=== PATIENT | female | born 1950 | race Caucasian/White ===

== ENCOUNTER 2017-06-12 19:47 | Inpatient (IN) | payer MEDICARE ==
[~2017-06-12] VITALS: Ht 167.6 cm; Wt 75.3 kg
[2017-06-12] MEDS: SODIUM CHLOR 0.9% 1000 ML INJ 1,000 ML IV SCH (01:05)
[~2017-06-12 19:47] MED LIST: ATOR80TA45 PO; CIPR-9 PO; ERGO1CAP10 PO; FOLI1TAB4 PO; MACR100C2 PO; METF500T PO; METO1TAB9 PO; PRAD150C PO; VESI5TAB2 PO
[2017-06-12 19:56] VITALS: BP 109/76; PULSE 125; RESP 22
--- NOTE | 2017-06-12 20:35 | PD ---
HPI Chief Complaint: Fall Time Seen by Provider: 20:16 Travel History International Travel<30 days: No Contact w/Intl Traveler<30days: No Traveled to known affect area: No History of Present Illness HPI The patient is a 66 year old female who presents to the [facility] emergency department with a history of being brought in as a [place] act by ambulance services when the patient was found in her home on the floor prior to arrival. The patient reports that she's been on the ground since Sunday. She is unsure exactly how she ended up on the ground. The patient reports having low back pain worse on the left compared to the right. The patient was brought in under a [place] act due to being found unable to care for herself with a home that was in disrepair. The patient reports that she's had diarrhea for the last 2 days. She is unsure exactly how many episodes of diarrhea she has had. She denies having any nausea or vomiting. She reports that she did have a soda on a table next to her. She reports that she was not able to sit up to drink it , therefore she has been pouring small amounts into her mouth to sustain herself. She denies having any chest pain, chest pressure, or shortness of breath. She denies having any one-sided weakness. She denies having any difficulty with word finding ability. The patient arrives awake and alert and is providing all of her history. The patient is disheveled appearing, with a dry mouth, covered in feces. The patient reports having neck pain. She denies having any paresthesias or tingling to her extremities. On review of systems, she denies having any known fevers, recent cough or congestion, abdominal pain, urinary symptoms, or other neurologic symptoms. [facility] Past Medical History Narrative Medical the patient's past medical history is significant for a prior stroke in March 2016 that caused aphasia. She reports that she completely recovered. The patient has a history of coronary artery disease status post stent placement. Heart Rhythm Problems: No Cancer: No Cardiovascular Problems: Yes (HEART LOOP MONITOR LEFT CHEST) High Cholesterol: No Chest Pain: No Congestive Heart Failure: No Cerebrovascular Accident: Yes Diabetes: No Diminished Hearing: No Endocrine: No GERD: No Genitourinary: Yes (HX UTI'S ) Hepatitis: No Hiatal Hernia: No Hypertension: Yes Immune Disorder: No Kidney Stones: Yes Musculoskeletal: No Neurologic: Yes (HX CVA 2015) Psychiatric: No Reproductive: No Respiratory: No Immunizations Current: Yes Migraines: No Renal Failure: No Seizures: No Thyroid Disease: No Ulcer: No ?: Not Menopausal: Yes Past Surgical History Abdominal Surgery: Yes (lipoma removed from left side of body 1982) AICD: No Body Medical Devices: IUD, HEART LOOP MONITOR Cardiac Surgery: Yes (HEART LOOP MONITOR TO LEFT CHEST) Ear Surgery: No Endocrine Surgery: No Eye Surgery: No Genitourinary Surgery: Yes (LEFT URETERAL STENT--REMOVED; KIDNEY STONE SURGERIES ) Gynecologic Surgery: No Joint Replacement: No Oral Surgery: No Pacemaker: No Thoracic Surgery: No Other Surgery: Yes Social History Alcohol Use: Yes (OCC) Tobacco Use: No Substance Use: No Allergies-Medications (Allergen,Severity, Reaction): Coded Allergies: sulfamethoxazole (Unverified Allergy, Severe, rash, 03/21/17) trimethoprim (Unverified Allergy, Severe, rash, 03/21/17) Reported Meds & Prescriptions Reported Meds & Active Scripts Active Macrobid (Nitrofurantoin Monoh/Nitrofur Macro) 100 Mg Cap 100 Mg PO BID Cipro (Ciprofloxacin HCl) 500 Mg Tab 500 Mg PO BID Metformin (Metformin HCl) 500 Mg Tab 500 Mg PO BIDPC With meals Atorvastatin (Atorvastatin Calcium) 80 Mg Tab 80 Mg PO HS Metoprolol Succinate ER 24 HR (Metoprolol Succinate) 50 Mg Tab 50 Mg PO DAILY Vitamin D (Ergocalciferol) 50,000 Unit Cap 50,000 Units PO Q7D Reported Vesicare (Solifenacin) 5 Mg Tab 5 Mg PO DAILY Folate (Folic Acid) 1 Mg Tab 1 Mg PO DAILY Pradaxa (Dabigatran) 150 Mg Cap 150 Mg PO BID Review of Systems Except as stated in HPI: all other systems reviewed are Neg General / Constitutional: No: Fever Eyes: No: Visual changes HENT: Positive: Neck Stiffness, Neck Pain, No: Headaches Cardiovascular: No: Chest Pain or Discomfort Respiratory: No: Shortness of Breath Gastrointestinal: Positive: Diarrhea, Changes in Bowel Habits, No: Nausea, Vomiting, Abdominal Pain, Hematemesis, Hematochezia, Constipation, Indigestion, Loss of Appetite Genitourinary: No: Dysuria Musculoskeletal: Positive: Myalgias, Arthralgias, Pain Skin: No Rash Neurologic: Positive: Weakness (generalized weakness), No: Focal Abnormalities , Change in Mentation, Slurred Speech, Sensory Disturbance Psychiatric: No: Depression Endocrine: No: Polydipsia Hematologic/Lymphatic: No: Easy Bruising Physical Exam Narrative General: The patient is a well-developed well-nourished female, uncomfortable appearing on arrival, an escape stretcher without a collar on.. Head and Neck exam: Head is normocephalic atraumatic. Eyes: EOMI, pupils are equal round and reactive to light. Nose: Midline septum with pink mucous membranes Mouth: Dentition unremarkable. Dry mucus membranes. Posterior oropharynx is not erythematous. No tonsillar hypertrophy. Uvula midline. Airway patent. Neck: No palpable lymphadenopathy. No nuchal rigidity. No thyromegaly. The patient reports having paraspinal muscles cervical tenderness on palpation. No step-off or crepitus. No erythema or ecchymosis. The patient was placed in a cervical collar. Cardiovascular: Sinus tachycardia with a rate in the 130s without murmurs, gallops, or rubs. No pulse deficit to the extremities and simultaneous auscultation and palpation of the radial artery. Lungs: Clear to auscultation bilaterally. No wheezes, rhonchi, or rales. Abdomen: Soft, with tenderness on palpation reported along the right upper quadrant of the abdomen, no other tenderness on palpation of the other quadrants of the abdomen. No guarding, rebound, or rigidity. Negative Juarez's sign. No tenderness on palpation of McBurney's point. Normal bowel sounds are audible. Extremities: No clubbing, cyanosis, or edema. 2+ pulses in all 4 extremities. No calf tenderness on palpation. No extremity tenderness on palpation or deformity noted. The patient has full range of motion. Back: No spinous process tenderness to palpation. No costovertebral angle tenderness to palpation. On logrolling the patient, the patient is noted to have an area of bruising and abrasion along the left flank. The patient is noted to have a large area of erythema along the buttocks and sacrum with a central area that is approximately 8 x 6 cm of skin necrosis with tenderness on palpation. Neurologic Exam: Cranial nerves 2-12 were intact on exam. Strength is 5/5 in all 4 extremities. No sensory deficits noted. Skin Exam: Skin is warm and dry. Data Data Last Documented VS Vital Signs Date Time Temp Pulse Resp B/P (MAP) Pulse Ox O2 Delivery O2 Flow Rate FiO2 06/12/17 20:37 97.5 06/12/17 20:10 95 Nasal Cannula 2.00 06/12/17 19:56 125 22 109/76 (87) Orders Orders Electrocardiogram (06/12/17 20:16) Complete Blood Count With Diff (06/12/17 20:16) Comprehensive Metabolic Panel (06/12/17 20:16) Creatine Kinase (Cpk) (06/12/17 20:16) Ckmb (Isoenzyme) Profile (06/12/17 20:16) Troponin I (06/12/17 20:16) B-Type Natriuretic Peptide (06/12/17 20:16) Prothrombin Time / Inr (Pt) (06/12/17 20:16) Act Partial Throm Time (Ptt) (06/12/17 20:16) Lipase (06/12/17 20:16) Urinalysis - C+S If Indicated (06/12/17 20:16) Magnesium (Mg) (06/12/17 20:16) Thyroid Stimulating Hormone (06/12/17 20:16) Chest, Single Ap (06/12/17 20:16) Ct Brain W/O Iv Contrast(Rout) (06/12/17 20:16) Pelvis, Ap Only (Routine) (06/12/17 20:16) Iv Access Insert/Monitor (06/12/17 20:16) Ecg Monitoring (06/12/17 20:16) Oximetry (06/12/17 20:16) Urinary Catheter Insert/Apply (06/12/17 20:16) Ct Cerv Spine W/O Contrast (06/12/17 20:16) Ct Thor Spine W/O Contrast (06/12/17 20:16) Ct Lumb Spine W/O Contrast (06/12/17 20:16) Sodium Chlor 0.9% 1000 Ml Inj (Ns 1000 M (06/12/17 20:45) Permethrin 1% Lotion (Nix Creme Rinse 1% (06/12/17 21:15) Urine Culture (06/12/17 20:25) Piperacil-Tazo 3.375 Gm Premix (Zosyn 3. (06/12/17 21:30) Vancomycin Inj (Vancomycin Inj) (06/12/17 21:30) CKMB (06/12/17 20:25) CKMB% (06/12/17 20:25) Sodium Chlor 0.9% 1000 Ml Inj (Ns 1000 M (06/12/17 21:45) Admit Order (Ed Use Only) (06/12/17 21:49) Ct Abd/Pel W/O Iv Contrast (06/12/17 20:16) Labs Laboratory Tests Test 06/12/17 20:25 White Blood Count 25.3 TH/MM3 Red Blood Count 4.69 MIL/MM3 Hemoglobin 10.4 GM/DL Hematocrit 33.2 % Mean Corpuscular Volume 70.8 FL Mean Corpuscular Hemoglobin 22.3 PG Mean Corpuscular Hemoglobin Concent 31.4 % Red Cell Distribution Width 20.3 % Platelet Count 19 TH/MM3 Mean Platelet Volume 12.0 FL Neutrophils (%) (Auto) 94.1 % Lymphocytes (%) (Auto) 2.9 % Monocytes (%) (Auto) 2.9 % Eosinophils (%) (Auto) 0.0 % Basophils (%) (Auto) 0.1 % Neutrophils # (Auto) 23.8 TH/MM3 Lymphocytes # (Auto) 0.7 TH/MM3 Monocytes # (Auto) 0.7 TH/MM3 Eosinophils # (Auto) 0.0 TH/MM3 Basophils # (Auto) 0.0 TH/MM3 CBC Comment AUTO DIFF Differential Total Cells Counted 100 Neutrophils % (Manual) 90 % Band Neutrophils % 8 % Lymphocytes % 1 % Neutrophils # (Manual) 25.0 TH/MM3 Metamyelocytes 1 % Differential Comment FINAL DIFF MANUAL Platelet Estimate RARE Platelet Morphology Comment NORMAL Ovalocytes 1+ Acanthocytes OCC Prothrombin Time 11.8 SEC Prothromb Time International Ratio 1.1 RATIO Activated Partial Thromboplast Time 32.3 SEC Urine Color YELLOW Urine Turbidity CLOUDY Urine pH 5.5 Urine Specific [place] 1.016 Urine Protein 30 mg/dL Urine Glucose (UA) NEG mg/dL Urine Ketones NEG mg/dL Urine Occult Blood MOD Urine Nitrite NEG Urine Bilirubin NEG Urine Urobilinogen LESS THAN 2.0 MG/DL Urine Leukocyte Esterase LARGE Urine RBC 76 /hpf Urine WBC /hpf Urine Squamous Epithelial Cells 1 /hpf Urine Amorphous Sediment RARE Urine Bacteria MANY /hpf Urine Mucus FEW /lpf Microscopic Urinalysis Comment CULTURE INDICATED Blood Urea Nitrogen 187 MG/DL Creatinine 7.58 MG/DL Random Glucose 157 MG/DL Total Protein 6.4 GM/DL Albumin 1.8 GM/DL Calcium Level 8.6 MG/DL Magnesium Level 3.3 MG/DL Alkaline Phosphatase 140 U/L Aspartate Amino Transf (AST/SGOT) 36 U/L Alanine Aminotransferase (ALT/SGPT) 22 U/L Total Bilirubin 0.7 MG/DL Sodium Level 147 MEQ/L Potassium Level 4.1 MEQ/L Chloride Level 113 MEQ/L Carbon Dioxide Level 13.3 MEQ/L Anion Gap 21 MEQ/L Total Creatine Kinase 256 U/L Creatine Kinase MB 6.8 NG/ML Creatine Kinase MB % 2.7 % Troponin I 0.28 NG/ML B-Type Natriuretic Peptide 121 PG/ML Lipase 1143 U/L Thyroid Stimulating Hormone 3rd Gen 2.460 uIU/ML [facility] Medical Decision Making Medical Screen Exam Complete: Yes Emergency Medical Condition: Yes Medical Record Reviewed: Yes Interpretation(s) Last Impressions Thoracic Spine CT 06/12/172015 Signed Impressions: Service Date/Time: Monday, June 12, 2017 22:01 - CONCLUSION: 1. No acute abnormality. Royal Philippe Jr., MD Pelvis X-Ray 06/12/172015 Signed Impressions: Service Date/Time: Monday, June 12, 2017 20:25 - CONCLUSION: No acute disease. Royal Philippe Jr., MD Lumbar Spine CT 06/12/172015 Signed Impressions: Service Date/Time: Monday, June 12, 2017 22:01 - CONCLUSION: 1. No fracture or dislocation. 2. Degenerative changes. 3. See the CT of the abdomen and pelvis reported separately. Royal Philippe Jr., MD Head CT 06/12/172015 Signed Impressions: Service Date/Time: Monday, June 12, 2017 21:56 - CONCLUSION: 1. No acute intracranial abnormality. 2. Atrophy and chronic small vessel ischemic change. Royal Philippe Jr., MD Chest X-Ray 06/12/172015 Signed Impressions: Service Date/Time: Monday, June 12, 2017 20:30 - CONCLUSION: No acute disease. Royal Philippe Jr., MD Cervical Spine CT 06/12/172015 Signed Impressions: Service Date/Time: Monday, June 12, 2017 21:56 - CONCLUSION: 1. No fracture or dislocation. 2. Degenerative changes as detailed above. Royal Philippe Jr., MD Abdomen/Pelvis CT 06/12/172015 Signed Impressions: Service Date/Time: Monday, June 12, 2017 22:01 - CONCLUSION: 1. 9 mm right mid ureteral stone with resulting hydronephrosis and proximal hydroureter. 2. Chronic hydronephrosis on the left with cortical thinning of the kidney and multiple nonobstructing left sided renal calculi. 3. Cholelithiasis. Royal Philippe Jr., MD Differential Diagnosis Rhabdomyolysis, versus dehydration, versus electrolyte derangements, versus acute coronary syndrome, versus intracranial trauma, versus cervical spine injury, versus thoracic spine injury, versus lumbar spine injury, versus intra- abdominal abnormality Narrative Course During the course of the patients emergency department visit, the patients history, examination, and differential diagnosis were reviewed with the patient. The patient was placed on a agency sales development associate with oximetry and frequent blood pressure monitoring. The patient had IV access obtained and blood work sent for analysis. The patient will have an ECG done. The patient had a Martini catheter placed to gravity. The patient was sponge bathed. The patient had an ECG done on arrival that shows a sinus tachycardia with occasional supraventricular premature complexes, no acute ST segment elevation or depression. QRS duration is 92 ms, QTC 414 ms. The patient was initially provided ice chips to wet her mouth. The patient was started on normal saline 1 L IV fluid bolus. The patients laboratory studies were reviewed and remarkable for a white count of 25.3, hemoglobin 10.4, platelets 19, 90 neutrophils, bands 8, 1 lymphocyte. The patient was started on Zosyn 3.375 g IV, vancomycin 1 g IV. CMP is remarkable for sodium of 147, chloride 113, CO2 13.3, anion gap 21, BUN 187, creatinine 7.58, glucose 157, magnesium 3.3, alkaline phosphatase 140, CPK 256, MB percent 2.7, troponin I 0.28. I suspect that the patient's elevated troponin is related to renal failure and tachycardia. The patient denies having any chest pain. BNP is 121, lipase 1143, TSH 2.46, PT 11.8, PTT 32.3, urinalysis shows moderate blood, large leukocyte esterase, 76 rbc's, innumerable WBCs, many bacteria. Culture indicated. Radiology studies were reviewed and remarkable for a chest x-ray that shows no acute cardiopulmonary disease, pelvis x-ray shows no acute abnormality, CT scan of the brain shows no acute intracranial abnormality. CT scan of the C-spine shows no fracture or dislocation, CT scan of the T-spine shows no acute abnormality. CT scan lumbar spine shows no fracture or dislocation. CT scan of the abdomen and pelvis shows a 9 mm right mid ureteral stone with resulting hydronephrosis and proximal hydroureter, chronic hydronephrosis on the left with cortical thinning of the kidney and multiple nonobstructing left sided renal calculi, cholelithiasis. The patients results were discussed with the patient, including the plan of care. I explained that further testing and/ or monitoring is indicated based on the patients history, examination, and/ or laboratory findings. Therefore, I recommended admission for additional evaluation. The patient expressed understanding and was agreeable with this plan. The patient was admitted to the hospital in critical condition and sent to a bed under the care of the cook [facility]. Critical Care Narrative Aggregate critical care time was 40 minutes. Time to perform other separately billable procedures was not included in the critical care time. My time did not include minutes spent treating any other patients simultaneously or on activities that did not directly contribute to the patient's treatment. The services I provided to this patient were to treat and/or prevent clinically significant deterioration that could result in: Fluid overload related to fluid resuscitation, versus cardiovascular collapse from sepsis. I provided critical care services requiring my management, as noted below: Chart data review, documentation time, medication orders and management, vital sign assessments/reviewing monitor data, ordering and reviewing lab tests, ordering and interpreting/reviewing x-rays and diagnostic studies, care of the patient and discussion of the patient with the admitting physicians. Physician Communication Physician Communication The patient's case including history, pertinent physical examination findings, and laboratory studies were discussed with Dr. Sutton. It was agreed that the patient would be admitted to the the [facility] service. Diagnosis Primary Impression: Acute renal failure Qualified Codes: N17.9 - Acute kidney failure, unspecified Additional Impressions: Fall Qualified Codes: W19.XXXA - Unspecified fall, initial encounter Thrombocytopenia Right ureteral calculus Sacral decubitus ulcer Qualified Codes: L89.159 - Pressure ulcer of sacral region, unspecified stage Pancreatitis Qualified Codes: K85.90 - Acute pancreatitis without necrosis or infection, unspecified Admitting Information Admitting Physician Requests: Michelle Stratton MD Jun 12, 2017 20:35
[2017-06-12 20:37] VITALS: TEMP 97.5
[2017-06-12] MEDS ORDERED: SODIUM CHLOR 0.9% 1000 ML INJ 1,000 ML IV ONE ×2 (20:45→21:45)
--- NOTE | 2017-06-12 20:52 | RADRPT ---
EXAM DATE/TIME: 06/12/2017 20:30 [facility] COMPARISON: CHEST SINGLE AP, March 20, 2016, 13:06. INDICATIONS : Chest pain after fall. Patient fell one week ago. MEDICAL HISTORY : Unobtainable. SURGICAL HISTORY : Unobtainable. ENCOUNTER: Initial ACUITY: 1 week PAIN SCORE: Non-responsive. LOCATION: Bilateral chest FINDINGS: A single view of the chest demonstrates the lungs to be symmetrically aerated without evidence of mas s, infiltrate or effusion. The cardiomediastinal contours are unremarkable. Osseous structures are intact. CONCLUSION: No acute disease. Royal Philippe Jr., MD on June 12, 2017 at 20:49 Board Certified Radiologist. This report was verified electronically.
[2017-06-12 21:02] LABS: BACTERIA, URINE MANY /hpf; BLOOD, URINE MOD (NEG); COMMENT (UR) CULTURE INDICATED; CULTURE IF INDICATED CULTURE INDICATED; GLUCOSE,URINE NEG (NEG); KETONE, URINE NEG (NEG); MUCUS URINE FEW /lpf (OCC); NITRITE,URINE NEG (NEG); PH, URINE 5.5 (5.0-8.5); SQUAMOUS EPITHELIAL CELL URINE 1 /hpf (0-5); URINE COLOR YELLOW (YELLW/STRAW)
--- NOTE | 2017-06-12 21:05 | RADRPT ---
EXAM DATE/TIME: 06/12/2017 20:25 [facility] COMPARISON: No previous studies available for comparison. INDICATIONS : Trauma. Left sided hip pain. MEDICAL HISTORY : Unobtainable. SURGICAL HISTORY : Unobtainable. ENCOUNTER: Initial ACUITY: 1 week PAIN SCORE: Non-responsive. LOCATION: Pelvis. FINDINGS: A single frontal view of the pelvis demonstrates no evidence of fracture. Osteoarthritic changes of t he hip joints bilaterally. The bony pelvic ring is intact. Bony mineralization is normal. Venous cory cifications overlie the pelvis. The soft tissues are intact. CONCLUSION: No acute disease. Royal Philippe Jr., MD on June 12, 2017 at 21:01 Board Certified Radiologist. This report was verified electronically.
[2017-06-12 21:06] LABS: APTT (PATIENT) 32.3 SEC (24.3-30.1); INTERNATIONAL NORMALIZED RATIO 1.1 RATIO; PROTHROMBIN TIME - PATIENT 11.8 SEC (9.8-11.6)
[2017-06-12 21:09] LABS: AUTOMATED NEUTROPHIL # 23.8 TH/MM3 (1.8-7.7); BASOPHIL % 0.1 % (0.0-2.0); HEMATOCRIT 33.2 % (35.0-46.0); LYMPH % 2.9 % (9.0-44.0); LYMPHOCYTE # 0.7 TH/MM3 (1.0-4.8); MEAN CELL VOLUME 70.8 FL (80.0-100.0); MEAN CORPUSCULAR HEMOGLOBIN 22.3 PG (27.0-34.0); MEAN CORPUSCULAR HGB CONC 31.4 % (32.0-36.0); MONO % 2.9 % (0.0-8.0); NEUT % 94.1 % (16.0-70.0); RED BLOOD COUNT 4.69 MIL/MM3 (4.00-5.30); RED CELL DISTRIBUTION WIDTH 20.3 % (11.6-17.2); WHITE BLOOD COUNT 25.3 TH/MM3 (4.0-11.0)
[2017-06-12 21:12] LABS: HEMO FLAGS AUTO DIFF
[2017-06-12 21:13] LABS: PLATELET COUNT 19 TH/MM3 (150-450)
[2017-06-12] MEDS ORDERED: PERMETHRIN 1% LOTION 60 ML BTL TOPICAL ONE (21:15)
[2017-06-12 21:17] LABS: ANION GAP 21 MEQ/L (5-15); AST (GOT) 36 U/L (15-37); BICARBONATE 13.3 MEQ/L (21.0-32.0); CHLORIDE 113 MEQ/L (98-107); MAGNESIUM 3.3 MG/DL (1.5-2.5); POTASSIUM 4.1 MEQ/L (3.5-5.1); SODIUM (NA) 147 MEQ/L (136-145)
[2017-06-12 21:18] LABS: ALT (GPT) 22 U/L (10-53)
[2017-06-12 21:28] LABS: ALKALINE PHOSPHATASE 140 U/L (45-117); CREATINE KINASE 256 U/L (26-192); TOTAL BILIRUBIN ADULT 0.7 MG/DL (0.2-1.0)
[2017-06-12] MEDS ORDERED: PIPERACIL-TAZO 3.375 GM PREMIX 50 ML IV ONE (21:30)
[2017-06-12] MEDS ORDERED: VANCOMYCIN INJ 1,000 MG in SODIUM CHLOR 0.9% 250 ML INJ 250 ML IV ONE (21:30)
[2017-06-12 21:40] LABS: BLOOD UREA NITROGEN 187 MG/DL (7-18)
[2017-06-12 21:43] LABS: BANDS 8 % (0-6); METAMYELOCYTES 1 % (0-1); POLYS (SEG NEUTROPHILS) 90 % (16-70); SCAN/DIFF FINAL DIFF MANUAL; WBC DIFF SAMPLE 100
[2017-06-12 21:44] LABS: PLATELET ESTIMATE SMEAR RARE (NORMAL); PLATELET MORPHOLOGY NORMAL (NORMAL)
[2017-06-12 21:45] LABS: OVALOCYTES 1+ (NORMAL)
[2017-06-12 21:47] LABS: ACANTHOCYTES OCC (NORMAL)
[2017-06-12 21:52] LABS: CKMB 6.8 NG/ML (0.5-3.6)
--- NOTE | 2017-06-12 22:09 | RADRPT ---
EXAM DATE/TIME: 06/12/2017 21:56 [facility] COMPARISON: CT BRAIN W/O CONTRAST, March 20, 2016, 14:13. INDICATIONS : Trauma, fall. Patient was found down in home for 4 days. RADIATION DOSE: 66.21 CTDIvol (mGy) MEDICAL HISTORY : Cardiovascular disease. Hypertension. CVA. SURGICAL HISTORY : None. ENCOUNTER: Initial ACUITY: 4 - 6 days PAIN SCALE: 0/10 LOCATION: cranial TECHNIQUE: Multiple contiguous axial images were obtained of the head. Using automated exposure control and adj ustment of the mA and/or kV according to patient size, radiation dose was kept as low as reasonably a chievable to obtain optimal diagnostic quality images. DICOM format image data is available electro nically for review and comparison. FINDINGS: CEREBRUM: Atrophy. Periventricular low attenuation change involving both cerebral hemispheres. The ventricles a re normal for age. No evidence of midline shift, mass lesion, hemorrhage or acute infarction. No ex tra-axial fluid collections are seen. POSTERIOR FOSSA: The cerebellum and brainstem are intact. The 4th ventricle is midline. The cerebellopontine angle i s unremarkable. EXTRACRANIAL: The visualized portion of the orbits is intact. SKULL: The calvaria is intact. No evidence of skull fracture. CONCLUSION: 1. No acute intracranial abnormality. 2. Atrophy and chronic small vessel ischemic change. Royal Philippe Jr., MD on June 12, 2017 at 22:05 Board Certified Radiologist. This report was verified electronically.
--- NOTE | 2017-06-12 22:24 | RADRPT ---
EXAM DATE/TIME: 06/12/2017 22:01 [facility] COMPARISON: No previous studies available for comparison. INDICATIONS : Trauma, fall. Patient was found down in home for 4 days. ORAL CONTRAST: No oral contrast ingested. RADIATION DOSE: 13.59 CTDIvol (mGy) MEDICAL HISTORY : Hypertension. Cardiovascular disease Renal calculi.CVA. SURGICAL HISTORY : Heart loop monitor. ENCOUNTER: Initial ACUITY: 4 - 6 days PAIN SCALE: 0/10 LOCATION: All quadrants. TECHNIQUE: Volumetric scanning of the abdomen and pelvis was performed. Using automated exposure control and ad justment of the mA and/or kV according to patient size, radiation dose was kept as low as reasonably achievable to obtain optimal diagnostic quality images. DICOM format image data is available electro nically for review and comparison. FINDINGS: Breathing motion degraded. LOWER LUNGS: The visualized lower lungs are clear. LIVER: Homogeneous density without lesion. There is no dilation of the biliary tree. Several small calcifie d gallstones within an otherwise normal-appearing gallbladder. SPLEEN: Normal size without lesion. PANCREAS: Within normal limits. KIDNEYS: Bilateral renal calculi observed. There is bilateral hydronephrosis. On the left this appears chronic with chronic thinning of the cortex. On the right there is a 9 mm stone within the mid ureter genera ting the hydronephrosis. No perinephric stranding or fluid collections. ADRENAL GLANDS: Within normal limits. VASCULAR: There is no aortic aneurysm. BOWEL/MESENTERY: The stomach, small bowel, and colon demonstrate no acute abnormality. There is no free intraperitone al air or fluid. ABDOMINAL WALL: Within normal limits. RETROPERITONEUM: There is no lymphadenopathy. BLADDER: The urinary bladder is totally decompressed a Martini balloon present. REPRODUCTIVE: Within normal limits. INGUINAL: There is no lymphadenopathy or hernia. MUSCULOSKELETAL: Within normal limits for patient age. CONCLUSION: 1. 9 mm right mid ureteral stone with resulting hydronephrosis and proximal hydroureter. 2. Chronic hydronephrosis on the left with cortical thinning of the kidney and multiple nonobstructin g left sided renal calculi. 3. Cholelithiasis. Royal Philippe Jr., MD on June 12, 2017 at 22:18 Board Certified Radiologist. This report was verified electronically.
--- NOTE | 2017-06-12 22:41 | RADRPT ---
EXAM DATE/TIME: 06/12/2017 21:56 [facility] COMPARISON: No previous studies available for comparison. INDICATIONS : Trauma, fall. Patient was found down in home for 4 days. RADIATION DOSE: 21.29 CTDIvol (mGy) MEDICAL HISTORY : None SURGICAL HISTORY : None. ENCOUNTER: Initial ACUITY: 1 day PAIN SCALE: 0/10 LOCATION: neck TECHNIQUE: Volumetric scanning of the cervical spine was performed. Multiplanar reconstructions in the sagittal, coronal and oblique axial planes were performed. Using automated exposure control and adjustment o f the mA and/or kV according to patient size, radiation dose was kept as low as reasonably achievable to obtain optimal diagnostic quality images. DICOM format image data is available electronically f or review and comparison. FINDINGS: VERTEBRAE: Normal vertebral body height. ALIGNMENT: No evidence of subluxation. C2-C3: The bony spinal canal is normal in size. No evidence of disc bulge or herniation. The neural forami na are bilaterally patent. C3-C4: There is a broad-based disc bulge eccentric to the left. No central canal stenosis. Bony uncovertebra l hypertrophy generates mild narrowing of the right neural foramen. The left remains patent. C4-C5: There is a broad-based disc bulge. No central canal stenosis. Neural foramina are patent. C5-C6: There is a broad-based disc osteophyte complex. No central canal stenosis. Bony uncovertebral hypertr ophy generates moderate right and mild left neural foraminal narrowing. C6-C7: The bony spinal canal is normal in size. No evidence of disc bulge or herniation. The neural forami na are bilaterally patent. C7-T1: The bony spinal canal is normal in size. No evidence of disc bulge or herniation. The neural forami na are bilaterally patent. CONCLUSION: 1. No fracture or dislocation. 2. Degenerative changes as detailed above. Royal Philippe Jr., MD on June 12, 2017 at 22:36 Board Certified Radiologist. This report was verified electronically.
--- NOTE | 2017-06-12 22:43 | RADRPT ---
EXAM DATE/TIME: 06/12/2017 22:01 [facility] COMPARISON: No previous studies available for comparison. INDICATIONS : Trauma, fall. Patient was found down in home for 4 days. RADIATION DOSE: ; Reconstructed from previous dataset, no dose MEDICAL HISTORY : None SURGICAL HISTORY : None. ENCOUNTER: Initial ACUITY: 4 - 6 days PAIN SCALE: 8/10 LOCATION: Lumbar spine. TECHNIQUE: Volumetric scanning of the lumbar spine was performed. Multiplanar reconstructions in the sagittal, coronal and oblique axial planes were performed. Using automated exposure control and adjustment of the mA and/or kV according to patient size, radiation dose was kept as low as reasonably achievable t o obtain optimal diagnostic quality images. DICOM format image data is available electronically for review and comparison. FINDINGS: VERTEBRAE: Normal vertebral body height. ALIGNMENT: No evidence of subluxation. T12-L1: The thecal sac has a normal diameter. No evidence of disc bulge or protrusion. The neural foramina are patent bilaterally. L1-L2: The thecal sac has a normal diameter. No evidence of disc bulge or protrusion. The neural foramina are patent bilaterally. L2-L3: The thecal sac has a normal diameter. No evidence of disc bulge or protrusion. The neural foramina are patent bilaterally. L3-L4: The thecal sac has a normal diameter. No evidence of disc bulge or protrusion. The neural foramina are patent bilaterally. L4-L5: There is a broad-based disc bulge. Neural foramina and central canal are patent. L5-S1: There is disc space narrowing with vacuum disc phenomena and broad-based disc bulge. The neural juan m meghan and central canal are patent. Facet arthropathy changes are noted. CONCLUSION: 1. No fracture or dislocation. 2. Degenerative changes. 3. See the CT of the abdomen and pelvis reported separately. Royal Philippe Jr., MD on June 12, 2017 at 22:39 Board Certified Radiologist. This report was verified electronically.
--- NOTE | 2017-06-12 22:46 | RADRPT ---
EXAM DATE/TIME: 06/12/2017 22:01 [facility] COMPARISON: No previous studies available for comparison. INDICATIONS : Trauma, fall. Patient was found down in home for 4 days. RADIATION DOSE: 35.86 CTDIvol (mGy) MEDICAL HISTORY : Hypertension. Cardiovascular disease Renal calculi. SURGICAL HISTORY : Heart loop monitor. ENCOUNTER: Initial ACUITY: 4 - 6 days PAIN SCALE: 7/10 LOCATION: Thoracic spine. TECHNIQUE: Volumetric scanning of the thoracic spine was performed. Multiplanar reconstructions in the sagittal , coronal and oblique axial planes were performed. Using automated exposure control and adjustment o f the mA and/or kV according to patient size, radiation dose was kept as low as reasonably achievable to obtain optimal diagnostic quality images. DICOM format image data is available electronically f or review and comparison. FINDINGS: The vertebral bodies of the thoracic spine are in normal alignment without evidence of subluxation. Vertebral body height is maintained. No fractures are seen. T1-T2: Normal. T2-T3: The thecal sac has a normal diameter. No evidence of disc bulge or protrusion. T3-T4: The thecal sac has a normal diameter. No evidence of disc bulge or protrusion. T4-T5: The thecal sac has a normal diameter. No evidence of disc bulge or protrusion. T5-T6: The thecal sac has a normal diameter. No evidence of disc bulge or protrusion. T6-T7: The thecal sac has a normal diameter. No evidence of disc bulge or protrusion. T7-T8: The thecal sac has a normal diameter. No evidence of disc bulge or protrusion. T8-T9: The thecal sac has a normal diameter. No evidence of disc bulge or protrusion. T9-T10: The thecal sac has a normal diameter. No evidence of disc bulge or protrusion. T10-T11: The thecal sac has a normal diameter. No evidence of disc bulge or protrusion. T11-T12: The thecal sac has a normal diameter. No evidence of disc bulge or protrusion. T12-L1: The thecal sac has a normal diameter. No evidence of disc bulge or protrusion. CONCLUSION: 1. No acute abnormality. Royal Philippe Jr., MD on June 12, 2017 at 22:43 Board Certified Radiologist. This report was verified electronically.
[2017-06-12] MEDS ORDERED: MAGNESIUM HYDROXIDE SUSP 30 ML CUP PO PRN (23:15)
[2017-06-12] MEDS ORDERED: SODIUM CHLORIDE 0.9% FLUSH 10 ML FLUSH IV FLUSH PRN (23:15)
[2017-06-12] MEDS ORDERED: LACTULOSE SYRUP 20 GM/30 ML CUP PO PRN (23:15)
[2017-06-12] MEDS ORDERED: RESP: ALBUTEROL 2.5 MG/IPRATROPIUM 0.5 MG NEB (PRN) INH (23:15)
[2017-06-12] MEDS ORDERED: ACETAMINOPHEN 325 MG TAB PO PRN (23:15)
[2017-06-12] MEDS ORDERED: CHLORHEXIDINE GLUCONATE 2 % 1 PACK (2 CLOTHS) TOP PRN (23:15)
[2017-06-12] MEDS ORDERED: SENNOSIDES 8.6 MG TAB PO PRN (23:15)
[2017-06-12] MEDS ORDERED: BISACODYL 10 MG SUPP RECTAL PRN (23:15)
[2017-06-12] MEDS ORDERED: TEMAZEPAM 15 MG CAP PO PRN (23:15)
[2017-06-12] MEDS ORDERED: ONDANSETRON HCL 4 MG/2 ML VIAL IV PUSH PRN (23:15)
[2017-06-12] MEDS ORDERED: MISCELLANEOUS NURSING INFORMATION XX SCH (23:15)
--- NOTE | 2017-06-12 23:16 | HHI.HP ---
HPI Service Critical Care Medicine Primary Care Physician Unknown Admission Diagnosis Renal Failure, Dehydration, thrombocytopenia Diagnosis: Travel History International Travel<30 Days: No Contact w/Intl Traveler <30 Da: No Traveled to Known Affected Are: No History of Present Illness 66 year old female presents has being brought in as a [place] act by ambulance services when the patient was found in her home on the floor prior to arrival. The patient reports that she's been on the ground since Sunday. She is unsure exactly how she ended up on the ground. The patient reports having low back pain worse on the left compared to the right. She has been brought in under a [place] act due to being found unable to care for herself with a home that was in disrepair. She has had diarrhea for the last 2 days. She is unsure exactly how many episodes of diarrhea she has had. She denies having any nausea or vomiting. She denies having any chest pain, chest pressure, or shortness of breath. She denies having any one-sided weakness. Review of Systems Constitutional: DENIES: Diaphoretic episodes, Fatigue, Fever, Weight gain, Weight loss, Chills, Dizziness, Change in appetite, Night Sweats Endocrine: DENIES: Abnorml menstrual pattern, Heat/cold intolerance, Polydipsia , Polyuria, Polyphagia Eyes: DENIES: Blurred vision, Diplopia, Eye inflammation, Eye pain, Vision loss , Photosensitivity, Double Vision Ears, nose, mouth, throat: DENIES: Tinnitus, Hearing loss, Vertigo, Nasal discharge, Oral lesions, Throat pain, Hoarseness, Ear Pain, Running Nose, Epistaxis, Sinus Pain, Toothache, Odynophagia Respiratory: DENIES: Apneas, Cough, Snoring, Wheezing, Hemoptysis, Sputum production, Shortness of breath Cardiovascular: DENIES: Chest pain, Palpitations, Syncope, Dyspnea on Exertion , PND, Lower Extremity Edema, Orthopnea, Claudication Gastrointestinal: DENIES: Abdominal pain, Black stools, Bloody stools, Constipation, Diarrhea, Nausea, Vomiting, Difficulty Swallowing, Anorexia Genitourinary: DENIES: Abnormal vaginal bleeding, Dysmenorrhea, Dyspareunia, Sexual dysfunction, Urinary frequency, Urinary incontinence, Urgency, Hematuria , Dysuria, Nocturia, Vaginal discharge Musculoskeletal: COMPLAINS OF: Back pain, DENIES: Joint pain, Muscle aches, Stiffness, Joint Swelling, Neck pain Integumentary: DENIES: Abnormal pigmentation, Pruritus, Rash, Nail changes, Breast masses, Breast skin changes, Nipple discharge Hematologic/lymphatic: DENIES: Bruising, Lymphadenopathy Immunologic/allergic: DENIES: Eczema, Urticaria Neurologic: DENIES: Abnormal gait, Headache, Localized weakness, Paresthesias, Seizures, Speech Problems, Tremor, Poor Balance Psychiatric: DENIES: Anxiety, Confusion, Mood changes, Depression, Hallucinations, Agitation, Suicidal Ideation, Homicidal Ideation, Delusions Past Family Social History Allergies: Coded Allergies: sulfamethoxazole (Unverified Allergy, Severe, rash, 03/21/17) trimethoprim (Unverified Allergy, Severe, rash, 03/21/17) Past Medical History 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 History of coronary artery disease status post stent placement. Past Surgical History Urethral stent placement Reported Medications Reported Meds & Active Scripts Active Macrobid (Nitrofurantoin Monoh/Nitrofur Macro) 100 Mg Cap 100 Mg PO BID Cipro (Ciprofloxacin HCl) 500 Mg Tab 500 Mg PO BID Metformin (Metformin HCl) 500 Mg Tab 500 Mg PO BIDPC With meals Atorvastatin (Atorvastatin Calcium) 80 Mg Tab 80 Mg PO HS Metoprolol Succinate ER 24 HR (Metoprolol Succinate) 50 Mg Tab 50 Mg PO DAILY Vitamin D (Ergocalciferol) 50,000 Unit Cap 50,000 Units PO Q7D Reported Vesicare (Solifenacin) 5 Mg Tab 5 Mg PO DAILY Folate (Folic Acid) 1 Mg Tab 1 Mg PO DAILY Pradaxa (Dabigatran) 150 Mg Cap 150 Mg PO BID Active Ordered Medications Current Medications Medications (Trade) Dose Ordered Sig/Rinku Route PRN Reason Start Time Stop Time Status Last Admin Dose Admin Metoprolol Succinate (Toprol Xl) 50 mg DAILY PO 06/13/17 09:00 Sodium Chloride (NS Flush) 2 ml UNSCH PRN IV FLUSH FLUSH AFTER USING IV ACCESS 06/12/17 23:15 Sodium Chloride (NS Flush) 2 ml BID IV FLUSH 06/13/17 09:00 Acetaminophen (Tylenol) 650 mg Q6H PRN PO PAIN 1-10 AND/OR FEVER >101F 06/12/17 23:15 Famotidine (Pepcid Inj) 10 mg Q12HR IV PUSH 06/13/17 09:00 Ondansetron HCl (Zofran Inj) 4 mg Q6H PRN IV PUSH NAUSEA OR VOMITING 06/12/17 23:15 Temazepam (Restoril) 15 mg HS PRN PO INSOMNIA 06/12/17 23:15 Albuterol/ Ipratropium (Duoneb Neb) 1 ampule Q2HR NEB PRN INH WHEEZING 06/12/17 23:15 Miscellaneous Information 1 Q361D XX 06/12/17 23:15 06/12/17 01:00 Chlorhexidine Gluconate (Chlorhexidine 2% Cloth) 3 pack Taper DAILY@04 TOP 06/13/17 04:00 06/09/18 03:59 06/13/17 03:51 Chlorhexidine Gluconate (Chlorhexidine 2% Cloth) 3 pack UNSCH PRN TOP HYGIENIC CARE 06/12/17 23:15 Senna/Docusate Sodium (Belen-Colace) 1 tab BID PO 06/13/17 09:00 Magnesium Hydroxide (Milk Of Magnesia Liq) 30 ml Q12H PRN PO Mild constipation 06/12/17 23:15 Sennosides (Senokot) 17.2 mg Q12H PRN PO Moderate constipation 06/12/17 23:15 Bisacodyl (Dulcolax Supp) 10 mg DAILY PRN RECTAL SEVERE CONSITIPATION 06/12/17 23:15 Lactulose (Lactulose Liq) 30 ml DAILY PRN PO SEVERE CONSITIPATION 06/12/17 23:15 Sodium Chloride 1,000 ml @ 125 mls/hr Q8H IV 06/12/17 23:30 06/12/17 01:05 Dextrose (D50w (Vial) Inj) 50 ml UNSCH PRN IV PUSH HYPOGLYCEMIA-SEE COMMENTS 06/12/17 23:30 Glucagon (Glucagon Inj) 1 mg UNSCH PRN OTHER HYPOGLYCEMIA-SEE COMMENTS 06/12/17 23:30 Insulin Aspart (NovoLOG SUPPLEMENTAL SCALE) 1 ACHS SLIDING SCALE SQ 06/13/17 08:00 Family History No family history significant for early coronary artery disease Social History Denies alcohol, tobacco, or illicit drug abuse Physical Exam Vital Signs Vital Signs Date Time Temp Pulse Resp B/P (MAP) Pulse Ox O2 Delivery O2 Flow Rate FiO2 06/12/17 20:37 97.5 06/12/17 20:10 95 Nasal Cannula 2.00 06/12/17 19:56 125 22 109/76 (87) Physical Exam GENERAL: Disheveled elderly-appearing female SKIN: Warm and dry. HEAD: Normocephalic. EYES: No scleral icterus. No injection or drainage. NECK: Supple, trachea midline. No JVD or lymphadenopathy. CARDIOVASCULAR: Regular rate and rhythm without murmurs, gallops, or rubs. RESPIRATORY: Breath sounds equal bilaterally. No accessory muscle use. GASTROINTESTINAL: Abdomen soft, non-tender, nondistended. MUSCULOSKELETAL: No cyanosis, or edema. BACK: Nontender without obvious deformity. Large area of erythema along the buttocks and sacrum with a central area that is approximately 8 x 6 cm of skin necrosis with tenderness on palpation. NEURO EXAM: GCS: M 6 V 5 E 4 Mental Status: The patient is alert and oriented to person, place, and time with normal speech. Cranial Nerves: Visual acuity intact bilaterally. Visual abdullahi normal in all quadrants. Pupils are round, reactive to light. Extraocular movements are intact without ptosis. Hearing is normal bilaterally. Voice is normal. Tongue protrudes midline and moves symmetrically. Reflexes: Biceps, patellar, and Achilles are 2/4 bilaterally. No clonus. Laboratory Laboratory Tests Test 06/12/17 20:25 White Blood Count 25.3 Red Blood Count 4.69 Hemoglobin 10.4 Hematocrit 33.2 Mean Corpuscular Volume 70.8 Mean Corpuscular Hemoglobin 22.3 Mean Corpuscular Hemoglobin Concent 31.4 Red Cell Distribution Width 20.3 Platelet Count 19 Mean Platelet Volume 12.0 Neutrophils (%) (Auto) 94.1 Lymphocytes (%) (Auto) 2.9 Monocytes (%) (Auto) 2.9 Eosinophils (%) (Auto) 0.0 Basophils (%) (Auto) 0.1 Neutrophils # (Auto) 23.8 Lymphocytes # (Auto) 0.7 Monocytes # (Auto) 0.7 Eosinophils # (Auto) 0.0 Basophils # (Auto) 0.0 CBC Comment AUTO DIFF Differential Total Cells Counted 100 Neutrophils % (Manual) 90 Band Neutrophils % 8 Lymphocytes % 1 Neutrophils # (Manual) 25.0 Metamyelocytes 1 Differential Comment FINAL DIFF MANUAL Platelet Estimate RARE Platelet Morphology Comment NORMAL Ovalocytes 1+ Acanthocytes OCC Prothrombin Time 11.8 Prothromb Time International Ratio 1.1 Activated Partial Thromboplast Time 32.3 Urine Color YELLOW Urine Turbidity CLOUDY Urine pH 5.5 Urine Specific [place] 1.016 Urine Protein 30 Urine Glucose (UA) NEG Urine Ketones NEG Urine Occult Blood MOD Urine Nitrite NEG Urine Bilirubin NEG Urine Urobilinogen LESS THAN 2.0 Urine Leukocyte Esterase LARGE Urine RBC 76 Urine WBC Urine Squamous Epithelial Cells 1 Urine Amorphous Sediment RARE Urine Bacteria MANY Urine Mucus FEW Microscopic Urinalysis Comment CULTURE INDICATED Blood Urea Nitrogen 187 Creatinine 7.58 Random Glucose 157 Total Protein 6.4 Albumin 1.8 Calcium Level 8.6 Magnesium Level 3.3 Alkaline Phosphatase 140 Aspartate Amino Transf (AST/SGOT) 36 Alanine Aminotransferase (ALT/SGPT) 22 Total Bilirubin 0.7 Sodium Level 147 Potassium Level 4.1 Chloride Level 113 Carbon Dioxide Level 13.3 Anion Gap 21 Total Creatine Kinase 256 Creatine Kinase MB 6.8 Creatine Kinase MB % 2.7 Troponin I 0.28 B-Type Natriuretic Peptide 121 Lipase 1143 Thyroid Stimulating Hormone 3rd Gen 2.460 Date/Time Source Procedure Growth Status 06/12/17 20:25 Urine Random Urine Urine Culture Pending Worksheet Result Diagram: 06/12/17202406/12/172024 Imaging Last 24 hours Impressions Thoracic Spine CT 06/12/172015 Signed Impressions: Service Date/Time: Monday, June 12, 2017 22:01 - CONCLUSION: 1. No acute abnormality. Royal Philippe Jr., MD Pelvis X-Ray 06/12/172015 Signed Impressions: Service Date/Time: Monday, June 12, 2017 20:25 - CONCLUSION: No acute disease. Royal Philippe Jr., MD Lumbar Spine CT 06/12/172015 Signed Impressions: Service Date/Time: Monday, June 12, 2017 22:01 - CONCLUSION: 1. No fracture or dislocation. 2. Degenerative changes. 3. See the CT of the abdomen and pelvis reported separately. Royal Philippe Jr., MD Head CT 06/12/172015 Signed Impressions: Service Date/Time: Monday, June 12, 2017 21:56 - CONCLUSION: 1. No acute intracranial abnormality. 2. Atrophy and chronic small vessel ischemic change. Royal Philippe Jr., MD Chest X-Ray 06/12/172015 Signed Impressions: Service Date/Time: Monday, June 12, 2017 20:30 - CONCLUSION: No acute disease. Royal Philippe Jr., MD Cervical Spine CT 06/12/172015 Signed Impressions: Service Date/Time: Monday, June 12, 2017 21:56 - CONCLUSION: 1. No fracture or dislocation. 2. Degenerative changes as detailed above. Royal Philippe Jr., MD Abdomen/Pelvis CT 06/12/172015 Signed Impressions: Service Date/Time: Monday, June 12, 2017 22:01 - CONCLUSION: 1. 9 mm right mid ureteral stone with resulting hydronephrosis and proximal hydroureter. 2. Chronic hydronephrosis on the left with cortical thinning of the kidney and multiple nonobstructing left sided renal calculi. 3. Cholelithiasis. MD Vishal Rodriguez Jr. VTE Risk Assessment Caprini VTE Risk Assessment: Mod/High Risk (score >= 2) Caprini Risk Assessment Model Point Value = 1 Point Value = 2 Point Value = 3 Point Value = 5 Age 41-60 Minor surgery BMI > 25 kg/m2 Swollen legs Varicose veins or History of unexplained or recurrent spontaneous Oral contraceptives or hormone replacement Sepsis (< 1 month) Serious lung disease, including pneumonia (< 1 month) Abnormal pulmonary function Acute myocardial infarction Congestive heart failure (< 1 month) History of inflammatory bowel disease Medical patient at bed rest Age 61-74 Arthroscopic surgery Major open surgery (> 45 min) Laparoscopic surgery (> 45 min) Malignancy Confined to bed (> 72 hours) Immobilizing plaster cast Central venous access Age >= 75 History of VTE Family history of VTE Factor V Leiden Prothrombin [id number] Lupus anticoagulant Anticardiolipin antibodies Elevated serum homocysteine Heparin-induced thrombocytopenia Other congenital or acquired thrombophilia Stroke (< 1 month) Elective arthroplasty Hip, pelvis, or leg fracture Acute spinal cord injury (< 1 month) Prophylaxis Regimen Total Risk Factor Score Risk Level Prophylaxis Regimen 0-1 Low Early ambulation 2 Moderate Order ONE of the following: *Sequential Compression Device (SCD) *Heparin 5000 units SQ BID 3-4 Higher Order ONE of the following medications: *Heparin 5000 units SQ TID *Enoxaparin/Lovenox 40 mg SQ daily (WT < 150 kg, CrCl > 30 mL/min) *Enoxaparin/Lovenox 30 mg SQ daily (WT < 150 kg, CrCl > 10-29 mL/min) *Enoxaparin/Lovenox 30 mg SQ BID (WT < 150 kg, CrCl > 30 mL/min) AND/OR *Sequential Compression Device (SCD) 5 or more Highest Order ONE of the following medications: *Heparin 5000 units SQ TID (Preferred with Epidurals) *Enoxaparin/Lovenox 40 mg SQ daily (WT < 150 kg, CrCl > 30 mL/min) *Enoxaparin/Lovenox 30 mg SQ daily (WT < 150 kg, CrCl > 10-29 mL/min) *Enoxaparin/Lovenox 30 mg SQ BID (WT < 150 kg, CrCl > 30 mL/min) AND *Sequential Compression Device (SCD) Assessment and Plan Assessment and Plan Acute kidney injury - Dehydration - Hypovolemia - Urethral stent with hydronephrosis - Aggressive IV fluid hydration - Neurology consult - Monitor strict I's and O's - Monitor electrolytes and creatinine levels Hypertension - Metoprolol Diabetes mellitus - On home metformin - hold due to JANET - Insulin sliding scale DVT GI prophylaxis - Teds SCDs - Subcutaneous heparin and Pepcid Critical Care: The total critical care time was 35 minutes. Time to perform other separately billable procedures was not included in the critical care time. Gene Sutton MD Jun 12, 2017 11:16 pm
[2017-06-12] MEDS ORDERED: GLUCAGON 1 MG/ML VIAL OTHER PRN (23:30)
[2017-06-12] MEDS ORDERED: DEXTROSE 50% IN WATER 50 ML VIAL(D50) IV PUSH PRN (23:30)
[2017-06-12 23:31] VITALS: BP 111/57; PULSE 90; RESP 18; O2SAT 94
[2017-06-13] VITALS (18 sets, daily range): BP systolic 94–179; BP diastolic 49–92; PULSE 69–124; RESP 14–24; TEMP 97.1–98.7; O2SAT 92–100
[2017-06-13 02:41] LABS: CKMB 5.5 NG/ML (0.5-3.6)
[2017-06-13] MEDS: CHLORHEXIDINE GLUCONATE 2 % 1 PACK (2 CLOTHS) TOP SCH ×2 (03:51→19:52)
[2017-06-13] MEDS: DOCUSATE SODIUM 50 MG/SENNA 8.6 MG TAB PO SCH ×2 (07:39→19:32)
[2017-06-13] MEDS: INSULIN ASPART SUPPLEMENTAL SCALE SQ SCH ×4 (08:00→19:51)
[2017-06-13] MEDS: SODIUM CHLORIDE 0.9% FLUSH 10 ML FLUSH IV FLUSH SCH ×2 (08:19→19:52)
[2017-06-13] MEDS: FAMOTIDINE 20 MG/2 ML VIAL IV PUSH SCH ×2 (08:19→22:43)
[2017-06-13] MEDS: SODIUM CHLOR 0.9% 1000 ML INJ 1,000 ML IV SCH (08:21)
[2017-06-13] MEDS ORDERED: SODIUM CHLOR 0.9% 1000 ML INJ 1,000 ML IV ONE ×2 (08:30)
--- NOTE | 2017-06-13 08:34 | HHI.CCPN ---
Subjective Remarks/Hospital Course 66 year old female presents has being brought in as a Boland act by ambulance services when the patient was found in her home on the floor prior to arrival. The patient reports that she's been on the ground since Sunday. She is unsure exactly how she ended up on the ground. The patient reports having low back pain worse on the left compared to the right. She has been brought in under a Boland act due to being found unable to care for herself with a home that was in disrepair. She has had diarrhea for the last 2 days. She is unsure exactly how many episodes of diarrhea she has had. She denies having any nausea or vomiting. She denies having any chest pain, chest pressure, or shortness of breath. She denies having any one-sided weakness. SUBJ 06/13: Lying in bed, lethargic critically ill. Very dehydrated. 06/12 labs showed BUN/cr 187/7.6, WBC 25.3 with L shift. Urine output 310 mL since admission. Labs today just drawn and are pending at this time. I have ordered additional 2 L normal saline bolus and increase her maintenance to 200 mL per hour. Received vancomycin and Zosyn in the ED. Placed on Zosyn renally dosed. Cultures are pending. Urology consult is pending regarding 9 mm right ureteral stone with right hydronephrosis/proximal hydroureter. Patient also has chronic left hydronephrosis Objective Vital Signs Date Time Temp Pulse Resp B/P (MAP) Pulse Ox O2 Delivery O2 Flow Rate FiO2 06/13/17 06:00 88 06/13/17 04:00 98.7 23 94/62 (73) 98 06/13/17 01:00 Nasal Cannula 3.00 Intake and Output 06/13/17 06/13/17 06/14/17 08:00 16:00 00:00 Intake Total 1914 ml Output Total 80 ml Balance 1834 ml Result Diagram: 06/12/17202406/12/172024 Imaging Last 24 hours Impressions Thoracic Spine CT 06/12/172015 Signed Impressions: Service Date/Time: Monday, June 12, 2017 22:01 - CONCLUSION: 1. No acute abnormality. Royal Philippe Jr., MD Pelvis X-Ray 06/12/172015 Signed Impressions: Service Date/Time: Monday, June 12, 2017 20:25 - CONCLUSION: No acute disease. Royal Philippe Jr., MD Lumbar Spine CT 06/12/172015 Signed Impressions: Service Date/Time: Monday, June 12, 2017 22:01 - CONCLUSION: 1. No fracture or dislocation. 2. Degenerative changes. 3. See the CT of the abdomen and pelvis reported separately. Royal Philippe Jr., MD Head CT 06/12/172015 Signed Impressions: Service Date/Time: Monday, June 12, 2017 21:56 - CONCLUSION: 1. No acute intracranial abnormality. 2. Atrophy and chronic small vessel ischemic change. Royal Philippe Jr., MD Chest X-Ray 06/12/172015 Signed Impressions: Service Date/Time: Monday, June 12, 2017 20:30 - CONCLUSION: No acute disease. Royal Philippe Jr., MD Cervical Spine CT 06/12/172015 Signed Impressions: Service Date/Time: Monday, June 12, 2017 21:56 - CONCLUSION: 1. No fracture or dislocation. 2. Degenerative changes as detailed above. Royal Philippe Jr., MD Abdomen/Pelvis CT 06/12/172015 Signed Impressions: Service Date/Time: Monday, June 12, 2017 22:01 - CONCLUSION: 1. 9 mm right mid ureteral stone with resulting hydronephrosis and proximal hydroureter. 2. Chronic hydronephrosis on the left with cortical thinning of the kidney and multiple nonobstructing left sided renal calculi. 3. Cholelithiasis. Royal Philippe Jr., MD Objective Remarks GENERAL: Disheveled severely dehydrated critically ill female SKIN: Warm and dry. HEAD: Normocephalic. EYES: No scleral icterus. No injection or drainage. NECK: Supple, trachea midline. No JVD or lymphadenopathy. CARDIOVASCULAR: Regular rate and rhythm without murmurs, gallops, or rubs. RESPIRATORY: Breath sounds equal bilaterally. No accessory muscle use. GASTROINTESTINAL: Abdomen soft, non-tender, nondistended. MUSCULOSKELETAL: No cyanosis, or edema. BACK: Large area of erythema along the buttocks and sacrum with a central area that is approximately 8 x 6 cm of skin necrosis with tenderness on palpation. NEURO EXAM: The patient is alert and oriented to person, place, Pupils are round , reactive to light. Extraocular movements are intact without ptosis. Grossly normal muscle strength Urinary Catheter: Yes Assessment to: Continue A/P Assessment and Plan NEURO: Acute metabolic/uremic encephalopathy - Minimize sedation neuro checks frequently RESP: - Aggressive pulmonary toilet, DuoNeb every 6 hours when necessary CVS: Hypotension tachycardia Severe dehydration Mild troponin elevation - Remains tachycardic hypotensive - Received 3 L fluid boluses since admission, give additional 2 L bolus of normal saline - Increased maintenance IV fluid to 200 mL per hour - Strict intake output - Troponin elevation most likely secondary to acute kidney injury GI: Elevated lipase Cholelithiasis - Repeat lipase level - Keep nothing by mouth - May need cholate cystectomy in the future - CT abdomen shows normal pancreas : Acute kidney failure Uremia Acute right hydronephrosis, hydroureter from obstructing stone Chronic left hydronephrosis - Continue aggressive fluid resuscitation as above - Urethral stone on the left with hydronephrosis/hydroureter. Urology and nephrology consult pending - Monitor strict I's and O's - Monitor electrolytes and creatinine levels, may need temporary hemodialysis ID: Severe sepsis UTI/acute pyelonephritis - Received Zosyn and vancomycin in the ED - Continue renally dosed Zosyn - Follow-up on blood and urine culture HEME: Thrombocytopenia - Most likely secondary to sepsis and dehydration\ - Monitor CBC coags Endo: Diabetes mellitus - On home metformin - hold due to JANET - Insulin sliding scale DVT GI prophylaxis - Teds SCDs - No DVT chemical prophylaxis due to thrombocytopenia and continue IV Pepcid Critical Care: The total critical care time was 35 minutes. Time to perform other separately billable procedures was not included in the critical care time. Cortez Dorado MD Jun 13, 2017 08:34
[2017-06-13] MEDS ORDERED: METOPROLOL SUCCINATE 50 MG EXTENDED RELEASE TAB PO SCH (09:00)
--- NOTE | 2017-06-13 09:28 | EKG ---
Date Performed: 06/13/2017 Time Performed: 07:17:46 PTAGE: 66 years EKG: Sinus rhythm with PAC(s) Borderline ECG NO PREVIOUS TRACING DOCTOR: Danny Matamoros Interpretating Date/Time 06/13/2017 09:27:04
--- NOTE | 2017-06-13 09:41 | EKG ---
Date Performed: 06/12/2017 Time Performed: 20:58:43 PTAGE: 66 years EKG: SINUS TACHYCARDIA WITH OCCASIONAL SUPRAVENTRICULAR PREMATURE COMPLEXES ABNORMAL RHYTHM ECG PREVIOUS TRACING : 03/20/2016 12.22 DOCTOR: Danny Matamoros Interpretating Date/Time 06/13/2017 09:36:43
[2017-06-13] MEDS: PIPERACIL-TAZO 2.25 GM PREMIX 50 ML IV SCH ×2 (10:05→17:46)
[2017-06-13 10:35] LABS: HEMATOCRIT 30.5 % (35.0-46.0); MEAN CORPUSCULAR HEMOGLOBIN 23.2 PG (27.0-34.0); MEAN CORPUSCULAR HGB CONC 31.3 % (32.0-36.0); RED BLOOD COUNT 4.13 MIL/MM3 (4.00-5.30); RED CELL DISTRIBUTION WIDTH 19.9 % (11.6-17.2); WHITE BLOOD COUNT 33.7 TH/MM3 (4.0-11.0)
[2017-06-13 10:38] LABS: HEMO FLAGS AUTO DIFF
[2017-06-13 10:40] LABS: PLATELET COUNT 19 TH/MM3 (150-450)
[2017-06-13] MEDS: SODIUM BICARBONATE 8.4% INJ 100 MEQ in WATER STERILE FOR INJ 850 ML IV SCH ×2 (10:48→20:38)
[2017-06-13] MEDS ORDERED: SODIUM CHLORIDE 23.4% INJ 38.5 MEQ, SODIUM BICARBONATE 8.4% INJ 100 MEQ in WATER STERIL... IV SCH (11:00)
[2017-06-13 11:21] LABS: BANDS 17 % (0-6); NEUTROPHIL # MANUAL DIFF 32.4 TH/MM3 (1.8-7.7); PLASMA CELLS 2 % (0-0); POLYS (SEG NEUTROPHILS) 79 % (16-70); WBC DIFF SAMPLE 100
[2017-06-13 11:22] LABS: OVALOCYTES 1+ (NORMAL); PLATELET ESTIMATE SMEAR LOW (NORMAL); PLATELET MORPHOLOGY NORMAL (NORMAL); SCAN/DIFF FINAL DIFF MANUAL; TOXIC GRANULATION 1+ (NORMAL)
[2017-06-13 11:34] LABS: ALKALINE PHOSPHATASE 153 U/L (45-117); ALT (GPT) 18 U/L (10-53); ANION GAP 20 MEQ/L (5-15); AST (GOT) 30 U/L (15-37); BICARBONATE 11.5 MEQ/L (21.0-32.0); CHLORIDE 122 MEQ/L (98-107); GLOMERULAR FILTRATION RATE 6 ML/MIN (>89); MAGNESIUM 2.9 MG/DL (1.5-2.5); POTASSIUM 4.7 MEQ/L (3.5-5.1); SODIUM (NA) 153 MEQ/L (136-145); TOTAL BILIRUBIN ADULT 0.8 MG/DL (0.2-1.0)
[2017-06-13 11:40] LABS: BLOOD UREA NITROGEN 184 MG/DL (7-18)
--- NOTE | 2017-06-13 11:42 | PD.CONS ---
HPI Service Nephrology Consult Requested By Reason for Consult Acute Renal Failure Primary Care Physician Unknown History of Present Illness This is a 66 y/o female who was brought in as a Boland Act for inability to care for self at home. She fell on Sunday, reportedly was on the floor since then. On arrival she had multiple lab abnormalities: Cr 7.58, BUN 187, C02 13.3, Na 147, BG 157, platelets 19, WBC 25.3. Her creatinine was 0.9 in March 2016. She has a hx of CVA, CAD with stent, diet controlled DM, multiple UTIs, and a hx of renal stones for which she has seen urology in the past and had a stent to left ureter and possibly lithotripsy. CT shows bilateral hydronephrosis, chronic on left (no stone visualized) and acute on right with 9mm obstructing stone. A guzman was placed but she is oliguric, has been given 0.9% NS. We were consulted for management, urology has also been consulted. (Herminia Sanchez) Review of Systems Constitutional: COMPLAINS OF: Fatigue Cardiovascular: DENIES: Chest pain Gastrointestinal: DENIES: Abdominal pain Integumentary: DENIES: Abnormal pigmentation Hematologic/lymphatic: COMPLAINS OF: Bruising (Herminia Sanchez) Past Family Social History Allergies: Coded Allergies: sulfamethoxazole (Unverified Allergy, Severe, rash, 03/21/17) trimethoprim (Unverified Allergy, Severe, rash, 03/21/17) Past Medical History Hx renal stones Hx UTIs HTN DM, diet controlled per patient CAD with stent Past Surgical History L ureteral stent PCI/stent Cardiac loop recorder Reported Medications Macrobid (Nitrofurantoin Monoh/Nitrofur Macro) 100 Mg Cap 100 Mg PO BID Cipro (Ciprofloxacin HCl) 500 Mg Tab 500 Mg PO BID Metformin (Metformin HCl) 500 Mg Tab 500 Mg PO BIDPC With meals (CURRENTLY DENIES) Atorvastatin (Atorvastatin Calcium) 80 Mg Tab 80 Mg PO HS Metoprolol Succinate ER 24 HR (Metoprolol Succinate) 50 Mg Tab 50 Mg PO DAILY Vitamin D (Ergocalciferol) 50,000 Unit Cap 50,000 Units PO Q7D Vesicare (Solifenacin) 5 Mg Tab 5 Mg PO DAILY Folate (Folic Acid) 1 Mg Tab 1 Mg PO DAILY Pradaxa (Dabigatran) 150 Mg Cap 150 Mg PO BID Active Ordered Medications Current Medications Medications (Trade) Dose Ordered Sig/Rinku Route Start Time Stop Time Status Last Admin (Toprol Xl) 50 mg DAILY PO 06/13/17 09:00 Future Hold 06/13/17 10:15 (NS Flush) 2 ml UNSCH PRN IV FLUSH 06/12/17 23:15 (NS Flush) 2 ml BID IV FLUSH 06/13/17 09:00 06/13/17 08:19 (Tylenol) 650 mg Q6H PRN PO 06/12/17 23:15 (Pepcid Inj) 10 mg Q12HR IV PUSH 06/13/17 09:00 06/13/17 08:19 (Zofran Inj) 4 mg Q6H PRN IV PUSH 06/12/17 23:15 (Restoril) 15 mg HS PRN PO 06/12/17 23:15 Future Hold (Duoneb Neb) 1 ampule Q2HR NEB PRN INH 06/12/17 23:15 Miscellaneous Information 1 Q361D XX 06/12/17 23:15 06/12/17 01:00 (Chlorhexidine 2% Cloth) 3 pack Taper DAILY@04 TOP 06/13/17 04:00 06/09/18 03:59 06/13/17 03:51 (Chlorhexidine 2% Cloth) 3 pack UNSCH PRN TOP 06/12/17 23:15 (Belen-Colace) 1 tab BID PO 06/13/17 09:00 (Milk Of Magnesia Liq) 30 ml Q12H PRN PO 06/12/17 23:15 (Senokot) 17.2 mg Q12H PRN PO 06/12/17 23:15 (Dulcolax Supp) 10 mg DAILY PRN RECTAL 06/12/17 23:15 (Lactulose Liq) 30 ml DAILY PRN PO 06/12/17 23:15 Sodium Chloride 1,000 ml @ 200 mls/hr Q5H IV 06/12/17 23:30 06/13/17 08:21 (D50w (Vial) Inj) 50 ml UNSCH PRN IV PUSH 06/12/17 23:30 (Glucagon Inj) 1 mg UNSCH PRN OTHER 06/12/17 23:30 (NovoLOG SUPPLEMENTAL SCALE) 1 ACHS SLIDING SCALE SQ 06/13/17 08:00 Piperacillin Sod/ Tazobactam Sod 50 ml @ 100 mls/hr Q8H IV 06/13/17 10:00 06/13/17 10:05 Sodium Bicarbonate 100 meq/Sterile Water 950 ml @ 75 mls/hr [id number] IV 06/13/17 09:30 06/13/17 10:48 Family History No hx of renal disorders Social History No smoking Social ETOH She lives alone, no family nearby Unemployed Full code (Herminia Sanchez) Physical Exam Vital Signs Vital Signs Date Time Temp Pulse Resp B/P (MAP) Pulse Ox O2 Delivery O2 Flow Rate FiO2 06/13/17 08:00 97.8 82 16 97/49 (65) 99 06/13/17 08:00 Nasal Cannula 3.00 06/13/17 06:00 88 06/13/17 04:00 98.7 96 23 94/62 (73) 98 06/13/17 04:00 96 06/13/17 02:00 104 06/13/17 01:00 97 Nasal Cannula 3.00 06/13/17 00:30 95 Nasal Cannula 4.00 06/13/17 00:21 97.7 120 24 132/92 (105) 95 06/13/17 00:08 06/13/17 00:01 Nasal Cannula 2.00 06/13/17 00:00 124 06/12/17 23:31 90 18 111/57 (75) 94 Nasal Cannula 2.00 06/12/17 20:37 97.5 06/12/17 20:10 95 Nasal Cannula 2.00 06/12/17 19:56 125 22 109/76 (87) Physical Exam Elderly female in no distress, disheveled, unkept Awake, alert, slow to respond but oriented x 3 S1/S2, tachycardic, no murmurs Lungs clear mucous membranes dry; bruising to left ear Abdomen soft, non tender Ext: no edema Laboratory Laboratory Tests Test 06/12/17 20:25 06/13/17 00:05 06/13/17 01:55 06/13/17 08:30 White Blood Count 25.3 33.7 Red Blood Count 4.69 4.13 Hemoglobin 10.4 9.6 Hematocrit 33.2 30.5 Mean Corpuscular Volume 70.8 74.0 Mean Corpuscular Hemoglobin 22.3 23.2 Mean Corpuscular Hemoglobin Concent 31.4 31.3 Red Cell Distribution Width 20.3 19.9 Platelet Count 19 19 Mean Platelet Volume 12.0 10.8 Neutrophils (%) (Auto) 94.1 Lymphocytes (%) (Auto) 2.9 Monocytes (%) (Auto) 2.9 Eosinophils (%) (Auto) 0.0 Basophils (%) (Auto) 0.1 Neutrophils # (Auto) 23.8 Lymphocytes # (Auto) 0.7 Monocytes # (Auto) 0.7 Eosinophils # (Auto) 0.0 Basophils # (Auto) 0.0 CBC Comment AUTO DIFF AUTO DIFF Differential Total Cells Counted 100 Neutrophils % (Manual) 90 Band Neutrophils % 8 Lymphocytes % 1 Neutrophils # (Manual) 25.0 Metamyelocytes 1 Differential Comment FINAL DIFF MANUAL Platelet Estimate RARE Platelet Morphology Comment NORMAL Ovalocytes 1+ Acanthocytes OCC Prothrombin Time 11.8 Prothromb Time International Ratio 1.1 Activated Partial Thromboplast Time 32.3 Urine Color YELLOW Urine Turbidity CLOUDY Urine pH 5.5 Urine Specific [place] 1.016 Urine Protein 30 Urine Glucose (UA) NEG Urine Ketones NEG Urine Occult Blood MOD Urine Nitrite NEG Urine Bilirubin NEG Urine Urobilinogen LESS THAN 2.0 Urine Leukocyte Esterase LARGE Urine RBC 76 Urine WBC Urine Squamous Epithelial Cells 1 Urine Amorphous Sediment RARE Urine Bacteria MANY Urine Mucus FEW Microscopic Urinalysis Comment CULTURE INDICATED Blood Urea Nitrogen 187 Creatinine 7.58 Random Glucose 157 Total Protein 6.4 Albumin 1.8 Calcium Level 8.6 Magnesium Level 3.3 Alkaline Phosphatase 140 Aspartate Amino Transf (AST/SGOT) 36 Alanine Aminotransferase (ALT/SGPT) 22 Total Bilirubin 0.7 Sodium Level 147 Potassium Level 4.1 Chloride Level 113 Carbon Dioxide Level 13.3 Anion Gap 21 Total Creatine Kinase 256 207 Creatine Kinase MB 6.8 5.5 Creatine Kinase MB % 2.7 2.7 Troponin I 0.28 0.29 B-Type Natriuretic Peptide 121 Lipase 1143 Thyroid Stimulating Hormone 3rd Gen 2.460 Urine Opiates Screen NEG Urine Barbiturates Screen NEG Urine Amphetamines Screen NEG Urine Benzodiazepines Screen NEG Urine Cocaine Screen NEG Urine Cannabinoids Screen NEG Nasal Screen MRSA (PCR) MRSA NOT DETECTED Date/Time Source Procedure Growth Status 06/13/17 01:55 Blood Peripheral Aerobic Blood Culture Pending Received 06/13/17 01:55 Blood Peripheral Anaerobic Blood Culture Pending Received 06/12/17 20:25 Urine Random Urine Urine Culture - Preliminary Gram Negative West Resulted (Herminia Sanchez) Result Diagram: 06/13/1730 06/12/172024 Imaging Last 72 hours Impressions Thoracic Spine CT 06/12/172015 Signed Impressions: Service Date/Time: Monday, June 12, 2017 22:01 - CONCLUSION: 1. No acute abnormality. Royal Philippe Jr., MD Pelvis X-Ray 06/12/172015 Signed Impressions: Service Date/Time: Monday, June 12, 2017 20:25 - CONCLUSION: No acute disease. Royal Philippe Jr., MD Lumbar Spine CT 06/12/172015 Signed Impressions: Service Date/Time: Monday, June 12, 2017 22:01 - CONCLUSION: 1. No fracture or dislocation. 2. Degenerative changes. 3. See the CT of the abdomen and pelvis reported separately. Royal Philippe Jr., MD Head CT 06/12/172015 Signed Impressions: Service Date/Time: Monday, June 12, 2017 21:56 - CONCLUSION: 1. No acute intracranial abnormality. 2. Atrophy and chronic small vessel ischemic change. Royal Philippe Jr., MD Chest X-Ray 06/12/172015 Signed Impressions: Service Date/Time: Monday, June 12, 2017 20:30 - CONCLUSION: No acute disease. Royal Philippe Jr., MD Cervical Spine CT 06/12/172015 Signed Impressions: Service Date/Time: Monday, June 12, 2017 21:56 - CONCLUSION: 1. No fracture or dislocation. 2. Degenerative changes as detailed above. Royal Philippe Jr., MD Abdomen/Pelvis CT 06/12/172015 Signed Impressions: Service Date/Time: Monday, June 12, 2017 22:01 - CONCLUSION: 1. 9 mm right mid ureteral stone with resulting hydronephrosis and proximal hydroureter. 2. Chronic hydronephrosis on the left with cortical thinning of the kidney and multiple nonobstructing left sided renal calculi. 3. Cholelithiasis. Royal Philippe Jr., MD (Herminia Sanchez) Assessment and Plan Problem List: (1) Acute renal failure ICD Codes: N17.9 - Acute kidney failure, unspecified Status: Acute Plan: Normal renal function at baseline JANET from obstructive uropathy due to renal stone, also prerenal azotemia due to dehydration She has been given IVF boluses, change to Sterile Water with 2 amps bicarb Repeat renal panel frequently, she may require dialysis if no improvement Obtain urine electrolytes Encourage PO fluids Monitor urine output, currently oliguric with a guzman Avoid nephrotoxic agents, renally dose when appropriate (2) Ureteral calculi ICD Codes: N20.1 - Calculus of ureter Status: Acute Plan: Obstructing, urology has been consulted Likely will require cystoscopy and stent placement (3) Thrombocytopenia ICD Codes: D69.6 - Thrombocytopenia, unspecified Status: Acute Plan: May be due to infection Monitor CBC, transfuse if needed (4) UTI (urinary tract infection) ICD Codes: N39.0 - Urinary tract infection, site not specified Plan: History of in the past GNR on culture She was given vancomycin, now on Zosyn (renally dose) Has leukocytosis, may be in part due to hemoconcentration (5) HTN (hypertension) ICD Codes: I10 - Essential (primary) hypertension Status: Acute Plan: Home medications were resumed, titrate if needed (6) Fall ICD Codes: W19.XXXA - Unspecified fall, initial encounter Status: Acute Plan: Etiology is not clear May need work up She is not in rhabdomyolysis (Herminia Sanchez) Problem List: (1) Acute renal failure ICD Codes: N17.9 - Acute kidney failure, unspecified Status: Acute Plan: Normal renal function at baseline JANET from obstructive uropathy due to renal stone, also prerenal azotemia due to dehydration She has been given IVF boluses, change to Sterile Water with 2 amps bicarb Repeat renal panel frequently, she may require dialysis if no improvement Obtain urine electrolytes Encourage PO fluids Monitor urine output, currently oliguric with a guzman Avoid nephrotoxic agents, renally dose when appropriate (2) Ureteral calculi ICD Codes: N20.1 - Calculus of ureter Status: Acute Plan: Obstructing, urology has been consulted Likely will require cystoscopy and stent placement (3) Thrombocytopenia ICD Codes: D69.6 - Thrombocytopenia, unspecified Status: Acute Plan: May be due to infection Monitor CBC, transfuse if needed (4) UTI (urinary tract infection) ICD Codes: N39.0 - Urinary tract infection, site not specified Plan: History of in the past GNR on culture She was given vancomycin, now on Zosyn (renally dose) Has leukocytosis, may be in part due to hemoconcentration (5) HTN (hypertension) ICD Codes: I10 - Essential (primary) hypertension Status: Acute Plan: Home medications were resumed, titrate if needed (6) Fall ICD Codes: W19.XXXA - Unspecified fall, initial encounter Status: Acute Plan: Etiology is not clear May need work up She is not in rhabdomyolysis Assessment and Plan patient was seen and examined. CT reveals bilateral hydronephrosis, with right obstructing ureteral stone. Also may have pancreatitis? Multiple electrolyte abnormalities: hypernatremia, severe metabolic acidosis. Also is septic. Bicarbonate drip started. IVF should be hypotonic. Severe thrombocytopenia is noted. DIC? Obtain LDH. Urology evaluation: ureteral stent is planned. She may need dialysis. Prognosis is guarded. At risk for multiple complications. (Thang Chadwick MD) Problem Qualifiers (1) Acute renal failure: Qualified Codes: N17.9 - Acute kidney failure, unspecified (2) Fall: Qualified Codes: W19.XXXA - Unspecified fall, initial encounter Herminia Sanchez Jun 13, 2017 11:42 Thang Chadwick MD Jun 13, 2017 20:55
[2017-06-13] MEDS ORDERED: LIDOCAINE HCL 1% PF 5 ML AMPULE OTHER ONE (12:00)
[2017-06-13] MEDS ORDERED: ONDANSETRON HCL 4 MG/2 ML VIAL IV PUSH ONE (12:00)
[2017-06-13] MEDS ORDERED: ROCURONIUM INJ 50 MG/5 ML SYRINGE IV PUSH ONE (12:00)
[2017-06-13] MEDS ORDERED: IOHEXOL 350 MG/ML 50 ML BTL (for RAD DIAG) OTHER ONE (12:00)
[2017-06-13] MEDS ORDERED: PROPOFOL 200 MG/20 ML AMP IV ONE (12:00)
[2017-06-13] MEDS ORDERED: MIDAZOLAM HCL 2 MG/2 ML VIAL IV ONE (12:00)
[2017-06-13] MEDS ORDERED: MORPHINE SULFATE 4 MG/ML INJ IV ONE (12:00)
--- NOTE | 2017-06-13 13:09 | MB ---
cc: MARISOL ANGELES DATE OF CONSULTATION: 06/13/2017 HISTORY OF PRESENT ILLNESS Ms. Banks is a 66-year-old female who was brought into the emergency room under a Boland Act. She was found to be in acute renal failure and a CT scan was performed demonstrating a 9 mm stone in the mid ureter. She has bilateral hydronephrosis and it appears she is chronically obstructed on the left side. She has been oliguric and she has a Martini catheter in place with minimal urine output. Apparently, she has had a history of stones in the past for which she has had treatment for. PAST MEDICAL HISTORY Her medical history includes: 1. Renal and ureteral calculi. 2. Hypertension. 3. Diabetes. 4. Heart disease. PAST SURGICAL HISTORY Lithotripsy with stent in place. MEDICATION For medications please refer to the chart. FAMILY HISTORY Denies any history of kidney cancer or bladder cancer. SOCIAL HISTORY She does social alcohol and she does not smoke. Recently Boland Acted. REVIEW OF SYSTEMS For review of systems please note: Denies chest pain, shortness of breath. Denies abdominal pain. Notes diarrhea. No tracing gait disturbances as she was found on the floor. She denies bleeding disorders. Denies headaches. The remaining review of systems were reviewed and were negative. PHYSICAL EXAMINATION VITAL SIGNS: Temperature 97.1, heart rate is 72, respiratory rate 18, 159/71. GENERAL: She is well-developed, well-nourished 66-year-old female presently in no acute distress. HEENT: Normocephalic, atraumatic. Pupils equal, round, reactive to light. Extraocular movements intact. NECK: Neck is supple. HEART: Regular rate and rhythm. LUNGS: Lungs are clear. ABDOMEN: Soft, nontender, nondistended. There is no CVA tenderness noted. Normal female external genitalia with a Martini catheter in place. EXTREMITIES: Show no cyanosis, clubbing or edema. NEURO: Cranial nerves II-XII and intact. PSYCHE: Her mood is generally normal. LABORATORY DATA White count is 33.7, hemoglobin 9.6, hematocrit 30.5, platelet count of 19,000. Sodium 153, potassium 4.7, chloride 122, CO2 11.5, BUN of 184, creatinine of 6.83. Urinalysis shows large leukocyte esterase, numerous white cells, 76 red cells. PT is 11.8, INR is 1.1, PTT is 32.3. IMAGING STUDIES Imaging study shows a 9 mm right mid ureteral stone with hydronephrosis and hydroureter, chronic hydronephrosis of the left kidney with cortical thinning is noted with multiple nonobstructing left renal calculi noted. ASSESSMENT A septic 66-year-old female with obstructing ureteral stone on the right side with apparently a poorly functioning left kidney causing acute renal failure and sepsis. RECOMMENDATIONS Cystoscopy with right retrograde study and right double-J stent insertion. Continue n.p.o. Thank you for the consult and allowing me to participate in the care of this patient. Marisol PUGA /12:32 PM /12:56 PM
[2017-06-13 15:54] LABS: ALT (GPT) 21 U/L (10-53); ANION GAP 17 MEQ/L (5-15); AST (GOT) 37 U/L (15-37); CHLORIDE 120 MEQ/L (98-107); GLOMERULAR FILTRATION RATE 7 ML/MIN (>89); POTASSIUM 4.5 MEQ/L (3.5-5.1); SODIUM (NA) 150 MEQ/L (136-145)
[2017-06-13 15:57] LABS: ALKALINE PHOSPHATASE 150 U/L (45-117); TOTAL BILIRUBIN ADULT 1.3 MG/DL (0.2-1.0)
[2017-06-13 16:08] LABS: BLOOD UREA NITROGEN 170 MG/DL (7-18)
--- NOTE | 2017-06-13 17:55 | ECHRPT ---
Indication: CVA/TIA CONCLUSIONS Normal left ventricular size. Wall thickness is normal. The left ventricular systolic function is moderately reduced with an estimated ejection fraction of 40%. There is diffuse global hypokinesis. Mild mitral valve regurgitation. BP: 94 / 62 HR: Rhythm: Sinus MEASUREMENTS (Male / Female) Normal Values Technical Quality:Fair 2D ECHO LV Diastolic Diameter PLAX 4.7 cm 4.2 - 5.9 / 3.9 - 5.3 cm LV Systolic Diameter PLAX 4.1 cm IVS Diastolic Thickness 0.9 cm 0.6 - 1.0 / 0.6 - 0.9 cm LVPW Diastolic Thickness 0.9 cm 0.6 - 1.0 / 0.6 - 0.9 cm LV Relative Wall Thickness 0.4 LVOT Diameter 1.8 cm Aortic Root Diameter 2.7 cm LA Systolic Diameter LX 2.6 cm 3.0 - 4.0 / 2.7 - 3.8 cm M-MODE AV Cusp Separation MM 1.7 cm DOPPLER AV Peak Velocity 138.0 cm/s AV Peak Gradient 7.6 mmHg AV Mean Gradient 4.0 mmHg AV Velocity Time Integral 26.9 cm LVOT Peak Velocity 77.5 cm/s LVOT Peak Gradient 2.4 mmHg LVOT Velocity Time Integral 15.0 cm AV Area Cont Eq vti 1.4 cm AV Area Cont Eq pk 1.4 cm Mitral E Point Velocity 85.9 cm/s Mitral A Point Velocity 102.0 cm/s Mitral E to A Ratio 0.8 LV E' Lateral Velocity 5.7 cm/s Mitral E to LV E' Lateral Ratio 15.2 LV E' Septal Velocity 6.8 cm/s Mitral E to LV E' Septal Ratio 12.6 PV Peak Velocity 61.7 cm/s PV Peak Gradient 1.5 mmHg FINDINGS LEFT VENTRICLE Normal left ventricular size. Wall thickness is normal. The left ventricular systolic function is moderately reduced with an estimated ejection fraction of 40%. There is diffuse global hypokinesis. RIGHT VENTRICLE Normal right ventricular size and systolic function. LEFT ATRIUM The left atrial size is normal. RIGHT ATRIUM The right atrial size is normal. ATRIAL SEPTUM Normal atrial septal thickness without atrial level shunting by limited color doppler interrogation. AORTA The aortic root and proximal ascending aorta are normal in size on limited imaging. MITRAL VALVE Mild mitral valve regurgitation. AORTIC VALVE Trileaflet aortic valve. No aortic valve stenosis or regurgitation. TRICUSPID VALVE Structurally normal tricuspid valve. No tricuspid valve stenosis or regurgitation. PULMONARY VALVE The pulmonary valve is not well visualized. VESSELS The inferior vena cava is normal in size. PERICARDIUM No pericardial effusion. Margaret Wise MD, FACC (Electronically Signed) Final Date:13 June 2017 17:54
[2017-06-13] MEDS ORDERED: SUGAMMADEX SODIUM 200 MG/2 ML VIAL IV PUSH ONE ×2 (21:22)
--- NOTE | 2017-06-13 21:42 | PD.OP ---
Operative Report Date of Surgery: Jun 13, 2017 Preoperative Diagnosis: Acute renal failure with right ureteral calculus and hydronephrosis with sepsis Postoperative Diagnosis: Same Procedure: Cystoscopy with right retrograde study and right double-J stent insertion Anesthesia: MARK ANTHONY Surgeon: Jakub Paige Precision Millwright(s): None Resident Surgeon: None Operation and Findings: 66-year-old female admitted with findings of a 9 mm right mid ureteral calculus with hydronephrosis bilaterally with poorly functioning left kidney. Patient was found to be in acute renal failure with evidence of sepsis. Decision made to take the patient to the operating room to undergo cystoscopy right retrograde study and right double-J stent insertion. Risk and benefits were discussed preoperatively with her and she was willing to proceed. Patient is brought to operating room and identified by myself as Ginger Banks. She's placed in dorsal lithotomy position, prepped draped in usual sterile fashion, had received preprocedure antibiotics and general endotracheal tube anesthesia was administered. Platelets the scope was inserted in the bladder shaikh cystoscopy did not reveal any abnormalities. The right ureteral orifice was identified. A 5 Namibian open-ended catheter was inserted into the right ureteral orifice and retrograde study was performed. The filling defect was identified in the mid ureter. A 0.35 sensor wire was then passed through the open-ended catheter in place with a good curl in the kidney. A 6 Namibian 24 cm right double-J stent was placed with good curl the kidney and a good curl in the bladder. A 16 [place]ian Martini was in the inserted in the bladder. She tolerated procedure well and was transferred back to the floor in critical condition. Jakub Paige DO Jun 13, 2017 21:42
[2017-06-13] MEDS ORDERED: DO NOT ADM ANY ANTICOAGULANT DRUGS PRN (22:00)
[2017-06-13 22:28] LABS: RETIC % 0.1 % (0.4-3.0)
[2017-06-13 22:29] LABS: REVIEW FLAG FINAL
[2017-06-14] VITALS (21 sets, daily range): BP systolic 132–171; BP diastolic 62–81; PULSE 62–85; RESP 11–27; TEMP 98–98.7; O2SAT 89–100
[2017-06-14] MEDS: PIPERACIL-TAZO 2.25 GM PREMIX 50 ML IV SCH ×3 (01:11→18:24)
[2017-06-14 02:24] LABS: HEMATOCRIT 25.8 % (35.0-46.0); MEAN CELL VOLUME 71.4 FL (80.0-100.0); MEAN CORPUSCULAR HEMOGLOBIN 22.3 PG (27.0-34.0); MEAN CORPUSCULAR HGB CONC 31.2 % (32.0-36.0); PLATELET COUNT 78 TH/MM3 (150-450); RED BLOOD COUNT 3.61 MIL/MM3 (4.00-5.30); RED CELL DISTRIBUTION WIDTH 19.8 % (11.6-17.2); WHITE BLOOD COUNT 16.7 TH/MM3 (4.0-11.0)
[2017-06-14 02:25] LABS: HEMO FLAGS AUTO DIFF
[2017-06-14 02:35] LABS: ANION GAP 15 MEQ/L (5-15); BICARBONATE 17.9 MEQ/L (21.0-32.0); CHLORIDE 116 MEQ/L (98-107); SODIUM (NA) 149 MEQ/L (136-145)
[2017-06-14 02:36] LABS: BLOOD UREA NITROGEN 163 MG/DL (7-18)
[2017-06-14 03:09] LABS: BANDS 17 % (0-6); DOHLE BODIES PRESENT (NONE SEEN); NEUTROPHIL # MANUAL DIFF 15.4 TH/MM3 (1.8-7.7); PLATELET ESTIMATE SMEAR LOW (NORMAL); PLATELET MORPHOLOGY NORMAL (NORMAL); POLYS (SEG NEUTROPHILS) 75 % (16-70); SCAN/DIFF FINAL DIFF MANUAL; WBC DIFF SAMPLE 100
[2017-06-14] MEDS: SODIUM BICARBONATE 8.4% INJ 100 MEQ in WATER STERILE FOR INJ 850 ML IV SCH ×2 (05:26→14:41)
[2017-06-14] MEDS: INSULIN ASPART SUPPLEMENTAL SCALE SQ SCH ×4 (08:00→21:00)
[2017-06-14] MEDS: DOCUSATE SODIUM 50 MG/SENNA 8.6 MG TAB PO SCH (09:01)
[2017-06-14] MEDS: FAMOTIDINE 20 MG/2 ML VIAL IV PUSH SCH ×2 (09:02→22:03)
[2017-06-14] MEDS: SODIUM CHLORIDE 0.9% FLUSH 10 ML FLUSH IV FLUSH SCH ×2 (09:02→22:04)
--- NOTE | 2017-06-14 09:41 | HHI.PR ---
Subjective Remarks Follow-up acute metabolic uremic encephalopathy/right hydronephrosis/acute pyelonephritis and sepsis 06/14/17-patient seen and examined, she status post Cystoscopy with right retrograde study and right double-J stent insertion 06/13/17. Culture positive 4. Currently afebrile. She is alert and oriented to self and place. Urine output 1.5 L total Objective Vitals Vital Signs Date Time Temp Pulse Resp B/P (MAP) Pulse Ox O2 Delivery O2 Flow Rate FiO2 06/14/17 09:16 100 Nasal Cannula 3.00 06/14/17 06:00 68 06/14/17 04:00 98.0 67 14 157/71 (99) 100 06/14/17 04:00 67 06/14/17 02:00 66 06/14/17 00:00 70 06/14/17 00:00 98.6 70 14 154/80 (104) 100 06/13/17 23:11 70 06/13/17 22:15 80 20 175/80 (111) 94 Nasal Cannula 4 06/13/17 22:05 80 20 151/72 (98) 94 Nasal Cannula 4 06/13/17 22:00 80 20 140/69 (92) 93 Nasal Cannula 4 06/13/17 21:57 97.0 77 20 135/68 (90) 95 Nasal Cannula 4 06/13/17 20:35 98.3 71 14 160/75 100 06/13/17 20:00 96 Nasal Cannula 3.00 06/13/17 20:00 98.2 74 21 160/74 (102) 96 06/13/17 20:00 74 06/13/17 19:00 Nasal Cannula 3.00 06/13/17 18:37 98.5 69 17 166/71 92 06/13/17 18:00 73 06/13/17 16:00 97.6 77 18 162/75 (104) 100 06/13/17 16:00 77 06/13/17 14:30 98.1 74 22 179/77 98 06/13/17 14:00 74 06/13/17 13:43 97.7 73 19 165/72 100 06/13/17 12:00 71 06/13/17 12:00 97.1 72 18 159/71 (100) 100 06/13/17 10:00 81 I/O 06/13/17 06/13/17 06/13/17 06/14/17 06/14/17 06/14/17 07:00 15:00 23:00 07:00 15:00 23:00 Intake Total 1914 ml 1840 ml 2816 ml 1050 ml Output Total 110 ml 985 ml 750 ml Balance 1804 ml 1840 ml 1831 ml 300 ml Intake IV Total 1914 ml 1544 ml 1728 ml 1050 ml Platelets 286 ml 578 ml Blood Product IV Normal Saline Flush 10 ml 10 ml Other 500 ml Output Urine Total 110 ml 775 ml 750 ml Estimated Blood Loss 10 ml Other 200 ml # Bowel Movements 2 Result Diagram: 06/14/17 0204 06/14/17 0204 Imaging Last Impressions Thoracic Spine CT 06/12/172015 Signed Impressions: Service Date/Time: Monday, June 12, 2017 22:01 - CONCLUSION: 1. No acute abnormality. Royal Philippe Jr., MD Pelvis X-Ray 06/12/172015 Signed Impressions: Service Date/Time: Monday, June 12, 2017 20:25 - CONCLUSION: No acute disease. Royal Philippe Jr., MD Lumbar Spine CT 06/12/172015 Signed Impressions: Service Date/Time: Monday, June 12, 2017 22:01 - CONCLUSION: 1. No fracture or dislocation. 2. Degenerative changes. 3. See the CT of the abdomen and pelvis reported separately. Royal Philippe Jr., MD Head CT 06/12/172015 Signed Impressions: Service Date/Time: Monday, June 12, 2017 21:56 - CONCLUSION: 1. No acute intracranial abnormality. 2. Atrophy and chronic small vessel ischemic change. Royal Philippe Jr., MD Chest X-Ray 06/12/172015 Signed Impressions: Service Date/Time: Monday, June 12, 2017 20:30 - CONCLUSION: No acute disease. Royal Philippe Jr., MD Cervical Spine CT 06/12/172015 Signed Impressions: Service Date/Time: Monday, June 12, 2017 21:56 - CONCLUSION: 1. No fracture or dislocation. 2. Degenerative changes as detailed above. Royal Philippe Jr., MD Abdomen/Pelvis CT 06/12/172015 Signed Impressions: Service Date/Time: Monday, June 12, 2017 22:01 - CONCLUSION: 1. 9 mm right mid ureteral stone with resulting hydronephrosis and proximal hydroureter. 2. Chronic hydronephrosis on the left with cortical thinning of the kidney and multiple nonobstructing left sided renal calculi. 3. Cholelithiasis. Royal Philippe Jr., MD Objective Remarks GENERAL: NAD SKIN: Warm and dry. HEAD: Normocephalic. EYES: No scleral icterus. No injection or drainage. NECK: Supple, trachea midline. No JVD or lymphadenopathy. CARDIOVASCULAR: Regular rate and rhythm without murmurs, gallops, or rubs. RESPIRATORY: Breath sounds equal bilaterally. No accessory muscle use. GASTROINTESTINAL: Abdomen soft, non-tender, nondistended. MUSCULOSKELETAL: No cyanosis, or edema. BACK: Nontender without obvious deformity. No CVA tenderness. Procedures Status post Cystoscopy with right retrograde study and right double-J stent insertion 06/13/17 A/P Assessment and Plan 66-year-old female with Acute metabolic/uremic encephalopathy Improving Hypotension tachycardia-resolved Severe dehydration-improved with IV fluid hydration Mild troponin elevation - Continue current IV fluid hydration - Troponin elevation most likely secondary to acute kidney injury Elevated lipase Cholelithiasis - May need cholate cystectomy in the future - CT abdomen shows normal pancreas Acute kidney failure Uremia Acute right hydronephrosis, hydroureter from obstructing stone Chronic left hydronephrosis - Status post Cystoscopy with right retrograde study and right double-J stent insertion 06/13/17. Appreciate input from urology -Appreciate input from nephrology, and patient does not need at this time hemodialysis -Continue with IV fluid hydration and monitor BUN and creatinine Severe sepsis UTI/acute pyelonephritis - Received Zosyn and vancomycin in the ED - Continue renally dosed Zosyn Gram-negative cayla Bacteremia 4 out of 4 blood culture positive for gram-negative cayla Repeat blood culture 06/14/17 Consult infectious disease specialist Continue with current antibiotics including Zosyn Thrombocytopenia - Most likely secondary to sepsis and dehydration\ - Platelet count up to 78 today -Continue to monitor, may consider hematology consultation Diabetes mellitus - Continue to hold home metformin - due to JANET - Insulin sliding scale DVT GI prophylaxis - Teds SCDs - No DVT chemical prophylaxis due to thrombocytopenia and continue IV Kervin Choudhury MD Jun 14, 2017 09:41
--- NOTE | 2017-06-14 10:46 | HHI.NPPN ---
Subjective General Problems: Anemia, Mebatolic Acidosis Renal Failure: Acute Interval History She is awake, alert. Stent placed by urology yesterday. Renal function is improving. (Herminia Sanchez) Objective Data Data Vital Signs Date Time Temp Pulse Resp B/P (MAP) Pulse Ox O2 Delivery O2 Flow Rate FiO2 06/14/17 09:16 100 Nasal Cannula 3.00 06/14/17 07:00 94 Nasal Cannula 3.00 06/14/17 06:00 68 06/14/17 04:00 98.0 67 14 157/71 (99) 100 06/14/17 04:00 67 06/14/17 02:00 66 06/14/17 00:00 70 06/14/17 00:00 98.6 70 14 154/80 (104) 100 06/13/17 23:11 70 06/13/17 22:15 80 20 175/80 (111) 94 Nasal Cannula 4 06/13/17 22:05 80 20 151/72 (98) 94 Nasal Cannula 4 06/13/17 22:00 80 20 140/69 (92) 93 Nasal Cannula 4 06/13/17 21:57 97.0 77 20 135/68 (90) 95 Nasal Cannula 4 06/13/17 20:35 98.3 71 14 160/75 100 06/13/17 20:00 96 Nasal Cannula 3.00 06/13/17 20:00 98.2 74 21 160/74 (102) 96 06/13/17 20:00 74 06/13/17 19:00 Nasal Cannula 3.00 06/13/17 18:37 98.5 69 17 166/71 92 06/13/17 18:00 73 06/13/17 16:00 97.6 77 18 162/75 (104) 100 06/13/17 16:00 77 06/13/17 14:30 98.1 74 22 179/77 98 06/13/17 14:00 74 06/13/17 13:43 97.7 73 19 165/72 100 06/13/17 12:00 71 06/13/17 12:00 97.1 72 18 159/71 (100) 100 (Herminia Sanchez) -: 06/14/17 02006/14/17 0204 Microbiology 06/13/17 Urine Culture, Received Pending Imaging Last 72 hours Impressions [address]ine CT 06/12/172015 Signed Impressions: Service Date/Time: Monday, June 12, 2017 22:01 - CONCLUSION: 1. No acute abnormality. Royal Philippe Jr., MD Pelvis X-Ray 06/12/172015 Signed Impressions: Service Date/Time: Monday, June 12, 2017 20:25 - CONCLUSION: No acute disease. Royal Philippe Jr., MD Lumbar Spine CT 06/12/172015 Signed Impressions: Service Date/Time: Monday, June 12, 2017 22:01 - CONCLUSION: 1. No fracture or dislocation. 2. Degenerative changes. 3. See the CT of the abdomen and pelvis reported separately. Royal Philippe Jr., MD Head CT 06/12/172015 Signed Impressions: Service Date/Time: Monday, June 12, 2017 21:56 - CONCLUSION: 1. No acute intracranial abnormality. 2. Atrophy and chronic small vessel ischemic change. Royal Philippe Jr., MD Chest X-Ray 06/12/172015 Signed Impressions: Service Date/Time: Monday, June 12, 2017 20:30 - CONCLUSION: No acute disease. Royal Philippe Jr., MD Cervical Spine CT 06/12/172015 Signed Impressions: Service Date/Time: Monday, June 12, 2017 21:56 - CONCLUSION: 1. No fracture or dislocation. 2. Degenerative changes as detailed above. Royal Philippe Jr., MD Abdomen/Pelvis CT 06/12/172015 Signed Impressions: Service Date/Time: Monday, June 12, 2017 22:01 - CONCLUSION: 1. 9 mm right mid ureteral stone with resulting hydronephrosis and proximal hydroureter. 2. Chronic hydronephrosis on the left with cortical thinning of the kidney and multiple nonobstructing left sided renal calculi. 3. Cholelithiasis. Royal Philippe Jr., MD Tubes & Lines: Guzman Drip Comment bicarb gtt (Herminia Sanchez) Physical Exam General Appearance: No Acute Distress, Comfortable, Malnourished (Herminia SanchezP) Eyes Eye Exam: Pupils Equal (Herminia Sanchez CHIEF CHEMIST) Throat Throat Exam: Oral Mucosa [employer] & Moist (Herminia SanchezP) Pulmonary Resp Exam: Clear Bilaterally, Breath Sounds Equal (Herminia Sanchez) Cardiology CV Exam: Regular, Normal Sinus Rhythm (Herminia Sanchez) Gastrointestinal/Abdomen GI Exam: Soft, Non-Tender, Bowel Sounds Present (Herminia Sanchez) Musculoskeletal MS Exam: Joints Intact, Normal Tone, Atrophy, Unable to Ambulate (Herminia Sanchez) Integumentary Skin Exam: Clear, Warm, Dry, Intact (Herminia Sanchez) Extremeties Extremities Exam: Pedal Pulses Palpable, Trace Edema Extremeties Remarks trace edema upper extremities (Herminia Sanchez) Neurologic Neuro Exam: Alert, Awake, Oriented, Speech Clear, Moving All Extremities (Herminia Sanchez) Psychiatric Psych Exam: Appropriate Responses (Herminia Sanchez) Assessment/Plan Discussed Condition With: Patient Assessment Summary: JANET/Acute Renal Failure Electrolyte Assessment: Hypernatremia Problem List: (1) Acute renal failure ICD Codes: N17.9 - Acute kidney failure, unspecified Status: Acute Plan: Normal renal function at baseline JANET from obstructive uropathy S/P ureteral stent by urology yesterday Renal function is better Continue IVF with bicarb Encourage PO fluids Monitor urine output, currently oliguric with a guzman Avoid nephrotoxic agents, renally dose when appropriate (2) Ureteral calculi ICD Codes: N20.1 - Calculus of ureter Status: Acute Plan: Obstructing, urology following s/p stent placement (3) Thrombocytopenia ICD Codes: D69.6 - Thrombocytopenia, unspecified Status: Acute Plan: Likely due to sepsis; not HUS as LDH is only minimally elevated and heptoglobin is not low Transfused yesterday Monitor CBC Improved (4) UTI (urinary tract infection) ICD Codes: N39.0 - Urinary tract infection, site not specified Plan: History of in the past GNR on culture She is on Zosyn (renally dose) Has leukocytosis, may be in part due to hemoconcentration (5) HTN (hypertension) ICD Codes: I10 - Essential (primary) hypertension Status: Acute Plan: Home medications were resumed, titrate if needed (6) Hypernatremia ICD Codes: E87.0 - Hyperosmolality and hypernatremia Plan: Continue isotonic fluids Follow labs (Herminia Sanchez) Problem List: (1) Acute renal failure ICD Codes: N17.9 - Acute kidney failure, unspecified Status: Acute Plan: Normal renal function at baseline JANET from obstructive uropathy S/P ureteral stent by urology yesterday Renal function is better Continue IVF with bicarb Encourage PO fluids Monitor urine output, currently oliguric with a guzman Avoid nephrotoxic agents, renally dose when appropriate (2) Ureteral calculi ICD Codes: N20.1 - Calculus of ureter Status: Acute Plan: Obstructing, urology following s/p stent placement (3) Thrombocytopenia ICD Codes: D69.6 - Thrombocytopenia, unspecified Status: Acute Plan: Likely due to sepsis; not HUS as LDH is only minimally elevated and heptoglobin is not low Transfused yesterday Monitor CBC Improved (4) UTI (urinary tract infection) ICD Codes: N39.0 - Urinary tract infection, site not specified Plan: History of in the past GNR on culture She is on Zosyn (renally dose) Has leukocytosis, may be in part due to hemoconcentration (5) HTN (hypertension) ICD Codes: I10 - Essential (primary) hypertension Status: Acute Plan: Home medications were resumed, titrate if needed (6) Hypernatremia ICD Codes: E87.0 - Hyperosmolality and hypernatremia Plan: Continue isotonic fluids Follow labs Plan patient was seen and examined. Renal function has improved. No immediate need for dialysis. Avoid nephrotoxic agents. Treat sepsis. Monitor thrombocytopenia, may have an element of bone marrow suppression due to sepsis as reticulocyte count was low. (Thang Chadwick MD) Problem Qualifiers (1) Acute renal failure: Qualified Codes: N17.9 - Acute kidney failure, unspecified Herminia Sanchez Jun 14, 2017 10:46 Thang Chadwick MD Jun 14, 2017 18:01
--- NOTE | 2017-06-14 11:07 | HHI.PR ---
Subjective Patient symptoms today Pt seen and examined. Feels better. Awake and alert. Tolerating ice chips. Objective Vital Signs Vital Signs Date Time Temp Pulse Resp B/P (MAP) Pulse Ox O2 Delivery O2 Flow Rate FiO2 06/14/17 10:00 62 06/14/17 10:00 62 13 155/69 (97) 100 06/14/17 09:16 100 Nasal Cannula 3.00 06/14/17 09:00 66 26 150/70 (96) 100 06/14/17 09:00 66 06/14/17 08:00 98.3 68 11 133/63 (86) 100 06/14/17 08:00 68 06/14/17 07:00 67 06/14/17 07:00 94 Nasal Cannula 3.00 06/14/17 07:00 67 11 132/67 (88) 95 06/14/17 06:00 68 06/14/17 04:00 98.0 67 14 157/71 (99) 100 06/14/17 04:00 67 06/14/17 02:00 66 06/14/17 00:00 70 06/14/17 00:00 98.6 70 14 154/80 (104) 100 06/13/17 23:11 70 06/13/17 22:15 80 20 175/80 (111) 94 Nasal Cannula 4 06/13/17 22:05 80 20 151/72 (98) 94 Nasal Cannula 4 06/13/17 22:00 80 20 140/69 (92) 93 Nasal Cannula 4 06/13/17 21:57 97.0 77 20 135/68 (90) 95 Nasal Cannula 4 06/13/17 20:35 98.3 71 14 160/75 100 06/13/17 20:00 96 Nasal Cannula 3.00 06/13/17 20:00 98.2 74 21 160/74 (102) 96 06/13/17 20:00 74 06/13/17 19:00 Nasal Cannula 3.00 06/13/17 18:37 98.5 69 17 166/71 92 06/13/17 18:00 73 06/13/17 16:00 97.6 77 18 162/75 (104) 100 06/13/17 16:00 77 06/13/17 14:30 98.1 74 22 179/77 98 06/13/17 14:00 74 06/13/17 13:43 97.7 73 19 165/72 100 06/13/17 12:00 71 06/13/17 12:00 97.1 72 18 159/71 (100) 100 Intake & Output 06/14/17 06/14/17 07:00 19:00 Intake Total 3128 ml Output Total 1085 ml Balance 2043 ml Intake IV Total 2050 ml Platelets 578 ml Other 500 ml Output Urine Total 875 ml Estimated Blood Loss 10 ml Other 200 ml # Bowel Movements 2 Result Diagram: 06/14/1720306/14/17203 Objective Remarks Abd:soft,nt,nd Guzman clearing Medications and IVs Current Medications Medications (Trade) Dose Ordered Sig/Rinku Route Start Time Stop Time Status Last Admin (Toprol Xl) 50 mg DAILY PO 06/13/17 09:00 Future Hold 06/13/17 10:15 (NS Flush) 2 ml UNSCH PRN IV FLUSH 06/12/17 23:15 06/14/17 09:02 (NS Flush) 2 ml BID IV FLUSH 06/13/17 09:00 06/14/17 09:02 (Tylenol) 650 mg Q6H PRN PO 06/12/17 23:15 (Pepcid Inj) 10 mg Q12HR IV PUSH 06/13/17 09:00 06/14/17 09:02 (Zofran Inj) 4 mg Q6H PRN IV PUSH 06/12/17 23:15 (Restoril) 15 mg HS PRN PO 06/12/17 23:15 Future Hold (Duoneb Neb) 1 ampule Q2HR NEB PRN INH 06/12/17 23:15 Miscellaneous Information 1 Q361D XX 06/12/17 23:15 06/12/17 01:00 (Chlorhexidine 2% Cloth) 3 pack Taper DAILY@04 TOP 06/13/17 04:00 06/09/18 03:59 06/13/17 19:52 (Chlorhexidine 2% Cloth) 3 pack UNSCH PRN TOP 06/12/17 23:15 (Milk Of Magnesia Liq) 30 ml Q12H PRN PO 06/12/17 23:15 (Dulcolax Supp) 10 mg DAILY PRN RECTAL 06/12/17 23:15 (D50w (Vial) Inj) 50 ml UNSCH PRN IV PUSH 06/12/17 23:30 06/13/17 19:51 (Glucagon Inj) 1 mg UNSCH PRN OTHER 06/12/17 23:30 (NovoLOG SUPPLEMENTAL SCALE) 1 ACHS SLIDING SCALE SQ 06/13/17 08:00 06/13/17 12:32 Piperacillin Sod/ Tazobactam Sod 50 ml @ 100 mls/hr Q8H IV 06/13/17 10:00 06/14/17 09:02 Sodium Bicarbonate 100 meq/Sterile Water 950 ml @ 100 mls/hr Q9H30M IV 06/13/17 09:30 06/14/17 05:26 Miscellaneous Information ALL NURSING DEPARTME... UNSCH PRN .XX 06/13/17 22:00 06/14/17 21:59 Assessment and Plan Assessment and Plan 66 y.o female with 9mm obstructing right ureteral calculus with gram negative sepsis s/p cysto with right JJ stent insertion Maintain guzman Advance diet Will follow. Will need outpt ESWL to Rx Right ureteral calculus aJkub Paige DO Jun 14, 2017 11:07
--- NOTE | 2017-06-14 12:24 | MB ---
cc: MAGDY URBINA MD DATE OF CONSULTATION 06/14/[address] Pérez REASON A 66-year-old female admitted with acute right hydronephrosis, nephrolithiasis as well as pyelonephritis and sepsis and now with bacteremia. HISTORY OF PRESENT ILLNESS This is a 66-year-old white female who was brought to the emergency department after she was found on the floor of her home. The patient was noted to be disheveled. She had a heart rate of 125 and white blood cell count of 25.3 with left shift. She also had acute renal failure. Urine culture on admission showed Enterobacter cloacae and blood culture has gram-negative cayla in all four bottles as well. The patient underwent evaluation by Urology and she underwent right double-J stent insertion. She was found to have right ureteral calculus and hydronephrosis. The patient is currently awake and alert. Her white blood cell count has climbed up to 33.7 yesterday and today it is improved down to 16.7. She tells me that she feels okay and denies pain at this time. She is very slow in response to questions asked but answers appropriately and her speech is comprehensible. The patient has history of CVA in March 2016. The patient has no fever. PAST MEDICAL HISTORY 1. CVA in March of 2016 which left her with aphasia. 2. Coronary artery disease with history of coronary stent. ALLERGIES SULFAMETHOXAZOLE TRIMETHOPRIM. MEDICATIONS 1. Piperacillin/tazobactam. 2. Pepcid. 3. DuoNeb. SOCIAL HISTORY Occasional alcohol. No tobacco. No illicit drugs. FAMILY HISTORY Non-contributory. REVIEW OF SYSTEMS Negative on 10-point review. PHYSICAL EXAMINATION GENERAL: This is a well-developed female who is in no acute distress. She is awake and alert and oriented. VITAL SIGNS: Temperature 98.3, blood pressure 171/81, heart rate 66. HEENT: The head is atraumatic. Extraocular movements grossly intact. Pupils equal and reactive to light. No icterus. Mucous membranes of the oropharynx moist. NECK: Supple, without adenopathy. LUNGS: Clear. Decreased breath sounds. HEART: Regular rate and rhythm. No murmurs, rubs, or gallops. ABDOMEN: Bowel sounds present. Soft. No tenderness appreciated. RECTAL: Not performed. EXTREMITIES: No clubbing or cyanosis or edema. The patient has multiple excoriated punctate lesions at the lower extremities. SKIN: No diffuse rash. NEUROLOGIC: No gross focal findings. PSYCHIATRIC: The patient is calm and cooperative. LABORATORY DATA WBC 16.7, platelets 78, 75% neutrophils, 17% bands, hemoglobin 8.0. Creatinine 5.37, BUN 163. IMPRESSION 1. Sepsis due to gram-negative bacteria. 2. Urinary tract infection due to Enterobacter cloacae which is source of sepsis. 3. Pyelonephritis, patient status post placement of ureteral stent. 4. Leukocytosis secondary to sepsis. 5. Acute renal failure. RECOMMENDATIONS 1. Continue piperacillin/tazobactam. 2. Monitor identity and sensitivity of the blood cultures. 3. Monitor the temperature and the clinical status. Thank you for this consultation. The patient's progress will be followed and further recommendations will be given upon followup. Magdy Urbina MD FD/KRYSTA /11:08 AM /12:28 PM
[2017-06-14] MEDS ORDERED: hydrALAZINE HCL 50 MG TAB PO ONE (18:45)
[2017-06-15] VITALS (18 sets, daily range): BP systolic 136–191; BP diastolic 62–84; PULSE 67–79; RESP 15–27; TEMP 96.5–98.3; O2SAT 96–100
[2017-06-15] MEDS: SODIUM BICARBONATE 8.4% INJ 100 MEQ in WATER STERILE FOR INJ 850 ML IV SCH ×2 (00:39→18:39)
[2017-06-15] MEDS: PIPERACIL-TAZO 2.25 GM PREMIX 50 ML IV SCH ×3 (02:19→18:31)
[2017-06-15] MEDS: CHLORHEXIDINE GLUCONATE 2 % 1 PACK (2 CLOTHS) TOP SCH (04:00)
[2017-06-15 06:53] LABS: AUTOMATED NEUTROPHIL # 16.8 TH/MM3 (1.8-7.7); BASOPHIL # 0.1 TH/MM3 (0-0.2); BASOPHIL % 0.3 % (0.0-2.0); EOSINOPHIL # 0.1 TH/MM3 (0-0.4); EOSINOPHIL % 0.3 % (0.0-4.0); HEMATOCRIT 27.7 % (35.0-46.0); LYMPH % 9.3 % (9.0-44.0); LYMPHOCYTE # 1.8 TH/MM3 (1.0-4.8); MEAN CORPUSCULAR HEMOGLOBIN 22.7 PG (27.0-34.0); MONO % 1.4 % (0.0-8.0); NEUT % 88.7 % (16.0-70.0); PLATELET COUNT 46 TH/MM3 (150-450); RED CELL DISTRIBUTION WIDTH 19.7 % (11.6-17.2)
[2017-06-15 07:37] LABS: ALKALINE PHOSPHATASE 98 U/L (45-117); ALT (GPT) 20 U/L (10-53); ANION GAP 14 MEQ/L (5-15); AST (GOT) 20 U/L (15-37); BICARBONATE 22.2 MEQ/L (21.0-32.0); BLOOD UREA NITROGEN 150 MG/DL (7-18); CHLORIDE 106 MEQ/L (98-107); GLOMERULAR FILTRATION RATE 10 ML/MIN (>89); HEMO FLAGS AUTO DIFF; MAGNESIUM 2.4 MG/DL (1.5-2.5); SODIUM (NA) 142 MEQ/L (136-145); TOTAL BILIRUBIN ADULT 0.6 MG/DL (0.2-1.0)
[2017-06-15 07:39] LABS: BANDS 21 % (0-6); EOSINOPHILS 1 % (0-4); NEUTROPHIL # MANUAL DIFF 17.7 TH/MM3 (1.8-7.7); POLYS (SEG NEUTROPHILS) 72 % (16-70); WBC DIFF SAMPLE 100
[2017-06-15 07:40] LABS: PLATELET ESTIMATE SMEAR LOW (NORMAL); PLATELET MORPHOLOGY NORMAL (NORMAL); SCAN/DIFF FINAL DIFF MANUAL
[2017-06-15] MEDS: INSULIN ASPART SUPPLEMENTAL SCALE SQ SCH ×4 (08:00→20:17)
[2017-06-15] MEDS: POTASSIUM CHLORIDE 10 MEQ CONTROLLED RELEASE TAB PO ONE ×2 (08:15→09:28)
--- NOTE | 2017-06-15 09:18 | HHI.PR ---
Subjective Remarks Follow-up acute metabolic uremic encephalopathy/right hydronephrosis/acute pyelonephritis and sepsis 06/14/17-patient seen and examined, she status post Cystoscopy with right retrograde study and right double-J stent insertion 06/13/17. Culture positive 4. Currently afebrile. She is alert and oriented to self and place. Urine output 1.5 L total 06/15/17-patient seen and examined, no acute event overnight. Good urine output. Afebrile. Objective Vitals Vital Signs Date Time Temp Pulse Resp B/P (MAP) Pulse Ox O2 Delivery O2 Flow Rate FiO2 06/15/17 08:34 96 Nasal Cannula 3.00 06/15/17 06:00 75 06/15/17 04:35 100 Nasal Cannula 3.00 06/15/17 04:00 97.7 68 21 147/67 (93) 100 06/15/17 04:00 68 06/15/17 02:00 75 06/15/17 00:00 97.7 77 27 140/65 (90) 100 06/15/17 00:00 77 06/14/17 23:56 100 Nasal Cannula 3.00 06/14/17 22:00 80 06/14/17 20:09 100 Nasal Cannula 3.00 06/14/17 20:00 98.1 85 20 145/65 (91) 91 06/14/17 20:00 85 06/14/17 19:00 96 Nasal Cannula 3.00 06/14/17 18:00 77 06/14/17 17:00 75 06/14/17 16:00 74 06/14/17 16:00 98.7 74 15 161/72 (101) 100 06/14/17 15:00 73 15 157/72 (100) 100 06/14/17 15:00 73 06/14/17 14:00 78 06/14/17 14:00 78 27 140/62 (88) 100 06/14/17 13:00 77 06/14/17 13:00 77 21 164/74 (104) 89 06/14/17 12:00 75 06/14/17 12:00 98.1 67 17 148/69 (95) 98 06/14/17 11:00 70 18 171/81 (111) 100 06/14/17 10:00 62 06/14/17 10:00 62 13 155/69 (97) 100 I/O 06/14/17 06/14/17 06/14/17 06/15/17 06/15/17 06/15/17 07:00 15:00 23:00 07:00 15:00 23:00 Intake Total 1050 ml 2020 ml 3266 ml Output Total 750 ml 1100 ml 950 ml Balance 300 ml 920 ml 2316 ml Intake Oral 1920 ml 1200 ml IV Total 1050 ml 100 ml 2066 ml Output Urine Total 750 ml 1100 ml 950 ml # Bowel Movements 2 2 1 Result Diagram: 06/15/1753706/15/17537 Objective Remarks GENERAL: NAD SKIN: Warm and dry. HEAD: Normocephalic. EYES: No scleral icterus. No injection or drainage. NECK: Supple, trachea midline. No JVD or lymphadenopathy. CARDIOVASCULAR: Regular rate and rhythm without murmurs, gallops, or rubs. RESPIRATORY: Breath sounds equal bilaterally. No accessory muscle use. GASTROINTESTINAL: Abdomen soft, non-tender, nondistended. MUSCULOSKELETAL: No cyanosis, or edema. BACK: Nontender without obvious deformity. No CVA tenderness. Procedures Status post Cystoscopy with right retrograde study and right double-J stent insertion 06/13/17 A/P Assessment and Plan 66-year-old female with Acute metabolic/uremic encephalopathy Improved Hypotension tachycardia-resolved Severe dehydration-improved with IV fluid hydration Mild troponin elevation - Continue current IV fluid hydration - Troponin elevation most likely secondary to acute kidney injury Elevated lipase Cholelithiasis - May need cholate cystectomy in the future - CT abdomen shows normal pancreas Acute kidney failure Uremia Acute right hydronephrosis, hydroureter from obstructing stone Chronic left hydronephrosis - Status post Cystoscopy with right retrograde study and right double-J stent insertion 06/13/17. Appreciate input from urology. Will need outpt ESWL to Rx Right ureteral calculus -Appreciate input from nephrology, and patient does not need at this time hemodialysis -Continue with IV fluid hydration and monitor BUN and creatinine Severe sepsis UTI/acute pyelonephritis - Received Zosyn and vancomycin in the ED - Continue renally dosed Zosyn Gram-negative cayla Bacteremia 4 out of 4 blood culture positive for gram-negative cayla Repeat blood culture NTD Appreciate input from infectious disease specialist Continue with current antibiotics including Zosyn Thrombocytopenia - Most likely secondary to sepsis and dehydration\ -Continue to monitor, may consider hematology consultation Diabetes mellitus - Continue to hold home metformin - due to JANET - Insulin sliding scale DVT GI prophylaxis - Teds SCDs - No DVT chemical prophylaxis due to thrombocytopenia and continue IV Pepcid Kervin Pérez MD Jun 15, 2017 09:18
[2017-06-15] MEDS: SODIUM CHLORIDE 0.9% FLUSH 10 ML FLUSH IV FLUSH SCH ×2 (09:28→20:17)
[2017-06-15] MEDS: FAMOTIDINE 20 MG/2 ML VIAL IV PUSH SCH ×2 (09:28→20:17)
--- NOTE | 2017-06-15 10:22 | HHI.PR ---
Subjective Patient symptoms today Pt seen and examined. More awake and alert. No fever. Ucx with enterobacter. Objective Vital Signs Vital Signs Date Time Temp Pulse Resp B/P (MAP) Pulse Ox O2 Delivery O2 Flow Rate FiO2 06/15/17 08:34 96 Nasal Cannula 3.00 06/15/17 06:00 75 06/15/17 04:35 100 Nasal Cannula 3.00 06/15/17 04:00 97.7 68 21 147/67 (93) 100 06/15/17 04:00 68 06/15/17 02:00 75 06/15/17 00:00 97.7 77 27 140/65 (90) 100 06/15/17 00:00 77 06/14/17 23:56 100 Nasal Cannula 3.00 06/14/17 22:00 80 06/14/17 20:09 100 Nasal Cannula 3.00 06/14/17 20:00 98.1 85 20 145/65 (91) 91 06/14/17 20:00 85 06/14/17 19:00 96 Nasal Cannula 3.00 06/14/17 18:00 77 06/14/17 17:00 75 06/14/17 16:00 74 06/14/17 16:00 98.7 74 15 161/72 (101) 100 06/14/17 15:00 73 15 157/72 (100) 100 06/14/17 15:00 73 06/14/17 14:00 78 06/14/17 14:00 78 27 140/62 (88) 100 06/14/17 13:00 77 06/14/17 13:00 77 21 164/74 (104) 89 06/14/17 12:00 75 06/14/17 12:00 98.1 67 17 148/69 (95) 98 06/14/17 11:00 70 18 171/81 (111) 100 Intake & Output 06/15/17 06/15/17 07:00 19:00 Intake Total 3366 ml Output Total 950 ml Balance 2416 ml Intake Oral 1200 ml IV Total 2166 ml Output Urine Total 950 ml # Bowel Movements 1 Result Diagram: 06/15/1753706/15/17537 Objective Remarks Abd:soft,nt,nd Guzman clearing 06/15/17 Abd:soft,nt,nd Guzman with some sediment Medications and IVs Current Medications Medications (Trade) Dose Ordered Sig/Rinku Route Start Time Stop Time Status Last Admin (Toprol Xl) 50 mg DAILY PO 06/13/17 09:00 Future Hold 06/13/17 10:15 (NS Flush) 2 ml UNSCH PRN IV FLUSH 06/12/17 23:15 06/14/17 09:02 (NS Flush) 2 ml BID IV FLUSH 06/13/17 09:00 06/15/17 09:28 (Tylenol) 650 mg Q6H PRN PO 06/12/17 23:15 06/14/17 18:25 (Pepcid Inj) 10 mg Q12HR IV PUSH 06/13/17 09:00 06/15/17 09:28 (Zofran Inj) 4 mg Q6H PRN IV PUSH 06/12/17 23:15 (Restoril) 15 mg HS PRN PO 06/12/17 23:15 Future Hold (Duoneb Neb) 1 ampule Q2HR NEB PRN INH 06/12/17 23:15 Miscellaneous Information 1 Q361D XX 06/12/17 23:15 06/12/17 01:00 (Chlorhexidine 2% Cloth) 3 pack Taper DAILY@04 TOP 06/13/17 04:00 06/09/18 03:59 06/15/17 04:00 (Chlorhexidine 2% Cloth) 3 pack UNSCH PRN TOP 06/12/17 23:15 (Milk Of Magnesia Liq) 30 ml Q12H PRN PO 06/12/17 23:15 (Dulcolax Supp) 10 mg DAILY PRN RECTAL 06/12/17 23:15 (D50w (Vial) Inj) 50 ml UNSCH PRN IV PUSH 06/12/17 23:30 06/13/17 19:51 (Glucagon Inj) 1 mg UNSCH PRN OTHER 06/12/17 23:30 (NovoLOG SUPPLEMENTAL SCALE) 1 ACHS SLIDING SCALE SQ 06/13/17 08:00 06/15/17 08:00 Piperacillin Sod/ Tazobactam Sod 50 ml @ 100 mls/hr Q8H IV 06/13/17 10:00 06/15/17 09:48 Sodium Bicarbonate 100 meq/Sterile Water 950 ml @ 65 mls/hr [id number] IV 06/13/17 09:30 06/15/17 00:39 Assessment and Plan Assessment and Plan 66 y.o female with 9mm obstructing right ureteral calculus with gram negative sepsis s/p cysto with right JJ stent insertion Maintain guzman Advance diet Will follow. Will need outpt ESWL to Rx Right ureteral calculus 06/15/17 66 y.o female with 9mm obstructing stone s/p cysto with right JJ stent insertion Continue ABx per ID B/C with GNR's Outpt ESWL to treat 9mm ureteral calculus Jakub Paige DO Jun 15, 2017 10:22
--- NOTE | 2017-06-15 10:30 | HHI.IDPN ---
Note Infectious Disease Note Patient notes pain on the left side - flank. Appears more alert and speech is more fluent. Denies SOB. WBC increased. Afebrile. Blood culture ID and sensitivity pending. The patient underwent evaluation by Urology and she underwent right double-J stent insertion. She was found to have right ureteral calculus and hydronephrosis. PAST MEDICAL HISTORY 1. CVA in March of 2016 which left her with aphasia. 2. Coronary artery disease with history of coronary stent. ALLERGIES SULFAMETHOXAZOLE TRIMETHOPRIM. ANTIBIOTICS Piperacillin/tazobactam. OBJECTIVE: Vital Signs Date Time Temp Pulse Resp B/P (MAP) Pulse Ox O2 Delivery O2 Flow Rate FiO2 06/15/17 08:34 96 Nasal Cannula 3.00 06/15/17 06:00 75 06/15/17 04:35 100 Nasal Cannula 3.00 06/15/17 04:00 97.7 68 21 147/67 (93) 100 06/15/17 04:00 68 06/15/17 02:00 75 06/15/17 00:00 97.7 77 27 140/65 (90) 100 06/15/17 00:00 77 06/14/17 23:56 100 Nasal Cannula 3.00 06/14/17 22:00 80 06/14/17 20:09 100 Nasal Cannula 3.00 06/14/17 20:00 98.1 85 20 145/65 (91) 91 06/14/17 20:00 85 06/14/17 19:00 96 Nasal Cannula 3.00 06/14/17 18:00 77 06/14/17 17:00 75 06/14/17 16:00 74 06/14/17 16:00 98.7 74 15 161/72 (101) 100 06/14/17 15:00 73 15 157/72 (100) 100 06/14/17 15:00 73 06/14/17 14:00 78 06/14/17 14:00 78 27 140/62 (88) 100 06/14/17 13:00 77 06/14/17 13:00 77 21 164/74 (104) 89 06/14/17 12:00 75 06/14/17 12:00 98.1 67 17 148/69 (95) 98 06/14/17 11:00 70 18 171/81 (111) 100 Laboratory Tests Test 06/13/17 15:25 11/9/17 02:04 06/15/17 05:38 Haptoglobin 259 MG/DL White Blood Count 16.7 TH/MM3 19.0 TH/MM3 Red Blood Count 3.61 MIL/MM3 3.90 MIL/MM3 Hemoglobin 8.0 GM/DL 8.9 GM/DL Hematocrit 25.8 % 27.7 % Mean Corpuscular Volume 71.4 FL 71.0 FL Mean Corpuscular Hemoglobin 22.3 PG 22.7 PG Mean Corpuscular Hemoglobin Concent 31.2 % 32.0 % Red Cell Distribution Width 19.8 % 19.7 % Platelet Count 78 TH/MM3 46 TH/MM3 Mean Platelet Volume 8.7 FL 9.5 FL CBC Comment AUTO DIFF AUTO DIFF Differential Total Cells Counted 100 100 Neutrophils % (Manual) 75 % 72 % Band Neutrophils % 17 % 21 % Lymphocytes % 7 % 5 % Monocytes % 1 % 1 % Neutrophils # (Manual) 15.4 TH/MM3 17.7 TH/MM3 Differential Comment FINAL DIFF MANUAL FINAL DIFF MANUAL Dohle Bodies PRESENT Platelet Estimate LOW LOW Platelet Morphology Comment NORMAL NORMAL Neutrophils (%) (Auto) 88.7 % Lymphocytes (%) (Auto) 9.3 % Monocytes (%) (Auto) 1.4 % Eosinophils (%) (Auto) 0.3 % Basophils (%) (Auto) 0.3 % Neutrophils # (Auto) 16.8 TH/MM3 Lymphocytes # (Auto) 1.8 TH/MM3 Monocytes # (Auto) 0.3 TH/MM3 Eosinophils # (Auto) 0.1 TH/MM3 Basophils # (Auto) 0.1 TH/MM3 Eosinophils % 1 % Laboratory Tests Test 06/13/17 15:25 06/14/17 02:04 06/15/17 05:38 Blood Urea Nitrogen 170 MG/DL 163 MG/DL 150 MG/DL Anion Gap 17 MEQ/L 15 MEQ/L 14 MEQ/L Estimat Glomerular Filtration Rate 7 ML/MIN 10 ML/MIN Lactic Acid Level 2.4 mmol/L Lactate Dehydrogenase 298 U/L Lipase 1797 U/L 2493 U/L 7405 U/L Creatinine 5.37 MG/DL 4.57 MG/DL Random Glucose 82 MG/DL 131 MG/DL Calcium Level 7.9 MG/DL 7.6 MG/DL Sodium Level 149 MEQ/L 142 MEQ/L Potassium Level 4.0 MEQ/L 3.0 MEQ/L Chloride Level 116 MEQ/L 106 MEQ/L Carbon Dioxide Level 17.9 MEQ/L 22.2 MEQ/L Total Protein 5.9 GM/DL Albumin 1.8 GM/DL Magnesium Level 2.4 MG/DL Alkaline Phosphatase 98 U/L Aspartate Amino Transf (AST/SGOT) 20 U/L Alanine Aminotransferase (ALT/SGPT) 20 U/L Total Bilirubin 0.6 MG/DL Microbiology Date/Time Source Procedure Growth Status 06/14/17 12:07 Blood Peripheral Aerobic Blood Culture Pending Received 06/14/17 12:07 Blood Peripheral Anaerobic Blood Culture Pending Received 06/14/17 12:00 Blood Peripheral Aerobic Blood Culture Pending Received 06/14/17 12:00 Blood Peripheral Anaerobic Blood Culture Pending Received 06/13/17 01:55 Blood Peripheral Aerobic Blood Culture - Preliminary Gram Negative West Resulted 06/13/17 01:55 Anaerobic Blood Culture - Preliminary Gram Negative West Resulted 06/13/17 01:50 Blood Peripheral Aerobic Blood Culture - Preliminary Gram Negative West Resulted 06/13/17 01:50 Anaerobic Blood Culture - Preliminary Gram Negative West Resulted 06/13/17 08:40 Stool Stool Stool Occult Blood (GERRI) - Final HEMOCCULT POSITIVE Complete 06/13/17 12:20 Urine Catheterized Urine Urine Culture - Final Enterobacter Cloacae Complete 06/12/17 20:25 Urine Random Urine Urine Culture - Final Enterobacter Cloacae Complete PHYSICAL EXAMINATION GENERAL: No acute distress. She is awake and alert and oriented. HEENT: No icterus. Mucous membranes of the oropharynx moist. NECK: Supple, without adenopathy. LUNGS: Clear. HEART: Regular rate and rhythm. No murmurs, rubs, or gallops. ABDOMEN: Bowel sounds present. Soft. No tenderness appreciated. EXTREMITIES: No clubbing or cyanosis or edema. The patient has multiple excoriated punctate lesions at the lower extremities. SKIN: No diffuse rash. NEUROLOGIC: No gross focal findings. PSYCHIATRIC: Calm and cooperative. IMPRESSION 1. Sepsis due to gram-negative bacteria. 2. Urinary tract infection due to Enterobacter cloacae which is source of sepsis. 3. Pyelonephritis, patient status post placement of ureteral stent. 4. Leukocytosis secondary to sepsis. WBC increased. 5. Acute renal failure. RECOMMENDATIONS 1. Continue the piperacillin/tazobactam. 2. Monitor identity and sensitivity of the blood cultures. 3. Monitor the temperature and the clinical status. Magdy Dash MD Jun 15, 2017 10:30
[2017-06-15] MEDS: POTASSIUM CHLORIDE 25 MEQ EFFERVESCENT TAB PO ONE ×2 (12:00→12:38)
--- NOTE | 2017-06-15 12:00 | PD.PSY.CON ---
Provisional Diagnosis Admission Date Jun 12, 2017 at 21:50 [place] I. 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 Unspecified personality disorder, rule out obsessive-compulsive personality disorder [place] III. Hypertension, stroke in 2016, diabetes [place] IV. Poor family and social supports [place] V. 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 The patient reports that she's been on the ground since Sunday. She is unsure exactly how she ended up on the ground. The patient reports having low back pain worse on the left compared to the right. She has been brought in under a [place] act due to being found unable to care for herself with a home that was in disrepair. She has had diarrhea for the last 2 days. She is unsure exactly how many episodes of diarrhea she has had. Admitted with Acute metabolic/uremic encephalopathy, Hypotension tachycardia due to severe dehydration, Elevated lipase due to Cholelithiasis, Acute kidney failure, Uremia, Acute right hydronephrosis, hydroureter from obstructing stone and Severe sepsis due to UTI/acute pyelonephritis. Patient was consulted to psychiatry to assess self neglecting behavior and dementia. On psychiatric evaluation the patient is calm, cooperative and pleasant. Patient is talkative , willing to talk about her life. Patient reports that she doesn't really understand the reason she felt in her house was found unconscious. She says that she understand that in the last month she has been taking poor care of herself "and forgetting things". However, the patient reports that she enjoys her life, she denies, she has a lot of friends, she is engages in outdoor an indoor activities, and she takes care of her dog. The patient denies depressive symptoms, she denies hopelessness she denies hopelessness, she denies worthlessness, she denies suicidal thoughts, she says that she is a very [employer] person, who loves the life and never had any kind of suicidal thoughts. The patient was a successful collections attorney in the past "I have the resources to take care of my self and I am a smart person". Patient describes herself as a very controlling and excessive person, we are interviewing the patient the patient is constantly looking around, asking about the role of staff , and at some point patient try gains the control of interview needing redirection. During this evaluation there is no agitation, no aggressive behavior, no paranoia, no delusions, ideas of reference elicited. the patient is logical, coherent and relevant. In terms of cognition, patient is oriented 3, Mini-Mental state is perform, and the patient is scored 25/30, with failures in immediate recall, concentration and executive function. He also fails to draw clock test. But other than that the patient is able to express a good understanding and appreciation of her current medical conditions, and she is able to express her motivation to continue medical treatment and recommendations. The patient denies the use of illicit drugs, she reports the use of alcohol occasionally, usually once or twice a week. Review of Systems Constitutional: DENIES: Diaphoretic episodes, Fatigue, Fever, Weight gain, Weight loss, Chills, Dizziness, Change in appetite, Night Sweats Endocrine: DENIES: Abnorml menstrual pattern, Heat/cold intolerance, Polydipsia , Polyuria, Polyphagia Eyes: DENIES: Blurred vision, Diplopia, Eye inflammation, Eye pain, Vision loss , Photosensitivity, Double Vision Ears, nose, mouth, throat: DENIES: Tinnitus, Hearing loss, Vertigo, Nasal discharge, Oral lesions, Throat pain, Hoarseness, Ear Pain, Running Nose, Epistaxis, Sinus Pain, Toothache, Odynophagia Respiratory: DENIES: Apneas, Cough, Snoring, Wheezing, Hemoptysis, Sputum production, Shortness of breath Cardiovascular: DENIES: Chest pain, Palpitations, Syncope, Dyspnea on Exertion , PND, Lower Extremity Edema, Orthopnea, Claudication Gastrointestinal: DENIES: Abdominal pain, Black stools, Bloody stools, Constipation, Diarrhea, Nausea, Vomiting, Difficulty Swallowing, Anorexia Genitourinary: DENIES: Abnormal vaginal bleeding, Dysmenorrhea, Dyspareunia, Sexual dysfunction, Urinary frequency, Urinary incontinence, Urgency, Hematuria , Dysuria, Nocturia, Vaginal discharge Musculoskeletal: DENIES: Joint pain, Muscle aches, Stiffness, Joint Swelling, Back pain, Neck pain Integumentary: DENIES: Abnormal pigmentation, Pruritus, Rash, Nail changes, Breast masses, Breast skin changes, Nipple discharge Hematologic/lymphatic: DENIES: Bruising, Lymphadenopathy Immunologic/allergic: DENIES: Eczema, Urticaria Neurologic: DENIES: Abnormal gait, Headache, Localized weakness, Paresthesias, Seizures, Speech Problems, Tremor, Poor Balance Psychiatric: COMPLAINS OF: Confusion, DENIES: Anxiety, Mood changes, Depression , Hallucinations, Agitation, Suicidal Ideation, Homicidal Ideation, Delusions Past Family Social History Coded Allergies: sulfamethoxazole (Unverified Allergy, Severe, rash, 03/21/17) trimethoprim (Unverified Allergy, Severe, rash, 03/21/17) Active Scripts Nitrofurantoin Monohydrate Macrocrystals (Macrobid) 100 Mg Cap, 100 MG PO BID for Infection, #14 CAP 0 Refills Prov:Gabby Conner MD 09/26/16 Ciprofloxacin (Cipro) 500 Mg Tab, 500 MG PO BID for Infection, #14 TAB 0 Refills Prov:Gabby Conner MD 09/21/16 Metformin (Metformin) 500 Mg Tab, 500 MG PO BIDPC for Blood Sugar Management, # 60 TAB 2 Refills With meals Prov:Gabby Conner MD 09/21/16 Atorvastatin (Atorvastatin) 80 Mg Tab, 80 MG PO HS for Cholesterol Management, # 30 TAB 3 Refills Prov:Gabby Conner MD 09/21/16 Metoprolol Succinate ER 24 HR (Metoprolol Succinate ER 24 HR) 50 Mg Tab, 50 MG PO DAILY, #30 TAB 5 Refills Prov:Gabby Conner MD 09/21/16 Ergocalciferol (Vitamin D) 50,000 Unit Cap, 89117 UNITS PO Q7D for Nutritional Supplement, #10 CAP 3 Refills Prov:Gabby Conner MD 09/21/16 Reported Medications Solifenacin (Vesicare) 5 Mg Tab, 5 MG PO DAILY for Urinary Symptom Managemen, # 30 TAB 0 Refills 06/21/16 Folic Acid (Folate) 1 Mg Tab, 1 MG PO DAILY for Nutritional Supplement, TAB 0 Refills 06/21/16 Dabigatran (Pradaxa) 150 Mg Cap, 150 MG PO BID for Blood Clot Prevention, #60 CAP 0 Refills 06/21/16 Current Medications Medications (Trade) Dose Ordered Sig/Rinku Route Start Time Stop Time Status Last Admin (Toprol Xl) 50 mg DAILY PO 06/13/17 09:00 Future Hold 06/13/17 10:15 (NS Flush) 2 ml UNSCH PRN IV FLUSH 06/12/17 23:15 06/14/17 09:02 (NS Flush) 2 ml BID IV FLUSH 06/13/17 09:00 06/15/17 09:28 (Tylenol) 650 mg Q6H PRN PO 06/12/17 23:15 06/14/17 18:25 (Pepcid Inj) 10 mg Q12HR IV PUSH 06/13/17 09:00 06/15/17 09:28 (Zofran Inj) 4 mg Q6H PRN IV PUSH 06/12/17 23:15 (Restoril) 15 mg HS PRN PO 06/12/17 23:15 Future Hold (Duoneb Neb) 1 ampule Q2HR NEB PRN INH 06/12/17 23:15 Miscellaneous Information 1 Q361D XX 06/12/17 23:15 06/12/17 01:00 (Chlorhexidine 2% Cloth) 3 pack Taper DAILY@04 TOP 06/13/17 04:00 06/09/18 03:59 06/15/17 04:00 (Chlorhexidine 2% Cloth) 3 pack UNSCH PRN TOP 06/12/17 23:15 (Milk Of Magnesia Liq) 30 ml Q12H PRN PO 06/12/17 23:15 (Dulcolax Supp) 10 mg DAILY PRN RECTAL 06/12/17 23:15 (D50w (Vial) Inj) 50 ml UNSCH PRN IV PUSH 06/12/17 23:30 06/13/17 19:51 (Glucagon Inj) 1 mg UNSCH PRN OTHER 06/12/17 23:30 (NovoLOG SUPPLEMENTAL SCALE) 1 ACHS SLIDING SCALE SQ 06/13/17 08:00 06/15/17 08:00 Piperacillin Sod/ Tazobactam Sod 50 ml @ 100 mls/hr Q8H IV 06/13/17 10:00 06/15/17 09:48 Sodium Bicarbonate 100 meq/Sterile Water 950 ml @ 65 mls/hr [id number] IV 06/13/17 09:30 06/15/17 00:39 (K-Lyte Cl Eff) 50 meq ONCE ONCE PO 06/15/17 11:15 06/15/17 11:16 UNV (Aricept) 5 mg HS PO 06/15/17 21:00 UNV (Namenda) 5 mg DAILY PO 06/16/17 09:00 UNV Family Psych History Patient denies family psychiatric history Social History Patient was born and raised in [place], she lived for some time in [place], she has been living in [place] since 2011, he lives alone in [place], she is , no kids, 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 2) High level of education Physical Exam No tremors, no EPS, no psychomotor agitation or retardation, Vital Signs Vital Signs Date Time Temp Pulse Resp B/P (MAP) Pulse Ox O2 Delivery O2 Flow Rate FiO2 06/15/17 08:34 96 Nasal Cannula 3.00 06/15/17 06:00 75 06/15/17 04:00 97.7 21 147/67 (93) I/O 06/15/17 06/15/17 06/16/17 08:00 16:00 00:00 Intake Total 3266 ml Output Total 950 ml Balance 2316 ml Lab Results Test 06/15/17 05:38 White Blood Count 19.0 TH/MM3 Red Blood Count 3.90 MIL/MM3 Hemoglobin 8.9 GM/DL Hematocrit 27.7 % Mean Corpuscular Volume 71.0 FL Mean Corpuscular Hemoglobin 22.7 PG Mean Corpuscular Hemoglobin Concent 32.0 % Red Cell Distribution Width 19.7 % Platelet Count 46 TH/MM3 Mean Platelet Volume 9.5 FL Neutrophils (%) (Auto) 88.7 % Lymphocytes (%) (Auto) 9.3 % Monocytes (%) (Auto) 1.4 % Eosinophils (%) (Auto) 0.3 % Basophils (%) (Auto) 0.3 % Neutrophils # (Auto) 16.8 TH/MM3 Lymphocytes # (Auto) 1.8 TH/MM3 Monocytes # (Auto) 0.3 TH/MM3 Eosinophils # (Auto) 0.1 TH/MM3 Basophils # (Auto) 0.1 TH/MM3 CBC Comment AUTO DIFF Differential Total Cells Counted 100 Neutrophils % (Manual) 72 % Band Neutrophils % 21 % Lymphocytes % 5 % Monocytes % 1 % Eosinophils % 1 % Neutrophils # (Manual) 17.7 TH/MM3 Differential Comment FINAL DIFF MANUAL Platelet Estimate LOW Platelet Morphology Comment NORMAL Blood Urea Nitrogen 150 MG/DL Creatinine 4.57 MG/DL Random Glucose 131 MG/DL Total Protein 5.9 GM/DL Albumin 1.8 GM/DL Calcium Level 7.6 MG/DL Magnesium Level 2.4 MG/DL Alkaline Phosphatase 98 U/L Aspartate Amino Transf (AST/SGOT) 20 U/L Alanine Aminotransferase (ALT/SGPT) 20 U/L Total Bilirubin 0.6 MG/DL Sodium Level 142 MEQ/L Potassium Level 3.0 MEQ/L Chloride Level 106 MEQ/L Carbon Dioxide Level 22.2 MEQ/L Anion Gap 14 MEQ/L Estimat Glomerular Filtration Rate 10 ML/MIN Lipase 7405 U/L Date/Time Source Procedure Growth Status 06/14/17 12:07 Blood Peripheral Aerobic Blood Culture - Preliminary NO GROWTH IN 1 DAY Resulted 06/14/17 12:07 Blood Peripheral Anaerobic Blood Culture - Preliminary NO GROWTH IN 1 DAY Resulted 06/13/17 08:40 Stool Stool Stool Occult Blood (GERRI) - Final HEMOCCULT POSITIVE Complete 06/13/17 12:20 Urine Catheterized Urine Urine Culture - Final Enterobacter Cloacae Complete Mental Status Examination Appearance: Appropriate Consciousness: Alert Orientation: x4 Motor Activity: Normal gait Speech: Unremarkable Language: Adequate Fund of Knowledge: Adequate Attention and Concentration: Inadequate Memory: Unremarkable Mood: Appropriate Affect: Appropriate Thought Process & Associations: Intact Thought Content: Appropriate Hallucination Type: None Delusion Type: None Suicidal Ideation: No Suicidal Plan: No Suicidal Intention: No Homicidal Ideation: No Homicidal Plan: No Homicidal Intention: No Insight: Adequate Judgment: Adequate Assessment & Plan Problem List: (1) 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 The patient denies suicidal and homicidal ideation, she denies visual and auditory hallucinations. Patient does present some symptoms of cognitive impairment, her Mini-Mental state is 25/30 with everything impairment and concentration, executive function and recent recall. At this point is unclear if cognitive impairment is related with an underlying mild cognitive disorder or maybe related with delirium due to to her multiple underlying medical conditions, but definitely the patient benefits of medication to slower dementia process, such as Namenda 5 mg and Aricept 5 mg daily. The possibility and consideration of starting this medication was widely discussed with the patient and she agreed with it. She does not meet criteria for involuntary psychiatric admission at this moment. Patient has decision-making capacity to participate in medical treatment. There are some elements of patient personality disorder in the some cluster C traits suggestive of obsessive- compulsive personality disorder. Extensive support, motivation and psychoeducation provided. Assessment & Plan Estimated LOS: Jimmy Montalvo MD Jun 15, 2017 11:59
--- NOTE | 2017-06-15 12:26 | HHI.NPPN ---
Subjective General Problems: Anemia, Mebatolic Acidosis Renal Failure: Acute Interval History She is awake, not in distress. IVF continues. Renal function is better. (Herminia Sanchez) Objective Data Data Vital Signs Date Time Temp Pulse Resp B/P (MAP) Pulse Ox O2 Delivery O2 Flow Rate FiO2 06/15/17 12:00 72 06/15/17 11:00 79 06/15/17 10:00 73 06/15/17 09:00 71 06/15/17 08:34 96 Nasal Cannula 3.00 06/15/17 08:00 76 06/15/17 08:00 97.7 76 23 149/74 (99) 97 06/15/17 07:00 100 Nasal Cannula 3.00 06/15/17 07:00 71 06/15/17 06:00 75 06/15/17 04:35 100 Nasal Cannula 3.00 06/15/17 04:00 97.7 68 21 147/67 (93) 100 06/15/17 04:00 68 06/15/17 02:00 75 06/15/17 00:00 97.7 77 27 140/65 (90) 100 06/15/17 00:00 77 06/14/17 23:56 100 Nasal Cannula 3.00 06/14/17 22:00 80 06/14/17 20:09 100 Nasal Cannula 3.00 06/14/17 20:00 98.1 85 20 145/65 (91) 91 06/14/17 20:00 85 06/14/17 19:00 96 Nasal Cannula 3.00 06/14/17 18:00 77 06/14/17 17:00 75 06/14/17 16:00 74 06/14/17 16:00 98.7 74 15 161/72 (101) 100 06/14/17 15:00 73 15 157/72 (100) 100 06/14/17 15:00 73 06/14/17 14:00 78 06/14/17 14:00 78 27 140/62 (88) 100 06/14/17 13:00 77 06/14/17 13:00 77 21 164/74 (104) 89 (Herminia Sanchez) -: 06/15/1738 06/15/1738 Imaging Last 72 hours Impressions Thoracic Spine CT 06/12/172015 Signed Impressions: Service Date/Time: Monday, June 12, 2017 22:01 - CONCLUSION: 1. No acute abnormality. Royal Philippe Jr., MD Pelvis X-Ray 06/12/172015 Signed Impressions: Service Date/Time: Monday, June 12, 2017 20:25 - CONCLUSION: No acute disease. Royal Philippe Jr., MD Lumbar Spine CT 06/12/172015 Signed Impressions: Service Date/Time: Monday, June 12, 2017 22:01 - CONCLUSION: 1. No fracture or dislocation. 2. Degenerative changes. 3. See the CT of the abdomen and pelvis reported separately. Royal Philippe Jr., MD Head CT 06/12/172015 Signed Impressions: Service Date/Time: Monday, June 12, 2017 21:56 - CONCLUSION: 1. No acute intracranial abnormality. 2. Atrophy and chronic small vessel ischemic change. Royal Philippe Jr., MD Chest X-Ray 06/12/172015 Signed Impressions: Service Date/Time: Monday, June 12, 2017 20:30 - CONCLUSION: No acute disease. Royal Philippe Jr., MD Cervical Spine CT 06/12/172015 Signed Impressions: Service Date/Time: Monday, June 12, 2017 21:56 - CONCLUSION: 1. No fracture or dislocation. 2. Degenerative changes as detailed above. Royal Philippe Jr., MD Abdomen/Pelvis CT 06/12/172015 Signed Impressions: Service Date/Time: Monday, June 12, 2017 22:01 - CONCLUSION: 1. 9 mm right mid ureteral stone with resulting hydronephrosis and proximal hydroureter. 2. Chronic hydronephrosis on the left with cortical thinning of the kidney and multiple nonobstructing left sided renal calculi. 3. Cholelithiasis. Royal Philippe Jr., MD Tubes & Lines: Guzman Drip Comment bicarb gtt (Herminia Sanchez B. IN HOME AIDE) Physical Exam General Appearance: No Acute Distress, Comfortable, Malnourished (Herminia Sanchez B. IN HOME AIDE) Eyes Eye Exam: Pupils Equal (Laura,Herminia B. IN HOME AIDE) Throat Throat Exam: Oral Mucosa [place] & Moist (Laura,Herminia B. IN HOME AIDE) Pulmonary Resp Exam: Clear Bilaterally, Breath Sounds Equal (Laura,Herminia B. IN HOME AIDE) Cardiology CV Exam: Regular, Normal Sinus Rhythm (Herminia Sanchez) Gastrointestinal/Abdomen GI Exam: Soft, Non-Tender, Bowel Sounds Present (Herminia Sanchez) Musculoskeletal MS Exam: Joints Intact, Normal Tone, Atrophy, Unable to Ambulate (Herminia Sanchez) Integumentary Skin Exam: Clear, Warm, Dry, Intact (Herminia Sanchez) Extremeties Extremities Exam: Pedal Pulses Palpable, Trace Edema Extremeties Remarks trace edema upper extremities (Herminia Sanchez) Neurologic Neuro Exam: Alert, Awake, Oriented, Speech Clear, Moving All Extremities (Herminia Sanchez) Psychiatric Psych Exam: Appropriate Responses (Herminia Sanchez) Assessment/Plan Discussed Condition With: Patient Assessment Summary: JANET/Acute Renal Failure Electrolyte Assessment: Hypernatremia Problem List: (1) Acute renal failure ICD Codes: N17.9 - Acute kidney failure, unspecified Status: Acute Plan: Normal renal function at baseline JANET from obstructive uropathy S/P ureteral stent by urology 06/14 Renal function is improving Continue IVF with bicarb Replace potassium cautiously Encourage PO fluids Monitor urine output, currently oliguric with a guzman Avoid nephrotoxic agents, renally dose when appropriate (2) Ureteral calculi ICD Codes: N20.1 - Calculus of ureter Status: Acute Plan: Obstructing, urology following s/p stent placement (3) Thrombocytopenia ICD Codes: D69.6 - Thrombocytopenia, unspecified Status: Acute Plan: Likely due to sepsis [id number]/9, platelet count has improved Monitor CBC (4) UTI (urinary tract infection) ICD Codes: N39.0 - Urinary tract infection, site not specified Plan: History of in the past GNR on culture She is on Zosyn (renally dose) Has leukocytosis, may be in part due to hemoconcentration (5) HTN (hypertension) ICD Codes: I10 - Essential (primary) hypertension Status: Acute Plan: Home medications were resumed, titrate if needed (6) Hypernatremia ICD Codes: E87.0 - Hyperosmolality and hypernatremia Plan: Improving, Continue isotonic fluids Follow labs (7) Sepsis ICD Codes: A41.9 - Sepsis, unspecified organism Plan: Secondary to UTI On Zosyn, monitor clinically ID has evaluated (Herminia Sanchez) Plan patient was seen and examined. She is non oliguric. Renal function continues to improved. Replace potassium. (Thang Chadwick MD) Problem Qualifiers (1) Acute renal failure: Qualified Codes: N17.9 - Acute kidney failure, unspecified Herminia Sanchez Jun 15, 2017 12:26 Thang Chadwick MD Jun 15, 2017 12:52
--- NOTE | 2017-06-15 13:28 | PD.WCN.NOT ---
Wound Consult Description: Received consult from Doctor Dorado for wound management for pressure related wound to sacrum Communicated with: RODO WAGGONER and Doctor Pérez Recommendation: 1.Please cleanse Sacral, buttock and perineal area gently with soap and water pat dry. Apply thick layer of Calazime barrier cream mixed 50/50 with Antifungal cream BID and PRN. DO NOT scrub barrier cream from skin when cleaning ok to leave some barrier cream in place and layer. Leave sacral wound open to air. 2.Please turn patient every 2 hours and PRN for comfort and to offload pressure from sacral area 3. Please order WAVE bed from [facility] [facility] Additional Information: Patient seen on 5th floor [facility] for evaluation of wound management for pressure related wound to sacrum. Patient is laying on Marielle low airloss bed with Microclimate management on, and correct weight setting. Patinet is noted laying on thick cloth underpads that are staggered. Patient turned to L side for wound assessment with the assistance of Acacia Brooks 5th floor [facility]. Patient is having loose stools and complains of pain with repositioning . Cleansed stool from patient's skin with soap and water to reveal unstageable pressure injury that measures 10.4cm x 6.9 cm x eschar. Periwound is noted with diffuse small areas of partial thickness skin loss that is incontinence associated. Cleansed wound with normal saline before applying thick layer of Calazime barrier cream. Satellite lesions are seen in the patient's bilateral inner thighs and perineal area, indicating fungal etiology. Positioned patient off bottom to L side with pillows for support. Spoke with nurse regarding using ultrasorb pads instead of thick cloth pads for low air loss beds.Bed will not work properly with thick cloth pads.Wave bed ordered from [employer]. Gavi Mazariegos [facility] Jun 15, 2017 13:28
[2017-06-15] MEDS: DONEPEZIL HCL 5 MG TAB PO SCH (20:17)
[2017-06-16] VITALS (14 sets, daily range): BP systolic 99–126; BP diastolic 50–64; PULSE 66–98; RESP 16–18; TEMP 97.4–98.9; O2SAT 95–100
[2017-06-16] MEDS: PIPERACIL-TAZO 2.25 GM PREMIX 50 ML IV SCH ×2 (03:18→08:40)
[2017-06-16] MEDS: CHLORHEXIDINE GLUCONATE 2 % 1 PACK (2 CLOTHS) TOP SCH ×2 (04:00→20:24)
[2017-06-16 07:11] LABS: AUTOMATED NEUTROPHIL # 9.8 TH/MM3 (1.8-7.7); BASOPHIL % 0.1 % (0.0-2.0); EOSINOPHIL # 0.1 TH/MM3 (0-0.4); EOSINOPHIL % 1.3 % (0.0-4.0); HEMATOCRIT 21.5 % (35.0-46.0); LYMPH % 9.4 % (9.0-44.0); LYMPHOCYTE # 1.1 TH/MM3 (1.0-4.8); MEAN CELL VOLUME 71.5 FL (80.0-100.0); MEAN CORPUSCULAR HEMOGLOBIN 22.5 PG (27.0-34.0); MEAN CORPUSCULAR HGB CONC 31.5 % (32.0-36.0); MONO % 1.9 % (0.0-8.0); NEUT % 87.3 % (16.0-70.0); PLATELET COUNT 35 TH/MM3 (150-450); RED BLOOD COUNT 3.01 MIL/MM3 (4.00-5.30); RED CELL DISTRIBUTION WIDTH 19.1 % (11.6-17.2); WHITE BLOOD COUNT 11.3 TH/MM3 (4.0-11.0)
[2017-06-16 07:14] LABS: HEMO FLAGS AUTO DIFF
[2017-06-16 07:55] LABS: BICARBONATE 24.1 MEQ/L (21.0-32.0); POTASSIUM 3.1 MEQ/L (3.5-5.1)
[2017-06-16] MEDS: INSULIN ASPART SUPPLEMENTAL SCALE SQ SCH ×4 (08:00→21:00)
[2017-06-16 08:11] LABS: CALCIUM-PROTEIN CORRECTED 8.5 MG/DL (8.5-10.1)
[2017-06-16] MEDS: SODIUM CHLORIDE 0.9% FLUSH 10 ML FLUSH IV FLUSH SCH ×2 (08:39→22:28)
[2017-06-16] MEDS: MEMANTINE HCL 5 MG TAB PO SCH (08:40)
[2017-06-16] MEDS: FAMOTIDINE 20 MG/2 ML VIAL IV PUSH SCH ×2 (08:40→22:30)
[2017-06-16 10:00] LABS: SCAN/DIFF AUTO DIFF CONFIRMED
[2017-06-16] MEDS ORDERED: SODIUM CHLOR 0.9% 250 ML INJ 250 ML IV ONE ×2 (10:00→11:00)
[2017-06-16] MEDS ORDERED: diphenhydrAMINE HCL 25 MG CAP PO PRN (10:00)
[2017-06-16] MEDS ORDERED: POTASSIUM CHLORIDE 20 MEQ CONTROLLED RELEASE TAB PO ONE (10:00)
[2017-06-16] MEDS ORDERED: ACETAMINOPHEN 325 MG TAB PO PRN (10:00)
--- NOTE | 2017-06-16 10:59 | HHI.PR ---
Subjective Remarks As per RN patient is having melanotic stools. Patient denies cp/sob. Denies abdominal pain, nausea or vomiting. afebrile. low potassium Objective Vitals Vital Signs Date Time Temp Pulse Resp B/P (MAP) Pulse Ox O2 Delivery O2 Flow Rate FiO2 06/16/17 08:00 97.5 67 16 105/55 (72) 95 06/16/17 07:33 96 Nasal Cannula 3.00 06/16/17 04:48 97.4 74 16 118/64 (82) 95 06/16/17 00:57 97.4 66 16 126/58 (80) 96 06/15/17 20:05 Nasal Cannula 3.00 06/15/17 20:00 97.6 69 16 149/66 (93) 98 06/15/17 17:19 96.5 69 17 136/62 (86) 98 06/15/17 16:00 78 06/15/17 16:00 97.9 78 26 178/82 (114) 100 06/15/17 15:00 79 06/15/17 14:00 67 06/15/17 13:00 69 06/15/17 12:00 72 06/15/17 12:00 97.9 72 15 191/84 (119) 100 06/15/17 11:00 79 I/O 06/15/17 06/15/17 06/15/17 06/16/17 06/16/17 06/16/17 07:00 15:00 23:00 07:00 15:00 23:00 Intake Total 3266 ml 50 ml 3170 ml 480 ml Output Total 950 ml 900 ml 1700 ml Balance 2316 ml 50 ml 2270 ml -1700 ml 480 ml Intake Oral 1200 ml 1290 ml IV Total 2066 ml 50 ml 1880 ml 480 ml Output Urine Total 950 ml 900 ml 1700 ml # Bowel Movements 1 Result Diagram: 06/16/17 0610 06/16/17 0610 Imaging Last Impressions Thoracic Spine CT 06/12/172015 Signed Impressions: Service Date/Time: Monday, June 12, 2017 22:01 - CONCLUSION: 1. No acute abnormality. Royal Philippe Jr., MD Pelvis X-Ray 06/12/172015 Signed Impressions: Service Date/Time: Monday, June 12, 2017 20:25 - CONCLUSION: No acute disease. Royal Philippe Jr., MD Lumbar Spine CT 06/12/172015 Signed Impressions: Service Date/Time: Monday, June 12, 2017 22:01 - CONCLUSION: 1. No fracture or dislocation. 2. Degenerative changes. 3. See the CT of the abdomen and pelvis reported separately. Royal Philippe Jr., MD Head CT 06/12/172015 Signed Impressions: Service Date/Time: Monday, June 12, 2017 21:56 - CONCLUSION: 1. No acute intracranial abnormality. 2. Atrophy and chronic small vessel ischemic change. Royal Philippe Jr., MD Chest X-Ray 06/12/172015 Signed Impressions: Service Date/Time: Monday, June 12, 2017 20:30 - CONCLUSION: No acute disease. Royal Philippe Jr., MD Cervical Spine CT 06/12/172015 Signed Impressions: Service Date/Time: Monday, June 12, 2017 21:56 - CONCLUSION: 1. No fracture or dislocation. 2. Degenerative changes as detailed above. Royal Philippe Jr., MD Abdomen/Pelvis CT 06/12/172015 Signed Impressions: Service Date/Time: Monday, June 12, 2017 22:01 - CONCLUSION: 1. 9 mm right mid ureteral stone with resulting hydronephrosis and proximal hydroureter. 2. Chronic hydronephrosis on the left with cortical thinning of the kidney and multiple nonobstructing left sided renal calculi. 3. Cholelithiasis. Royal Philippe Jr., MD Objective Remarks GENERAL: AAOx3, lying in bed, NAD SKIN: Warm and dry. Unstageable pressure injury that measures 10.4cm x 6.9 cm x eschar. Periwound is noted with diffuse small areas of partial thickness skin loss that is incontinence associated. HEAD: Normocephalic. EYES: No scleral icterus. No injection or drainage. Pale conjunctiva. NECK: Supple, trachea midline. No JVD or lymphadenopathy. CARDIOVASCULAR: Regular rate and rhythm without murmurs, gallops, or rubs. RESPIRATORY: Breath sounds equal bilaterally. No accessory muscle use. GASTROINTESTINAL: Abdomen soft, non-tender, nondistended. MUSCULOSKELETAL: No cyanosis, or edema. BACK: Nontender without obvious deformity. No CVA tenderness. Procedures Status post Cystoscopy with right retrograde study and right double-J stent insertion 06/13/17 Medications and IVs Current Medications Medications (Trade) Dose Ordered Sig/Rinku Route Start Time Stop Time Status Last Admin (Toprol Xl) 50 mg DAILY PO 06/13/17 09:00 Future Hold 06/13/17 10:15 (NS Flush) 2 ml UNSCH PRN IV FLUSH 06/12/17 23:15 06/14/17 09:02 (NS Flush) 2 ml BID IV FLUSH 06/13/17 09:00 06/15/17 09:28 (Tylenol) 650 mg Q6H PRN PO 06/12/17 23:15 06/14/17 18:25 (Pepcid Inj) 10 mg Q12HR IV PUSH 06/13/17 09:00 06/16/17 08:40 (Zofran Inj) 4 mg Q6H PRN IV PUSH 06/12/17 23:15 (Restoril) 15 mg HS PRN PO 06/12/17 23:15 Future Hold (Duoneb Neb) 1 ampule Q2HR NEB PRN INH 06/12/17 23:15 Miscellaneous Information 1 Q361D XX 06/12/17 23:15 06/12/17 01:00 (Chlorhexidine 2% Cloth) 3 pack Taper DAILY@04 TOP 06/13/17 04:00 06/09/18 03:59 06/15/17 04:00 (Chlorhexidine 2% Cloth) 3 pack UNSCH PRN TOP 06/12/17 23:15 (Milk Of Magnesia Liq) 30 ml Q12H PRN PO 06/12/17 23:15 (Dulcolax Supp) 10 mg DAILY PRN RECTAL 06/12/17 23:15 (D50w (Vial) Inj) 50 ml UNSCH PRN IV PUSH 06/12/17 23:30 06/13/17 19:51 (Glucagon Inj) 1 mg UNSCH PRN OTHER 06/12/17 23:30 (NovoLOG SUPPLEMENTAL SCALE) 1 ACHS SLIDING SCALE SQ 06/13/17 08:00 06/15/17 08:00 Piperacillin Sod/ Tazobactam Sod 50 ml @ 100 mls/hr Q8H IV 06/13/17 10:00 06/16/17 08:40 Sodium Bicarbonate 100 meq/Sterile Water 950 ml @ 65 mls/hr [id number] IV 06/13/17 09:30 06/15/17 18:39 (Aricept) 5 mg HS PO 06/15/17 21:00 06/15/17 20:17 (Namenda) 5 mg DAILY PO 06/16/17 09:00 06/16/17 08:40 Sodium Chloride 250 ml @ 15 mls/hr ONCE ONCE IV 06/16/17 10:00 06/17/17 02:39 (Tylenol) 650 mg Q4H PRN PO 06/16/17 10:00 (Benadryl) 25 mg Q4H PRN PO 06/16/17 10:00 Sodium Chloride 250 ml @ 15 mls/hr ONCE ONCE IV 06/16/17 11:00 06/17/17 03:39 Pantoprazole Sodium 80 mg/ Sodium Chloride 100 ml @ 10 mls/hr Q10H IV 06/16/17 12:00 Urinary Catheter: Yes Assessment to: Continue Martini insert reason: Measure Accurate Output Vascular Central Line Catheter: No A/P Problem List: (1) Sepsis ICD Code: A41.9 - Sepsis, unspecified organism Status: Resolved (2) Acute blood loss anemia ICD Code: D62 - Acute posthemorrhagic anemia Status: Acute (3) Thrombocytopenia ICD Code: D69.6 - Thrombocytopenia, unspecified (4) Ureteral calculus, left ICD Code: N20.1 - Calculus of left ureter Status: Resolved (5) HTN (hypertension) ICD Code: I10 - Essential (primary) hypertension Status: Chronic (6) UTI (urinary tract infection) ICD Code: N39.0 - Urinary tract infection, site not specified Status: Acute (7) Elevated lipase ICD Code: R74.8 - Abnormal levels of other serum enzymes Status: Acute (8) Gram-negative bacteremia ICD Code: R78.81 - Bacteremia Status: Acute Assessment and Plan Assessment and Plan 66-year-old female with Acute metabolic/uremic encephalopathy Resolved Hypotension tachycardia-resolved Severe dehydration-improved with IV fluid hydration Mild troponin elevation - Continue current IV fluid hydration withsodium bicarbonate. - Troponin elevation most likely secondary to acute kidney injury - Sodium slightly elevated at 146. Elevated lipase Cholelithiasis - May need cholate cystectomy in the future - CT abdomen shows normal pancreas - 06/[address] GI consult. Continue to monitor lipase which seems to be trending down. Today down to 6913 from [id number]. Acute kidney failure Uremia Acute right hydronephrosis, hydroureter from obstructing stone Chronic left hydronephrosis Hypokalemia. - Status post Cystoscopy with right retrograde study and right double-J stent insertion 06/13/17. Appreciate input from urology. Will need outpt ESWL to Rx Right ureteral calculus -Appreciate input from nephrology, and patient does not need at this time hemodialysis -Continue with IV fluid hydration and monitor BUN and creatinine - 06/16 Creatinine improving. Down to 3.81. Place potassium orally, continue to monitor BMP. Severe sepsis UTI/acute pyelonephritis - Received Zosyn and vancomycin in the ED - Continue renally dosed Zosyn - Patient with UA positive urine culture growing Enterobacter cloacae. Last culture obtained on 06/14 still growing gram-negative rods. ID consulted, continue to follow-up ID recommendations. Antibiotics as per ID. Gram-negative cayla Bacteremia 4 out of 4 blood culture positive for gram-negative cayla Appreciate input from infectious disease specialist Continue with current antibiotics including Zosyn 06/16 Repeat blood cultures. Thrombocytopenia Acute Blood loss anemia - Most likely secondary to sepsis and dehydration\ -Continue to monitor, may consider hematology consultation - 06/16 Likely due to GI bleed since patient will reported melanotic stools. The patient nothing by mouth, start IV Protonix drip and consult GI. Transfuse 2 units of packed blood cells since hemoglobin today 6.8 and reports of active bleeding. Goal hemoglobin more than 9. I will also transfuse 2 units of platelets since the patient has a platelet count of 35 K to a goal platelet count of more than 50 K. I will also sent and studies, stool for Hemoccult blood, consult hematology, I will order PT, PTT, INR, fibrinogen, LDH , haptoglobin to rule out DIC or hemolytic anemia. Diabetes mellitus - Continue to hold home metformin - 06/16 Continue SSI. Continue to monitor Accu-Cheks. Blood sugar stable. DVT GI prophylaxis - Teds SCDs - No DVT chemical prophylaxis due to thrombocytopenia and continue IV Pepcid Discharge Planning Continue to monitor in the medical floor. Patient still bacteremic. Pending GI and hematology consult and clinical improvement. Problem Qualifiers (1) UTI (urinary tract infection): Qualified Codes: N10 - Acute pyelonephritis Kimo El MD Jun 16, 2017 10:59
[2017-06-16 12:28] LABS: APTT (PATIENT) 28.4 SEC (24.3-30.1); PROTHROMBIN TIME - PATIENT 11.3 SEC (9.8-11.6)
[2017-06-16 13:54] LABS: LDH SERUM 197 U/L (84-246); TRANSFERRIN IRON PROFILE 155 MG/DL (200-360)
[2017-06-16 13:57] LABS: FERRITIN 228 NG/ML (8-252)
--- NOTE | 2017-06-16 14:27 | HHI.NPPN ---
Subjective General Problems: Anemia, Mebatolic Acidosis Renal Failure: Acute Objective Data Data 06/16/17 06/17/17 19:00 07:00 Intake Total 480 ml Balance 480 ml IV Total 480 ml Vital Signs Date Time Temp Pulse Resp B/P (MAP) Pulse Ox O2 Delivery O2 Flow Rate FiO2 06/16/17 14:16 97.7 70 16 111/55 (73) 97 06/16/17 12:00 97.8 69 17 107/59 (75) 95 06/16/17 09:00 Nasal Cannula 3.00 06/16/17 08:00 97.5 67 16 105/55 (72) 95 06/16/17 07:33 96 Nasal Cannula 3.00 06/16/17 04:48 97.4 74 16 118/64 (82) 95 06/16/17 00:57 97.4 66 16 126/58 (80) 96 06/15/17 20:05 Nasal Cannula 3.00 06/15/17 20:00 97.6 69 16 149/66 (93) 98 06/15/17 17:19 96.5 69 17 136/62 (86) 98 06/15/17 16:00 78 06/15/17 16:00 97.9 78 26 178/82 (114) 100 06/15/17 15:00 79 -: 06/16/17 0610 06/16/17 0610 Microbiology 06/16/17 Stool Occult Blood (GERRI), Received Pending Tubes & Lines: Martini Drip Comment bicarb gtt Physical Exam General Appearance: No Acute Distress, Comfortable, Malnourished Eyes Eye Exam: Pupils Equal Throat Throat Exam: Oral Mucosa [place] & Moist Pulmonary Resp Exam: Clear Bilaterally, Breath Sounds Equal Cardiology CV Exam: Regular, Normal Sinus Rhythm Gastrointestinal/Abdomen GI Exam: Soft, Non-Tender, Bowel Sounds Present Musculoskeletal MS Exam: Joints Intact, Normal Tone, Atrophy, Unable to Ambulate Integumentary Skin Exam: Clear, Warm, Dry, Intact Extremeties Extremities Exam: Pedal Pulses Palpable, Trace Edema Neurologic Neuro Exam: Alert, Awake, Oriented, Speech Clear, Moving All Extremities Psychiatric Psych Exam: Appropriate Responses Assessment/Plan Discussed Condition With: Patient Assessment Summary: JANET/Acute Renal Failure Electrolyte Assessment: Hypernatremia Problem List: (1) Acute renal failure ICD Codes: N17.9 - Acute kidney failure, unspecified Status: Acute Plan: Normal renal function at baseline JANET from obstructive uropathy S/P ureteral stent by urology 06/14 Renal function Cr 3.8 better GI Bleed Hb 6.8 GI consulted Cr 3.8 on IVF with bicarb K low replaced (2) Ureteral calculi ICD Codes: N20.1 - Calculus of ureter Status: Acute Plan: Obstructing, urology following s/p stent placement (3) Thrombocytopenia ICD Codes: D69.6 - Thrombocytopenia, unspecified Status: Acute (4) UTI (urinary tract infection) ICD Codes: N39.0 - Urinary tract infection, site not specified Status: Acute Plan: History of in the past GNR on culture She is on Zosyn (renally dose) Has leukocytosis, may be in part due to hemoconcentration (5) HTN (hypertension) ICD Codes: I10 - Essential (primary) hypertension Status: Chronic Plan: Home medications were resumed, titrate if needed (6) Hypernatremia ICD Codes: E87.0 - Hyperosmolality and hypernatremia Plan: Improving, Continue isotonic fluids Follow labs (7) Sepsis ICD Codes: A41.9 - Sepsis, unspecified organism Status: Resolved Plan: Secondary to UTI On Zosyn, monitor clinically ID has evaluated Problem Qualifiers (1) Acute renal failure: Qualified Codes: N17.9 - Acute kidney failure, unspecified (2) UTI (urinary tract infection): Qualified Codes: N10 - Acute pyelonephritis Naty Padilla MD Jun 16, 2017 14:27
[2017-06-16] MEDS: PANTOPRAZOLE INJ 80 MG in SODIUM CHLORIDE 0.9% INJ 100 ML IV SCH (16:29)
[2017-06-16] MEDS: DONEPEZIL HCL 5 MG TAB PO SCH (22:27)
[2017-06-17] VITALS (7 sets, daily range): BP systolic 115–168; BP diastolic 58–79; PULSE 60–93; RESP 15–20; TEMP 96.7–97.6; O2SAT 98–100
[2017-06-17] MEDS: SODIUM BICARBONATE 8.4% INJ 100 MEQ in WATER STERILE FOR INJ 850 ML IV SCH (03:06)
[2017-06-17] MEDS: PANTOPRAZOLE INJ 80 MG in SODIUM CHLORIDE 0.9% INJ 100 ML IV SCH ×2 (03:08→08:00)
[2017-06-17] MEDS: PIPERACIL-TAZO 2.25 GM PREMIX 50 ML IV SCH ×3 (03:23→18:42)
[2017-06-17 03:51] LABS: AUTOMATED NEUTROPHIL # 9.3 TH/MM3 (1.8-7.7); BASOPHIL % 0.2 % (0.0-2.0); EOSINOPHIL # 0.1 TH/MM3 (0-0.4); HEMATOCRIT 27.2 % (35.0-46.0); LYMPH % 11.3 % (9.0-44.0); LYMPHOCYTE # 1.2 TH/MM3 (1.0-4.8); MEAN CELL VOLUME 75.4 FL (80.0-100.0); MEAN CORPUSCULAR HEMOGLOBIN 25.5 PG (27.0-34.0); MEAN CORPUSCULAR HGB CONC 33.8 % (32.0-36.0); MONO % 2.7 % (0.0-8.0); NEUT % 84.8 % (16.0-70.0); PLATELET COUNT 80 TH/MM3 (150-450); RED BLOOD COUNT 3.61 MIL/MM3 (4.00-5.30); RED CELL DISTRIBUTION WIDTH 20.4 % (11.6-17.2)
[2017-06-17 03:58] LABS: HEMO FLAGS DIFF FINAL
[2017-06-17 04:16] LABS: CALCIUM-PROTEIN CORRECTED 8.2 MG/DL (8.5-10.1); MAGNESIUM 1.9 MG/DL (1.5-2.5); POTASSIUM 3.1 MEQ/L (3.5-5.1); TOTAL BILIRUBIN ADULT 0.9 MG/DL (0.2-1.0)
[2017-06-17] MEDS: INSULIN ASPART SUPPLEMENTAL SCALE SQ SCH ×4 (08:00→20:04)
[2017-06-17] MEDS: SODIUM CHLORIDE 0.9% FLUSH 10 ML FLUSH IV FLUSH SCH ×2 (08:08→20:10)
[2017-06-17] MEDS: MEMANTINE HCL 5 MG TAB PO SCH (08:20)
[2017-06-17] MEDS: FAMOTIDINE 20 MG/2 ML VIAL IV PUSH SCH ×2 (08:20→20:06)
[2017-06-17] MEDS ORDERED: POTASSIUM CHLORIDE 10 MEQ CONTROLLED RELEASE TAB PO ONE (09:30)
[2017-06-17] MEDS ORDERED: CALCIUM CHLORIDE INJ 2 GM in SODIUM CHLORIDE 0.9% INJ 100 ML IV ONE (09:30)
--- NOTE | 2017-06-17 09:32 | MB ---
cc: CHERY ROBERTS DATE OF CONSULTATION: 06/16/2017 DATE OF : 1950 REASON FOR CONSULTATION Patient with UTI, sepsis and has neutropenia and anemia. HISTORY OF PRESENT ILLNESS This is a 66-year-old female who has a past medical history of CVA in March of 2016 with baseline aphasia, history of coronary artery disease status post stent placement, history of ureteral stent placement, who was brought to the emergency room as a Boland Act by the ambulance service. She was found in her home on the floor prior to arrival. She was unsure how exactly she ended up on the ground. She reported lower back pain. She was brought under a Boland Act due to the fact that she was unable to care for herself with a home that was in disrepair. The patient was disheveled and she has been having episodes of diarrhea. The patient was extremely dehydrated on presentation. She was in renal failure with a creatinine of 7.6 and BUN of 187. She had leukocytosis with WBC of 25.3 with left shift. She was found to have a urethral stone in the left with hydronephrosis and hydroureter. The patient was evaluated by nephrology and a right retrograde study and right double-J stent insertion was recommended. The patient is not having melanotic stools. She is being treated for UTI and acute pyelonephritis. Urine culture was growing Enterobacter cloacae and cultures from 06/14 are growing gram-negative rods. She is on IV vancomycin and Zosyn. Hematology has been consulted to make recommendations regarding her anemia with a hemoglobin of 6.8. Her MCV is 71.5. She also has developed thrombocytopenia with platelet count of 35,000. On admission her platelet count was 19 which later improved to 78,000 and is currently at 35,000 as stated above. REVIEW OF SYSTEMS Difficult to obtain review of systems due to her mental status. PAST MEDICAL HISTORY 1. Hypertension. 2. Diabetes. 3. Coronary artery disease with stent placement. 4. History of multiple UTIs. 5. History of renal stone. PAST SURGICAL HISTORY 1. Left ureteral stent. 2. PCI with stent. 3. Cardiac loop recorder. FAMILY HISTORY Noncontributory. She was unable to give me a good history. I reviewed the electronic medical record to review any documented family history. SOCIAL HISTORY She is nonsmoker. She occasionally drinks alcohol. She lives alone. PHYSICAL EXAMINATION VITAL SIGNS: Blood pressure 120/58, pulse is 73, temperature is 98.9, O2 sats are 99% on room air. GENERAL: In no apparent distress. HEENT: Pupils are equal, round, reactive to light. EOMI. No oral thrush. No oral lesions. NECK: Neck is supple without JVD, no bruits. No lymphadenopathy. CHEST: Chest is clear to auscultation bilaterally. CARDIAC: She is tachycardic in the 90s. CHEST: Chest is clear to auscultation bilaterally. ABDOMEN: Abdomen is soft, nontender, nondistended. Bowel sounds are present. EXTREMITIES: Without any edema, erythema or cyanosis. SKIN: She has a pressure ulcer with a large eschar. LABORATORY DATA WBC 11.3, hemoglobin 6.8, MCV 71.5, platelet count is 35,000, haptoglobin is 204. IMAGING STUDIES CT of the abdomen and pelvis was reviewed. She has a 9 mm right mid ureteral stone resulting in hydronephrosis and proximal hydroureter, chronic hydronephrosis in the left with cortical thinning of the kidney and multiple nonobstructing left-sided renal calculi. CT imaging of the cervical spine was reviewed. No fractures or dislocations, degenerative changes were seen. CT head did not show any acute intracranial abnormality. Lumbar spine CT did not show any acute abnormality either, degenerative changes were seen. Pelvic x-ray did not show any acute abnormalities. Thoracic spine CT was also reviewed and did not reveal any acute abnormalities. ASSESSMENT/PLAN This is a 66-year-old female with a past medical history of CVA and coronary artery disease. She was brought to the emergency room after she was Boland Acted, she had fallen, she was disheveled. She was found to be hypotensive and had tachycardia and leukocytosis on admission. She has urinary tract infection with enterobacter cloacae and blood cultures are growing gram-negative rods. She has underlying sepsis. 1. Microcytic anemia with a very low hemoglobin of 6.8, MCV 71.5. She appears to be iron deficient. We will obtain anemia studies, check B12 and folate. We will obtain hemolysis labs including LDH and haptoglobin. Obtain a direct Tad test. We need to obtain stool hemoccult to make sure that she is not losing any blood from the GI tract. I agree with transfusing her 2 units of packed red blood cells. She will benefit from iron infusions. 2. Thrombocytopenia likely from sepsis and DIC. We will check LDH and haptoglobin as stated above. There is no evidence of microangiopathy. Her peripheral smear will be reviewed. Check hepatitis profile. 3. Leukocytosis which is improving. This is secondary to sepsis and infection. 4. Acute renal failure from dehydration and infection. 5. UTI, sepsis and bacteremia. Antibiotics per primary team and infectious disease. Thank you for allowing me to participate in the care of this patient. I will continue to follow this patient along. MD WILLIAM Plata/ANDREW /2:22 AM /8:59 AM MTDHali
[2017-06-17] MEDS: SODIUM CHLORIDE 23.4% INJ 38.5 MEQ in WATER STERILE FOR INJ 1,000 ML IV SCH (10:42)
--- NOTE | 2017-06-17 11:01 | PD.CONS ---
HPI History of Present Illness This is a 66 year old female with a history of CVA (Pradaxa prescribed at home) , CAD, DM, Vitamin D Deficiency, kidney stones, and DVT, who is currently hospitalized for sepsis related to UTI, ureteral calculus, bacteremia, acute kidney injury, acute blood loss anemia, thrombocytopenia, elevated lipase and HTN. She was noted to have a drop in Hgb from 8.9/27.7 to 6.8/21.5 on 06/16. She has been transfused 2 units of PRBC and 4 units of Platelets and she currently has an H/H of 9.2/27.2 and Plt 80,000. GI has been consulted for GIB and drop in Hgb. The patient has not seen any obvious GI bleeding. She specifically denies any dark stools or red blood in her stools. The nurse reports that her stool appeared dark and was sent down for hemoccult, but was negative x 2. She denies any nausea, vomiting, heartburn, reflux, abdominal pain, constipation, melena, or hematochezia. She does report that her stools have been looser than normal, but that she is not having multiple bowel movements per day. She reports that she is post menopausal, but about a month ago, she started having a significant amount of vaginal bleeding. She stopped her Pradaxa at the time and reports that the bleeding subsided and she has not had any further vaginal bleeding. She did not see a soccer commentator for this episode of bleeding. She states that she has been off the Pradaxa for about a month. She has never had an EGD or Colonoscopy. Long discussion with patient regarding EGD/Colonoscopy- procedure, risks, benefits, but she is adamantly refusing at this time, stating that she does not feel that it is necessary. She is also requesting that her diet be advanced. (Lilian Ceballos) PFSH Past Medical History Renal stones Recurrent UTI CVA CAD DM Vitamin D Deficiency Hx Left lower extremity DVT Past Surgical History Cardiac cath, PCI/Stent Left ureteral stent placement Loop recorder placement (Lilian Ceballos) Coded Allergies: sulfamethoxazole (Unverified Allergy, Severe, rash, 03/21/17) trimethoprim (Unverified Allergy, Severe, rash, 03/21/17) Medications Allergies Coded Allergies Type Severity Reaction Last Updated Verified sulfamethoxazole Allergy Severe rash 8/16/17 No trimethoprim Allergy Severe rash 03/21/17 No Active Scripts Medications Dose Route/Sig Max Daily Dose Days Date Category Dose Instructions Macrobid (Nitrofurantoin Monoh/Nitrofur Macro) 100 Mg Cap 100 Mg PO BID 09/26/16 Rx Cipro (Ciprofloxacin HCl) 500 Mg Tab 500 Mg PO BID 09/21/16 Rx Metformin (Metformin HCl) 500 Mg Tab 500 Mg PO BIDPC 09/21/16 Rx With meals Atorvastatin (Atorvastatin Calcium) 80 Mg Tab 80 Mg PO HS 09/21/16 Rx Metoprolol Succinate ER 24 HR (Metoprolol Succinate) 50 Mg Tab 50 Mg PO DAILY 09/21/16 Rx Vitamin D (Ergocalciferol) 50,000 Unit Cap 50,000 Units PO Q7D 09/21/16 Rx Vesicare (Solifenacin) 5 Mg Tab 5 Mg PO DAILY 06/21/16 Reported Folate (Folic Acid) 1 Mg Tab 1 Mg PO DAILY 06/21/16 Reported Pradaxa (Dabigatran) 150 Mg Cap 150 Mg PO BID 06/21/16 Reported Family History Noncontributory Social History Does not smoke. Occasional ETOH No illicit drugs. (Lilian Ceballos) Review of Systems Constitutional: COMPLAINS OF: Fatigue, DENIES: Weight loss Respiratory: DENIES: Cough Cardiovascular: DENIES: Chest pain Gastrointestinal: DENIES: Abdominal pain, Black stools, Bloody stools, Constipation, Diarrhea (looser than normal stools), Nausea, Vomiting, Heartburn , Hematemesis Musculoskeletal: COMPLAINS OF: Joint pain, Muscle aches Neurologic: DENIES: Headache Psychiatric: DENIES: Confusion (Lilian Ceballos) GI Exam Vitals I&O Vital Signs Date Time Temp Pulse Resp B/P (MAP) Pulse Ox O2 Delivery O2 Flow Rate FiO2 06/17/17 08:00 96.7 65 15 124/60 (81) 100 06/17/17 05:55 96.8 67 20 115/60 (78) 100 06/17/17 01:30 97.6 67 18 130/58 (82) 100 06/16/17 20:00 97.6 70 18 118/59 (78) 100 06/16/17 18:04 98 Nasal Cannula 3.00 06/16/17 17:00 97.7 98 17 99/53 98 06/16/17 16:37 98.9 73 16 120/58 99 06/16/17 16:00 98.9 73 16 120/58 (78) 99 06/16/17 14:52 97.4 69 16 105/50 97 06/16/17 14:39 97 Nasal Cannula 3.00 06/16/17 14:36 97.7 70 16 111/55 97 06/16/17 14:16 97.7 70 16 111/55 (73) 97 06/16/17 12:00 97.8 69 17 107/59 (75) 95 I/O 06/16/17 06/16/17 06/16/17 06/17/17 06/17/17 06/17/17 07:00 15:00 23:00 07:00 15:00 23:00 Intake Total 1278 ml 1210 ml 550 ml Output Total 1700 ml 1500 ml 1500 ml Balance -1700 ml 1278 ml -290 ml -950 ml Intake Oral 240 ml IV Total 530 ml 570 ml 150 ml Packed Cells 400 ml 400 ml Platelets 374 ml Blood Product IV Normal Saline Flush 374 ml Output Urine Total 1700 ml 1500 ml 1500 ml # Bowel Movements 2 2 Imaging Last Impressions Thoracic Spine CT 06/12/172015 Signed Impressions: Service Date/Time: Monday, June 12, 2017 22:01 - CONCLUSION: 1. No acute abnormality. Royal Philippe Jr., MD Pelvis X-Ray 06/12/172015 Signed Impressions: Service Date/Time: Monday, June 12, 2017 20:25 - CONCLUSION: No acute disease. Royal Philippe Jr., MD Lumbar Spine CT 06/12/172015 Signed Impressions: Service Date/Time: Monday, June 12, 2017 22:01 - CONCLUSION: 1. No fracture or dislocation. 2. Degenerative changes. 3. See the CT of the abdomen and pelvis reported separately. Royal Philippe Jr., MD Head CT 06/12/172015 Signed Impressions: Service Date/Time: Monday, June 12, 2017 21:56 - CONCLUSION: 1. No acute intracranial abnormality. 2. Atrophy and chronic small vessel ischemic change. Royal Philippe Jr., MD Chest X-Ray 06/12/172015 Signed Impressions: Service Date/Time: Monday, June 12, 2017 20:30 - CONCLUSION: No acute disease. Royal Philippe Jr., MD Cervical Spine CT 06/12/172015 Signed Impressions: Service Date/Time: Monday, June 12, 2017 21:56 - CONCLUSION: 1. No fracture or dislocation. 2. Degenerative changes as detailed above. Royal Philippe Jr., MD Abdomen/Pelvis CT 06/12/172015 Signed Impressions: Service Date/Time: Monday, June 12, 2017 22:01 - CONCLUSION: 1. 9 mm right mid ureteral stone with resulting hydronephrosis and proximal hydroureter. 2. Chronic hydronephrosis on the left with cortical thinning of the kidney and multiple nonobstructing left sided renal calculi. 3. Cholelithiasis. Royal Philippe Jr., MD Laboratory Test 06/16/17 11:53 06/16/17 12:50 06/17/17 03:25 Prothrombin Time 11.3 SEC Prothromb Time International Ratio 1.0 RATIO Activated Partial Thromboplast Time 28.4 SEC Fibrinogen 436 mg/dL Haptoglobin 204 MG/DL Iron Level 25 MCG/DL Total Iron Binding Capacity 217 MCG/DL Percent Iron Saturation 11.5 % Ferritin 228 NG/ML Lactate Dehydrogenase 197 U/L White Blood Count 11.0 TH/MM3 Red Blood Count 3.61 MIL/MM3 Hemoglobin 9.2 GM/DL Hematocrit 27.2 % Mean Corpuscular Volume 75.4 FL Mean Corpuscular Hemoglobin 25.5 PG Mean Corpuscular Hemoglobin Concent 33.8 % Red Cell Distribution Width 20.4 % Platelet Count 80 TH/MM3 Mean Platelet Volume 9.5 FL Neutrophils (%) (Auto) 84.8 % Lymphocytes (%) (Auto) 11.3 % Monocytes (%) (Auto) 2.7 % Eosinophils (%) (Auto) 1.0 % Basophils (%) (Auto) 0.2 % Neutrophils # (Auto) 9.3 TH/MM3 Lymphocytes # (Auto) 1.2 TH/MM3 Monocytes # (Auto) 0.3 TH/MM3 Eosinophils # (Auto) 0.1 TH/MM3 Basophils # (Auto) 0.0 TH/MM3 CBC Comment DIFF FINAL Differential Comment Blood Urea Nitrogen 90 MG/DL Creatinine 3.08 MG/DL Random Glucose 105 MG/DL Total Protein 5.2 GM/DL Albumin 1.6 GM/DL Calcium Level 7.2 MG/DL Phosphorus Level 3.9 MG/DL Magnesium Level 1.9 MG/DL Alkaline Phosphatase 151 U/L Aspartate Amino Transf (AST/SGOT) 24 U/L Alanine Aminotransferase (ALT/SGPT) 20 U/L Total Bilirubin 0.9 MG/DL Sodium Level 147 MEQ/L Potassium Level 3.1 MEQ/L Chloride Level 110 MEQ/L Carbon Dioxide Level 28.0 MEQ/L Anion Gap 9 MEQ/L Estimat Glomerular Filtration Rate 15 ML/MIN Protein Corrected Calcium 8.2 MG/DL Date/Time Source Procedure Growth Status 06/14/17 12:07 Blood Peripheral Aerobic Blood Culture - Final Enterobacter Cloacae Resulted 06/14/17 12:07 Blood Peripheral Anaerobic Blood Culture - Preliminary NO GROWTH IN 2 DAYS Resulted 06/17/17 04:05 Stool Stool Stool Occult Blood (GERRI) - Final HEMOCCULT NEGATIVE Complete 06/13/17 12:20 Urine Catheterized Urine Urine Culture - Final Enterobacter Cloacae Complete Physical Examination HEENT: Normocephalic; atraumatic; no jaundice. CHEST: Resp even/unlabored, CTA CARDIAC: RRR ABDOMEN: Soft, nondistended, nontender; no hepatosplenomegaly; bowel sounds are present in all four quadrants. EXTREMITIES: No clubbing, cyanosis, or edema. [employer]ICE [employer]: Left sided facial droop (mild); lethargic and oriented times three. (Lilian Ceballos) Assessment and Plan Plan ASSESSMENT: - Anemia with drop in Hgb. CT Scan abdomen and pelvis without IV contrast (06/12)---> 9 mm right mid ureteral stone with resulting hydronephrosis and proximal hydroureter. Chronic hydronephrosis on the left with cortical thinning of the kidney and multiple nonobstructing left sided renal calculi, cholelithiasis. She had a drop in her Hgb from H/H of 9.2/27.2 to 8.9/27.7 to 6.8/21.5 on 06/16. S/ P 2 units of PRBC and 4 units of Platelets. Rpt. labs with H/H 9.2/27.2 and Plt 80,000. Nurse reports questionable dark stool, but stool has been hemoccult negative. Pt denies any GI symptoms. She does note that she had significant vaginal bleeding 1 month ago (she is post menopausal). She has never had an EGD/Colonoscopy- Long discussion with patient regarding EGD/Colonoscopy- procedure, risks, benefits, but she is adamantly refusing at this time, stating that she does not feel that it is necessary. She is also requesting that her diet be advanced. - Thrombocytopenia. S/P 4 units of Plts. 80,000 - Elevated lipase, undetermined significance. CT as above. LFTs unremarkable. Lipase on 06/16 was 6,913. Clear liquid diet. Clinically, no nausea, vomiting, abdominal pain. - Sepsis, bacteremia, UTI. Blood and urine with enterobacter cloacae. Zosyn. - JANET with electrolyte abnormalities. Creat 3.08. - Kidney stones, chronic hydronephrosis. following. - Hx CVA and DVT. On Pradaxa at home, but states that she stopped this a month ago when she started having vaginal bleeding. She has not had any further bleeding, but has not resumed her Pradaxa yet. - CAD, DM, Vitamin D Deficiency, kidney stones per attending. PLAN: - Full liquids - D/C Protonix Gtt - Protonix 40mg IV BID - Monitor HH - Transfuse as necessary - CBC, CMP, Lipase in am - Supportive care - Pt refusing EGD/Colonoscopy at this time - Further recommendations to follow based on results of above - Pt seen and examined by Dr. Zavala and myself and this note is written on his behalf (Lilian Ceballos) Physician Comments Seen and examined, plan as above. Now agreeing to proceed with EGD/Colonoscopy. Off Predixa for over a month. Will schedule procedures for tomorrow. Thank you for the consult. (Isacc Zavala MD) Lilian Ceballos Jun 17, 2017 11:01 Isacc Zavala MD Jun 17, 2017 13:46
[2017-06-17] MEDS ORDERED: IRON SUCROSE INJ 200 MG in SODIUM CHLORIDE 0.9% INJ 100 ML IV SCH (12:15)
[2017-06-17] MEDS: PANTOPRAZOLE SODIUM 40 MG VIAL IV PUSH SCH ×2 (12:39→20:06)
--- NOTE | 2017-06-17 13:07 | PD.ONC.PN ---
Subjective Subjective Remarks Afebrile "I refused the colonoscopy but then I changed my mind" Complaints of feeling weak Denies shortness of breath or chest pain Objective Data Date Time Temp Pulse Resp B/P (MAP) Pulse Ox O2 Delivery O2 Flow Rate FiO2 06/17/17 12:00 97.3 68 16 126/65 (85) 99 06/17/17 08:00 96.7 65 15 124/60 (81) 100 06/17/17 05:55 96.8 67 20 115/60 (78) 100 06/17/17 01:30 97.6 67 18 130/58 (82) 100 06/16/17 20:00 97.6 70 18 118/59 (78) 100 06/16/17 18:04 98 Nasal Cannula 3.00 06/16/17 17:00 97.7 98 17 99/53 98 06/16/17 16:37 98.9 73 16 120/58 99 06/16/17 16:00 98.9 73 16 120/58 (78) 99 06/16/17 14:52 97.4 69 16 105/50 97 06/16/17 14:39 97 Nasal Cannula 3.00 06/16/17 14:36 97.7 70 16 111/55 97 06/16/17 14:16 97.7 70 16 111/55 (73) 97 06/17/17 06/17/17 06/17/17 07:00 15:00 23:00 Intake Total 550 ml 176 ml Output Total 1500 ml Balance -950 ml 176 ml Result Diagram: 06/17/17 0325 06/17/17 0325 Laboratory Results Laboratory Tests Test 06/16/17 12:50 06/17/17 03:25 Haptoglobin 204 MG/DL Iron Level 25 MCG/DL Total Iron Binding Capacity 217 MCG/DL Percent Iron Saturation 11.5 % Ferritin 228 NG/ML Lactate Dehydrogenase 197 U/L White Blood Count 11.0 TH/MM3 Red Blood Count 3.61 MIL/MM3 Hemoglobin 9.2 GM/DL Hematocrit 27.2 % Mean Corpuscular Volume 75.4 FL Mean Corpuscular Hemoglobin 25.5 PG Mean Corpuscular Hemoglobin Concent 33.8 % Red Cell Distribution Width 20.4 % Platelet Count 80 TH/MM3 Mean Platelet Volume 9.5 FL Neutrophils (%) (Auto) 84.8 % Lymphocytes (%) (Auto) 11.3 % Monocytes (%) (Auto) 2.7 % Eosinophils (%) (Auto) 1.0 % Basophils (%) (Auto) 0.2 % Neutrophils # (Auto) 9.3 TH/MM3 Lymphocytes # (Auto) 1.2 TH/MM3 Monocytes # (Auto) 0.3 TH/MM3 Eosinophils # (Auto) 0.1 TH/MM3 Basophils # (Auto) 0.0 TH/MM3 CBC Comment DIFF FINAL Differential Comment Blood Urea Nitrogen 90 MG/DL Creatinine 3.08 MG/DL Random Glucose 105 MG/DL Total Protein 5.2 GM/DL Albumin 1.6 GM/DL Calcium Level 7.2 MG/DL Phosphorus Level 3.9 MG/DL Magnesium Level 1.9 MG/DL Alkaline Phosphatase 151 U/L Aspartate Amino Transf (AST/SGOT) 24 U/L Alanine Aminotransferase (ALT/SGPT) 20 U/L Total Bilirubin 0.9 MG/DL Sodium Level 147 MEQ/L Potassium Level 3.1 MEQ/L Chloride Level 110 MEQ/L Carbon Dioxide Level 28.0 MEQ/L Anion Gap 9 MEQ/L Estimat Glomerular Filtration Rate 15 ML/MIN Protein Corrected Calcium 8.2 MG/DL Culture Results Microbiology Date/Time Source Procedure Growth Status 06/17/17 04:05 Stool Stool Stool Occult Blood (GERRI) - Final HEMOCCULT NEGATIVE Complete 06/16/17 10:39 Stool Stool Stool Occult Blood (GERRI) - Final HEMOCCULT NEGATIVE Complete Administered Medications Medications (Trade) Dose Ordered Sig/Rinku Route PRN Reason Start Time Stop Time Status Last Admin Dose Admin Metoprolol Succinate (Toprol Xl) 50 mg DAILY PO 06/13/17 09:00 Future Hold 06/13/17 10:15 Sodium Chloride (NS Flush) 2 ml UNSCH PRN IV FLUSH FLUSH AFTER USING IV ACCESS 06/12/17 23:15 06/14/17 09:02 Sodium Chloride (NS Flush) 2 ml BID IV FLUSH 06/13/17 09:00 06/16/17 22:28 Acetaminophen (Tylenol) 650 mg Q6H PRN PO PAIN 1-10 AND/OR FEVER >101F 06/12/17 23:15 06/14/17 18:25 Famotidine (Pepcid Inj) 10 mg Q12HR IV PUSH 06/13/17 09:00 06/17/17 08:20 Miscellaneous Information 1 Q361D XX 06/12/17 23:15 06/12/17 01:00 Chlorhexidine Gluconate (Chlorhexidine 2% Cloth) 3 pack Taper DAILY@04 TOP 06/13/17 04:00 06/09/18 03:59 06/15/17 04:00 Dextrose (D50w (Vial) Inj) 50 ml UNSCH PRN IV PUSH HYPOGLYCEMIA-SEE COMMENTS 06/12/17 23:30 06/13/17 19:51 Insulin Aspart (NovoLOG SUPPLEMENTAL SCALE) 1 ACHS SLIDING SCALE SQ 06/13/17 08:00 06/15/17 08:00 Piperacillin Sod/ Tazobactam Sod 50 ml @ 100 mls/hr Q8H IV 06/13/17 10:00 06/17/17 08:21 Donepezil HCl (Aricept) 5 mg HS PO 06/15/17 21:00 06/16/17 22:27 Memantine (Namenda) 5 mg DAILY PO 06/16/17 09:00 06/17/17 08:20 Acetaminophen (Tylenol) 650 mg Q4H PRN PO SEE LABEL COMMENTS 06/16/17 10:00 06/16/17 16:58 Diphenhydramine HCl (Benadryl) 25 mg Q4H PRN PO SEE LABEL COMMENTS 06/16/17 10:00 06/16/17 16:58 Sodium Chloride 38.5 meq/Sterile Water 1,009.625 ml @ 100 mls/hr Q10H6M IV 06/17/17 10:00 06/17/17 10:42 Objective Remarks GENERAL: Chronically ill-appearing older female resting in bed in no acute distress SKIN: Warm and dry. HEAD: Normocephalic. EYES: No injection or drainage. NECK: Supple, trachea midline. CARDIOVASCULAR: Regular rate and rhythm without murmurs. RESPIRATORY: Clear anteriorly. Breathing unlabored. GASTROINTESTINAL: Abdomen soft, non-tender, nondistended. EXTREMITIES: No cyanosis. MUSCULOSKELETAL: Adequate muscle tone. NEUROLOGICAL: Normal speech. Moving all extremities. No obvious focal deficit. Assessment/Plan Problem List: (1) Microcytic anemia ICD Codes: D50.9 - Iron deficiency anemia, unspecified Plan: -- Denies having had a history of iron deficiency in the past -- Will plan to give IV iron x 3 days -- s/p 2 units PRBC's -- No evidence of hemolysis as her LDH, haptoglobin, Direct Tad is normal. -- Plan for panendoscopy in a.m. (2) UTI (urinary tract infection) ICD Codes: N39.0 - Urinary tract infection, site not specified Status: Acute Plan: -- Urine culture shows enterobacter -- On Zosyn Assessment 66 y/o female admitted under a [place] after being found down; hematology consulted for severe microcytic anemia Plan 1. Begin iron treatments 3 days for evidence of low iron 2. Patient has changed her mind and will get panendoscopy; GI following 3. Monitor CBC 4. Monitor labs for sepsis/DIC Discussed with RN Attending Statement The exam, history, and the medical decision-making described in the above note were completed with the assistance of the mid-level provider. I reviewed and agree with the findings presented. I attest that I had a [id number] encounter with the patient on the same day, and personally performed and documented my assessment and findings in the medical record Iron deficient Ferritin up due to inflammation Iron infusions no evidence of hemolysis --labs reviewed plans for colonoscopy tomorrow d/w rn o/n events reviewed Problem Qualifiers (1) UTI (urinary tract infection): Qualified Codes: N10 - Acute pyelonephritis Marisela Mckinnon Jun 17, 2017 13:07 Abisai Franco MD Jun 17, 2017 16:16
[2017-06-17] MEDS ORDERED: PEG (High)/E-LYTE SOLN 4000 ML BTL PO ONE (14:00)
[2017-06-17] MEDS ORDERED: BISACODYL EC 5 MG TABEC PO ONE ×2 (14:00→14:15)
--- NOTE | 2017-06-17 16:59 | HHI.NPPN ---
Subjective General Problems: Anemia, Mebatolic Acidosis Renal Failure: Acute Objective Data Data 06/17/17 06/18/17 19:00 07:00 Intake Total 276 ml Balance 276 ml IV Total 276 ml Vital Signs Date Time Temp Pulse Resp B/P (MAP) Pulse Ox O2 Delivery O2 Flow Rate FiO2 06/17/17 16:00 97.1 93 16 123/68 (86) 99 06/17/17 12:00 97.3 68 16 126/65 (85) 99 06/17/17 08:30 Nasal Cannula 3.00 06/17/17 08:00 96.7 65 15 124/60 (81) 100 06/17/17 05:55 96.8 67 20 115/60 (78) 100 06/17/17 01:30 97.6 67 18 130/58 (82) 100 06/16/17 20:00 97.6 70 18 118/59 (78) 100 06/16/17 18:04 98 Nasal Cannula 3.00 06/16/17 17:00 97.7 98 17 99/53 98 -: 06/17/17 0325 06/17/17 0325 Microbiology 06/17/17 Stool Occult Blood (GERRI) - Final, Complete HEMOCCULT NEGATIVE Tubes & Lines: Martini Drip Comment bicarb gtt Physical Exam General Appearance: No Acute Distress, Comfortable, Malnourished Eyes Eye Exam: Pupils Equal Throat Throat Exam: Oral Mucosa [place] & Moist Pulmonary Resp Exam: Clear Bilaterally, Breath Sounds Equal Cardiology CV Exam: Regular, Normal Sinus Rhythm Gastrointestinal/Abdomen GI Exam: Soft, Non-Tender, Bowel Sounds Present Musculoskeletal MS Exam: Joints Intact, Normal Tone, Atrophy, Unable to Ambulate Integumentary Skin Exam: Clear, Warm, Dry, Intact Extremeties Extremities Exam: Pedal Pulses Palpable, Trace Edema Neurologic Neuro Exam: Alert, Awake, Oriented, Speech Clear, Moving All Extremities Psychiatric Psych Exam: Appropriate Responses Assessment/Plan Discussed Condition With: Patient Assessment Summary: JANET/Acute Renal Failure Electrolyte Assessment: Hypernatremia Problem List: (1) Acute renal failure ICD Codes: N17.9 - Acute kidney failure, unspecified Status: Acute Plan: Normal renal function at baseline JANET from obstructive uropathy S/P ureteral stent by urology 06/14 Renal function Cr 3.08 better GI Bleed Hb improved post transfusion GI consulted Cr 3.08 on IVF with bicarb K low replaced (2) Ureteral calculi ICD Codes: N20.1 - Calculus of ureter Status: Acute Plan: Obstructing, urology following s/p stent placement (3) Thrombocytopenia ICD Codes: D69.6 - Thrombocytopenia, unspecified Status: Acute (4) UTI (urinary tract infection) ICD Codes: N39.0 - Urinary tract infection, site not specified Status: Acute Plan: History of in the past GNR on culture She is on Zosyn (renally dose) Has leukocytosis, may be in part due to hemoconcentration (5) HTN (hypertension) ICD Codes: I10 - Essential (primary) hypertension Status: Chronic Plan: Home medications were resumed, titrate if needed (6) Hypernatremia ICD Codes: E87.0 - Hyperosmolality and hypernatremia Plan: Improving, Continue isotonic fluids Follow labs (7) Sepsis ICD Codes: A41.9 - Sepsis, unspecified organism Status: Resolved Plan: Secondary to UTI On Zosyn, monitor clinically ID has evaluated Problem Qualifiers (1) Acute renal failure: Qualified Codes: N17.9 - Acute kidney failure, unspecified (2) UTI (urinary tract infection): Qualified Codes: N10 - Acute pyelonephritis Naty Padilla MD Jun 17, 2017 16:59
--- NOTE | 2017-06-17 17:43 | HHI.PR ---
Subjective Remarks Deferred entry - patient seen at 11:30 am Patient denies any further melena, denies nausea vomiting or abdominal pain. Vital signs stable. Objective Vitals Vital Signs Date Time Temp Pulse Resp B/P (MAP) Pulse Ox O2 Delivery O2 Flow Rate FiO2 06/17/17 16:00 97.1 93 16 123/68 (86) 99 06/17/17 12:00 97.3 68 16 126/65 (85) 99 06/17/17 08:30 Nasal Cannula 3.00 06/17/17 08:00 96.7 65 15 124/60 (81) 100 06/17/17 05:55 96.8 67 20 115/60 (78) 100 06/17/17 01:30 97.6 67 18 130/58 (82) 100 06/16/17 20:00 97.6 70 18 118/59 (78) 100 06/16/17 18:04 98 Nasal Cannula 3.00 I/O 06/16/17 06/16/17 06/16/17 06/17/17 06/17/17 06/17/17 07:00 15:00 23:00 07:00 15:00 23:00 Intake Total 1278 ml 1210 ml 550 ml 276 ml Output Total 1700 ml 1500 ml 1500 ml Balance -1700 ml 1278 ml -290 ml -950 ml 276 ml Intake Oral 240 ml IV Total 530 ml 570 ml 150 ml 276 ml Packed Cells 400 ml 400 ml Platelets 374 ml Blood Product IV Normal Saline Flush 374 ml Output Urine Total 1700 ml 1500 ml 1500 ml # Bowel Movements 2 2 Result Diagram: 06/17/17 0325 06/17/17 0325 Imaging Last Impressions Thoracic Spine CT 06/12/172015 Signed Impressions: Service Date/Time: Monday, June 12, 2017 22:01 - CONCLUSION: 1. No acute abnormality. Royal Philippe Jr., MD Pelvis X-Ray 06/12/172015 Signed Impressions: Service Date/Time: Monday, June 12, 2017 20:25 - CONCLUSION: No acute disease. Royal Philippe Jr., MD Lumbar Spine CT 06/12/172015 Signed Impressions: Service Date/Time: Monday, June 12, 2017 22:01 - CONCLUSION: 1. No fracture or dislocation. 2. Degenerative changes. 3. See the CT of the abdomen and pelvis reported separately. Royal Philippe Jr., MD Head CT 06/12/172015 Signed Impressions: Service Date/Time: Monday, June 12, 2017 21:56 - CONCLUSION: 1. No acute intracranial abnormality. 2. Atrophy and chronic small vessel ischemic change. Royal Philippe Jr., MD Chest X-Ray 06/12/172015 Signed Impressions: Service Date/Time: Monday, June 12, 2017 20:30 - CONCLUSION: No acute disease. Royal Philippe Jr., MD Cervical Spine CT 06/12/172015 Signed Impressions: Service Date/Time: Monday, June 12, 2017 21:56 - CONCLUSION: 1. No fracture or dislocation. 2. Degenerative changes as detailed above. Royal Philippe Jr., MD Abdomen/Pelvis CT 06/12/172015 Signed Impressions: Service Date/Time: Monday, June 12, 2017 22:01 - CONCLUSION: 1. 9 mm right mid ureteral stone with resulting hydronephrosis and proximal hydroureter. 2. Chronic hydronephrosis on the left with cortical thinning of the kidney and multiple nonobstructing left sided renal calculi. 3. Cholelithiasis. Royal Philippe Jr., MD Objective Remarks GENERAL: AAOx3, lying in bed, NAD SKIN: Warm and dry. Unstageable pressure injury that measures 10.4cm x 6.9 cm x eschar. Periwound is noted with diffuse small areas of partial thickness skin loss that is incontinence associated. HEAD: Normocephalic. EYES: No scleral icterus. No injection or drainage. Pale conjunctiva. NECK: Supple, trachea midline. No JVD or lymphadenopathy. CARDIOVASCULAR: Regular rate and rhythm without murmurs, gallops, or rubs. RESPIRATORY: Breath sounds equal bilaterally. No accessory muscle use. GASTROINTESTINAL: Abdomen soft, non-tender, nondistended. MUSCULOSKELETAL: No cyanosis, or edema. BACK: Nontender without obvious deformity. No CVA tenderness. Procedures Status post Cystoscopy with right retrograde study and right double-J stent insertion 06/13/17 Medications and IVs Current Medications Medications (Trade) Dose Ordered Sig/Rinku Route Start Time Stop Time Status Last Admin (Toprol Xl) 50 mg DAILY PO 06/13/17 09:00 Future Hold 06/13/17 10:15 (NS Flush) 2 ml UNSCH PRN IV FLUSH 06/12/17 23:15 06/14/17 09:02 (NS Flush) 2 ml BID IV FLUSH 06/13/17 09:00 06/16/17 22:28 (Tylenol) 650 mg Q6H PRN PO 06/12/17 23:15 06/14/17 18:25 (Pepcid Inj) 10 mg Q12HR IV PUSH 06/13/17 09:00 06/17/17 08:20 (Zofran Inj) 4 mg Q6H PRN IV PUSH 06/12/17 23:15 (Restoril) 15 mg HS PRN PO 06/12/17 23:15 Future Hold (Duoneb Neb) 1 ampule Q2HR NEB PRN INH 06/12/17 23:15 Miscellaneous Information 1 Q361D XX 06/12/17 23:15 06/12/17 01:00 (Chlorhexidine 2% Cloth) 3 pack Taper DAILY@04 TOP 06/13/17 04:00 06/09/18 03:59 06/15/17 04:00 (Chlorhexidine 2% Cloth) 3 pack UNSCH PRN TOP 06/12/17 23:15 (Milk Of Magnesia Liq) 30 ml Q12H PRN PO 06/12/17 23:15 (Dulcolax Supp) 10 mg DAILY PRN RECTAL 06/12/17 23:15 (D50w (Vial) Inj) 50 ml UNSCH PRN IV PUSH 06/12/17 23:30 06/13/17 19:51 (Glucagon Inj) 1 mg UNSCH PRN OTHER 06/12/17 23:30 (NovoLOG SUPPLEMENTAL SCALE) 1 ACHS SLIDING SCALE SQ 06/13/17 08:00 06/15/17 08:00 Piperacillin Sod/ Tazobactam Sod 50 ml @ 100 mls/hr Q8H IV 06/13/17 10:00 06/17/17 08:21 (Aricept) 5 mg HS PO 06/15/17 21:00 06/16/17 22:27 (Namenda) 5 mg DAILY PO 06/16/17 09:00 06/17/17 08:20 (Tylenol) 650 mg Q4H PRN PO 06/16/17 10:00 06/16/17 16:58 (Benadryl) 25 mg Q4H PRN PO 06/16/17 10:00 06/16/17 16:58 Sodium Chloride 38.5 meq/Sterile Water 1,009.625 ml @ 100 mls/hr Q10H6M IV 06/17/17 10:00 06/17/17 10:42 (Protonix Inj) 40 mg Q12HR IV PUSH 06/17/17 11:15 06/17/17 12:39 Iron Sucrose 200 mg/Sodium Chloride 110 ml @ 110 mls/hr DAILY IV 06/17/17 12:15 06/19/17 09:59 06/17/17 14:15 Urinary Catheter: No Vascular Central Line Catheter: No A/P Problem List: (1) Sepsis ICD Code: A41.9 - Sepsis, unspecified organism Status: Resolved (2) Acute blood loss anemia ICD Code: D62 - Acute posthemorrhagic anemia Status: Acute (3) Thrombocytopenia ICD Code: D69.6 - Thrombocytopenia, unspecified (4) Ureteral calculus, left ICD Code: N20.1 - Calculus of left ureter Status: Resolved (5) HTN (hypertension) ICD Code: I10 - Essential (primary) hypertension Status: Chronic (6) UTI (urinary tract infection) ICD Code: N39.0 - Urinary tract infection, site not specified Status: Acute (7) Elevated lipase ICD Code: R74.8 - Abnormal levels of other serum enzymes Status: Acute (8) Gram-negative bacteremia ICD Code: R78.81 - Bacteremia Status: Acute Assessment and Plan Assessment and Plan 66-year-old female with Acute metabolic/uremic encephalopathy Resolved Hypotension tachycardia-resolved Severe dehydration-improved with IV fluid hydration Mild troponin elevation - Continue current IV fluid hydration withsodium bicarbonate. - Troponin elevation most likely secondary to acute kidney injury - Sodium slightly elevated at 147. Continue to monitor BMP Elevated lipase Cholelithiasis - May need cholate cystectomy in the future - CT abdomen shows normal pancreas - 06/[address] GI consult. Continue to monitor lipase which seems to be trending down. Today down to 6913 from 7405. Acute kidney failure Uremia Acute right hydronephrosis, hydroureter from obstructing stone Chronic left hydronephrosis Hypokalemia. - Status post Cystoscopy with right retrograde study and right double-J stent insertion 06/13/17. Appreciate input from urology. Will need outpt ESWL to Rx Right ureteral calculus -Appreciate input from nephrology, and patient does not need at this time hemodialysis -Continue with IV fluid hydration and monitor BUN and creatinine - 06/16 Creatinine improving. Down to 3.81. Place potassium orally, continue to monitor BMP. - 06/17 Creatinine continues to trend down. K still low at 3.1, continue to replace orally. Severe sepsis UTI/acute pyelonephritis - Received Zosyn and vancomycin in the ED - Continue renally dosed Zosyn - Patient with UA positive urine culture growing Enterobacter cloacae. Last culture obtained on 06/14 still growing gram-negative rods. ID consulted, continue to follow-up ID recommendations. Antibiotics as per ID. Gram-negative cayla Bacteremia 4 out of 4 blood culture positive for gram-negative cayla Appreciate input from infectious disease specialist Continue with current antibiotics including Zosyn 06/16 Repeat blood cultures. Thrombocytopenia Acute Blood loss anemia - Most likely secondary to sepsis and dehydration\ -Continue to monitor, may consider hematology consultation - 06/16 Likely due to GI bleed since patient will reported melanotic stools. The patient nothing by mouth, start IV Protonix drip and consult GI. Transfuse 2 units of packed blood cells since hemoglobin today 6.8 and reports of active bleeding. Goal hemoglobin more than 9. I will also transfuse 2 units of platelets since the patient has a platelet count of 35 K to a goal platelet count of more than 50 K. I will also sent and studies, stool for Hemoccult blood, consult hematology, I will order PT, PTT, INR, fibrinogen, LDH , haptoglobin to rule out DIC or hemolytic anemia. - 06/17 Sp transfusion of 2 units of packed blood cells, 2 units of platelets. Hemoglobin improved to 9.2 and platelets improved to 88. Appreciate hematology consultation recommendations. The patient is getting IV iron. There is no evidence of hemolysis as her LDH, haptoglobin, direct comes is normal. Plan for panendoscopy in am. The patient states that she was previously on Pradaxa , however she was told to discontinue it since she had vaginal bleeding. Patient states she never followed up for vaginal bleeding issue. Diabetes mellitus - Continue to hold home metformin - 06/16 Continue SSI. Continue to monitor Accu-Cheks. Blood sugar stable. DVT GI prophylaxis - Teds SCDs - No DVT chemical prophylaxis due to thrombocytopenia and continue IV Pepcid Discharge Planning Continue to monitor in the medical floor. Patient still bacteremic. Pending GI and hematology consult and clinical improvement. Problem Qualifiers (1) UTI (urinary tract infection): Qualified Codes: N10 - Acute pyelonephritis Kimo El MD Jun 17, 2017 17:43
[2017-06-17] MEDS ORDERED: POVIDONE IODINE 5% (ANTISEPSIS KIT) 4 APPLICATIONS EACH NARE PRN (18:30)
[2017-06-17] MEDS ORDERED: METOPROLOL TARTRATE 25 MG TAB PO PRN (18:30)
[2017-06-17] MEDS ORDERED: INSULIN HUMAN REGULAR 1,000 UNITS/10 ML VIAL SQ PRN (18:30)
[2017-06-17] MEDS ORDERED: CHLORHEXIDINE GLUCONATE 2 % 1 PACK (2 CLOTHS) TOPICAL PRN (18:30)
[2017-06-17] MEDS ORDERED: SODIUM CHLORID 0.9% 500 ML IV PRN (18:30)
[2017-06-17] MEDS ORDERED: LACTATED RINGER'S 1000 ML IV PRN (18:30)
[2017-06-17] MEDS: DONEPEZIL HCL 5 MG TAB PO SCH (20:13)
[2017-06-18] VITALS (8 sets, daily range): BP systolic 131–150; BP diastolic 62–72; PULSE 63–82; RESP 16–18; TEMP 97.2–97.6; O2SAT 94–99
[2017-06-18] MEDS: CHLORHEXIDINE GLUCONATE 2 % 1 PACK (2 CLOTHS) TOP SCH (02:02)
[2017-06-18] MEDS: PIPERACIL-TAZO 2.25 GM PREMIX 50 ML IV SCH ×3 (02:02→17:13)
[2017-06-18] MEDS: SODIUM CHLORIDE 23.4% INJ 38.5 MEQ in WATER STERILE FOR INJ 1,000 ML IV SCH ×3 (02:02→21:32)
[2017-06-18] MEDS: INSULIN ASPART SUPPLEMENTAL SCALE SQ SCH ×4 (08:00→21:00)
[2017-06-18] MEDS: SODIUM CHLORIDE 0.9% FLUSH 10 ML FLUSH IV FLUSH SCH ×2 (08:40→21:28)
[2017-06-18] MEDS: FAMOTIDINE 20 MG/2 ML VIAL IV PUSH SCH ×2 (09:00→21:24)
--- NOTE | 2017-06-18 10:01 | HHI.GIFU ---
Subjective Remarks Resting comfortably in bed eager to get procedure done Objective Vitals I&O Vital Signs Date Time Temp Pulse Resp B/P (MAP) Pulse Ox O2 Delivery O2 Flow Rate FiO2 06/18/17 08:00 97.4 63 17 134/72 (92) 99 06/18/17 04:00 97.5 65 17 150/67 (94) 99 06/18/17 00:00 97.5 68 18 145/70 (95) 98 06/17/17 21:00 Nasal Cannula 2.00 06/17/17 20:00 60 06/17/17 20:00 96.8 65 17 168/79 (108) 98 06/17/17 19:06 99 Nasal Cannula 3.00 06/17/17 16:00 97.1 93 16 123/68 (86) 99 06/17/17 12:00 97.3 68 16 126/65 (85) 99 I/O 06/17/17 06/17/17 06/17/17 06/18/17 06/18/17 06/18/17 07:00 15:00 23:00 07:00 15:00 23:00 Intake Total 550 ml 306 ml 836 ml 1050 ml Output Total 1500 ml 1400 ml 3100 ml Balance -950 ml 306 ml -564 ml -2050 ml Intake Oral 240 ml 0 ml IV Total 150 ml 306 ml 596 ml 1050 ml Packed Cells 400 ml Output Urine Total 1500 ml 1400 ml 2100 ml Stool Total 1000 ml # Bowel Movements 2 3 Laboratory Date/Time Source Procedure Growth Status 06/17/17 20:33 Blood Peripheral Aerobic Blood Culture Pending Received 06/17/17 20:33 Blood Peripheral Anaerobic Blood Culture Pending Received 06/17/17 04:05 Stool Stool Stool Occult Blood (GERRI) - Final HEMOCCULT NEGATIVE Complete 06/13/17 12:20 Urine Catheterized Urine Urine Culture - Final Enterobacter Cloacae Complete Imaging Last Impressions Thoracic Spine CT 06/12/172015 Signed Impressions: Service Date/Time: Monday, June 12, 2017 22:01 - CONCLUSION: 1. No acute abnormality. Royal Philippe Jr., MD Pelvis X-Ray 06/12/172015 Signed Impressions: Service Date/Time: Monday, June 12, 2017 20:25 - CONCLUSION: No acute disease. Royal Philippe Jr., MD Lumbar Spine CT 06/12/172015 Signed Impressions: Service Date/Time: Monday, June 12, 2017 22:01 - CONCLUSION: 1. No fracture or dislocation. 2. Degenerative changes. 3. See the CT of the abdomen and pelvis reported separately. Royal Philippe Jr., MD Head CT 06/12/172015 Signed Impressions: Service Date/Time: Monday, June 12, 2017 21:56 - CONCLUSION: 1. No acute intracranial abnormality. 2. Atrophy and chronic small vessel ischemic change. Royal Philippe Jr., MD Chest X-Ray 06/12/172015 Signed Impressions: Service Date/Time: Monday, June 12, 2017 20:30 - CONCLUSION: No acute disease. Royal Philippe Jr., MD Cervical Spine CT 06/12/172015 Signed Impressions: Service Date/Time: Monday, June 12, 2017 21:56 - CONCLUSION: 1. No fracture or dislocation. 2. Degenerative changes as detailed above. Royal Philippe Jr., MD Abdomen/Pelvis CT 06/12/172015 Signed Impressions: Service Date/Time: Monday, June 12, 2017 22:01 - CONCLUSION: 1. 9 mm right mid ureteral stone with resulting hydronephrosis and proximal hydroureter. 2. Chronic hydronephrosis on the left with cortical thinning of the kidney and multiple nonobstructing left sided renal calculi. 3. Cholelithiasis. Royal Philippe Jr., MD Physical Exam HEENT: Pupils round and reactive to light; normocephalic; atraumatic; no jaundice. Throat is clear. NECK: Neck is supple CHEST: Chest is clear to auscultation CARDIAC: Regular rate and rhythm ABDOMEN: Soft, nondistended, nontender. EXTREMITIES: No clubbing, cyanosis, or edema. SKIN: Decubitus ulcer noted OFFICE LEAD: No focal deficits; alert and oriented times three. Assessment and Plan Plan ASSESSMENT: - Anemia with drop in Hgb. CT Scan abdomen and pelvis without IV contrast (06/12)---> 9 mm right mid ureteral stone with resulting hydronephrosis and proximal hydroureter. Chronic hydronephrosis on the left with cortical thinning of the kidney and multiple nonobstructing left sided renal calculi, cholelithiasis. She had a drop in her Hgb from H/H of 9.2/27.2 to 8.9/27.7 to 6.8/21.5 on 06/16. S/ P 2 units of PRBC and 4 units of Platelets. Rpt. labs with H/H 9.2/27.2 and Plt 80,000. Nurse reports questionable dark stool, but stool has been hemoccult negative. Pt denies any GI symptoms. She does note that she had significant vaginal bleeding 1 month ago (she is post menopausal). She has never had an EGD/Colonoscopy- Long discussion with patient regarding EGD/Colonoscopy- procedure, risks, benefits, but she is adamantly refusing at this time, stating that she does not feel that it is necessary. She is also requesting that her diet be advanced. - Thrombocytopenia. S/P 4 units of Plts. 80,000 - Elevated lipase, undetermined significance. CT as above. LFTs unremarkable. Lipase on 06/16 was 6,913. Clear liquid diet. Clinically, no nausea, vomiting, abdominal pain. - Sepsis, bacteremia, UTI. Blood and urine with enterobacter cloacae. Zosyn. - JANET with electrolyte abnormalities. Creat 3.08. - Kidney stones, chronic hydronephrosis. following. - Hx CVA and DVT. On Pradaxa at home, but states that she stopped this a month ago when she started having vaginal bleeding. She has not had any further bleeding, but has not resumed her Pradaxa yet. - CAD, DM, Vitamin D Deficiency, kidney stones per attending. PLAN: -EGD colon Next -We will need MRCP to further evaluate elevated lipase - Protonix 40mg IV BID - Monitor HH - Transfuse as necessary -Monitor labs - Supportive care Bruce Siddiqui MD Jun 18, 2017 10:01
--- NOTE | 2017-06-18 10:10 | PD.PROCEDR ---
GI Procedure REFERRING PHYSICIAN Dr. engel PROCEDURE PERFORMED EGD with biopsy followed by colonoscopy with biopsy INDICATION FOR PROCEDURE Worsening anemia, elevated lipase PROCEDURE: The procedure, risks and benefits were discussed with Ms. Banks and informed consent was obtained. Anesthesia sedated her with Diprivan. She was placed in the left lateral decubitus position. EGD: The Pentax videoscope was introduced through the oropharynx and advanced to the second portion of the duodenum under direct visualization. Retroflexion was performed in the stomach. FINDINGS: Esophagus there was distal esophageal mucosal erythema consistent with reflux esophagitis LA class a with benign moderate distal esophageal stricture the stricture was dilated with the scope there was a small rent biopsies were taken from the distal esophagus Stomach there was a small hiatal hernia also there was antral mucosal patchy erythema no ulcerations or erosions no blood or bleeding antral biopsies were taken for further evaluation Duodenum there was some nodularity in the bulb etiology unclear possibly related to the kidney failure this was biopsied otherwise the rest of the duodenum was unremarkable Colonoscopy: The Pentax videoscope was introduced through the rectum and advanced to the cecum where the ileocecal valve and appendiceal orifice were identified. Retroflexion was performed in the rectum. Colonic prep was fair to good FINDINGS: Colonic withdrawal time greater than 6 minutes as the scope was slowly withdrawn colonic mucosa was carefully inspected the patient was noted to have some patchy erythema in the proximal ascending colon this was biopsied otherwise colonic mucosa was unremarkable and within normal limits all the way through retroflexion in the rectum did reveal moderate size internal hemorrhoids rectal examination otherwise unremarkable ESTIMATED BLOOD LOSS: None SPECIMENS REMOVED: Biopsies from the esophagus the stomach the duodenum and the colon COMPLICATIONS: None IMPRESSION: Esophagitis Esophageal stricture Hiatal hernia Gastritis Nodular duodenitis Colonic erythema Internal hemorrhoids PLAN: Await biopsies PPI Supportive care Monitor labs Consider repeat EGD with dilation in 2 months Follow-up with GI post discharge Clear liquid diet Bruce Siddiqui MD Jun 18, 2017 10:10
[2017-06-18] MEDS ORDERED: DO NOT ADM ANY ANTICOAGULANT DRUGS PRN (10:45)
[2017-06-18] MEDS ORDERED: PROPOFOL 200 MG/20 ML AMP IV ONE (12:00)
[2017-06-18] MEDS ORDERED: ePHEDrine/NS 25 MG/5 ML SYR IV ONE (12:00)
[2017-06-18] MEDS ORDERED: PHENYLEPH/NS 1000 MCG/10 ML SYR IV ONE (12:00)
[2017-06-18] MEDS ORDERED: LIDOCAINE HCL 1% PF 5 ML AMPULE OTHER ONE (12:00)
[2017-06-18] MEDS: MEMANTINE HCL 5 MG TAB PO SCH (12:24)
[2017-06-18] MEDS: PANTOPRAZOLE SODIUM 40 MG VIAL IV PUSH SCH ×2 (12:24→21:22)
--- NOTE | 2017-06-18 12:37 | HHI.IDPN ---
Note Infectious Disease Note Patient feels okay. Sitting on side of bed. Alert. Denies SOB. Afebrile. Blood culture ID and sensitivity pending. The patient underwent evaluation by Urology and she underwent right double-J stent insertion. She was found to have right ureteral calculus and hydronephrosis. PAST MEDICAL HISTORY 1. CVA in March of 2016 which left her with aphasia. 2. Coronary artery disease with history of coronary stent. ALLERGIES SULFAMETHOXAZOLE TRIMETHOPRIM. ANTIBIOTICS Piperacillin/tazobactam. OBJECTIVE: Vital Signs Date Time Temp Pulse Resp B/P (MAP) Pulse Ox O2 Delivery O2 Flow Rate FiO2 06/18/17 12:00 97.2 82 17 131/62 (85) 99 06/18/17 10:03 98 Nasal Cannula 2 06/18/17 10:03 97.7 67 18 103/53 (70) 98 06/18/17 08:00 97.4 63 17 134/72 (92) 99 06/18/17 04:00 97.5 65 17 150/67 (94) 99 06/18/17 00:00 97.5 68 18 145/70 (95) 98 06/17/17 21:00 Nasal Cannula 2.00 06/17/17 20:00 60 06/17/17 20:00 96.8 65 17 168/79 (108) 98 06/17/17 19:06 99 Nasal Cannula 3.00 06/17/17 16:00 97.1 93 16 123/68 (86) 99 Laboratory Tests Test 06/16/17 12:50 06/17/17 03:25 Haptoglobin 204 MG/DL White Blood Count 11.0 TH/MM3 Red Blood Count 3.61 MIL/MM3 Hemoglobin 9.2 GM/DL Hematocrit 27.2 % Mean Corpuscular Volume 75.4 FL Mean Corpuscular Hemoglobin 25.5 PG Mean Corpuscular Hemoglobin Concent 33.8 % Red Cell Distribution Width 20.4 % Platelet Count 80 TH/MM3 Mean Platelet Volume 9.5 FL Neutrophils (%) (Auto) 84.8 % Lymphocytes (%) (Auto) 11.3 % Monocytes (%) (Auto) 2.7 % Eosinophils (%) (Auto) 1.0 % Basophils (%) (Auto) 0.2 % Neutrophils # (Auto) 9.3 TH/MM3 Lymphocytes # (Auto) 1.2 TH/MM3 Monocytes # (Auto) 0.3 TH/MM3 Eosinophils # (Auto) 0.1 TH/MM3 Basophils # (Auto) 0.0 TH/MM3 CBC Comment DIFF FINAL Differential Comment Laboratory Tests Test 06/16/17 12:50 06/17/17 03:25 Iron Level 25 MCG/DL Total Iron Binding Capacity 217 MCG/DL Percent Iron Saturation 11.5 % Ferritin 228 NG/ML Lactate Dehydrogenase 197 U/L Blood Urea Nitrogen 90 MG/DL Creatinine 3.08 MG/DL Random Glucose 105 MG/DL Total Protein 5.2 GM/DL Albumin 1.6 GM/DL Calcium Level 7.2 MG/DL Phosphorus Level 3.9 MG/DL Magnesium Level 1.9 MG/DL Alkaline Phosphatase 151 U/L Aspartate Amino Transf (AST/SGOT) 24 U/L Alanine Aminotransferase (ALT/SGPT) 20 U/L Total Bilirubin 0.9 MG/DL Sodium Level 147 MEQ/L Potassium Level 3.1 MEQ/L Chloride Level 110 MEQ/L Carbon Dioxide Level 28.0 MEQ/L Anion Gap 9 MEQ/L Estimat Glomerular Filtration Rate 15 ML/MIN Protein Corrected Calcium 8.2 MG/DL Microbiology Date/Time Source Procedure Growth Status 06/17/17 20:33 Blood Peripheral Aerobic Blood Culture - Preliminary NO GROWTH IN 1 DAY Resulted 06/17/17 20:33 Blood Peripheral Anaerobic Blood Culture - Preliminary NO GROWTH IN 1 DAY Resulted 06/17/17 20:25 Blood Peripheral Aerobic Blood Culture - Preliminary NO GROWTH IN 1 DAY Resulted 06/17/17 20:25 Blood Peripheral Anaerobic Blood Culture - Preliminary NO GROWTH IN 1 DAY Resulted 06/17/17 04:05 Stool Stool Stool Occult Blood (GERRI) - Final HEMOCCULT NEGATIVE Complete 06/16/17 10:39 Stool Stool Stool Occult Blood (GERRI) - Final HEMOCCULT NEGATIVE Complete PHYSICAL EXAMINATION GENERAL: No acute distress. Awake and alert and oriented. HEENT: No icterus. Mucous membranes of the oropharynx moist. NECK: Supple, without adenopathy. LUNGS: Clear breath sounds. HEART: Regular rate and rhythm. No murmurs, rubs, or gallops. ABDOMEN: Bowel sounds present. Soft. No tenderness. EXTREMITIES: No clubbing or cyanosis or edema. The patient has multiple excoriated punctate lesions at the lower extremities. SKIN: No diffuse rash. NEUROLOGIC: No gross focal findings. PSYCHIATRIC: Calm and cooperative. IMPRESSION 1. Sepsis due to Enterobacter. 2. Urinary tract infection due to Enterobacter cloacae which is source of sepsis. 3. Pyelonephritis, patient status post placement of ureteral stent. 4. Leukocytosis secondary to sepsis. WBC increased. 5. Acute renal failure. RECOMMENDATIONS 1. Continue the piperacillin/tazobactam. 2. Monitor the temperature and the clinical status. Plan to continue PIP/Tazo IV vs Ertapenem IV until 06/26. Magdy Dash MD Jun 18, 2017 12:37
[2017-06-18] MEDS: POTASSIUM CHLOR 10 MEQ PREMIX 100 ML IV SCH ×3 (12:41→17:13)
--- NOTE | 2017-06-18 14:24 | PD.ONC.PN ---
Subjective Subjective Remarks Afebrile overnight. Back from panendoscopy. Resting in bed in nad. Wants her diet to be advanced. Objective Data Date Time Temp Pulse Resp B/P (MAP) Pulse Ox O2 Delivery O2 Flow Rate FiO2 06/18/17 13:20 99 Nasal Cannula 3.00 06/18/17 12:00 97.2 82 17 131/62 (85) 99 06/18/17 10:03 98 Nasal Cannula 2 06/18/17 10:03 97.7 67 18 103/53 (70) 98 06/18/17 08:00 97.4 63 17 134/72 (92) 99 06/18/17 04:00 97.5 65 17 150/67 (94) 99 06/18/17 00:00 97.5 68 18 145/70 (95) 98 06/17/17 21:00 Nasal Cannula 2.00 06/17/17 20:00 60 06/17/17 20:00 96.8 65 17 168/79 (108) 98 06/17/17 19:06 99 Nasal Cannula 3.00 06/17/17 16:00 97.1 93 16 123/68 (86) 99 06/18/17 06/18/17 06/18/17 07:00 15:00 23:00 Intake Total 1050 ml 500 ml Output Total 3100 ml 275 ml Balance -2050 ml 225 ml Result Diagram: 06/17/17 0325 06/17/17 0325 Culture Results Microbiology Date/Time Source Procedure Growth Status 06/17/17 20:33 Blood Peripheral Aerobic Blood Culture - Preliminary NO GROWTH IN 1 DAY Resulted 06/17/17 20:33 Blood Peripheral Anaerobic Blood Culture - Preliminary NO GROWTH IN 1 DAY Resulted 06/17/17 20:25 Blood Peripheral Aerobic Blood Culture - Preliminary NO GROWTH IN 1 DAY Resulted 06/17/17 20:25 Blood Peripheral Anaerobic Blood Culture - Preliminary NO GROWTH IN 1 DAY Resulted 06/17/17 04:05 Stool Stool Stool Occult Blood (GERRI) - Final HEMOCCULT NEGATIVE Complete 06/16/17 10:39 Stool Stool Stool Occult Blood (GERRI) - Final HEMOCCULT NEGATIVE Complete Administered Medications Medications (Trade) Dose Ordered Sig/Rinku Route PRN Reason Start Time Stop Time Status Last Admin Dose Admin Metoprolol Succinate (Toprol Xl) 50 mg DAILY PO 06/13/17 09:00 Future Hold 06/13/17 10:15 Sodium Chloride (NS Flush) 2 ml UNSCH PRN IV FLUSH FLUSH AFTER USING IV ACCESS 06/12/17 23:15 06/14/17 09:02 Sodium Chloride (NS Flush) 2 ml BID IV FLUSH 06/13/17 09:00 06/17/17 20:10 Acetaminophen (Tylenol) 650 mg Q6H PRN PO PAIN 1-10 AND/OR FEVER >101F 06/12/17 23:15 06/14/17 18:25 Famotidine (Pepcid Inj) 10 mg Q12HR IV PUSH 06/13/17 09:00 06/17/17 20:06 Miscellaneous Information 1 Q361D XX 06/12/17 23:15 06/12/17 01:00 Chlorhexidine Gluconate (Chlorhexidine 2% Cloth) Taper DAILY@04 TOP 06/13/17 04:00 06/09/18 03:59 06/15/17 04:00 Dextrose (D50w (Vial) Inj) 50 ml UNSCH PRN IV PUSH HYPOGLYCEMIA-SEE COMMENTS 06/12/17 23:30 06/13/17 19:51 Insulin Aspart (NovoLOG SUPPLEMENTAL SCALE) 1 ACHS SLIDING SCALE SQ 06/13/17 08:00 06/15/17 08:00 Piperacillin Sod/ Tazobactam Sod 50 ml @ 100 mls/hr Q8H IV 06/13/17 10:00 06/18/17 12:24 Donepezil HCl (Aricept) 5 mg HS PO 06/15/17 21:00 06/17/17 20:13 Memantine (Namenda) 5 mg DAILY PO 06/16/17 09:00 06/18/17 12:24 Acetaminophen (Tylenol) 650 mg Q4H PRN PO SEE LABEL COMMENTS 06/16/17 10:00 06/16/17 16:58 Diphenhydramine HCl (Benadryl) 25 mg Q4H PRN PO SEE LABEL COMMENTS 06/16/17 10:00 06/16/17 16:58 Sodium Chloride 38.5 meq/Sterile Water 1,009.625 ml @ 50 mls/hr [id number] IV 06/17/17 10:00 06/18/17 05:32 Pantoprazole Sodium (Protonix Inj) 40 mg Q12HR IV PUSH 06/17/17 11:15 06/18/17 12:24 Iron Sucrose 200 mg/Sodium Chloride 110 ml @ 110 mls/hr DAILY IV 06/17/17 12:15 Future Hold 06/17/17 14:15 Objective Remarks GENERAL: Middle aged female sitting up in bed in nad. SKIN: Warm and dry. HEAD: Normocephalic. EYES: No injection or drainage. NECK: Supple, trachea midline. CARDIOVASCULAR: Regular rate and rhythm RESPIRATORY: Breath sounds equal bilaterally. No accessory muscle use. GASTROINTESTINAL: Abdomen soft, non-tender, nondistended. EXTREMITIES: No cyanosis NEUROLOGICAL: awake and alert, normal speech. moving all extremities. Assessment/Plan Problem List: (1) Microcytic anemia ICD Codes: D50.9 - Iron deficiency anemia, unspecified Plan: -- s/p IV iron -- s/p 2 units PRBC's -- No evidence of hemolysis as her LDH, haptoglobin, Direct Tad is normal. -- shaikh-endoscopy on 06/18 showed esophagitis, esophageal stricture, nodular duodenitis, colonic erythema. (2) UTI (urinary tract infection) ICD Codes: N39.0 - Urinary tract infection, site not specified Status: Acute Plan: -- Urine culture shows enterobacter -- On Zosyn Assessment 66 y/o female admitted under a [place] Act after being found down; hematology consulted for severe microcytic anemia Plan 1. monitor CBC 2. continue supportive care. Attending Statement The exam, history, and the medical decision-making described in the above note were completed with the assistance of the mid-level provider. I reviewed and agree with the findings presented. I attest that I had a [id number] encounter with the patient on the same day, and personally performed and documented my assessment and findings in the medical record Problem Qualifiers (1) UTI (urinary tract infection): Qualified Codes: N10 - Acute pyelonephritis Anastasia Cuellar Jun 18, 2017 14:24 Abisai Franco MD Jun 18, 2017 23:50
--- NOTE | 2017-06-18 15:26 | HHI.NPPN ---
Subjective General Problems: Anemia, Mebatolic Acidosis Renal Failure: Acute Interval History Renal function is better. She had colonoscopy today, no acute bleeding identified. Her guzman is clamped for pelvic US for vaginal bleeding. (Herminia Sanchez) Review of Systems General Constitutional: Fatigue (Herminia Sanchez) Objective Data Data 06/18/17 06/19/17 19:00 07:00 Intake Total 500 ml Output Total 275 ml Balance 225 ml Other 500 ml Output Urine Total 275 ml Vital Signs Date Time Temp Pulse Resp B/P (MAP) Pulse Ox O2 Delivery O2 Flow Rate FiO2 06/18/17 13:20 99 Nasal Cannula 3.00 06/18/17 12:00 97.2 82 17 131/62 (85) 99 06/18/17 10:03 98 Nasal Cannula 2 06/18/17 10:03 97.7 67 18 103/53 (70) 98 06/18/17 08:00 97.4 63 17 134/72 (92) 99 06/18/17 04:00 97.5 65 17 150/67 (94) 99 06/18/17 00:00 97.5 68 18 145/70 (95) 98 06/17/17 21:00 Nasal Cannula 2.00 06/17/17 20:00 60 06/17/17 20:00 96.8 65 17 168/79 (108) 98 06/17/17 19:06 99 Nasal Cannula 3.00 06/17/17 16:00 97.1 93 16 123/68 (86) 99 (Herminia Sanchez) -: 06/17/17 0325 06/17/17 0325 Microbiology 06/17/17 Aerobic Blood Culture - Preliminary, Resulted NO GROWTH IN 1 DAY 06/17/17 Anaerobic Blood Culture - Preliminary, Resulted NO GROWTH IN 1 DAY 06/17/17 Aerobic Blood Culture - Preliminary, Resulted NO GROWTH IN 1 DAY 06/17/17 Anaerobic Blood Culture - Preliminary, Resulted NO GROWTH IN 1 DAY Tubes & Lines: Guzman Drip Comment / NS (Herminia Sanchez) Physical Exam General Appearance: No Acute Distress, Comfortable, Malnourished (Herminia Sanchez) Eyes Eye Exam: Pupils Equal (Herminia Sanchez) Throat Throat Exam: Oral Mucosa Vassar & Moist (Herminia Sanchez) Pulmonary Resp Exam: Clear Bilaterally, Breath Sounds Equal (Herminia Sanchez) Cardiology CV Exam: Regular, Normal Sinus Rhythm (Herminia Sanchez) Gastrointestinal/Abdomen GI Exam: Soft, Non-Tender, Bowel Sounds Present (Herminia Sanchez) Musculoskeletal MS Exam: Joints Intact, Normal Tone, Atrophy, Unable to Ambulate (Herminia Sanchez) Integumentary Skin Exam: Clear, Warm, Dry, Intact (Herminia Sanchez) Extremeties Extremities Exam: Pedal Pulses Palpable, Trace Edema Extremeties Remarks trace edema upper extremities (Herminia Sanchez) Neurologic Neuro Exam: Alert, Awake, Oriented, Speech Clear, Moving All Extremities (Herminia Sanchez) Psychiatric Psych Exam: Appropriate Responses (Herminia Sanchez) Assessment/Plan Discussed Condition With: Patient Assessment Summary: JANET/Acute Renal Failure Electrolyte Assessment: Hypernatremia, Hypokalemia Problem List: (1) Acute renal failure ICD Codes: N17.9 - Acute kidney failure, unspecified Status: Acute Plan: Normal renal function at baseline JANET from obstructive uropathy , S/P ureteral stent by urology 06/14 Renal function continues to improve High BUN was thought to be due to GI bleed Repeat labs in AM On 08/09 NS, reduce rate to 50 cc/hr Replace potassium Avoid nephrotoxic agents (2) Sepsis ICD Codes: A41.9 - Sepsis, unspecified organism Status: Resolved Plan: Secondary to UTI On Zosyn, monitor clinically ID has evaluated (3) Ureteral calculi ICD Codes: N20.1 - Calculus of ureter Status: Acute Plan: Obstructing, urology following s/p stent placement (4) Thrombocytopenia ICD Codes: D69.6 - Thrombocytopenia, unspecified Status: Acute Plan: Due to sepsis, she has been transfused Follow CBC (5) UTI (urinary tract infection) ICD Codes: N39.0 - Urinary tract infection, site not specified Status: Acute Plan: History of in the past GNR on culture She is on Zosyn (renally dose) Has leukocytosis, may be in part due to hemoconcentration (6) Hypernatremia ICD Codes: E87.0 - Hyperosmolality and hypernatremia Plan: Improving, Continue 1/4 NS Follow labs Free water encouraged (7) HTN (hypertension) ICD Codes: I10 - Essential (primary) hypertension Status: Chronic Plan: Home medications were resumed, titrate if needed (8) Anemia ICD Codes: D64.9 - Anemia, unspecified Plan: s/p transfusion Monitor CBC s/p colonoscopy, no acute bleeding identified. Biopsies taken. (Herminia Sanchez) Plan patient was seen and examined. Renal function has improved. Avoid nephrotoxic agents. On hypotonic fluids due to hypernatremia. (Thang Chadwick MD) Problem Qualifiers (1) Acute renal failure: Qualified Codes: N17.9 - Acute kidney failure, unspecified (2) UTI (urinary tract infection): Qualified Codes: N10 - Acute pyelonephritis Herminia Sanchez Jun 18, 2017 15:26 Thang Chadwick MD Jun 19, 2017 11:39
--- NOTE | 2017-06-18 16:21 | RADRPT ---
EXAM DATE/TIME: 06/18/2017 15:12 [facility] COMPARISON: CT ABDOMEN & PELVIS W/O CONTRAST, June 12, 2017, 22:01. INDICATIONS : Bleeding. MEDICAL HISTORY : Stroke. Hypertension. Kidney stones. Anemia. Joint pain. SURGICAL HISTORY : Lipoma removed from left side. Heart loop monitor left chest. Left ureteral stent. ENCOUNTER: Initial ACUITY: 2 days PAIN SCORE: 3/10 LOCATION: Bilateral pelvis MEASUREMENTS: UTERUS: 7.3 x 4.1 x 2.6 cm ENDOMETRIAL STRIPE: 15 mm RIGHT OVARY: 3.0 x 1.4 x 1.2 cm LEFT OVARY: 2.3 x 2.0 x 1.2 cm FINDINGS: Patient declined transvaginal imaging. UTERUS: There is an echogenic structure with shadowing associated with the endometrial canal. This measures 1 8 x 7 x 5 mm and could relate to an IUD or residual piece of an IUD. Endometrial stripe is thickened. No fluid observed within the endometrial canal. Myometrium is heterogeneous but without mass. RIGHT OVARY: Ovary contains no mass or significant cystic lesion. LEFT OVARY: Ovary contains no mass or significant cystic lesion. MISCELLANEOUS: No free fluid. CONCLUSION: 1. Thickened endometrial canal. 2. Echogenic structure associated with the endometrial canal could relate to an IUD or residual part of an IUD. Royal Philippe Jr., MD on June 18, 2017 at 16:16 Board Certified Radiologist. This report was verified electronically.
--- NOTE | 2017-06-18 18:09 | HHI.PR ---
Subjective Remarks sp EGD/colonoscopy Denies further melena denies cp/sob. states that urine is still draining cloudy. Objective Vitals Vital Signs Date Time Temp Pulse Resp B/P (MAP) Pulse Ox O2 Delivery O2 Flow Rate FiO2 06/18/17 16:00 97.2 68 17 145/69 (94) 97 06/18/17 13:20 99 Nasal Cannula 3.00 06/18/17 12:00 97.2 82 17 131/62 (85) 99 06/18/17 10:03 98 Nasal Cannula 2 06/18/17 10:03 97.7 67 18 103/53 (70) 98 06/18/17 08:00 97.4 63 17 134/72 (92) 99 06/18/17 04:00 97.5 65 17 150/67 (94) 99 06/18/17 00:00 97.5 68 18 145/70 (95) 98 06/17/17 21:00 Nasal Cannula 2.00 06/17/17 20:00 60 06/17/17 20:00 96.8 65 17 168/79 (108) 98 06/17/17 19:06 99 Nasal Cannula 3.00 I/O 06/17/17 06/17/17 06/17/17 06/18/17 06/18/17 06/18/17 07:00 15:00 23:00 07:00 15:00 23:00 Intake Total 550 ml 306 ml 836 ml 1050 ml 500 ml 2350 ml Output Total 1500 ml 1400 ml 3100 ml 275 ml Balance -950 ml 306 ml -564 ml -2050 ml 225 ml 2350 ml Intake Oral 240 ml 0 ml IV Total 150 ml 306 ml 596 ml 1050 ml 2350 ml Packed Cells 400 ml Other 500 ml Output Urine Total 1500 ml 1400 ml 2100 ml 275 ml Stool Total 1000 ml # Bowel Movements 2 3 Result Diagram: 06/17/17 0325 06/17/17 0325 Imaging Last Impressions Pelvis Ultrasound 06/18/17 0000 Signed Impressions: Service Date/Time: Sunday, June 18, 2017 15:12 - CONCLUSION: 1. Thickened endometrial canal. 2. Echogenic structure associated with the endometrial canal could relate to an IUD or residual part of an IUD. Royal Philippe Jr., MD Thoracic Spine CT 06/12/172015 Signed Impressions: Service Date/Time: Monday, June 12, 2017 22:01 - CONCLUSION: 1. No acute abnormality. Royal Philippe Jr., MD Pelvis X-Ray 06/12/172015 Signed Impressions: Service Date/Time: Monday, June 12, 2017 20:25 - CONCLUSION: No acute disease. Royal Philippe Jr., MD Lumbar Spine CT 06/12/172015 Signed Impressions: Service Date/Time: Monday, June 12, 2017 22:01 - CONCLUSION: 1. No fracture or dislocation. 2. Degenerative changes. 3. See the CT of the abdomen and pelvis reported separately. Royal Philippe Jr., MD Head CT 06/12/172015 Signed Impressions: Service Date/Time: Monday, June 12, 2017 21:56 - CONCLUSION: 1. No acute intracranial abnormality. 2. Atrophy and chronic small vessel ischemic change. Royal Philippe Jr., MD Chest X-Ray 06/12/172015 Signed Impressions: Service Date/Time: Monday, June 12, 2017 20:30 - CONCLUSION: No acute disease. Royal Philippe Jr., MD Cervical Spine CT 06/12/172015 Signed Impressions: Service Date/Time: Monday, June 12, 2017 21:56 - CONCLUSION: 1. No fracture or dislocation. 2. Degenerative changes as detailed above. Royal Philippe Jr., MD Abdomen/Pelvis CT 06/12/172015 Signed Impressions: Service Date/Time: Monday, June 12, 2017 22:01 - CONCLUSION: 1. 9 mm right mid ureteral stone with resulting hydronephrosis and proximal hydroureter. 2. Chronic hydronephrosis on the left with cortical thinning of the kidney and multiple nonobstructing left sided renal calculi. 3. Cholelithiasis. Royal Philippe Jr., MD Objective Remarks GENERAL: AAOx3, lying in bed, NAD SKIN: Warm and dry. Unstageable pressure injury that measures 10.4cm x 6.9 cm x eschar. Periwound is noted with diffuse small areas of partial thickness skin loss that is incontinence associated. HEAD: Normocephalic. EYES: No scleral icterus. No injection or drainage. Pale conjunctiva. NECK: Supple, trachea midline. No JVD or lymphadenopathy. CARDIOVASCULAR: Regular rate and rhythm without murmurs, gallops, or rubs. RESPIRATORY: Breath sounds equal bilaterally. No accessory muscle use. GASTROINTESTINAL: Abdomen soft, non-tender, nondistended. MUSCULOSKELETAL: No cyanosis, or edema. BACK: Nontender without obvious deformity. No CVA tenderness. Procedures Status post Cystoscopy with right retrograde study and right double-J stent insertion 06/13/17 Medications and IVs Current Medications Medications (Trade) Dose Ordered Sig/Rinku Route Start Time Stop Time Status Last Admin (Toprol Xl) 50 mg DAILY PO 06/13/17 09:00 Future Hold 06/13/17 10:15 (NS Flush) 2 ml UNSCH PRN IV FLUSH 06/12/17 23:15 06/14/17 09:02 (NS Flush) 2 ml BID IV FLUSH 06/13/17 09:00 06/17/17 20:10 (Tylenol) 650 mg Q6H PRN PO 06/12/17 23:15 06/14/17 18:25 (Pepcid Inj) 10 mg Q12HR IV PUSH 06/13/17 09:00 06/17/17 20:06 (Zofran Inj) 4 mg Q6H PRN IV PUSH 06/12/17 23:15 (Restoril) 15 mg HS PRN PO 06/12/17 23:15 Future Hold (Duoneb Neb) 1 ampule Q2HR NEB PRN INH 06/12/17 23:15 Miscellaneous Information 1 Q361D XX 06/12/17 23:15 06/12/17 01:00 (Chlorhexidine 2% Cloth) Taper DAILY@04 TOP 06/13/17 04:00 06/09/18 03:59 06/15/17 04:00 (Chlorhexidine 2% Cloth) 3 pack UNSCH PRN TOP 06/12/17 23:15 (Milk Of Magnesia Liq) 30 ml Q12H PRN PO 06/12/17 23:15 (Dulcolax Supp) 10 mg DAILY PRN RECTAL 06/12/17 23:15 (D50w (Vial) Inj) 50 ml UNSCH PRN IV PUSH 06/12/17 23:30 06/13/17 19:51 (Glucagon Inj) 1 mg UNSCH PRN OTHER 06/12/17 23:30 (NovoLOG SUPPLEMENTAL SCALE) 1 ACHS SLIDING SCALE SQ 06/13/17 08:00 06/15/17 08:00 Piperacillin Sod/ Tazobactam Sod 50 ml @ 100 mls/hr Q8H IV 06/13/17 10:00 06/18/17 17:13 (Aricept) 5 mg HS PO 06/15/17 21:00 06/17/17 20:13 (Namenda) 5 mg DAILY PO 06/16/17 09:00 06/18/17 12:24 (Tylenol) 650 mg Q4H PRN PO 06/16/17 10:00 06/16/17 16:58 (Benadryl) 25 mg Q4H PRN PO 06/16/17 10:00 06/16/17 16:58 Sodium Chloride 38.5 meq/Sterile Water 1,009.625 ml @ 50 mls/hr [id number] IV 06/17/17 10:00 06/18/17 05:32 (Protonix Inj) 40 mg Q12HR IV PUSH 06/17/17 11:15 06/18/17 12:24 Iron Sucrose 200 mg/Sodium Chloride 110 ml @ 110 mls/hr DAILY IV 06/17/17 12:15 Future Hold 06/17/17 14:15 Lactated Ringer's 1,000 ml @ 30 mls/hr Q24H PRN IV 06/17/17 18:30 06/20/17 18:29 Sodium Chloride 500 ml @ 30 mls/hr [id number] PRN IV 06/17/17 18:30 06/20/17 18:29 (Lopressor) 25 mg STARCH TREATING ASSISTANT PRN PO 06/17/17 18:30 06/20/17 18:29 (Betadine 5% Antisepsis Kit) 1 applic STARCH TREATING ASSISTANT PRN EACH NARE 06/17/17 18:30 06/20/17 18:29 (Chlorhexidine 2% Cloth) 3 pack STARCH TREATING ASSISTANT PRN TOPICAL 06/17/17 18:30 06/20/17 18:29 (NovoLIN R INJ) See Protocol Table ... STARCH TREATING ASSISTANT PRN SQ 06/17/17 18:30 06/20/17 18:29 Miscellaneous Information ALL NURSING DEPARTME... UNSCH PRN .XX 06/18/17 10:45 06/19/17 10:44 A/P Problem List: (1) Sepsis ICD Code: A41.9 - Sepsis, unspecified organism Status: Resolved (2) Acute blood loss anemia ICD Code: D62 - Acute posthemorrhagic anemia Status: Acute (3) Thrombocytopenia ICD Code: D69.6 - Thrombocytopenia, unspecified (4) Ureteral calculus, left ICD Code: N20.1 - Calculus of left ureter Status: Resolved (5) HTN (hypertension) ICD Code: I10 - Essential (primary) hypertension Status: Chronic (6) UTI (urinary tract infection) ICD Code: N39.0 - Urinary tract infection, site not specified Status: Acute (7) Elevated lipase ICD Code: R74.8 - Abnormal levels of other serum enzymes Status: Acute (8) Gram-negative bacteremia ICD Code: R78.81 - Bacteremia Status: Acute (9) Vaginal bleeding ICD Code: N93.9 - Abnormal uterine and vaginal bleeding, unspecified Status: Chronic Plan: The patient states that approximate month ago she stopped the Taxol secondary to a vaginal bleeding. Ordered a pelvic ultrasound which showed thickened endometrial canal. Described echogenic structure associated with the endometrial canal could relate to an IUD or a residual part of an IUD. I will order a [employer] consultation for further recommendations and management. Assessment and Plan Assessment and Plan 66-year-old female with Acute metabolic/uremic encephalopathy Resolved Hypotension tachycardia-resolved Severe dehydration-improved with IV fluid hydration Mild troponin elevation - Continue current IV fluid hydration withsodium bicarbonate. - Troponin elevation most likely secondary to acute kidney injury - Sodium slightly elevated at 147. Continue to monitor BMP Elevated lipase Cholelithiasis - May need cholate cystectomy in the future - CT abdomen shows normal pancreas - 06/[address] GI consult. Continue to monitor lipase which seems to be trending down. Today down to 6913 from 740 - 06/18 appreciate GI consultation recommendations. Limited lipase about the timing significant. Intravenous elevated. Clinically patient without abdominal pain, nausea vomiting. Continue to follow-up GI recommendations. We' ll monitor lipase trending. Acute kidney failure Uremia Acute right hydronephrosis, hydroureter from obstructing stone Chronic left hydronephrosis Hypokalemia. - Status post Cystoscopy with right retrograde study and right double-J stent insertion 06/13/17. Appreciate input from urology. Will need outpt ESWL to Rx Right ureteral calculus -Appreciate input from nephrology, and patient does not need at this time hemodialysis -Continue with IV fluid hydration and monitor BUN and creatinine - Creatinine continues to trend down. Good urine output. Follow-up nephrology recommendations. Continue to monitor BUN/creatinine, strict I's and O's, avoid nephrotoxins. Severe sepsis UTI/acute pyelonephritis - Received Zosyn and vancomycin in the ED - Continue renally dosed Zosyn - Patient with UA positive urine culture growing Enterobacter cloacae. Last culture obtained on 06/14 still growing gram-negative rods. ID consulted, continue to follow-up ID recommendations. Antibiotics as per ID. Gram-negative cayla Bacteremia 4 out of 4 blood culture positive for gram-negative cayla Appreciate input from infectious disease specialist Continue with current antibiotics including Zosyn 06/16 Repeat blood cultures. Thrombocytopenia Acute Blood loss anemia - Most likely secondary to sepsis and dehydration\ -Continue to monitor, may consider hematology consultation - 06/16 Likely due to GI bleed since patient will reported melanotic stools. The patient nothing by mouth, start IV Protonix drip and consult GI. Transfuse 2 units of packed blood cells since hemoglobin today 6.8 and reports of active bleeding. Goal hemoglobin more than 9. I will also transfuse 2 units of platelets since the patient has a platelet count of 35 K to a goal platelet count of more than 50 K. I will also sent and studies, stool for Hemoccult blood, consult hematology, I will order PT, PTT, INR, fibrinogen, LDH , haptoglobin to rule out DIC or hemolytic anemia. - 06/17 Sp transfusion of 2 units of packed blood cells, 2 units of platelets. Hemoglobin improved to 9.2 and platelets improved to 88. Appreciate hematology consultation recommendations. The patient is getting IV iron. There is no evidence of hemolysis as her LDH, haptoglobin, direct comes is normal. Plan for panendoscopy in am. The patient states that she was previously on Pradaxa , however she was told to discontinue it since she had vaginal bleeding. Patient states she never followed up for vaginal bleeding issue. -06/18 the patient status post EGD and colonoscopy which showed nodular duodenum, gastritis, esophagitis, erythema of the colon. Diabetes mellitus - Continue to hold home metformin - 06/16 Continue SSI. Continue to monitor Accu-Cheks. Blood sugar stable. DVT GI prophylaxis - Teds SCDs - No DVT chemical prophylaxis due to thrombocytopenia and continue IV Pepcid Discharge Planning Continue to monitor in the medical floor. Patient still bacteremic. Pending GI and hematology consult and clinical improvement. Problem Qualifiers (1) UTI (urinary tract infection): Qualified Codes: N10 - Acute pyelonephritis Kimo El MD Jun 18, 2017 18:09
[2017-06-18 20:24] LABS: AUTOMATED NEUTROPHIL # 12.7 TH/MM3 (1.8-7.7); BASOPHIL # 0.1 TH/MM3 (0-0.2); BASOPHIL % 0.5 % (0.0-2.0); EOSINOPHIL # 0.1 TH/MM3 (0-0.4); EOSINOPHIL % 0.4 % (0.0-4.0); HEMATOCRIT 32.1 % (35.0-46.0); HEMO FLAGS DIFF FINAL; LYMPH % 8.7 % (9.0-44.0); LYMPHOCYTE # 1.3 TH/MM3 (1.0-4.8); MEAN CELL VOLUME 76.3 FL (80.0-100.0); MEAN CORPUSCULAR HEMOGLOBIN 24.6 PG (27.0-34.0); MEAN CORPUSCULAR HGB CONC 32.2 % (32.0-36.0); MONO % 3.4 % (0.0-8.0); PLATELET COUNT 145 TH/MM3 (150-450); RED BLOOD COUNT 4.21 MIL/MM3 (4.00-5.30); RED CELL DISTRIBUTION WIDTH 20.5 % (11.6-17.2); WHITE BLOOD COUNT 14.5 TH/MM3 (4.0-11.0)
[2017-06-18 20:37] LABS: ALKALINE PHOSPHATASE 116 U/L (45-117); ALT (GPT) 36 U/L (10-53); ANION GAP 13 MEQ/L (5-15); AST (GOT) 52 U/L (15-37); BICARBONATE 24.9 MEQ/L (21.0-32.0); BLOOD UREA NITROGEN 52 MG/DL (7-18); CHLORIDE 104 MEQ/L (98-107); GLOMERULAR FILTRATION RATE 21 ML/MIN (>89); POTASSIUM 3.3 MEQ/L (3.5-5.1); SODIUM (NA) 142 MEQ/L (136-145)
[2017-06-18] MEDS: DONEPEZIL HCL 5 MG TAB PO SCH (21:22)
[2017-06-19] VITALS: BP 140/69; PULSE 71; RESP 16; TEMP 97.1; O2SAT 96
[2017-06-19] MEDS: PIPERACIL-TAZO 2.25 GM PREMIX 50 ML IV SCH ×5 (03:10→21:31)
[2017-06-19 04:00] VITALS: BP 137/67; PULSE 70; RESP 16; TEMP 96.4; O2SAT 95
[2017-06-19] MEDS: CHLORHEXIDINE GLUCONATE 2 % 1 PACK (2 CLOTHS) TOP SCH (04:00)
[2017-06-19 08:00] VITALS: BP 122/59; PULSE 72; RESP 18; TEMP 96.8; O2SAT 96
[2017-06-19] MEDS: INSULIN ASPART SUPPLEMENTAL SCALE SQ SCH ×4 (08:00→21:00)
[2017-06-19 08:33] LABS: AUTOMATED NEUTROPHIL # 9.7 TH/MM3 (1.8-7.7); BASOPHIL % 0.4 % (0.0-2.0); EOSINOPHIL # 0.1 TH/MM3 (0-0.4); EOSINOPHIL % 1.1 % (0.0-4.0); HEMATOCRIT 30.5 % (35.0-46.0); HEMO FLAGS DIFF FINAL; LYMPH % 12.3 % (9.0-44.0); LYMPHOCYTE # 1.5 TH/MM3 (1.0-4.8); MEAN CELL VOLUME 75.6 FL (80.0-100.0); MEAN CORPUSCULAR HEMOGLOBIN 24.8 PG (27.0-34.0); MEAN CORPUSCULAR HGB CONC 32.8 % (32.0-36.0); MONO % 4.1 % (0.0-8.0); NEUT % 82.1 % (16.0-70.0); PLATELET COUNT 140 TH/MM3 (150-450); RED BLOOD COUNT 4.04 MIL/MM3 (4.00-5.30); RED CELL DISTRIBUTION WIDTH 21.7 % (11.6-17.2); WHITE BLOOD COUNT 11.8 TH/MM3 (4.0-11.0)
[2017-06-19] MEDS: SODIUM CHLORIDE 0.9% FLUSH 10 ML FLUSH IV FLUSH SCH ×2 (09:00→21:00)
[2017-06-19 09:02] LABS: ANION GAP 13 MEQ/L (5-15); BICARBONATE 22.9 MEQ/L (21.0-32.0); BLOOD UREA NITROGEN 44 MG/DL (7-18); CHLORIDE 108 MEQ/L (98-107); POTASSIUM 3.4 MEQ/L (3.5-5.1); SODIUM (NA) 144 MEQ/L (136-145)
[2017-06-19] MEDS ORDERED: POTASSIUM CHLORIDE 20 MEQ CONTROLLED RELEASE TAB PO ONE (10:00)
--- NOTE | 2017-06-19 10:39 | HHI.GIFU ---
Subjective Remarks Resting in bed. No n/v. No abdominal pain. No active GI bleeding. (Lilian Ceballos) Objective Vitals I&O Vital Signs Date Time Temp Pulse Resp B/P (MAP) Pulse Ox O2 Delivery O2 Flow Rate FiO2 06/19/17 08:00 96.8 72 18 122/59 (80) 96 06/19/17 04:00 96.4 70 16 137/67 (90) 95 06/19/17 00:00 97.1 71 16 140/69 (92) 96 06/18/17 21:16 94 21 06/18/17 20:00 97.6 73 16 142/72 (95) 97 06/18/17 16:00 97.2 68 17 145/69 (94) 97 06/18/17 13:20 99 Nasal Cannula 3.00 06/18/17 12:00 97.2 82 17 131/62 (85) 99 I/O 06/18/17 06/18/17 06/18/17 06/19/17 06/19/17 06/19/17 07:00 15:00 23:00 07:00 15:00 23:00 Intake Total 1050 ml 500 ml 3310 ml 50 ml Output Total 3100 ml 275 ml 1200 ml 2000 ml Balance -2050 ml 225 ml 2110 ml -1950 ml Intake Oral 0 ml 960 ml IV Total 1050 ml 2350 ml 50 ml Other 500 ml Output Urine Total 2100 ml 275 ml 1200 ml 2000 ml Stool Total 1000 ml # Bowel Movements 1 2 Laboratory Laboratory Tests Test 06/18/17 19:44 06/19/17 07:59 White Blood Count 14.5 11.8 Red Blood Count 4.21 4.04 Hemoglobin 10.4 10.0 Hematocrit 32.1 30.5 Mean Corpuscular Volume 76.3 75.6 Mean Corpuscular Hemoglobin 24.6 24.8 Mean Corpuscular Hemoglobin Concent 32.2 32.8 Red Cell Distribution Width 20.5 21.7 Platelet Count 145 140 Mean Platelet Volume 10.0 9.7 Neutrophils (%) (Auto) 87.0 82.1 Lymphocytes (%) (Auto) 8.7 12.3 Monocytes (%) (Auto) 3.4 4.1 Eosinophils (%) (Auto) 0.4 1.1 Basophils (%) (Auto) 0.5 0.4 Neutrophils # (Auto) 12.7 9.7 Lymphocytes # (Auto) 1.3 1.5 Monocytes # (Auto) 0.5 0.5 Eosinophils # (Auto) 0.1 0.1 Basophils # (Auto) 0.1 0.0 CBC Comment DIFF FINAL DIFF FINAL Differential Comment Blood Urea Nitrogen 52 44 Creatinine 2.31 2.10 Random Glucose 108 92 Total Protein 5.8 Albumin 1.7 1.8 Calcium Level 8.0 7.6 Alkaline Phosphatase 116 Aspartate Amino Transf (AST/SGOT) 52 Alanine Aminotransferase (ALT/SGPT) 36 Total Bilirubin 1.0 Sodium Level 142 144 Potassium Level 3.3 3.4 Chloride Level 104 108 Carbon Dioxide Level 24.9 22.9 Anion Gap 13 13 Estimat Glomerular Filtration Rate 21 Lipase 4394 2713 Phosphorus Level 3.3 Date/Time Source Procedure Growth Status 06/17/17 20:33 Blood Peripheral Aerobic Blood Culture - Preliminary NO GROWTH IN 1 DAY Resulted 06/17/17 20:33 Blood Peripheral Anaerobic Blood Culture - Preliminary NO GROWTH IN 1 DAY Resulted 06/17/17 04:05 Stool Stool Stool Occult Blood (GERRI) - Final HEMOCCULT NEGATIVE Complete 06/13/17 12:20 Urine Catheterized Urine Urine Culture - Final Enterobacter Cloacae Complete Imaging Last Impressions Pelvis Ultrasound 06/18/17 0000 Signed Impressions: Service Date/Time: Sunday, June 18, 2017 15:12 - CONCLUSION: 1. Thickened endometrial canal. 2. Echogenic structure associated with the endometrial canal could relate to an IUD or residual part of an IUD. Royal Philippe Jr., MD Thoracic Spine CT 06/12/172015 Signed Impressions: Service Date/Time: Monday, June 12, 2017 22:01 - CONCLUSION: 1. No acute abnormality. Royal Philippe Jr., MD Pelvis X-Ray 06/12/172015 Signed Impressions: Service Date/Time: Monday, June 12, 2017 20:25 - CONCLUSION: No acute disease. Royal Philippe Jr., MD Lumbar Spine CT 06/12/172015 Signed Impressions: Service Date/Time: Monday, June 12, 2017 22:01 - CONCLUSION: 1. No fracture or dislocation. 2. Degenerative changes. 3. See the CT of the abdomen and pelvis reported separately. Royal Philippe Jr., MD Head CT 06/12/172015 Signed Impressions: Service Date/Time: Monday, June 12, 2017 21:56 - CONCLUSION: 1. No acute intracranial abnormality. 2. Atrophy and chronic small vessel ischemic change. Royal Philippe Jr., MD Chest X-Ray 06/12/172015 Signed Impressions: Service Date/Time: Monday, June 12, 2017 20:30 - CONCLUSION: No acute disease. Royal Philippe Jr., MD Cervical Spine CT 06/12/172015 Signed Impressions: Service Date/Time: Monday, June 12, 2017 21:56 - CONCLUSION: 1. No fracture or dislocation. 2. Degenerative changes as detailed above. Royal Philippe Jr., MD Abdomen/Pelvis CT 06/12/172015 Signed Impressions: Service Date/Time: Monday, June 12, 2017 22:01 - CONCLUSION: 1. 9 mm right mid ureteral stone with resulting hydronephrosis and proximal hydroureter. 2. Chronic hydronephrosis on the left with cortical thinning of the kidney and multiple nonobstructing left sided renal calculi. 3. Cholelithiasis. Royal Philippe Jr., MD Physical Exam HEENT: Normocephalic; atraumatic; no jaundice. CHEST: CTA CARDIAC: RRR ABDOMEN: Soft, nondistended, nontender. EXTREMITIES: No clubbing, cyanosis, or edema. SKIN: Decubitus ulcer noted PHOTO OFFSET PRINTER: No focal deficits; alert and oriented times three. (Lilian Ceballos) Assessment and Plan Plan ASSESSMENT: - Anemia with drop in Hgb. CT Scan abdomen and pelvis without IV contrast (06/12)---> 9 mm right mid ureteral stone with resulting hydronephrosis and proximal hydroureter. Chronic hydronephrosis on the left with cortical thinning of the kidney and multiple nonobstructing left sided renal calculi, cholelithiasis. She had a drop in her Hgb from H/H of 9.2/27.2 to 8.9/27.7 to 6.8/21.5 on 06/16. S/ P 2 units of PRBC and 4 units of Platelets. Pt denies any GI symptoms. She does note that she had significant vaginal bleeding 1 month ago (she is post menopausal). S/P EGD/Colonoscopy (06/18/17)---> Esophagitis, Esophageal stricture, Hiatal hernia, Gastritis, Nodular duodenitis, Colonic erythema, Internal hemorrhoids. Pathology pending. Pelvic US (06/18/17)---> Thickened endometrial canal, echogenic structure associated with the endometrial canal could relate to an IUD or residual part of IUD. MALT HOUSE OPERATOR consulted. HH 10.0/30.5. Plt 140. - Thrombocytopenia. S/P 4 units of Plts. improved. 140,000 - Elevated lipase, undetermined significance. CT as above. LFTs unremarkable. Clinically, no nausea, vomiting, abdominal pain. MRCP if normal, then low fat diet. Amylase, Lipase in am. - Sepsis, bacteremia, UTI. Blood and urine with enterobacter cloacae. Zosyn. - JANET with electrolyte abnormalities. Creat 3.08. - Kidney stones, chronic hydronephrosis. following. - Hx CVA and DVT. On Pradaxa at home, but states that she stopped this a month ago when she started having vaginal bleeding. Pradaxa on hold. - CAD, DM, Vitamin D Deficiency, kidney stones per attending. PLAN: - Await MRCP - Consider Low fat diet if MRCP negative - Await pathology from endoscopy - Await MRCP - Cont. PPI - Monitor HH - Transfuse as necessary - MALT HOUSE OPERATOR evaluation per attending - Supportive care - Pt seen and examined by Dr. Siddiqui and myself and this note is written on his behalf (Lilian Ceballos) Physician Comments Patient seen and examined Agree with above Continue with current supportive care Monitor labs MRCP appears to be unremarkable regarding biliary and pancreatic ducts If we see continued decline of lipase we will advance diet to a low-fat diet (Bruce Siddiqui MD) Lilian Ceballos Jun 19, 2017 10:39 Bruce Siddiqui MD Jun 19, 2017 19:42
--- NOTE | 2017-06-19 11:16 | RADRPT ---
EXAM DATE/TIME: 06/19/2017 10:20 [facility] COMPARISON: CT ABDOMEN & PELVIS W/O CONTRAST, June 12, 2017, 22:01. INDICATIONS : Cholelithiasis. MEDICAL HISTORY : Hypertension. Diabetes mellitus type 2. SURGICAL HISTORY : Coronary artery stent. Urethral stent. Lulu reveal loop recorder. ENCOUNTER: Subsequent ACUITY: 1 week PAIN SCORE: 0/10 LOCATION: Abdomen. TECHNIQUE: Multiplanar, multisequence magnetic resonance imaging of the abdomen was performed. High-resolution 3D dataset was utilized to reconstruct maximum-intensity projection (MIP) images. FINDINGS: INTRAHEPATIC BILE DUCTS: Within normal limits. No significant anatomical variant is present. EXTRAHEPATIC BILE DUCTS: The common hepatic duct measures 7 mm and distal common bile duct measures 4 mm. No stone or filling defect is identified. GALLBLADDER: Of gallbladder contains multiple stones and demonstrates mild wall edema. LIVER: Normal size and signal intensity. No concerning liver lesion is identified on this non-contrast exam. PANCREAS: The main pancreatic duct is normal in size. There is no significant anatomical variant. Signal inte nsity is within normal limits. No mass is visualized on this non-contrast exam. OTHER: There is mild right hydronephrosis and the left kidney demonstrates severe cortical thinning and is e ssentially a hydronephrotic sac with layering stones in the lower pole collecting system dependently. Small bilateral pleural effusions are present. CONCLUSION: 1. Cholelithiasis with mild gallbladder wall edema. However, there is no choledocholithiasis. 2. New small bilateral pleural effusions. 3. Mild right hydronephrosis, decreased from the prior CT. The left kidney has a stable appearance de monstrating severe cortical thinning and is essentially a hydronephrotic sac containing multiple ston es. Estrada Good MD on June 19, 2017 at 11:05 Board Certified Radiologist. This report was verified electronically.
--- NOTE | 2017-06-19 11:53 | HHI.PR ---
Objective Vitals Vital Signs Date Time Temp Pulse Resp B/P (MAP) Pulse Ox O2 Delivery O2 Flow Rate FiO2 06/19/17 08:00 96.8 72 18 122/59 (80) 96 06/19/17 04:00 96.4 70 16 137/67 (90) 95 06/19/17 00:00 97.1 71 16 140/69 (92) 96 06/18/17 21:16 94 21 06/18/17 20:00 97.6 73 16 142/72 (95) 97 06/18/17 16:00 97.2 68 17 145/69 (94) 97 06/18/17 13:20 99 Nasal Cannula 3.00 06/18/17 12:00 97.2 82 17 131/62 (85) 99 I/O 06/18/17 06/18/17 06/18/17 06/19/17 06/19/17 06/19/17 07:00 15:00 23:00 07:00 15:00 23:00 Intake Total 1050 ml 500 ml 3310 ml 50 ml Output Total 3100 ml 275 ml 1200 ml 2000 ml Balance -2050 ml 225 ml 2110 ml -1950 ml Intake Oral 0 ml 960 ml IV Total 1050 ml 2350 ml 50 ml Other 500 ml Output Urine Total 2100 ml 275 ml 1200 ml 2000 ml Stool Total 1000 ml # Bowel Movements 1 2 Result Diagram: 06/19/17 0759 06/19/17 075 Objective Remarks GENERAL: AAOx3, lying in bed, NAD SKIN: Warm and dry. Unstageable pressure injury that measures 10.4cm x 6.9 cm x eschar. Periwound is noted with diffuse small areas of partial thickness skin loss that is incontinence associated. HEAD: Normocephalic. EYES: No scleral icterus. No injection or drainage. Pale conjunctiva. NECK: Supple, trachea midline. No JVD or lymphadenopathy. CARDIOVASCULAR: Regular rate and rhythm without murmurs, gallops, or rubs. RESPIRATORY: Breath sounds equal bilaterally. No accessory muscle use. GASTROINTESTINAL: Abdomen soft, non-tender, nondistended. MUSCULOSKELETAL: No cyanosis, or edema. BACK: Nontender without obvious deformity. No CVA tenderness. Procedures Status post Cystoscopy with right retrograde study and right double-J stent insertion 06/13/17 A/P Problem List: (1) Sepsis ICD Code: A41.9 - Sepsis, unspecified organism Status: Resolved (2) Acute blood loss anemia ICD Code: D62 - Acute posthemorrhagic anemia Status: Acute (3) Thrombocytopenia ICD Code: D69.6 - Thrombocytopenia, unspecified (4) Ureteral calculus, left ICD Code: N20.1 - Calculus of left ureter Status: Resolved (5) HTN (hypertension) ICD Code: I10 - Essential (primary) hypertension Status: Chronic (6) UTI (urinary tract infection) ICD Code: N39.0 - Urinary tract infection, site not specified Status: Acute (7) Elevated lipase ICD Code: R74.8 - Abnormal levels of other serum enzymes Status: Acute (8) Gram-negative bacteremia ICD Code: R78.81 - Bacteremia Status: Acute (9) Vaginal bleeding ICD Code: N93.9 - Abnormal uterine and vaginal bleeding, unspecified Status: Chronic Assessment and Plan Assessment and Plan 66-year-old female with Acute metabolic/uremic encephalopathy Resolved Hypotension tachycardia-resolved Severe dehydration-improved with IV fluid hydration Mild troponin elevation - Continue current IV fluid hydration withsodium bicarbonate. - Troponin elevation most likely secondary to acute kidney injury - Sodium slightly elevated at 147. Continue to monitor BMP Elevated lipase Cholelithiasis - May need cholate cystectomy in the future - CT abdomen shows normal pancreas - 06/[address] GI consult. Continue to monitor lipase which seems to be trending down. Today down to 6913 from 740 - 06/18 appreciate GI consultation recommendations. Limited lipase about the timing significant. Intravenous elevated. Clinically patient without abdominal pain, nausea vomiting. Continue to follow-up GI recommendations. We' ll monitor lipase trending. Acute kidney failure Uremia Acute right hydronephrosis, hydroureter from obstructing stone Chronic left hydronephrosis Hypokalemia. - Status post Cystoscopy with right retrograde study and right double-J stent insertion 06/13/17. Appreciate input from urology. Will need outpt ESWL to Rx Right ureteral calculus -Appreciate input from nephrology, and patient does not need at this time hemodialysis -Continue with IV fluid hydration and monitor BUN and creatinine - Creatinine continues to trend down. Good urine output. Follow-up nephrology recommendations. Continue to monitor BUN/creatinine, strict I's and O's, avoid nephrotoxins. Severe sepsis UTI/acute pyelonephritis - Received Zosyn and vancomycin in the ED - Continue renally dosed Zosyn - Patient with UA positive urine culture growing Enterobacter cloacae. Last culture obtained on 06/14 still growing gram-negative rods. ID consulted, continue to follow-up ID recommendations. Antibiotics as per ID. Gram-negative cayla Bacteremia 4 out of 4 blood culture positive for gram-negative cayla Appreciate input from infectious disease specialist Continue with current antibiotics including Zosyn 06/16 Repeat blood cultures. Thrombocytopenia Acute Blood loss anemia - Most likely secondary to sepsis and dehydration\ -Continue to monitor, may consider hematology consultation - 06/16 Likely due to GI bleed since patient will reported melanotic stools. The patient nothing by mouth, start IV Protonix drip and consult GI. Transfuse 2 units of packed blood cells since hemoglobin today 6.8 and reports of active bleeding. Goal hemoglobin more than 9. I will also transfuse 2 units of platelets since the patient has a platelet count of 35 K to a goal platelet count of more than 50 K. I will also sent and studies, stool for Hemoccult blood, consult hematology, I will order PT, PTT, INR, fibrinogen, LDH , haptoglobin to rule out DIC or hemolytic anemia. - 06/17 Sp transfusion of 2 units of packed blood cells, 2 units of platelets. Hemoglobin improved to 9.2 and platelets improved to 88. Appreciate hematology consultation recommendations. The patient is getting IV iron. There is no evidence of hemolysis as her LDH, haptoglobin, direct comes is normal. Plan for panendoscopy in am. The patient states that she was previously on Pradaxa , however she was told to discontinue it since she had vaginal bleeding. Patient states she never followed up for vaginal bleeding issue. -06/18 the patient status post EGD and colonoscopy which showed nodular duodenum, gastritis, esophagitis, erythema of the colon. Diabetes mellitus - Continue to hold home metformin - 06/16 Continue SSI. Continue to monitor Accu-Cheks. Blood sugar stable. DVT GI prophylaxis - Teds SCDs - No DVT chemical prophylaxis due to thrombocytopenia and continue IV Pepcid Discharge Planning Continue to monitor in the medical floor. Patient still bacteremic. Pending GI and hematology consult and clinical improvement. Problem Qualifiers (1) UTI (urinary tract infection): Qualified Codes: N10 - Acute pyelonephritis Kimo El MD Jun 19, 2017 11:53
[2017-06-19 12:00] VITALS: BP 125/60; PULSE 70; RESP 17; TEMP 98.3; O2SAT 97
[2017-06-19] MEDS: FAMOTIDINE 20 MG/2 ML VIAL IV PUSH SCH ×2 (12:12→21:30)
[2017-06-19] MEDS: MEMANTINE HCL 5 MG TAB PO SCH (12:14)
[2017-06-19] MEDS: PANTOPRAZOLE SODIUM 40 MG VIAL IV PUSH SCH ×2 (12:20→21:30)
--- NOTE | 2017-06-19 12:32 | HHI.NPPN ---
Subjective General Problems: Anemia, Mebatolic Acidosis Renal Failure: Acute Interval History She is awake and alert. Renal function is better. (Herminia Sanchez) Review of Systems General Constitutional: Fatigue (Herminia Sanchez) Objective Data Data Vital Signs Date Time Temp Pulse Resp B/P (MAP) Pulse Ox O2 Delivery O2 Flow Rate FiO2 06/19/17 08:00 96.8 72 18 122/59 (80) 96 06/19/17 04:00 96.4 70 16 137/67 (90) 95 06/19/17 00:00 97.1 71 16 140/69 (92) 96 06/18/17 21:16 94 21 06/18/17 20:00 97.6 73 16 142/72 (95) 97 06/18/17 16:00 97.2 68 17 145/69 (94) 97 06/18/17 13:20 99 Nasal Cannula 3.00 (Herminia Sanchez) -: 06/19/17 0759 06/19/17 0759 Tubes & Lines: Guzman Drip Comment 1/4 NS (Herminia Sanchez) Physical Exam General Appearance: Well Developed, No Acute Distress, Comfortable, Malnourished (Herminia Sanchez) Eyes Eye Exam: Pupils Equal (Herminia Sanchez) Throat Throat Exam: Oral Mucosa Yah-Ta-Hey & Moist (Herminia Sanchez) Pulmonary Resp Exam: Clear Bilaterally, Breath Sounds Equal (Herminia Sanchez) Cardiology CV Exam: Regular, Normal Sinus Rhythm (Herminia Sanchez) Gastrointestinal/Abdomen GI Exam: Soft, Non-Tender, Bowel Sounds Present (Herminia Sanchez) Musculoskeletal MS Exam: Joints Intact, Normal Tone, Atrophy, Unable to Ambulate (Herminia Sanchez) Integumentary Skin Exam: Clear, Warm, Dry, Intact (Herminia Sanchez) Extremeties Extremities Exam: Pedal Pulses Palpable, Trace Edema Extremeties Remarks trace edema upper extremities (Herminia Sanchez) Neurologic Neuro Exam: Alert, Awake, Oriented, Speech Clear, Moving All Extremities (Herminia Sanchez) Psychiatric Psych Exam: Appropriate Responses (Herminia Sanchez) Assessment/Plan Discussed Condition With: Patient Assessment Summary: JANET/Acute Renal Failure Electrolyte Assessment: Hypernatremia, Hypokalemia Problem List: (1) Acute renal failure ICD Codes: N17.9 - Acute kidney failure, unspecified Status: Acute Plan: Normal renal function at baseline JANET from obstructive uropathy , S/P ureteral stent by urology 06/14 Renal function improving daily Change IVF to D5W @ 75cc/hr Replace potassium Avoid nephrotoxic agents (2) Sepsis ICD Codes: A41.9 - Sepsis, unspecified organism Status: Resolved Plan: Secondary to UTI On Zosyn, monitor clinically ID has evaluated (3) Ureteral calculi ICD Codes: N20.1 - Calculus of ureter Status: Acute Plan: Obstructing, urology following s/p stent placement Unsure is she still requires a guzman catheter, asked the RN to ask urology (4) Thrombocytopenia ICD Codes: D69.6 - Thrombocytopenia, unspecified Status: Acute Plan: Due to sepsis, she has been transfused Follow CBC (5) UTI (urinary tract infection) ICD Codes: N39.0 - Urinary tract infection, site not specified Status: Acute Plan: History of in the past GNR on culture She is on Zosyn (renally dose) Has leukocytosis, may be in part due to hemoconcentration (6) Hypernatremia ICD Codes: E87.0 - Hyperosmolality and hypernatremia Plan: Improving, Change IVF Follow labs Free water encouraged (7) HTN (hypertension) ICD Codes: I10 - Essential (primary) hypertension Status: Chronic Plan: Home medications were resumed, titrate if needed (8) Anemia ICD Codes: D64.9 - Anemia, unspecified Plan: s/p transfusion Monitor CBC s/p colonoscopy, no acute bleeding identified. Biopsies taken. (Herminia Sancehz) Plan patient was seen and examined. Agree with above assessment and plan. Renal function is improving. Replace potassium. (Thang Chadwick MD) Problem Qualifiers (1) Acute renal failure: Qualified Codes: N17.9 - Acute kidney failure, unspecified (2) UTI (urinary tract infection): Qualified Codes: N10 - Acute pyelonephritis Herminia Sanchez Jun 19, 2017 12:32 Thang Chadwick MD Jun 20, 2017 10:38
[2017-06-19] MEDS: DEXTROSE 5% IN WATE 1000ML INJ 1,000 ML IV SCH (13:39)
--- NOTE | 2017-06-19 14:39 | HHI.PR ---
Subjective Patient symptoms today Pt seen and examined. Objective Vital Signs Vital Signs Date Time Temp Pulse Resp B/P (MAP) Pulse Ox O2 Delivery O2 Flow Rate FiO2 06/19/17 12:00 98.3 70 17 125/60 (81) 97 06/19/17 08:00 96.8 72 18 122/59 (80) 96 06/19/17 04:00 96.4 70 16 137/67 (90) 95 06/19/17 00:00 97.1 71 16 140/69 (92) 96 06/18/17 21:16 94 21 06/18/17 20:00 97.6 73 16 142/72 (95) 97 06/18/17 16:00 97.2 68 17 145/69 (94) 97 Intake & Output 06/19/17 06/19/17 07:00 19:00 Intake Total 50 ml 904 ml Output Total 2000 ml Balance -1950 ml 904 ml IV Total 50 ml 904 ml Output Urine Total 2000 ml # Bowel Movements 2 Result Diagram: 06/19/17 0759 06/19/17 0759 Imaging Last 24 hours Impressions Cholangiopancreatography MRI 06/19/17 0000 Signed Impressions: Service Date/Time: Monday, June 19, 2017 10:20 - CONCLUSION: 1. Cholelithiasis with mild gallbladder wall edema. However, there is no choledocholithiasis. 2. New small bilateral pleural effusions. 3. Mild right hydronephrosis, decreased from the prior CT. The left kidney has a stable appearance demonstrating severe cortical thinning and is essentially a hydronephrotic sac containing multiple stones. Estrada Good MD Objective Remarks Abd:soft,nt,nd Guzman clearing 06/15/17 Abd:soft,nt,nd Guzman with some sediment 06/19/17 Abd:soft,nt,nd Guzman with some sediment Medications and IVs Current Medications Medications (Trade) Dose Ordered Sig/Rinku Route Start Time Stop Time Status Last Admin (Toprol Xl) 50 mg DAILY PO 06/13/17 09:00 Future Hold 06/13/17 10:15 (NS Flush) 2 ml UNSCH PRN IV FLUSH 06/12/17 23:15 06/14/17 09:02 (NS Flush) 2 ml BID IV FLUSH 06/13/17 09:00 06/18/17 21:28 (Tylenol) 650 mg Q6H PRN PO 06/12/17 23:15 06/14/17 18:25 (Pepcid Inj) 10 mg Q12HR IV PUSH 06/13/17 09:00 06/19/17 12:12 (Zofran Inj) 4 mg Q6H PRN IV PUSH 06/12/17 23:15 (Restoril) 15 mg HS PRN PO 06/12/17 23:15 Future Hold (Duoneb Neb) 1 ampule Q2HR NEB PRN INH 06/12/17 23:15 Miscellaneous Information 1 Q361D XX 06/12/17 23:15 06/12/17 01:00 (Chlorhexidine 2% Cloth) Taper DAILY@04 TOP 06/13/17 04:00 06/09/18 03:59 06/15/17 04:00 (Chlorhexidine 2% Cloth) 3 pack UNSCH PRN TOP 06/12/17 23:15 (Milk Of Magnesia Liq) 30 ml Q12H PRN PO 06/12/17 23:15 (Dulcolax Supp) 10 mg DAILY PRN RECTAL 06/12/17 23:15 (D50w (Vial) Inj) 50 ml UNSCH PRN IV PUSH 06/12/17 23:30 06/13/17 19:51 (Glucagon Inj) 1 mg UNSCH PRN OTHER 06/12/17 23:30 (NovoLOG SUPPLEMENTAL SCALE) 1 ACHS SLIDING SCALE SQ 06/13/17 08:00 06/15/17 08:00 (Aricept) 5 mg HS PO 06/15/17 21:00 06/18/17 21:22 (Namenda) 5 mg DAILY PO 06/16/17 09:00 06/19/17 12:14 (Tylenol) 650 mg Q4H PRN PO 06/16/17 10:00 06/16/17 16:58 (Benadryl) 25 mg Q4H PRN PO 06/16/17 10:00 06/16/17 16:58 (Protonix Inj) 40 mg Q12HR IV PUSH 06/17/17 11:15 06/19/17 12:20 Iron Sucrose 200 mg/Sodium Chloride 110 ml @ 110 mls/hr DAILY IV 06/17/17 12:15 Future Hold 06/17/17 14:15 Lactated Ringer's 1,000 ml @ 30 mls/hr Q24H PRN IV 06/17/17 18:30 06/20/17 18:29 Sodium Chloride 500 ml @ 30 mls/hr [id number] PRN IV 06/17/17 18:30 06/20/17 18:29 (Lopressor) 25 mg NEWSPAPER CARRIER PRN PO 06/17/17 18:30 06/20/17 18:29 (Betadine 5% Antisepsis Kit) 1 applic NEWSPAPER CARRIER PRN EACH NARE 06/17/17 18:30 06/20/17 18:29 (Chlorhexidine 2% Cloth) 3 pack NEWSPAPER CARRIER PRN TOPICAL 06/17/17 18:30 06/20/17 18:29 (NovoLIN R INJ) See Protocol Table ... NEWSPAPER CARRIER PRN SQ 06/17/17 18:30 06/20/17 18:29 Piperacillin Sod/ Tazobactam Sod 50 ml @ 100 mls/hr Q6H IV 06/19/17 09:00 06/19/17 09:00 Dextrose 1,000 ml @ 75 mls/hr [id number] IV 06/19/17 11:45 06/19/17 13:39 Assessment and Plan Assessment and Plan 66 y.o female with 9mm obstructing right ureteral calculus with gram negative sepsis s/p cysto with right JJ stent insertion Maintain guzman Advance diet Will follow. Will need outpt ESWL to Rx Right ureteral calculus 06/15/17 66 y.o female with 9mm obstructing stone s/p cysto with right JJ stent insertion Continue ABx per ID B/C with GNR's Outpt ESWL to treat 9mm ureteral calculus 06/19/17 66 y.o female with 9mm obstructing stone s/p cysto with right JJ stent insertion Continue ABx per ID B/C with GNR's Outpt ESWL to treat 9mm ureteral calculus Jakub Paige DO Jun 19, 2017 14:39
[2017-06-19 16:00] VITALS: BP 130/61; PULSE 82; RESP 18; TEMP 97.4; O2SAT 97
--- NOTE | 2017-06-19 16:29 | HHI.PR ---
Subjective Remarks Deferred entrypatient seen earlier at 11:50 AM. No major overnight events. Denies any further melena. Denies chest pain or shortness of breath. Patient states that she feels very hungry and wants to eat. Objective Vitals Vital Signs Date Time Temp Pulse Resp B/P (MAP) Pulse Ox O2 Delivery O2 Flow Rate FiO2 06/19/17 16:00 97.4 82 18 130/61 (84) 97 06/19/17 12:00 98.3 70 17 125/60 (81) 97 06/19/17 08:00 96.8 72 18 122/59 (80) 96 06/19/17 04:00 96.4 70 16 137/67 (90) 95 06/19/17 00:00 97.1 71 16 140/69 (92) 96 06/18/17 21:16 94 21 06/18/17 20:00 97.6 73 16 142/72 (95) 97 I/O 06/18/17 06/18/17 06/18/17 06/19/17 06/19/17 06/19/17 07:00 15:00 23:00 07:00 15:00 23:00 Intake Total 1050 ml 500 ml 3310 ml 50 ml 904 ml Output Total 3100 ml 275 ml 1200 ml 2000 ml Balance -2050 ml 225 ml 2110 ml -1950 ml 904 ml Intake Oral 0 ml 960 ml IV Total 1050 ml 2350 ml 50 ml 904 ml Other 500 ml Output Urine Total 2100 ml 275 ml 1200 ml 2000 ml Stool Total 1000 ml # Bowel Movements 1 2 Result Diagram: 06/19/17 0759 06/19/17 0759 Imaging Last Impressions Cholangiopancreatography MRI 06/19/17 0000 Signed Impressions: Service Date/Time: Monday, June 19, 2017 10:20 - CONCLUSION: 1. Cholelithiasis with mild gallbladder wall edema. However, there is no choledocholithiasis. 2. New small bilateral pleural effusions. 3. Mild right hydronephrosis, decreased from the prior CT. The left kidney has a stable appearance demonstrating severe cortical thinning and is essentially a hydronephrotic sac containing multiple stones. Estrada Good MD Pelvis Ultrasound 06/18/17 0000 Signed Impressions: Service Date/Time: Sunday, June 18, 2017 15:12 - CONCLUSION: 1. Thickened endometrial canal. 2. Echogenic structure associated with the endometrial canal could relate to an IUD or residual part of an IUD. Royal Philippe Jr., MD Thoracic Spine CT 06/12/172015 Signed Impressions: Service Date/Time: Monday, June 12, 2017 22:01 - CONCLUSION: 1. No acute abnormality. Royal Philippe Jr., MD Pelvis X-Ray 06/12/172015 Signed Impressions: Service Date/Time: Monday, June 12, 2017 20:25 - CONCLUSION: No acute disease. Royal Philippe Jr., MD Lumbar Spine CT 06/12/172015 Signed Impressions: Service Date/Time: Monday, June 12, 2017 22:01 - CONCLUSION: 1. No fracture or dislocation. 2. Degenerative changes. 3. See the CT of the abdomen and pelvis reported separately. Royal Philippe Jr., MD Head CT 06/12/172015 Signed Impressions: Service Date/Time: Monday, June 12, 2017 21:56 - CONCLUSION: 1. No acute intracranial abnormality. 2. Atrophy and chronic small vessel ischemic change. Royal Philippe Jr., MD Chest X-Ray 06/12/172015 Signed Impressions: Service Date/Time: Monday, June 12, 2017 20:30 - CONCLUSION: No acute disease. Royal Philippe Jr., MD Cervical Spine CT 06/12/172015 Signed Impressions: Service Date/Time: Monday, June 12, 2017 21:56 - CONCLUSION: 1. No fracture or dislocation. 2. Degenerative changes as detailed above. Royal Philippe Jr., MD Abdomen/Pelvis CT 06/12/172015 Signed Impressions: Service Date/Time: Monday, June 12, 2017 22:01 - CONCLUSION: 1. 9 mm right mid ureteral stone with resulting hydronephrosis and proximal hydroureter. 2. Chronic hydronephrosis on the left with cortical thinning of the kidney and multiple nonobstructing left sided renal calculi. 3. Cholelithiasis. Royal Philippe Jr., MD Objective Remarks GENERAL: AAOx3, lying in bed, NAD SKIN: Warm and dry. Unstageable pressure injury that measures 10.4cm x 6.9 cm x eschar. Periwound is noted with diffuse small areas of partial thickness skin loss that is incontinence associated. HEAD: Normocephalic. EYES: No scleral icterus. No injection or drainage. Pale conjunctiva. NECK: Supple, trachea midline. No JVD or lymphadenopathy. CARDIOVASCULAR: Regular rate and rhythm without murmurs, gallops, or rubs. RESPIRATORY: Breath sounds equal bilaterally. No accessory muscle use. GASTROINTESTINAL: Abdomen soft, non-tender, nondistended. MUSCULOSKELETAL: No cyanosis, or edema. BACK: Nontender without obvious deformity. No CVA tenderness. Procedures Status post Cystoscopy with right retrograde study and right double-J stent insertion 06/13/17 Medications and IVs Current Medications Medications (Trade) Dose Ordered Sig/Rinku Route Start Time Stop Time Status Last Admin (Toprol Xl) 50 mg DAILY PO 06/13/17 09:00 Future Hold 06/13/17 10:15 (NS Flush) 2 ml UNSCH PRN IV FLUSH 06/12/17 23:15 06/14/17 09:02 (NS Flush) 2 ml BID IV FLUSH 06/13/17 09:00 06/18/17 21:28 (Tylenol) 650 mg Q6H PRN PO 06/12/17 23:15 06/14/17 18:25 (Pepcid Inj) 10 mg Q12HR IV PUSH 06/13/17 09:00 06/19/17 12:12 (Zofran Inj) 4 mg Q6H PRN IV PUSH 06/12/17 23:15 (Restoril) 15 mg HS PRN PO 06/12/17 23:15 Future Hold (Duoneb Neb) 1 ampule Q2HR NEB PRN INH 06/12/17 23:15 Miscellaneous Information 1 Q361D XX 06/12/17 23:15 06/12/17 01:00 (Chlorhexidine 2% Cloth) Taper DAILY@04 TOP 06/13/17 04:00 06/09/18 03:59 06/15/17 04:00 (Chlorhexidine 2% Cloth) 3 pack UNSCH PRN TOP 06/12/17 23:15 (Milk Of Magnesia Liq) 30 ml Q12H PRN PO 06/12/17 23:15 (Dulcolax Supp) 10 mg DAILY PRN RECTAL 06/12/17 23:15 (D50w (Vial) Inj) 50 ml UNSCH PRN IV PUSH 06/12/17 23:30 06/13/17 19:51 (Glucagon Inj) 1 mg UNSCH PRN OTHER 06/12/17 23:30 (NovoLOG SUPPLEMENTAL SCALE) 1 ACHS SLIDING SCALE SQ 06/13/17 08:00 06/15/17 08:00 (Aricept) 5 mg HS PO 06/15/17 21:00 06/18/17 21:22 (Namenda) 5 mg DAILY PO 06/16/17 09:00 06/19/17 12:14 (Tylenol) 650 mg Q4H PRN PO 06/16/17 10:00 06/16/17 16:58 (Benadryl) 25 mg Q4H PRN PO 06/16/17 10:00 06/16/17 16:58 (Protonix Inj) 40 mg Q12HR IV PUSH 06/17/17 11:15 06/19/17 12:20 Iron Sucrose 200 mg/Sodium Chloride 110 ml @ 110 mls/hr DAILY IV 06/17/17 12:15 Future Hold 06/17/17 14:15 Lactated Ringer's 1,000 ml @ 30 mls/hr Q24H PRN IV 06/17/17 18:30 06/20/17 18:29 Sodium Chloride 500 ml @ 30 mls/hr [id number] PRN IV 06/17/17 18:30 06/20/17 18:29 (Lopressor) 25 mg ASSISTANT PUBLIC DEFENDER PRN PO 06/17/17 18:30 06/20/17 18:29 (Betadine 5% Antisepsis Kit) 1 applic ASSISTANT PUBLIC DEFENDER PRN EACH NARE 06/17/17 18:30 06/20/17 18:29 (Chlorhexidine 2% Cloth) 3 pack ASSISTANT PUBLIC DEFENDER PRN TOPICAL 06/17/17 18:30 06/20/17 18:29 (NovoLIN R INJ) See Protocol Table ... ASSISTANT PUBLIC DEFENDER PRN SQ 06/17/17 18:30 06/20/17 18:29 Piperacillin Sod/ Tazobactam Sod 50 ml @ 100 mls/hr Q6H IV 06/19/17 09:00 06/19/17 16:08 Dextrose 1,000 ml @ 75 mls/hr [id number] IV 06/19/17 11:45 06/19/17 13:39 A/P Problem List: (1) Sepsis ICD Code: A41.9 - Sepsis, unspecified organism Status: Resolved (2) Acute blood loss anemia ICD Code: D62 - Acute posthemorrhagic anemia Status: Acute (3) Thrombocytopenia ICD Code: D69.6 - Thrombocytopenia, unspecified (4) Ureteral calculus, left ICD Code: N20.1 - Calculus of left ureter Status: Resolved (5) HTN (hypertension) ICD Code: I10 - Essential (primary) hypertension Status: Chronic (6) UTI (urinary tract infection) ICD Code: N39.0 - Urinary tract infection, site not specified Status: Acute (7) Elevated lipase ICD Code: R74.8 - Abnormal levels of other serum enzymes Status: Acute (8) Gram-negative bacteremia ICD Code: R78.81 - Bacteremia Status: Acute (9) Vaginal bleeding ICD Code: N93.9 - Abnormal uterine and vaginal bleeding, unspecified Status: Chronic Plan: The patient states that approximate month ago she stopped the Taxol secondary to a vaginal bleeding. Ordered a pelvic ultrasound which showed thickened endometrial canal. Described echogenic structure associated with the endometrial canal could relate to an IUD or a residual part of an IUD. I will order a PASSENGER RATE CLERK consultation for further recommendations and management. 06/19 Mistakenly placed wrong consult for this patient. Instead of consulting PASSENGER RATE CLERK consulted GI. Will place PASSENGER RATE CLERK consult. Assessment and Plan Assessment and Plan 66-year-old female with Acute metabolic/uremic encephalopathy Resolved Hypotension tachycardia-resolved Severe dehydration-improved with IV fluid hydration Mild troponin elevation - Continue current IV fluid hydration withsodium bicarbonate. - Troponin elevation most likely secondary to acute kidney injury -Sodium trending down and now 144. Continue to monitor BMP. Elevated lipase Cholelithiasis - May need cholate cystectomy in the future - CT abdomen shows normal pancreas - 06/[address] GI consult. Continue to monitor lipase which seems to be trending down. Today down to 6913 from 740 - 06/18 appreciate GI consultation recommendations. Lipase at the time of admission was elevated. Clinically patient without abdominal pain, nausea vomiting. Continue to follow-up GI recommendations. Acute kidney failure Uremia Acute right hydronephrosis, hydroureter from obstructing stone Chronic left hydronephrosis Hypokalemia. - Status post Cystoscopy with right retrograde study and right double-J stent insertion 06/13/17. Appreciate input from urology. Will need outpt ESWL to Rx Right ureteral calculus -Appreciate input from nephrology, and patient does not need at this time hemodialysis -Continue with IV fluid hydration and monitor BUN and creatinine - 06/19 Creatinine continues to trend down. Good urine output. Follow-up nephrology recommendations. Continue to monitor BUN/creatinine, strict I's and O's, avoid nephrotoxins. Severe sepsis UTI/acute pyelonephritis - Received Zosyn and vancomycin in the ED - Continue renally dosed Zosyn - Patient with UA positive urine culture growing Enterobacter cloacae. Last culture obtained on 06/14 still growing gram-negative rods. ID consulted, continue to follow-up ID recommendations. Antibiotics as per ID. - 06/19 As per ID Plan to continue PeP/Tazo IV vs Ertapenem IV until 06/26. Gram-negative cayla Bacteremia 4 out of 4 blood culture positive for gram-negative cayla Appreciate input from infectious disease specialist Continue with current antibiotics including Zosyn 06/19 Repeat blood cultures obtained on 11/15 negative 2 days. Thrombocytopenia Acute Blood loss anemia - Most likely secondary to sepsis and dehydration\ -Continue to monitor, may consider hematology consultation - 06/16 Likely due to GI bleed since patient will reported melanotic stools. The patient nothing by mouth, start IV Protonix drip and consult GI. Transfuse 2 units of packed blood cells since hemoglobin today 6.8 and reports of active bleeding. Goal hemoglobin more than 9. I will also transfuse 2 units of platelets since the patient has a platelet count of 35 K to a goal platelet count of more than 50 K. I will also sent and studies, stool for Hemoccult blood, consult hematology, I will order PT, PTT, INR, fibrinogen, LDH , haptoglobin to rule out DIC or hemolytic anemia. - 06/17 Sp transfusion of 2 units of packed blood cells, 2 units of platelets. Hemoglobin improved to 9.2 and platelets improved to 88. Appreciate hematology consultation recommendations. The patient is getting IV iron. There is no evidence of hemolysis as her LDH, haptoglobin, direct comes is normal. Plan for panendoscopy in am. The patient states that she was previously on Pradaxa , however she was told to discontinue it since she had vaginal bleeding. Patient states she never followed up for vaginal bleeding issue. -06/18 the patient status post EGD and colonoscopy which showed nodular duodenum, gastritis, esophagitis, erythema of the colon. -06/19 patient is status post MRCP which showed cholelithiasis with mild gallbladder wall edema. No choledocholithiasis. New small bilateral pleural effusions. Mild right hydronephrosis decreased from prior CTA. Diabetes mellitus - Continue to hold home metformin - 06/16 Continue SSI. Continue to monitor Accu-Cheks. Blood sugar stable. DVT GI prophylaxis - Teds SCDs - No DVT chemical prophylaxis due to thrombocytopenia and continue IV Pepcid Discharge Planning Continue to monitor in the medical floor. Patient will likely need outpatient IV antibiotics. PASSENGER RATE CLERK consult pending. Needs GI, nephrology clearance. Pending PASSENGER RATE CLERK consult. Problem Qualifiers (1) UTI (urinary tract infection): Qualified Codes: N10 - Acute pyelonephritis Kimo El MD Jun 19, 2017 16:29
--- NOTE | 2017-06-19 19:06 | PD.ONC.PN ---
Subjective Subjective Remarks c/o of being weak no bleeding no chest pain/no dyspnea Objective Data Date Time Temp Pulse Resp B/P (MAP) Pulse Ox O2 Delivery O2 Flow Rate FiO2 06/19/17 16:00 97.4 82 18 130/61 (84) 97 06/19/17 12:00 98.3 70 17 125/60 (81) 97 06/19/17 08:00 96.8 72 18 122/59 (80) 96 06/19/17 04:00 96.4 70 16 137/67 (90) 95 06/19/17 00:00 97.1 71 16 140/69 (92) 96 06/18/17 21:16 94 21 06/18/17 20:00 97.6 73 16 142/72 (95) 97 06/19/17 06/19/17 06/19/17 07:00 15:00 23:00 Intake Total 50 ml 904 ml 720 ml Output Total 2000 ml 1300 ml Balance -1950 ml 904 ml -580 ml Result Diagram: 06/19/17 0759 06/19/17 0759 Laboratory Results Laboratory Tests Test 06/18/17 19:44 06/19/17 07:59 White Blood Count 14.5 TH/MM3 11.8 TH/MM3 Red Blood Count 4.21 MIL/MM3 4.04 MIL/MM3 Hemoglobin 10.4 GM/DL 10.0 GM/DL Hematocrit 32.1 % 30.5 % Mean Corpuscular Volume 76.3 FL 75.6 FL Mean Corpuscular Hemoglobin 24.6 PG 24.8 PG Mean Corpuscular Hemoglobin Concent 32.2 % 32.8 % Red Cell Distribution Width 20.5 % 21.7 % Platelet Count 145 TH/MM3 140 TH/MM3 Mean Platelet Volume 10.0 FL 9.7 FL Neutrophils (%) (Auto) 87.0 % 82.1 % Lymphocytes (%) (Auto) 8.7 % 12.3 % Monocytes (%) (Auto) 3.4 % 4.1 % Eosinophils (%) (Auto) 0.4 % 1.1 % Basophils (%) (Auto) 0.5 % 0.4 % Neutrophils # (Auto) 12.7 TH/MM3 9.7 TH/MM3 Lymphocytes # (Auto) 1.3 TH/MM3 1.5 TH/MM3 Monocytes # (Auto) 0.5 TH/MM3 0.5 TH/MM3 Eosinophils # (Auto) 0.1 TH/MM3 0.1 TH/MM3 Basophils # (Auto) 0.1 TH/MM3 0.0 TH/MM3 CBC Comment DIFF FINAL DIFF FINAL Differential Comment Blood Urea Nitrogen 52 MG/DL 44 MG/DL Creatinine 2.31 MG/DL 2.10 MG/DL Random Glucose 108 MG/DL 92 MG/DL Total Protein 5.8 GM/DL Albumin 1.7 GM/DL 1.8 GM/DL Calcium Level 8.0 MG/DL 7.6 MG/DL Alkaline Phosphatase 116 U/L Aspartate Amino Transf (AST/SGOT) 52 U/L Alanine Aminotransferase (ALT/SGPT) 36 U/L Total Bilirubin 1.0 MG/DL Sodium Level 142 MEQ/L 144 MEQ/L Potassium Level 3.3 MEQ/L 3.4 MEQ/L Chloride Level 104 MEQ/L 108 MEQ/L Carbon Dioxide Level 24.9 MEQ/L 22.9 MEQ/L Anion Gap 13 MEQ/L 13 MEQ/L Estimat Glomerular Filtration Rate 21 ML/MIN Lipase 4394 U/L 2713 U/L Phosphorus Level 3.3 MG/DL Culture Results Microbiology Date/Time Source Procedure Growth Status 06/17/17 20:33 Blood Peripheral Aerobic Blood Culture - Preliminary NO GROWTH IN 2 DAYS Resulted 06/17/17 20:33 Blood Peripheral Anaerobic Blood Culture - Preliminary NO GROWTH IN 2 DAYS Resulted 06/17/17 20:25 Blood Peripheral Aerobic Blood Culture - Preliminary NO GROWTH IN 2 DAYS Resulted 06/17/17 20:25 Blood Peripheral Anaerobic Blood Culture - Preliminary NO GROWTH IN 2 DAYS Resulted 06/17/17 04:05 Stool Stool Stool Occult Blood (GERRI) - Final HEMOCCULT NEGATIVE Complete Imaging Studies Last 24 hours Impressions Cholangiopancreatography MRI 06/19/17 0000 Signed Impressions: Service Date/Time: Monday, June 19, 2017 10:20 - CONCLUSION: 1. Cholelithiasis with mild gallbladder wall edema. However, there is no choledocholithiasis. 2. New small bilateral pleural effusions. 3. Mild right hydronephrosis, decreased from the prior CT. The left kidney has a stable appearance demonstrating severe cortical thinning and is essentially a hydronephrotic sac containing multiple stones. Estrada Good MD Administered Medications Medications (Trade) Dose Ordered Sig/Rinku Route PRN Reason Start Time Stop Time Status Last Admin Dose Admin Metoprolol Succinate (Toprol Xl) 50 mg DAILY PO 06/13/17 09:00 Future Hold 06/13/17 10:15 Sodium Chloride (NS Flush) 2 ml UNSCH PRN IV FLUSH FLUSH AFTER USING IV ACCESS 06/12/17 23:15 06/14/17 09:02 Sodium Chloride (NS Flush) 2 ml BID IV FLUSH 06/13/17 09:00 06/18/17 21:28 Acetaminophen (Tylenol) 650 mg Q6H PRN PO PAIN 1-10 AND/OR FEVER >101F 06/12/17 23:15 06/14/17 18:25 Famotidine (Pepcid Inj) 10 mg Q12HR IV PUSH 06/13/17 09:00 06/19/17 12:12 Miscellaneous Information 1 Q361D XX 06/12/17 23:15 06/12/17 01:00 Chlorhexidine Gluconate (Chlorhexidine 2% Cloth) Taper DAILY@04 TOP 06/13/17 04:00 06/09/18 03:59 06/15/17 04:00 Dextrose (D50w (Vial) Inj) 50 ml UNSCH PRN IV PUSH HYPOGLYCEMIA-SEE COMMENTS 06/12/17 23:30 06/13/17 19:51 Insulin Aspart (NovoLOG SUPPLEMENTAL SCALE) 1 ACHS SLIDING SCALE SQ 06/13/17 08:00 06/15/17 08:00 Donepezil HCl (Aricept) 5 mg HS PO 06/15/17 21:00 06/18/17 21:22 Memantine (Namenda) 5 mg DAILY PO 06/16/17 09:00 06/19/17 12:14 Acetaminophen (Tylenol) 650 mg Q4H PRN PO SEE LABEL COMMENTS 06/16/17 10:00 06/16/17 16:58 Diphenhydramine HCl (Benadryl) 25 mg Q4H PRN PO SEE LABEL COMMENTS 06/16/17 10:00 06/16/17 16:58 Pantoprazole Sodium (Protonix Inj) 40 mg Q12HR IV PUSH 06/17/17 11:15 06/19/17 12:20 Iron Sucrose 200 mg/Sodium Chloride 110 ml @ 110 mls/hr DAILY IV 06/17/17 12:15 Future Hold 06/17/17 14:15 Piperacillin Sod/ Tazobactam Sod 50 ml @ 100 mls/hr Q6H IV 06/19/17 09:00 06/19/17 16:08 Dextrose 1,000 ml @ 75 mls/hr [id number] IV 06/19/17 11:45 06/19/17 13:39 Objective Remarks GENERAL: nad SKIN: Warm and dry. NECK: Supple, trachea midline. No JVD or lymphadenopathy. LYMPHATIC: No adenopathy. CARDIOVASCULAR: Regular rate and rhythm without murmurs. RESPIRATORY: Breath sounds equal bilaterally. No accessory muscle use. GASTROINTESTINAL: Abdomen soft, non-tender, nondistended. EXTREMITIES: No cyanosis, or edema. Assessment/Plan Problem List: (1) Microcytic anemia ICD Codes: D50.9 - Iron deficiency anemia, unspecified Plan: -- s/p IV iron -- s/p 2 units PRBC's -- No evidence of hemolysis as her LDH, haptoglobin, Direct Tad is normal. -- shaikh-endoscopy on 06/18 showed esophagitis, esophageal stricture, nodular duodenitis, colonic erythema. (2) UTI (urinary tract infection) ICD Codes: N39.0 - Urinary tract infection, site not specified Status: Acute Plan: -- Urine culture shows enterobacter -- On Zosyn Assessment 66 y/o female admitted under a [place] Act after being found down; hematology consulted for severe microcytic anemia Plan 1. daily CBC 2. continue supportive care. 3. Iron infusions ordered 4. GI w/u d/w rn o/n events reviewed will need o/p iron infusions Problem Qualifiers (1) UTI (urinary tract infection): Qualified Codes: N10 - Acute pyelonephritis Abisai Franco MD Jun 19, 2017 19:06
[2017-06-19 20:00] VITALS: BP 130/60; PULSE 75; RESP 16; TEMP 98.9; O2SAT 96
[2017-06-19] MEDS: DONEPEZIL HCL 5 MG TAB PO SCH (21:31)
[2017-06-20] VITALS: BP 142/67; PULSE 77; RESP 16; TEMP 98.6; O2SAT 94
[2017-06-20] MEDS: PIPERACIL-TAZO 2.25 GM PREMIX 50 ML IV SCH ×2 (03:08→08:34)
[2017-06-20] MEDS: CHLORHEXIDINE GLUCONATE 2 % 1 PACK (2 CLOTHS) TOP SCH (03:08)
[2017-06-20 04:47] VITALS: BP 132/62; PULSE 74; RESP 16; TEMP 96.1; O2SAT 95
--- NOTE | 2017-06-20 07:58 | PD.ONC.PN ---
Subjective Subjective Remarks appears comfortable no bleeding episode of diarrhea getting IV iron Objective Data Date Time Temp Pulse Resp B/P (MAP) Pulse Ox O2 Delivery O2 Flow Rate FiO2 06/20/17 04:47 96.1 74 16 132/62 (85) 95 06/20/17 00:00 98.6 77 16 142/67 (92) 94 06/19/17 20:00 98.9 75 16 130/60 (83) 96 06/19/17 16:00 97.4 82 18 130/61 (84) 97 06/19/17 12:00 98.3 70 17 125/60 (81) 97 06/19/17 08:00 96.8 72 18 122/59 (80) 96 06/20/17 06/20/17 06/20/17 07:00 15:00 23:00 Output Total 1350 ml Balance -1350 ml Result Diagram: 06/19/17 0759 06/19/17 0759 Laboratory Results Laboratory Tests Test 06/19/17 07:59 06/20/17 07:18 White Blood Count 11.8 TH/MM3 Red Blood Count 4.04 MIL/MM3 Hemoglobin 10.0 GM/DL Hematocrit 30.5 % Mean Corpuscular Volume 75.6 FL Mean Corpuscular Hemoglobin 24.8 PG Mean Corpuscular Hemoglobin Concent 32.8 % Red Cell Distribution Width 21.7 % Platelet Count 140 TH/MM3 Mean Platelet Volume 9.7 FL Neutrophils (%) (Auto) 82.1 % Lymphocytes (%) (Auto) 12.3 % Monocytes (%) (Auto) 4.1 % Eosinophils (%) (Auto) 1.1 % Basophils (%) (Auto) 0.4 % Neutrophils # (Auto) 9.7 TH/MM3 Lymphocytes # (Auto) 1.5 TH/MM3 Monocytes # (Auto) 0.5 TH/MM3 Eosinophils # (Auto) 0.1 TH/MM3 Basophils # (Auto) 0.0 TH/MM3 CBC Comment DIFF FINAL Differential Comment Blood Urea Nitrogen 44 MG/DL Creatinine 2.10 MG/DL Random Glucose 92 MG/DL Albumin 1.8 GM/DL Calcium Level 7.6 MG/DL Phosphorus Level 3.3 MG/DL Sodium Level 144 MEQ/L Potassium Level 3.4 MEQ/L Chloride Level 108 MEQ/L Carbon Dioxide Level 22.9 MEQ/L Anion Gap 13 MEQ/L Lipase 2713 U/L Culture Results Microbiology Date/Time Source Procedure Growth Status 06/17/17 20:33 Blood Peripheral Aerobic Blood Culture - Preliminary NO GROWTH IN 2 DAYS Resulted 06/17/17 20:33 Blood Peripheral Anaerobic Blood Culture - Preliminary NO GROWTH IN 2 DAYS Resulted 06/17/17 20:25 Blood Peripheral Aerobic Blood Culture - Preliminary NO GROWTH IN 2 DAYS Resulted 06/17/17 20:25 Blood Peripheral Anaerobic Blood Culture - Preliminary NO GROWTH IN 2 DAYS Resulted Administered Medications Medications (Trade) Dose Ordered Sig/Rinku Route PRN Reason Start Time Stop Time Status Last Admin Dose Admin Metoprolol Succinate (Toprol Xl) 50 mg DAILY PO 06/13/17 09:00 Future Hold 06/13/17 10:15 Sodium Chloride (NS Flush) 2 ml UNSCH PRN IV FLUSH FLUSH AFTER USING IV ACCESS 06/12/17 23:15 06/14/17 09:02 Sodium Chloride (NS Flush) 2 ml BID IV FLUSH 06/13/17 09:00 06/18/17 21:28 Acetaminophen (Tylenol) 650 mg Q6H PRN PO PAIN 1-10 AND/OR FEVER >101F 06/12/17 23:15 06/14/17 18:25 Famotidine (Pepcid Inj) 10 mg Q12HR IV PUSH 06/13/17 09:00 06/19/17 21:30 Miscellaneous Information 1 Q361D XX 06/12/17 23:15 06/12/17 01:00 Chlorhexidine Gluconate (Chlorhexidine 2% Cloth) Taper DAILY@04 TOP 06/13/17 04:00 06/09/18 03:59 06/15/17 04:00 Dextrose (D50w (Vial) Inj) 50 ml UNSCH PRN IV PUSH HYPOGLYCEMIA-SEE COMMENTS 06/12/17 23:30 06/13/17 19:51 Insulin Aspart (NovoLOG SUPPLEMENTAL SCALE) 1 ACHS SLIDING SCALE SQ 06/13/17 08:00 06/15/17 08:00 Donepezil HCl (Aricept) 5 mg HS PO 06/15/17 21:00 06/19/17 21:31 Memantine (Namenda) 5 mg DAILY PO 06/16/17 09:00 06/19/17 12:14 Acetaminophen (Tylenol) 650 mg Q4H PRN PO SEE LABEL COMMENTS 06/16/17 10:00 06/16/17 16:58 Diphenhydramine HCl (Benadryl) 25 mg Q4H PRN PO SEE LABEL COMMENTS 06/16/17 10:00 06/16/17 16:58 Pantoprazole Sodium (Protonix Inj) 40 mg Q12HR IV PUSH 06/17/17 11:15 06/19/17 21:30 Iron Sucrose 200 mg/Sodium Chloride 110 ml @ 110 mls/hr DAILY IV 06/17/17 12:15 Future Hold 06/17/17 14:15 Piperacillin Sod/ Tazobactam Sod 50 ml @ 100 mls/hr Q6H IV 06/19/17 09:00 06/20/17 03:08 Dextrose 1,000 ml @ 75 mls/hr [id number] IV 06/19/17 11:45 06/19/17 13:39 Objective Remarks GENERAL: nad SKIN: Warm and dry. LYMPHATIC: No adenopathy. CARDIOVASCULAR: Regular rate and rhythm without murmurs. RESPIRATORY: Breath sounds equal bilaterally. No accessory muscle use. GASTROINTESTINAL: Abdomen soft, non-tender, nondistended. EXTREMITIES: No cyanosis, or edema. Assessment/Plan Problem List: (1) Microcytic anemia ICD Codes: D50.9 - Iron deficiency anemia, unspecified Plan: -- s/p IV iron -- s/p 2 units PRBC's -- No evidence of hemolysis as her LDH, haptoglobin, Direct Tad is normal. -- shaikh-endoscopy on 06/18 showed esophagitis, esophageal stricture, nodular duodenitis, colonic erythema. (2) UTI (urinary tract infection) ICD Codes: N39.0 - Urinary tract infection, site not specified Status: Acute Plan: -- Urine culture shows enterobacter -- On Zosyn Assessment 66 y/o female admitted under a [place] Act after being found down; hematology consulted for severe microcytic anemia Plan 1. Anemia due to iron deficiency - heme-occult negative - IV iron - S/P EGD/Colonoscopy (06/18/17)---> Esophagitis, Esophageal stricture, Hiatal hernia, Gastritis, Nodular duodenitis, Colonic erythema, Internal hemorrhoids. Pathology pending - o/p f/u in heme clinic 2. UTI/sepsis - ID managing Problem Qualifiers (1) UTI (urinary tract infection): Qualified Codes: N10 - Acute pyelonephritis Abisai Franco MD Jun 20, 2017 07:58
[2017-06-20 08:00] VITALS: BP 129/62; PULSE 71; RESP 16; TEMP 97.9; O2SAT 96
[2017-06-20] MEDS: INSULIN ASPART SUPPLEMENTAL SCALE SQ SCH ×4 (08:00→20:40)
[2017-06-20 08:03] LABS: AUTOMATED NEUTROPHIL # 7.5 TH/MM3 (1.8-7.7); BASOPHIL # 0.1 TH/MM3 (0-0.2); BASOPHIL % 0.8 % (0.0-2.0); EOSINOPHIL # 0.2 TH/MM3 (0-0.4); EOSINOPHIL % 1.7 % (0.0-4.0); HEMATOCRIT 25.8 % (35.0-46.0); HEMO FLAGS DIFF FINAL; LYMPH % 15.2 % (9.0-44.0); LYMPHOCYTE # 1.5 TH/MM3 (1.0-4.8); MEAN CELL VOLUME 76.5 FL (80.0-100.0); MEAN CORPUSCULAR HEMOGLOBIN 25.4 PG (27.0-34.0); MEAN CORPUSCULAR HGB CONC 33.2 % (32.0-36.0); MONO % 6.4 % (0.0-8.0); NEUT % 75.9 % (16.0-70.0); PLATELET COUNT 139 TH/MM3 (150-450); RED BLOOD COUNT 3.37 MIL/MM3 (4.00-5.30); RED CELL DISTRIBUTION WIDTH 21.9 % (11.6-17.2); WHITE BLOOD COUNT 9.9 TH/MM3 (4.0-11.0)
[2017-06-20] MEDS: MEMANTINE HCL 5 MG TAB PO SCH (08:34)
[2017-06-20] MEDS: PANTOPRAZOLE SODIUM 40 MG VIAL IV PUSH SCH ×2 (08:35→20:37)
[2017-06-20] MEDS: FAMOTIDINE 20 MG/2 ML VIAL IV PUSH SCH ×2 (08:35→20:51)
[2017-06-20 08:36] LABS: BICARBONATE 25.1 MEQ/L (21.0-32.0); CALCIUM-PROTEIN CORRECTED 8.3 MG/DL (8.5-10.1); TOTAL BILIRUBIN ADULT 0.7 MG/DL (0.2-1.0)
[2017-06-20] MEDS: SODIUM CHLORIDE 0.9% FLUSH 10 ML FLUSH IV FLUSH SCH ×2 (09:00→20:38)
[2017-06-20] MEDS ORDERED: POTASSIUM CHLOR 20 MEQ PREMIX 100 ML IV ONE (09:15)
[2017-06-20] MEDS: IRON SUCROSE INJ 200 MG in SODIUM CHLORIDE 0.9% INJ 100 ML IV SCH (10:45)
--- NOTE | 2017-06-20 11:54 | HHI.NPPN ---
Subjective General Problems: Anemia, Mebatolic Acidosis Renal Failure: Acute Interval History Renal function has improved. Hypokalemic again today. (Herminia Sanchez) Review of Systems General Constitutional: Fatigue (Herminia Sanchez) Objective Data Data Vital Signs Date Time Temp Pulse Resp B/P (MAP) Pulse Ox O2 Delivery O2 Flow Rate FiO2 06/20/17 08:00 97.9 71 16 129/62 (84) 96 06/20/17 04:47 96.1 74 16 132/62 (85) 95 06/20/17 00:00 98.6 77 16 142/67 (92) 94 06/19/17 20:00 98.9 75 16 130/60 (83) 96 06/19/17 16:00 97.4 82 18 130/61 (84) 97 06/19/17 12:00 98.3 70 17 125/60 (81) 97 (Herminia Sanchez) -: 06/20/17 0718 06/20/17 0718 Tubes & Lines: Guzman Drip Comment D5w (Herminia Sanchez) Physical Exam General Appearance: Well Developed, No Acute Distress, Comfortable, Malnourished (Herminia Sanchez) Eyes Eye Exam: Pupils Equal (Herminia Sanchez) Throat Throat Exam: Oral Mucosa [place] & Moist (Herminia Sanchez) Pulmonary Resp Exam: Clear Bilaterally, Breath Sounds Equal (Herminia Sanchez) Cardiology CV Exam: Regular, Normal Sinus Rhythm (Herminia Sanchez) Gastrointestinal/Abdomen GI Exam: Soft, Non-Tender, Bowel Sounds Present (Herminia Sanchez) Musculoskeletal MS Exam: Joints Intact, Normal Tone, Atrophy, Unable to Ambulate (Herminia Sanchez) Integumentary Skin Exam: Clear, Warm, Dry, Intact (Herminia Sanchez) Extremeties Extremities Exam: Pedal Pulses Palpable, Trace Edema Extremeties Remarks trace edema upper extremities (Herminia Sanchez) Neurologic Neuro Exam: Alert, Awake, Oriented, Speech Clear, Moving All Extremities (Herminia Sanchez) Psychiatric Psych Exam: Appropriate Responses (Herminia Sanchez) Assessment/Plan Discussed Condition With: Patient Assessment Summary: JANET/Acute Renal Failure Electrolyte Assessment: Hypernatremia, Hypokalemia Problem List: (1) Acute renal failure ICD Codes: N17.9 - Acute kidney failure, unspecified Status: Acute Plan: Normal renal function at baseline JANET from obstructive uropathy , S/P ureteral stent by urology 06/14 Renal function continue to improving daily On D5W @ 75cc/hr, taper off over next 1-2 days Replace potassium IV, it was ordered Avoid nephrotoxic agents (2) Sepsis ICD Codes: A41.9 - Sepsis, unspecified organism Status: Resolved Plan: Secondary to UTI On Zosyn, monitor clinically ID has evaluated (3) Ureteral calculi ICD Codes: N20.1 - Calculus of ureter Status: Acute Plan: Obstructing, urology following s/p stent placement Unsure is she still requires a guzman catheter, asked the RN to ask urology May need outpatient procedure after discharge (4) Thrombocytopenia ICD Codes: D69.6 - Thrombocytopenia, unspecified Status: Acute Plan: Due to sepsis, she has been transfused Follow CBC (5) UTI (urinary tract infection) ICD Codes: N39.0 - Urinary tract infection, site not specified Status: Acute Plan: History of in the past GNR on culture She is on Zosyn (renally dose) Has leukocytosis, may be in part due to hemoconcentration (6) Hypernatremia ICD Codes: E87.0 - Hyperosmolality and hypernatremia Plan: Improving, On IVF Follow labs Free water encouraged (7) HTN (hypertension) ICD Codes: I10 - Essential (primary) hypertension Status: Chronic Plan: Home medications were resumed, titrate if needed (8) Anemia ICD Codes: D64.9 - Anemia, unspecified Plan: s/p transfusion Monitor CBC s/p colonoscopy, no acute bleeding identified. Biopsies taken. Plan We will sign off at this time. Needs to follow up with urology. Recommend to remove the guzman if okay per urology however she is asking to leave it in. Taper off IVF. (Herminia Sanchez) Problem List: (1) Acute renal failure ICD Codes: N17.9 - Acute kidney failure, unspecified Status: Acute Plan: Normal renal function at baseline JANET from obstructive uropathy , S/P ureteral stent by urology 06/14 Renal function continue to improving daily On D5W @ 75cc/hr, taper off over next 1-2 days Replace potassium IV, it was ordered Avoid nephrotoxic agents (2) Sepsis ICD Codes: A41.9 - Sepsis, unspecified organism Status: Resolved Plan: Secondary to UTI On Zosyn, monitor clinically ID has evaluated (3) Ureteral calculi ICD Codes: N20.1 - Calculus of ureter Status: Acute Plan: Obstructing, urology following s/p stent placement Unsure is she still requires a guzman catheter, asked the RN to ask urology May need outpatient procedure after discharge (4) Thrombocytopenia ICD Codes: D69.6 - Thrombocytopenia, unspecified Status: Acute Plan: Due to sepsis, she has been transfused Follow CBC (5) UTI (urinary tract infection) ICD Codes: N39.0 - Urinary tract infection, site not specified Status: Acute Plan: History of in the past GNR on culture She is on Zosyn (renally dose) Has leukocytosis, may be in part due to hemoconcentration (6) Hypernatremia ICD Codes: E87.0 - Hyperosmolality and hypernatremia Plan: Improving, On IVF Follow labs Free water encouraged (7) HTN (hypertension) ICD Codes: I10 - Essential (primary) hypertension Status: Chronic Plan: Home medications were resumed, titrate if needed (8) Anemia ICD Codes: D64.9 - Anemia, unspecified Plan: s/p transfusion Monitor CBC s/p colonoscopy, no acute bleeding identified. Biopsies taken. (Thang Chadwick MD) Problem Qualifiers (1) Acute renal failure: Qualified Codes: N17.9 - Acute kidney failure, unspecified (2) UTI (urinary tract infection): Qualified Codes: N10 - Acute pyelonephritis Herminia Sanchez Jun 20, 2017 11:54 Thang Chadwick MD Jun 20, 2017 21:19
--- NOTE | 2017-06-20 11:55 | HHI.GIFU ---
Subjective Remarks Pt resting in bed. She was started on a low-fat diet yesterday. She does report that she's having mild nausea and left upper quadrant pressure today, which is new. No vomiting. No obvious bleeding. She did have a bowel movement today but did not see it to note the color. (Lilian Ceballos) Objective Vitals I&O Vital Signs Date Time Temp Pulse Resp B/P (MAP) Pulse Ox O2 Delivery O2 Flow Rate FiO2 06/20/17 08:00 97.9 71 16 129/62 (84) 96 06/20/17 04:47 96.1 74 16 132/62 (85) 95 06/20/17 00:00 98.6 77 16 142/67 (92) 94 06/19/17 20:00 98.9 75 16 130/60 (83) 96 06/19/17 16:00 97.4 82 18 130/61 (84) 97 06/19/17 12:00 98.3 70 17 125/60 (81) 97 I/O 06/19/17 06/19/17 06/19/17 06/20/17 06/20/17 06/20/17 07:00 15:00 23:00 07:00 15:00 23:00 Intake Total 50 ml 904 ml 820 ml Output Total 2000 ml 1300 ml 1350 ml Balance -1950 ml 904 ml -480 ml -1350 ml Intake Oral 720 ml IV Total 50 ml 904 ml 100 ml Output Urine Total 2000 ml 1300 ml 1350 ml # Bowel Movements 2 0 1 Laboratory Laboratory Tests Test 06/20/17 07:18 White Blood Count 9.9 Red Blood Count 3.37 Hemoglobin 8.6 Hematocrit 25.8 Mean Corpuscular Volume 76.5 Mean Corpuscular Hemoglobin 25.4 Mean Corpuscular Hemoglobin Concent 33.2 Red Cell Distribution Width 21.9 Platelet Count 139 Mean Platelet Volume 9.7 Neutrophils (%) (Auto) 75.9 Lymphocytes (%) (Auto) 15.2 Monocytes (%) (Auto) 6.4 Eosinophils (%) (Auto) 1.7 Basophils (%) (Auto) 0.8 Neutrophils # (Auto) 7.5 Lymphocytes # (Auto) 1.5 Monocytes # (Auto) 0.6 Eosinophils # (Auto) 0.2 Basophils # (Auto) 0.1 CBC Comment DIFF FINAL Differential Comment Blood Urea Nitrogen 33 Creatinine 1.90 Random Glucose 137 Total Protein 5.3 Albumin 1.6 Calcium Level 7.3 Alkaline Phosphatase 91 Aspartate Amino Transf (AST/SGOT) 46 Alanine Aminotransferase (ALT/SGPT) 40 Total Bilirubin 0.7 Sodium Level 141 Potassium Level 3.0 Chloride Level 108 Carbon Dioxide Level 25.1 Anion Gap 8 Estimat Glomerular Filtration Rate 27 Protein Corrected Calcium 8.3 Lipase 2766 Date/Time Source Procedure Growth Status 06/17/17 20:33 Blood Peripheral Aerobic Blood Culture - Preliminary NO GROWTH IN 3 DAYS Resulted 06/17/17 20:33 Blood Peripheral Anaerobic Blood Culture - Preliminary NO GROWTH IN 3 DAYS Resulted 06/17/17 04:05 Stool Stool Stool Occult Blood (GERRI) - Final HEMOCCULT NEGATIVE Complete 06/13/17 12:20 Urine Catheterized Urine Urine Culture - Final Enterobacter Cloacae Complete Imaging Last Impressions Cholangiopancreatography MRI 06/19/17 0000 Signed Impressions: Service Date/Time: Monday, June 19, 2017 10:20 - CONCLUSION: 1. Cholelithiasis with mild gallbladder wall edema. However, there is no choledocholithiasis. 2. New small bilateral pleural effusions. 3. Mild right hydronephrosis, decreased from the prior CT. The left kidney has a stable appearance demonstrating severe cortical thinning and is essentially a hydronephrotic sac containing multiple stones. Estrada Good MD Pelvis Ultrasound 06/18/17 0000 Signed Impressions: Service Date/Time: Sunday, June 18, 2017 15:12 - CONCLUSION: 1. Thickened endometrial canal. 2. Echogenic structure associated with the endometrial canal could relate to an IUD or residual part of an IUD. Royal Philippe Jr., MD Thoracic Spine CT 06/12/172015 Signed Impressions: Service Date/Time: Monday, June 12, 2017 22:01 - CONCLUSION: 1. No acute abnormality. Royal Philippe Jr., MD Pelvis X-Ray 06/12/172015 Signed Impressions: Service Date/Time: Monday, June 12, 2017 20:25 - CONCLUSION: No acute disease. Royal Philippe Jr., MD Lumbar Spine CT 06/12/172015 Signed Impressions: Service Date/Time: Monday, June 12, 2017 22:01 - CONCLUSION: 1. No fracture or dislocation. 2. Degenerative changes. 3. See the CT of the abdomen and pelvis reported separately. Royal Philippe Jr., MD Head CT 06/12/172015 Signed Impressions: Service Date/Time: Monday, June 12, 2017 21:56 - CONCLUSION: 1. No acute intracranial abnormality. 2. Atrophy and chronic small vessel ischemic change. Royal Philippe Jr., MD Chest X-Ray 06/12/172015 Signed Impressions: Service Date/Time: Monday, June 12, 2017 20:30 - CONCLUSION: No acute disease. Royal Philippe Jr., MD Cervical Spine CT 06/12/172015 Signed Impressions: Service Date/Time: Monday, June 12, 2017 21:56 - CONCLUSION: 1. No fracture or dislocation. 2. Degenerative changes as detailed above. Royal Philippe Jr., MD Abdomen/Pelvis CT 06/12/172015 Signed Impressions: Service Date/Time: Monday, June 12, 2017 22:01 - CONCLUSION: 1. 9 mm right mid ureteral stone with resulting hydronephrosis and proximal hydroureter. 2. Chronic hydronephrosis on the left with cortical thinning of the kidney and multiple nonobstructing left sided renal calculi. 3. Cholelithiasis. Royal Philippe Jr., MD Physical Exam HEENT: Normocephalic; atraumatic; no jaundice. CHEST: CTA CARDIAC: RRR ABDOMEN: Soft, nondistended, LUQ tenderness, mild. BSx 4 EXTREMITIES: No clubbing, cyanosis, or edema. SKIN: Decubitus ulcer noted PRECINCT POLICE SERGEANT: No focal deficits; alert and oriented times three. (Lilian Ceballos [facility]) Assessment and Plan Plan ASSESSMENT: - Anemia with drop in Hgb. CT Scan abdomen and pelvis without IV contrast (06/12)---> 9 mm right mid ureteral stone with resulting hydronephrosis and proximal hydroureter. Chronic hydronephrosis on the left with cortical thinning of the kidney and multiple nonobstructing left sided renal calculi, cholelithiasis. She had a drop in her Hgb from H/H of 9.2/27.2 to 8.9/27.7 to 6.8/21.5 on 06/16. S/ P 2 units of PRBC and 4 units of Platelets. Pt denies any GI symptoms. She does note that she had significant vaginal bleeding 1 month ago (she is post menopausal). S/P EGD/Colonoscopy (06/18/17)---> Esophagitis, Esophageal stricture, Hiatal hernia, Gastritis, Nodular duodenitis, Colonic erythema, Internal hemorrhoids. Pathology pending. Pelvic US (06/18/17)---> Thickened endometrial canal, echogenic structure associated with the endometrial canal could relate to an IUD or residual part of IUD. UG DESIGNER evaluation pending. HH dropped from 10.0/ 30.5 to 8.6/25.8. No obvious active bleeding. Had bm, but did not see it to note the color. - Thrombocytopenia. S/P 4 units of Plts. improved. 139,000 - Elevated lipase, undetermined significance. CT as above. LFTs unremarkable. MRCP (06/19/17)---> cholelithiasis with mild gallbladder wall edema. However there is no choledocholithiasis. New small bilateral pleural effusions. Mild right hydronephrosis, decreasing from the prior CT. The left kidney has a stable appearance demonstrating severe cortical thinning and is essentially a hydronephrotic sac containing multiple stones. Pt was started on a low fat diet yesterday, her lipase 2766. Clinically, she is having mild nausea and LUQ pressure today, which is new. Suspect this may be related to advancing diet, but patient would like to stay on low fat diet and eat lightly. Will recheck in am. If persistent elevation of lipase, then recommend full liquid. - Sepsis, bacteremia, UTI. Blood and urine with enterobacter cloacae. Zosyn. - JANET with electrolyte abnormalities. Improving - Kidney stones, chronic hydronephrosis. following. - Hx CVA and DVT. On Pradaxa at home, but states that she stopped this a month ago when she started having vaginal bleeding. Pradaxa on hold. - CAD, DM, Vitamin D Deficiency, kidney stones per attending. PLAN: - Low fat diet for now - Await pathology from endoscopy - Cont. PPI - Monitor HH - Transfuse as necessary - If rpt lipase remains persistently elevated in am, will need to downgrade diet. - UG DESIGNER evaluation per attending - Supportive care - Pt seen and examined by Dr. Siddiqui and myself and this note is written on his behalf (Lilian Ceballos) Physician Comments Patient seen and examined Agree with above Continue with current supportive care Monitor labs (Bruce Siddiqui MD) Lilian Ceballos Jun 20, 2017 11:55 Bruce Siddiqui MD Jun 20, 2017 21:34
[2017-06-20 12:00] VITALS: BP 146/68; PULSE 67; RESP 17; TEMP 96.2; O2SAT 97
[2017-06-20] MEDS: DEXTROSE 5% IN WATE 1000ML INJ 1,000 ML IV SCH ×2 (12:26→20:38)
--- NOTE | 2017-06-20 14:01 | PD.CONS ---
History & Physical H&P S: Patient is a 66-year-old with a history of sepsis secondary to kidney stones in January 2010 and CVA in March 2016 who presented with syncope in the context of urosepsis secondary to kidney stones. EVENT DECORATOR was consulted for a likely IUD in the uterus as well as for a recent history of vaginal bleeding. She reports that she was started on Pradaxa twice a day after her CVA by Dr. Abe Mcdermott. She subsequently had vaginal bleeding like a period, which she thought was strange because she is postmenopausal. Thus, she stopped taking the Pradaxa about a month ago. Since then she has not had any vaginal bleeding. She reports that she did have an IUD placed back in 1995. She says it was called Progestasert and she had it inserted and removed annually until 1995 when she neglected to have it removed. PMH: -sepsis 2/2 kidney stones in January 2010 -CVA in March 2016 PSH: recent ureteral stent FH: Her mother of breast cancer SH: She was recently living home alone with her dog and was independent in all IADLs and ADLs. 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 O: VITALS: reviewed, AFVSS GENERAL: Well-nourished, well-developed patient lying in bed in no acute distress. SKIN: Some small well-healing scabs diffusely. Warm and dry. HEAD: Normocephalic. EYES: No scleral icterus. No injection or drainage. NECK: Supple, trachea midline. No JVD or lymphadenopathy. CARDIOVASCULAR: Regular rate and rhythm without murmurs, gallops, or rubs. RESPIRATORY: Breath sounds equal bilaterally. No accessory muscle use. GASTROINTESTINAL: Abdomen soft, mildly tender to palpation in RLQ, nondistended. : Martini in place draining clear dark yellow urine. Patient elected not to have speculum exam. EXTREMITIES: No cyanosis, or edema. NEUROLOGICAL: Awake, alert, and oriented x 3. Non-focal. A/P: Patient is a 66-year-old with a history of sepsis secondary to kidney stones in January 2010 and CVA in March 2016 who presented with syncope in the context of urosepsis secondary to kidney stones. EVENT DECORATOR was consulted for a likely IUD in the uterus as well as for a recent history of vaginal bleeding. 1. IUP in place since 1995 - unlikely to be the source of her infection given her kidney stones as the likely source of her infection. If IUD were the source of infection, would recommend treatment with antibiotics and follow-up with gynecology when pt is stable. -Provided patient with a list of gynecologists that she could follow up with as an outpatient for likely D&C and IUD removal. -Follow up with gynecology as an outpatient 2. vaginal bleeding - patient had vaginal bleeding while on Pradaxa, but has not had any vaginal bleeding since stopping Pradaxa. After discussion with patient, we agreed that a speculum exam was not indicated. -Recommended that she follow up with a attending pathologist to see if she should continue to be on Pradaxa perhaps with the addition of a topical vaginal estrogen cream to prevent vaginal bleeding from dry vaginal mucosa Thank you for the consult. It was a pleasure to speak with this patient. Please call if you have any questions. d/w Dagoberto Monsalve MD R2 Jun 20, 2017 14:01
[2017-06-20] MEDS ORDERED: ASP: Other exception documentation: ( ) PRN (14:30)
[2017-06-20] MEDS ORDERED: MISCELLANEOUS PHARMACY INFORMATION XX PRN ×2 (14:30)
--- NOTE | 2017-06-20 14:38 | HHI.IDPN ---
Note Infectious Disease Note Patient feels okay. No complaints Alert. Say she had a bout of diarrhea today. Denies SOB. Afebrile. The patient underwent evaluation by Urology and she underwent right double-J stent insertion. She was found to have right ureteral calculus and hydronephrosis. PAST MEDICAL HISTORY 1. CVA in March of 2016 which left her with aphasia. 2. Coronary artery disease with history of coronary stent. ALLERGIES SULFAMETHOXAZOLE TRIMETHOPRIM. ANTIBIOTICS Piperacillin/tazobactam. OBJECTIVE: Vital Signs Date Time Temp Pulse Resp B/P (MAP) Pulse Ox O2 Delivery O2 Flow Rate FiO2 06/20/17 12:00 96.2 67 17 146/68 (94) 97 06/20/17 08:00 97.9 71 16 129/62 (84) 96 06/20/17 04:47 96.1 74 16 132/62 (85) 95 06/20/17 00:00 98.6 77 16 142/67 (92) 94 06/19/17 20:00 98.9 75 16 130/60 (83) 96 06/19/17 16:00 97.4 82 18 130/61 (84) 97 Laboratory Tests Test 06/18/17 19:44 06/19/17 07:59 06/20/17 07:18 White Blood Count 14.5 TH/MM3 11.8 TH/MM3 9.9 TH/MM3 Red Blood Count 4.21 MIL/MM3 4.04 MIL/MM3 3.37 MIL/MM3 Hemoglobin 10.4 GM/DL 10.0 GM/DL 8.6 GM/DL Hematocrit 32.1 % 30.5 % 25.8 % Mean Corpuscular Volume 76.3 FL 75.6 FL 76.5 FL Mean Corpuscular Hemoglobin 24.6 PG 24.8 PG 25.4 PG Mean Corpuscular Hemoglobin Concent 32.2 % 32.8 % 33.2 % Red Cell Distribution Width 20.5 % 21.7 % 21.9 % Platelet Count 145 TH/MM3 140 TH/MM3 139 TH/MM3 Mean Platelet Volume 10.0 FL 9.7 FL 9.7 FL Neutrophils (%) (Auto) 87.0 % 82.1 % 75.9 % Lymphocytes (%) (Auto) 8.7 % 12.3 % 15.2 % Monocytes (%) (Auto) 3.4 % 4.1 % 6.4 % Eosinophils (%) (Auto) 0.4 % 1.1 % 1.7 % Basophils (%) (Auto) 0.5 % 0.4 % 0.8 % Neutrophils # (Auto) 12.7 TH/MM3 9.7 TH/MM3 7.5 TH/MM3 Lymphocytes # (Auto) 1.3 TH/MM3 1.5 TH/MM3 1.5 TH/MM3 Monocytes # (Auto) 0.5 TH/MM3 0.5 TH/MM3 0.6 TH/MM3 Eosinophils # (Auto) 0.1 TH/MM3 0.1 TH/MM3 0.2 TH/MM3 Basophils # (Auto) 0.1 TH/MM3 0.0 TH/MM3 0.1 TH/MM3 CBC Comment DIFF FINAL DIFF FINAL DIFF FINAL Differential Comment Laboratory Tests Test 06/18/17 19:44 06/19/17 07:59 06/20/17 07:18 Blood Urea Nitrogen 52 MG/DL 44 MG/DL 33 MG/DL Creatinine 2.31 MG/DL 2.10 MG/DL 1.90 MG/DL Random Glucose 108 MG/DL 92 MG/DL 137 MG/DL Total Protein 5.8 GM/DL 5.3 GM/DL Albumin 1.7 GM/DL 1.8 GM/DL 1.6 GM/DL Calcium Level 8.0 MG/DL 7.6 MG/DL 7.3 MG/DL Alkaline Phosphatase 116 U/L 91 U/L Aspartate Amino Transf (AST/SGOT) 52 U/L 46 U/L Alanine Aminotransferase (ALT/SGPT) 36 U/L 40 U/L Total Bilirubin 1.0 MG/DL 0.7 MG/DL Sodium Level 142 MEQ/L 144 MEQ/L 141 MEQ/L Potassium Level 3.3 MEQ/L 3.4 MEQ/L 3.0 MEQ/L Chloride Level 104 MEQ/L 108 MEQ/L 108 MEQ/L Carbon Dioxide Level 24.9 MEQ/L 22.9 MEQ/L 25.1 MEQ/L Anion Gap 13 MEQ/L 13 MEQ/L 8 MEQ/L Estimat Glomerular Filtration Rate 21 ML/MIN 27 ML/MIN Lipase 4394 U/L 2713 U/L 2766 U/L Phosphorus Level 3.3 MG/DL Protein Corrected Calcium 8.3 MG/DL Microbiology Date/Time Source Procedure Growth Status 06/17/17 20:33 Blood Peripheral Aerobic Blood Culture - Preliminary NO GROWTH IN 3 DAYS Resulted 06/17/17 20:33 Blood Peripheral Anaerobic Blood Culture - Preliminary NO GROWTH IN 3 DAYS Resulted 06/17/17 20:25 Blood Peripheral Aerobic Blood Culture - Preliminary NO GROWTH IN 3 DAYS Resulted 06/17/17 20:25 Blood Peripheral Anaerobic Blood Culture - Preliminary NO GROWTH IN 3 DAYS Resulted PHYSICAL EXAMINATION GENERAL: No acute distress. Awake and alert. HEENT: No icterus. Mucous membranes of the oropharynx moist. NECK: Supple, without adenopathy. LUNGS: Clear. HEART: Regular rate and rhythm. No murmurs, rubs, or gallops. ABDOMEN: Bowel sounds present. Soft. No tenderness. EXTREMITIES: No clubbing or cyanosis or edema. Punctate lesions at the lower extremities. SKIN: No diffuse rash. NEUROLOGIC: No gross focal findings. PSYCHIATRIC: Calm and cooperative. IMPRESSION 1. Sepsis due to Enterobacter. (R) to Levaquin. 2. Urinary tract infection due to Enterobacter cloacae. source of sepsis. 3. Pyelonephritis, patient status post placement of ureteral stent. 4. Leukocytosis secondary to sepsis. WBC improved. 5. Acute renal failure. RECOMMENDATIONS 1. Stop piperacillin/tazobactam. 2. IV Ertapenem IV until 06/26. Arrange for outpatient treatment. Midline catheter ordered and forms filled out for IV antibiotic. Patient can be discharged from my standpoint. Magdy Dash MD Jun 20, 2017 14:38
--- NOTE | 2017-06-20 14:40 | HHI.FF ---
Infusion Therapy Location of Infusion Therapy: [facility] IV Infusion Order Patient Information Patient Weight 90.8 kg Diagnosis: Diagnosis Sepsis, acute pyelonephritis. Coded Allergies: sulfamethoxazole (Unverified Allergy, Severe, rash, 03/21/17) trimethoprim (Unverified Allergy, Severe, rash, 03/21/17) Administer Medication Ertapenem 500 mg IV q 24 hours Stop Treatment: Jun 26, 2017 Additional Information Venous access: Other Additional Instructions [x] Peripheral flush and dressing changes per protocol [x] Implanted port and central oil pipeline dispatcher: * Implanted port: 10 ml Normal Saline followed by 5 ml Heparin 100 units/ml Heparin flush after each use and monthly to maintain. [] May leave port accessed during therapy. [] May leave peripheral site accessed for duration of therapy. [x] If patient has SOB or respiratory distress, check oxygen saturation. If less than 90% or clinical signs of respiratory distress, administer oxygen at 2 L/min. via nasal cannula and notify physician. [x] Anaphylaxis/Reaction orders: * Stop infusion. * Keep IV line open with saline flush. * Notify physician. * Monitor vital signs every 15 minutes until symptoms resolve. * Check Oxygen saturation; Oxygen at 2 L/min. via nasal cannula if less than 90% or clinical signs of respiratory distress. * Administer diphenhydramine (Benadryl) 25 mg IV STAT, (unless patient has received as pre-med). May repeat once, if necessary. * Solu-Cortef 250 mg IVP over 30-60 seconds, use 100 mg vials for each dissolution. * Epinephrine (1mg/1 ml) 0.3 mg subcutaneously or IVP now with any signs of respiratory distress. * Check with physician for new additional pre-med orders if patient is re- challenged or re-treated. [x] May remove PICC line when treatment complete, after confirming with Physician. [x] If the patient is admitted to the hospital, the ED, or transferred via [facility] , complete transfer form including medication reconciliation order sheet. Laboratory Tests Weekly Labs: Magdy Pinedo MD Jun 20, 2017 14:40
[2017-06-20] MEDS ORDERED: INVA1INJ IV (14:45)
[2017-06-20] MEDS ORDERED: EPIN1INJ21 IV PUSH (14:45)
[2017-06-20] MEDS ORDERED: EPIN1INJ21 SQ (14:45)
[2017-06-20] MEDS ORDERED: SOLU250I IV PUSH (14:45)
[2017-06-20 16:00] VITALS: BP 152/72; PULSE 75; RESP 18; TEMP 98.3; O2SAT 96
[2017-06-20] MEDS: ERTAPENEM INJ 500 MG in SODIUM CHLORIDE 0.9% INJ 100 ML IV SCH (17:30)
[2017-06-20] MEDS ORDERED: CALCIUM CHLORIDE INJ 2 GM in SODIUM CHLORIDE 0.9% INJ 100 ML IV ONE (19:00)
--- NOTE | 2017-06-20 19:09 | HHI.PR ---
Subjective Remarks The patient is up and ambulating with PT. Denies cp/sob. Denies fevers or chills. K low Objective Vitals Vital Signs Date Time Temp Pulse Resp B/P (MAP) Pulse Ox O2 Delivery O2 Flow Rate FiO2 06/20/17 16:00 98.3 75 18 152/72 (98) 96 06/20/17 12:00 96.2 67 17 146/68 (94) 97 06/20/17 08:00 97.9 71 16 129/62 (84) 96 06/20/17 04:47 96.1 74 16 132/62 (85) 95 06/20/17 00:00 98.6 77 16 142/67 (92) 94 06/19/17 20:00 98.9 75 16 130/60 (83) 96 I/O 06/19/17 06/19/17 06/19/17 06/20/17 06/20/17 06/20/17 07:00 15:00 23:00 07:00 15:00 23:00 Intake Total 50 ml 904 ml 820 ml 947 ml 240 ml Output Total 2000 ml 1300 ml 1350 ml 1300 ml Balance -1950 ml 904 ml -480 ml -1350 ml 947 ml -1060 ml Intake Oral 720 ml 240 ml IV Total 50 ml 904 ml 100 ml 947 ml Output Urine Total 2000 ml 1300 ml 1350 ml 1300 ml # Bowel Movements 2 0 1 2 Result Diagram: 06/20/1718 06/20/17 0718 Imaging Last Impressions Cholangiopancreatography MRI 06/19/17 0000 Signed Impressions: Service Date/Time: Monday, June 19, 2017 10:20 - CONCLUSION: 1. Cholelithiasis with mild gallbladder wall edema. However, there is no choledocholithiasis. 2. New small bilateral pleural effusions. 3. Mild right hydronephrosis, decreased from the prior CT. The left kidney has a stable appearance demonstrating severe cortical thinning and is essentially a hydronephrotic sac containing multiple stones. Estrada Good MD Pelvis Ultrasound 06/18/17 0000 Signed Impressions: Service Date/Time: Sunday, June 18, 2017 15:12 - CONCLUSION: 1. Thickened endometrial canal. 2. Echogenic structure associated with the endometrial canal could relate to an IUD or residual part of an IUD. Royal Philippe Jr., MD Thoracic Spine CT 06/12/172015 Signed Impressions: Service Date/Time: Monday, June 12, 2017 22:01 - CONCLUSION: 1. No acute abnormality. Royal Philippe Jr., MD Pelvis X-Ray 06/12/172015 Signed Impressions: Service Date/Time: Monday, June 12, 2017 20:25 - CONCLUSION: No acute disease. Royal Philippe Jr., MD Lumbar Spine CT 06/12/172015 Signed Impressions: Service Date/Time: Monday, June 12, 2017 22:01 - CONCLUSION: 1. No fracture or dislocation. 2. Degenerative changes. 3. See the CT of the abdomen and pelvis reported separately. Royal Philippe Jr., MD Head CT 06/12/172015 Signed Impressions: Service Date/Time: Monday, June 12, 2017 21:56 - CONCLUSION: 1. No acute intracranial abnormality. 2. Atrophy and chronic small vessel ischemic change. Royal Philippe Jr., MD Chest X-Ray 06/12/172015 Signed Impressions: Service Date/Time: Monday, June 12, 2017 20:30 - CONCLUSION: No acute disease. Royal Philippe Jr., MD Cervical Spine CT 06/12/172015 Signed Impressions: Service Date/Time: Monday, June 12, 2017 21:56 - CONCLUSION: 1. No fracture or dislocation. 2. Degenerative changes as detailed above. Royal Philippe Jr., MD Abdomen/Pelvis CT 06/12/172015 Signed Impressions: Service Date/Time: Monday, June 12, 2017 22:01 - CONCLUSION: 1. 9 mm right mid ureteral stone with resulting hydronephrosis and proximal hydroureter. 2. Chronic hydronephrosis on the left with cortical thinning of the kidney and multiple nonobstructing left sided renal calculi. 3. Cholelithiasis. Royal Philippe Jr., MD Objective Remarks GENERAL: AAOx3, lying in bed, NAD SKIN: Warm and dry. Unstageable pressure injury that measures 10.4cm x 6.9 cm x eschar. Periwound is noted with diffuse small areas of partial thickness skin loss that is incontinence associated. HEAD: Normocephalic. EYES: No scleral icterus. No injection or drainage. Pale conjunctiva. NECK: Supple, trachea midline. No JVD or lymphadenopathy. CARDIOVASCULAR: Regular rate and rhythm without murmurs, gallops, or rubs. RESPIRATORY: Breath sounds equal bilaterally. No accessory muscle use. GASTROINTESTINAL: Abdomen soft, non-tender, nondistended. MUSCULOSKELETAL: No cyanosis, or edema. BACK: Nontender without obvious deformity. No CVA tenderness. Procedures Status post Cystoscopy with right retrograde study and right double-J stent insertion 06/13/17 Medications and IVs Current Medications Medications (Trade) Dose Ordered Sig/Rinku Route Start Time Stop Time Status Last Admin (Toprol Xl) 50 mg DAILY PO 06/13/17 09:00 Future Hold 06/13/17 10:15 (NS Flush) 2 ml UNSCH PRN IV FLUSH 06/12/17 23:15 06/14/17 09:02 (NS Flush) 2 ml BID IV FLUSH 06/13/17 09:00 06/18/17 21:28 (Tylenol) 650 mg Q6H PRN PO 06/12/17 23:15 06/14/17 18:25 (Pepcid Inj) 10 mg Q12HR IV PUSH 06/13/17 09:00 06/20/17 08:35 (Zofran Inj) 4 mg Q6H PRN IV PUSH 06/12/17 23:15 (Restoril) 15 mg HS PRN PO 06/12/17 23:15 Future Hold (Duoneb Neb) 1 ampule Q2HR NEB PRN INH 06/12/17 23:15 Miscellaneous Information 1 Q361D XX 06/12/17 23:15 06/12/17 01:00 (Chlorhexidine 2% Cloth) Taper DAILY@04 TOP 06/13/17 04:00 06/09/18 03:59 06/15/17 04:00 (Chlorhexidine 2% Cloth) 3 pack UNSCH PRN TOP 06/12/17 23:15 (Milk Of Magnesia Liq) 30 ml Q12H PRN PO 06/12/17 23:15 (Dulcolax Supp) 10 mg DAILY PRN RECTAL 06/12/17 23:15 (D50w (Vial) Inj) 50 ml UNSCH PRN IV PUSH 06/12/17 23:30 06/13/17 19:51 (Glucagon Inj) 1 mg UNSCH PRN OTHER 06/12/17 23:30 (NovoLOG SUPPLEMENTAL SCALE) 1 ACHS SLIDING SCALE SQ 06/13/17 08:00 06/15/17 08:00 (Aricept) 5 mg HS PO 06/15/17 21:00 06/19/17 21:31 (Namenda) 5 mg DAILY PO 06/16/17 09:00 06/20/17 08:34 (Tylenol) 650 mg Q4H PRN PO 06/16/17 10:00 06/16/17 16:58 (Benadryl) 25 mg Q4H PRN PO 06/16/17 10:00 06/16/17 16:58 (Protonix Inj) 40 mg Q12HR IV PUSH 06/17/17 11:15 06/20/17 08:35 Dextrose 1,000 ml @ 50 mls/hr Q20H IV 06/19/17 11:45 06/20/17 12:26 Iron Sucrose 200 mg/Sodium Chloride 110 ml @ 110 mls/hr DAILY IV 06/20/17 09:00 06/22/17 09:59 06/20/17 10:45 (ASP Crit: Other exception documentation) 1 UNSCH X1 PRN .XX 06/20/17 14:30 06/21/17 14:29 ([facility] Information) 1 UNSCH X1 PRN XX 06/20/17 14:30 06/21/17 14:29 Ertapenem 500 mg/ Sodium Chloride 100 ml @ 200 mls/hr Q24H IV 06/20/17 16:00 06/20/17 17:30 ([facility] Information) 1 UNSCH X1 PRN XX 06/20/17 14:30 06/21/17 14:29 Urinary Catheter: Yes Assessment to: Continue Martini insert reason: Obstruction/Retention A/P Problem List: (1) Sepsis ICD Code: A41.9 - Sepsis, unspecified organism Status: Resolved (2) Acute blood loss anemia ICD Code: D62 - Acute posthemorrhagic anemia Status: Acute (3) Thrombocytopenia ICD Code: D69.6 - Thrombocytopenia, unspecified (4) Ureteral calculus, left ICD Code: N20.1 - Calculus of left ureter Status: Resolved (5) HTN (hypertension) ICD Code: I10 - Essential (primary) hypertension Status: Chronic (6) UTI (urinary tract infection) ICD Code: N39.0 - Urinary tract infection, site not specified Status: Acute (7) Elevated lipase ICD Code: R74.8 - Abnormal levels of other serum enzymes Status: Acute (8) Gram-negative bacteremia ICD Code: R78.81 - Bacteremia Status: Acute (9) Vaginal bleeding ICD Code: N93.9 - Abnormal uterine and vaginal bleeding, unspecified Status: Chronic Plan: The patient states that approximate month ago she stopped the Taxol secondary to a vaginal bleeding. Ordered a pelvic ultrasound which showed thickened endometrial canal. Described echogenic structure associated with the endometrial canal could relate to an IUD or a residual part of an IUD. I will order a [facility] consultation for further recommendations and management. 06/20 [facility] consulted - recommended outpatient follow up with [facility] for D&C and IUD removal. Assessment and Plan Assessment and Plan 66-year-old female with Acute metabolic/uremic encephalopathy Resolved Hypotension tachycardia-resolved Severe dehydration-improved with IV fluid hydration Mild troponin elevation - Continue current IV fluid hydration withsodium bicarbonate. - Troponin elevation most likely secondary to acute kidney injury - Sodium now 141. Continue Fluids as per nephrology. Elevated lipase Cholelithiasis - May need cholate cystectomy in the future - CT abdomen shows normal pancreas - 06/[address] GI consult. Continue to monitor lipase which seems to be trending down. Today down to 6913 from 740 - 06/18 appreciate GI consultation recommendations. Lipase at the time of admission was elevated. Clinically patient without abdominal pain, nausea vomiting. Continue to follow-up GI recommendations. - 06/20 Patient still has elevated lipase however no abdominal pain. As per GI will come down on diet if lipase persistently elevated. Acute kidney failure Uremia Acute right hydronephrosis, hydroureter from obstructing stone Chronic left hydronephrosis Hypokalemia. - Status post Cystoscopy with right retrograde study and right double-J stent insertion 06/13/17. Appreciate input from urology. Will need outpt ESWL to Rx Right ureteral calculus -Appreciate input from nephrology, and patient does not need at this time hemodialysis -Continue with IV fluid hydration and monitor BUN and creatinine - 06/20 Creatinine continues to improve. Good urine output. Follow-up nephrology recommendations. Continue to monitor BUN/creatinine, strict I's and O's, avoid nephrotoxins. Severe sepsis UTI/acute pyelonephritis - Received Zosyn and vancomycin in the ED - Continue renally dosed Zosyn - Patient with UA positive urine culture growing Enterobacter cloacae. Last culture obtained on 06/14 still growing gram-negative rods. ID consulted, continue to follow-up ID recommendations. Antibiotics as per ID. - 06/20 Discussed the case with ID - Discharge on ERtapanem IV 500 mg IV q 24 hrs - stop date Jun 26, 2017. Gram-negative cayla Bacteremia 4 out of 4 blood culture positive for gram-negative cayla Appreciate input from infectious disease specialist Continue with current antibiotics including Zosyn 06/19 Repeat blood cultures obtained on 11/15 negative to date. Thrombocytopenia Acute Blood loss anemia - Most likely secondary to sepsis and dehydration\ -Continue to monitor, may consider hematology consultation - 06/16 Likely due to GI bleed since patient will reported melanotic stools. The patient nothing by mouth, start IV Protonix drip and consult GI. Transfuse 2 units of packed blood cells since hemoglobin today 6.8 and reports of active bleeding. Goal hemoglobin more than 9. I will also transfuse 2 units of platelets since the patient has a platelet count of 35 K to a goal platelet count of more than 50 K. I will also sent and studies, stool for Hemoccult blood, consult hematology, I will order PT, PTT, INR, fibrinogen, LDH , haptoglobin to rule out DIC or hemolytic anemia. - 06/17 Sp transfusion of 2 units of packed blood cells, 2 units of platelets. Hemoglobin improved to 9.2 and platelets improved to 88. Appreciate hematology consultation recommendations. The patient is getting IV iron. There is no evidence of hemolysis as her LDH, haptoglobin, direct comes is normal. Plan for panendoscopy in am. The patient states that she was previously on Pradaxa , however she was told to discontinue it since she had vaginal bleeding. Patient states she never followed up for vaginal bleeding issue. -06/18 the patient status post EGD and colonoscopy which showed nodular duodenum, gastritis, esophagitis, erythema of the colon. -06/19 patient is status post MRCP which showed cholelithiasis with mild gallbladder wall edema. No choledocholithiasis. New small bilateral pleural effusions. Mild right hydronephrosis decreased from prior CTA. Diabetes mellitus - Continue to hold home metformin - Continue SSI. Continue to monitor Accu-Cheks. Blood sugar stable. DVT GI prophylaxis - Teds SCDs - No DVT chemical prophylaxis due to thrombocytopenia and continue IV Pepcid Discharge Planning Continue to monitor in the medical floor. Cleared by ID, pending nephrology clearance. Patient will need rehab placement. Possible Dc tomorrow. Problem Qualifiers (1) UTI (urinary tract infection): Qualified Codes: N10 - Acute pyelonephritis Kimo El MD Jun 20, 2017 19:09
[2017-06-20] MEDS: DONEPEZIL HCL 5 MG TAB PO SCH (20:37)
[2017-06-20 20:59] VITALS: BP 182/76; PULSE 73; RESP 16; TEMP 97.6; O2SAT 96
[2017-06-20] MEDS: POTASSIUM CHLORIDE INJ 30 MEQ in SODIUM CHLOR 0.45% 1000 ML INJ 1,000 ML IV SCH (23:39)
[2017-06-21 00:39] VITALS: BP 164/74; PULSE 83; RESP 18; TEMP 97.5; O2SAT 98
[2017-06-21] MEDS: CHLORHEXIDINE GLUCONATE 2 % 1 PACK (2 CLOTHS) TOP SCH ×2 (04:00→20:35)
[2017-06-21 05:31] VITALS: BP 149/71; PULSE 70; RESP 16; TEMP 98.2; O2SAT 98
[2017-06-21 07:58] VITALS: BP 183/78; PULSE 67; RESP 19; TEMP 97; O2SAT 96
[2017-06-21] MEDS: INSULIN ASPART SUPPLEMENTAL SCALE SQ SCH ×4 (08:00→20:34)
--- NOTE | 2017-06-21 08:01 | HHI.NPPN ---
Subjective General Problems: Anemia, [place] Acidosis Renal Failure: Acute Interval History No new labs are available. She is non oliguric. Review of Systems General Constitutional: Fatigue Objective Data Data Vital Signs Date Time Temp Pulse Resp B/P (MAP) Pulse Ox O2 Delivery O2 Flow Rate FiO2 06/21/17 05:31 98.2 70 16 149/71 (97) 98 06/21/17 00:39 97.5 83 18 164/74 (104) 98 06/20/17 20:59 97.6 73 16 182/76 (111) 96 06/20/17 16:00 98.3 75 18 152/72 (98) 96 06/20/17 12:00 96.2 67 17 146/68 (94) 97 06/20/17 08:00 97.9 71 16 129/62 (84) 96 -: 06/20/17 0718 06/20/17 0718 Tubes & Lines: Guzman Drip Comment D5w Physical Exam General Appearance: Well Developed, No Acute Distress, Comfortable, Malnourished Eyes Eye Exam: Pupils Equal Throat Throat Exam: Oral Mucosa [place] & Moist Pulmonary Resp Exam: Clear Bilaterally, Breath Sounds Equal Cardiology CV Exam: Regular, Normal Sinus Rhythm Gastrointestinal/Abdomen GI Exam: Soft, Non-Tender, Bowel Sounds Present Musculoskeletal MS Exam: Joints Intact, Normal Tone, Atrophy, Unable to Ambulate Integumentary Skin Exam: Clear, Warm, Dry, Intact Extremeties Extremities Exam: Pedal Pulses Palpable, Trace Edema Neurologic Neuro Exam: Alert, Awake, Oriented, Speech Clear, Moving All Extremities Psychiatric Psych Exam: Appropriate Responses Assessment/Plan Discussed Condition With: Patient Assessment Summary: JANET/Acute Renal Failure Electrolyte Assessment: Hypernatremia, Hypokalemia Problem List: (1) Acute renal failure ICD Codes: N17.9 - Acute kidney failure, unspecified Status: Acute Plan: Normal renal function at baseline JANET from obstructive uropathy , S/P ureteral stent by urology 06/14 Renal function continue to improving daily Taper off fluids. (2) Sepsis ICD Codes: A41.9 - Sepsis, unspecified organism Status: Resolved Plan: Patient is now on Invanz. (3) Ureteral calculi ICD Codes: N20.1 - Calculus of ureter Status: Acute Plan: Obstructing, urology following s/p stent placement Unsure is she still requires a guzman catheter, asked the RN to ask urology May need outpatient procedure after discharge (4) Thrombocytopenia ICD Codes: D69.6 - Thrombocytopenia, unspecified Status: Acute Plan: Improved. (5) UTI (urinary tract infection) ICD Codes: N39.0 - Urinary tract infection, site not specified Status: Acute Plan: History of in the past GNR on culture She is on Zosyn (renally dose) Has leukocytosis, may be in part due to hemoconcentration (6) Hypernatremia ICD Codes: E87.0 - Hyperosmolality and hypernatremia Plan: Improving, On IVF Follow labs Free water encouraged (7) HTN (hypertension) ICD Codes: I10 - Essential (primary) hypertension Status: Chronic Plan: Home medications were resumed, titrate if needed (8) Anemia ICD Codes: D64.9 - Anemia, unspecified Plan: s/p transfusion Monitor CBC s/p colonoscopy, no acute bleeding identified. Biopsies taken. Plan We will sign off at this time. Thanks. Problem Qualifiers (1) Acute renal failure: Qualified Codes: N17.9 - Acute kidney failure, unspecified (2) UTI (urinary tract infection): Qualified Codes: N10 - Acute pyelonephritis Thang Chadwick MD Jun 21, 2017 08:01
--- NOTE | 2017-06-21 08:46 | HHI.PR ---
Subjective Patient symptoms today Pt seen and examined. Feeling better. OOB yesterday. Objective Vital Signs Vital Signs Date Time Temp Pulse Resp B/P (MAP) Pulse Ox O2 Delivery O2 Flow Rate FiO2 06/21/17 07:58 97.0 67 19 183/78 (113) 96 06/21/17 05:31 98.2 70 16 149/71 (97) 98 06/21/17 00:39 97.5 83 18 164/74 (104) 98 06/20/17 20:59 97.6 73 16 182/76 (111) 96 06/20/17 16:00 98.3 75 18 152/72 (98) 96 06/20/17 12:00 96.2 67 17 146/68 (94) 97 Intake & Output 06/21/17 06/21/17 07:00 19:00 Intake Total 1208 ml 120 ml Output Total 450 ml Balance 758 ml 120 ml Intake Oral 480 ml 120 ml IV Total 728 ml Output Urine Total 450 ml Result Diagram: 06/20/1771706/20/17717 Objective Remarks Abd:soft,nt,nd Guzman clearing 06/15/17 Abd:soft,nt,nd Guzman with some sediment 06/19/17 Abd:soft,nt,nd Guzman with some sediment 06/21 Abd:soft,nt,nd Guzman with clear urine Medications and IVs Current Medications Medications (Trade) Dose Ordered Sig/Rinku Route Start Time Stop Time Status Last Admin (Toprol Xl) 50 mg DAILY PO 06/13/17 09:00 Future Hold 06/13/17 10:15 (NS Flush) 2 ml UNSCH PRN IV FLUSH 06/12/17 23:15 06/14/17 09:02 (NS Flush) 2 ml BID IV FLUSH 06/13/17 09:00 06/20/17 20:38 (Tylenol) 650 mg Q6H PRN PO 06/12/17 23:15 06/14/17 18:25 (Pepcid Inj) 10 mg Q12HR IV PUSH 06/13/17 09:00 06/20/17 20:51 (Zofran Inj) 4 mg Q6H PRN IV PUSH 06/12/17 23:15 (Restoril) 15 mg HS PRN PO 06/12/17 23:15 Future Hold (Duoneb Neb) 1 ampule Q2HR NEB PRN INH 06/12/17 23:15 Miscellaneous Information 1 Q361D XX 06/12/17 23:15 06/12/17 01:00 (Chlorhexidine 2% Cloth) Taper DAILY@04 TOP 06/13/17 04:00 06/09/18 03:59 06/15/17 04:00 (Chlorhexidine 2% Cloth) 3 pack UNSCH PRN TOP 06/12/17 23:15 (Milk Of Magnesia Liq) 30 ml Q12H PRN PO 06/12/17 23:15 (Dulcolax Supp) 10 mg DAILY PRN RECTAL 06/12/17 23:15 (D50w (Vial) Inj) 50 ml UNSCH PRN IV PUSH 06/12/17 23:30 06/13/17 19:51 (Glucagon Inj) 1 mg UNSCH PRN OTHER 06/12/17 23:30 (NovoLOG SUPPLEMENTAL SCALE) 1 ACHS SLIDING SCALE SQ 06/13/17 08:00 06/15/17 08:00 (Aricept) 5 mg HS PO 06/15/17 21:00 06/20/17 20:37 (Namenda) 5 mg DAILY PO 06/16/17 09:00 06/20/17 08:34 (Tylenol) 650 mg Q4H PRN PO 06/16/17 10:00 06/16/17 16:58 (Benadryl) 25 mg Q4H PRN PO 06/16/17 10:00 06/16/17 16:58 (Protonix Inj) 40 mg Q12HR IV PUSH 06/17/17 11:15 06/20/17 20:37 Iron Sucrose 200 mg/Sodium Chloride 110 ml @ 110 mls/hr DAILY IV 06/20/17 09:00 06/22/17 09:59 06/20/17 10:45 (ASP Crit: Other exception documentation) 1 UNSCH X1 PRN .XX 06/20/17 14:30 06/21/17 14:29 ([facility] Information) 1 UNSCH X1 PRN XX 06/20/17 14:30 06/21/17 14:29 Ertapenem 500 mg/ Sodium Chloride 100 ml @ 200 mls/hr Q24H IV 06/20/17 16:00 06/20/17 17:30 ([facility] Information) 1 UNSCH X1 PRN XX 06/20/17 14:30 06/21/17 14:29 Potassium Chloride 30 meq/ Sodium Chloride 1,015 ml @ 42 mls/hr Q24H IV 06/20/17 22:00 06/20/17 23:39 Assessment and Plan Assessment and Plan 66 y.o female with 9mm obstructing right ureteral calculus with gram negative sepsis s/p cysto with right JJ stent insertion Maintain guzman Advance diet Will follow. Will need outpt ESWL to Rx Right ureteral calculus 06/15/17 66 y.o female with 9mm obstructing stone s/p cysto with right JJ stent insertion Continue ABx per ID B/C with GNR's Outpt ESWL to treat 9mm ureteral calculus 06/19/17 66 y.o female with 9mm obstructing stone s/p cysto with right JJ stent insertion Continue ABx per ID B/C with GNR's Outpt ESWL to treat 9mm ureteral calculus 06/21/17 66 y.o female s/p right JJ stent insertion Maintain guzman until creatinine baselines OOB ESWL as outpt. Jakub Paige DO Jun 21, 2017 08:46
[2017-06-21] MEDS: FAMOTIDINE 20 MG/2 ML VIAL IV PUSH SCH ×2 (09:50→19:58)
[2017-06-21] MEDS: IRON SUCROSE INJ 200 MG in SODIUM CHLORIDE 0.9% INJ 100 ML IV SCH (09:50)
[2017-06-21] MEDS: PANTOPRAZOLE SODIUM 40 MG VIAL IV PUSH SCH ×2 (09:51→19:58)
[2017-06-21] MEDS: MEMANTINE HCL 5 MG TAB PO SCH (09:51)
[2017-06-21] MEDS: SODIUM CHLORIDE 0.9% FLUSH 10 ML FLUSH IV FLUSH SCH ×2 (09:52→19:48)
--- NOTE | 2017-06-21 10:04 | HHI.GIFU ---
Subjective Remarks Pt resting in bed comfortably. She finished her entire breakfast including nicaraguan muffin and cereal. Pt denies nausea, vomiting, abdominal pain after eating. Reports she feels much better today. Had a BM yesterday, but reports it was small and hard. Feels constipated. (CeballosLilian Martha MICHAEL) Objective Vitals I&O Vital Signs Date Time Temp Pulse Resp B/P (MAP) Pulse Ox O2 Delivery O2 Flow Rate FiO2 06/21/17 07:58 97.0 67 19 183/78 (113) 96 06/21/17 05:31 98.2 70 16 149/71 (97) 98 06/21/17 00:39 97.5 83 18 164/74 (104) 98 06/20/17 20:59 97.6 73 16 182/76 (111) 96 06/20/17 16:00 98.3 75 18 152/72 (98) 96 06/20/17 12:00 96.2 67 17 146/68 (94) 97 I/O 06/20/17 06/20/17 06/20/17 06/21/17 06/21/17 06/21/17 07:00 15:00 23:00 07:00 15:00 23:00 Intake Total 947 ml 360 ml 1088 ml 120 ml Output Total 1350 ml 1300 ml 450 ml Balance -1350 ml 947 ml -940 ml 638 ml 120 ml Intake Oral 240 ml 480 ml 120 ml IV Total 947 ml 120 ml 608 ml Output Urine Total 1350 ml 1300 ml 450 ml # Bowel Movements 1 2 Laboratory Laboratory Tests Test 06/21/17 06:37 Date/Time Source Procedure Growth Status 06/17/17 20:33 Blood Peripheral Aerobic Blood Culture - Preliminary NO GROWTH IN 3 DAYS Resulted 06/17/17 20:33 Blood Peripheral Anaerobic Blood Culture - Preliminary NO GROWTH IN 3 DAYS Resulted 06/17/17 04:05 Stool Stool Stool Occult Blood (GERRI) - Final HEMOCCULT NEGATIVE Complete 06/13/17 12:20 Urine Catheterized Urine Urine Culture - Final Enterobacter Cloacae Complete Imaging Last Impressions Cholangiopancreatography MRI 06/19/17 0000 Signed Impressions: Service Date/Time: Monday, June 19, 2017 10:20 - CONCLUSION: 1. Cholelithiasis with mild gallbladder wall edema. However, there is no choledocholithiasis. 2. New small bilateral pleural effusions. 3. Mild right hydronephrosis, decreased from the prior CT. The left kidney has a stable appearance demonstrating severe cortical thinning and is essentially a hydronephrotic sac containing multiple stones. Estrada Good MD Pelvis Ultrasound 06/18/17 0000 Signed Impressions: Service Date/Time: Sunday, June 18, 2017 15:12 - CONCLUSION: 1. Thickened endometrial canal. 2. Echogenic structure associated with the endometrial canal could relate to an IUD or residual part of an IUD. Royal Philippe Jr., MD Thoracic Spine CT 06/12/172015 Signed Impressions: Service Date/Time: Monday, June 12, 2017 22:01 - CONCLUSION: 1. No acute abnormality. Royal Philippe Jr., MD Pelvis X-Ray 06/12/172015 Signed Impressions: Service Date/Time: Monday, June 12, 2017 20:25 - CONCLUSION: No acute disease. Royal Philippe Jr., MD Lumbar Spine CT 06/12/172015 Signed Impressions: Service Date/Time: Monday, June 12, 2017 22:01 - CONCLUSION: 1. No fracture or dislocation. 2. Degenerative changes. 3. See the CT of the abdomen and pelvis reported separately. Royal Philpipe Jr., MD Head CT 06/12/172015 Signed Impressions: Service Date/Time: Monday, June 12, 2017 21:56 - CONCLUSION: 1. No acute intracranial abnormality. 2. Atrophy and chronic small vessel ischemic change. Royal Philippe Jr., MD Chest X-Ray 06/12/172015 Signed Impressions: Service Date/Time: Monday, June 12, 2017 20:30 - CONCLUSION: No acute disease. Royal Philippe Jr., MD Cervical Spine CT 06/12/172015 Signed Impressions: Service Date/Time: Monday, June 12, 2017 21:56 - CONCLUSION: 1. No fracture or dislocation. 2. Degenerative changes as detailed above. Royal Philippe Jr., MD Abdomen/Pelvis CT 06/12/172015 Signed Impressions: Service Date/Time: Monday, June 12, 2017 22:01 - CONCLUSION: 1. 9 mm right mid ureteral stone with resulting hydronephrosis and proximal hydroureter. 2. Chronic hydronephrosis on the left with cortical thinning of the kidney and multiple nonobstructing left sided renal calculi. 3. Cholelithiasis. Royal Philippe Jr., MD Physical Exam HEENT: Normocephalic; atraumatic; no jaundice. CHEST: CTA CARDIAC: RRR ABDOMEN: Soft, nondistended, no abdominal tenderness, active bowel sounds x 4 EXTREMITIES: No clubbing, cyanosis, or edema. SKIN: Decubitus ulcer noted MORTGAGE FIELD INSPECTOR: No focal deficits; alert and oriented times three. ([facility]) Assessment and Plan Plan ASSESSMENT: - Anemia with drop in Hgb. CT Scan abdomen and pelvis without IV contrast (06/12)---> 9 mm right mid ureteral stone with resulting hydronephrosis and proximal hydroureter. Chronic hydronephrosis on the left with cortical thinning of the kidney and multiple nonobstructing left sided renal calculi, cholelithiasis. She had a drop in her Hgb from H/H of 9.2/27.2 to 8.9/27.7 to 6.8/21.5 on 06/16. S/ P 2 units of PRBC and 4 units of Platelets. Pt denies any GI symptoms. She does note that she had significant vaginal bleeding 1 month ago (she is post menopausal). S/P EGD/Colonoscopy (06/18/17)---> Esophagitis, Esophageal stricture, Hiatal hernia, Gastritis, Nodular duodenitis, Colonic erythema, Internal hemorrhoids. Pathology pending. Pelvic US (06/18/17)---> Thickened endometrial canal, echogenic structure associated with the endometrial canal could relate to an IUD or residual part of IUD. ARCHEOLOGY PROFESSOR evaluation pending. HH dropped from 10.0/ 30.5 to 8.6/25.8 yesterday. Todays labs are still pending No obvious active bleeding. Had bm yesterday, denies black or bloody stool. Iron transfusions. - Thrombocytopenia. S/P 4 units of Plts. - Elevated lipase, undetermined significance. CT as above. LFTs unremarkable. MRCP (06/19/17)---> cholelithiasis with mild gallbladder wall edema. However there is no choledocholithiasis. New small bilateral pleural effusions. Mild right hydronephrosis, decreasing from the prior CT. The left kidney has a stable appearance demonstrating severe cortical thinning and is essentially a hydronephrotic sac containing multiple stones. Pt was started on a low fat diet Sunday, her lipase is pending. Clinically tolerating diet, denies N/V/abdominal pain. - Constipation, add Miralax - Sepsis, bacteremia, UTI. Blood and urine with enterobacter cloacae. Invanz - JANET with electrolyte abnormalities. Improving - Kidney stones, chronic hydronephrosis. following. - Hx CVA and DVT. On Pradaxa at home, but states that she stopped this a month ago when she started having vaginal bleeding. Pradaxa on hold. - CAD, DM, Vitamin D Deficiency, kidney stones per attending. PLAN: - Continue low fat diet as tolerated - Add Miralax - Cont. PPI - Monitor HH - Transfuse as necessary - Todays labs pending - S/P ARCHEOLOGY PROFESSOR evaluation per attending - Supportive care - Pt seen and examined by Dr. Siddiqui and myself and this note is written on his behalf (Lilian Ceballos) Physician Comments Patient seen and examined Agree with above Continue with current supportive care Monitor labs (Bruce Siddiqui MD) Lilian Ceballos Jun 21, 2017 10:04 Bruce Siddiqui MD Jun 21, 2017 23:55
[2017-06-21 12:00] VITALS: BP 144/70; PULSE 75; RESP 19; TEMP 98.4; O2SAT 96
[2017-06-21] MEDS: POLYETHYLENE GLYCOL 17 GM PKG PO SCH (12:11)
[2017-06-21 12:23] LABS: AUTOMATED NEUTROPHIL # 6.2 TH/MM3 (1.8-7.7); BASOPHIL # 0.1 TH/MM3 (0-0.2); EOSINOPHIL # 0.1 TH/MM3 (0-0.4); EOSINOPHIL % 1.5 % (0.0-4.0); HEMATOCRIT 28.8 % (35.0-46.0); HEMO FLAGS DIFF FINAL; LYMPH % 16.7 % (9.0-44.0); LYMPHOCYTE # 1.4 TH/MM3 (1.0-4.8); MEAN CELL VOLUME 76.8 FL (80.0-100.0); MEAN CORPUSCULAR HEMOGLOBIN 25.2 PG (27.0-34.0); MEAN CORPUSCULAR HGB CONC 32.9 % (32.0-36.0); MONO % 7.2 % (0.0-8.0); NEUT % 73.6 % (16.0-70.0); PLATELET COUNT 186 TH/MM3 (150-450); RED BLOOD COUNT 3.75 MIL/MM3 (4.00-5.30); RED CELL DISTRIBUTION WIDTH 22.2 % (11.6-17.2); WHITE BLOOD COUNT 8.5 TH/MM3 (4.0-11.0)
[2017-06-21 12:57] LABS: BICARBONATE 22.4 MEQ/L (21.0-32.0); POTASSIUM 3.6 MEQ/L (3.5-5.1)
[2017-06-21 16:00] VITALS: BP 168/76; PULSE 73; RESP 20; TEMP 97.3; O2SAT 96
[2017-06-21] MEDS: ERTAPENEM INJ 500 MG in SODIUM CHLORIDE 0.9% INJ 100 ML IV SCH (16:00)
[2017-06-21] MEDS: DONEPEZIL HCL 5 MG TAB PO SCH (19:59)
[2017-06-21 20:00] VITALS: BP 173/81; PULSE 76; RESP 20; TEMP 96.6; O2SAT 95
[2017-06-21] MEDS: POTASSIUM CHLORIDE INJ 30 MEQ in SODIUM CHLOR 0.45% 1000 ML INJ 1,000 ML IV SCH (20:35)
--- NOTE | 2017-06-21 22:14 | PD.ONC.PN ---
Subjective Subjective Remarks ambulating eating denies any pain no dyspnea Objective Data Date Time Temp Pulse Resp B/P (MAP) Pulse Ox O2 Delivery O2 Flow Rate FiO2 06/21/17 16:00 97.3 73 20 168/76 (106) 96 06/21/17 12:00 98.4 75 19 144/70 (94) 96 06/21/17 07:58 97.0 67 19 183/78 (113) 96 06/21/17 05:31 98.2 70 16 149/71 (97) 98 06/21/17 00:39 97.5 83 18 164/74 (104) 98 06/21/17 06/21/17 06/21/17 07:00 15:00 23:00 Intake Total 1088 ml 1420 ml 1000 ml Output Total 450 ml 2000 ml 2000 ml Balance 638 ml -580 ml -1000 ml Result Diagram: 06/21/17 1125 06/21/17 1125 Laboratory Results Laboratory Tests Test 06/21/17 06:37 06/21/17 11:25 Lipase 1411 U/L White Blood Count 8.5 TH/MM3 Red Blood Count 3.75 MIL/MM3 Hemoglobin 9.5 GM/DL Hematocrit 28.8 % Mean Corpuscular Volume 76.8 FL Mean Corpuscular Hemoglobin 25.2 PG Mean Corpuscular Hemoglobin Concent 32.9 % Red Cell Distribution Width 22.2 % Platelet Count 186 TH/MM3 Mean Platelet Volume 9.6 FL Neutrophils (%) (Auto) 73.6 % Lymphocytes (%) (Auto) 16.7 % Monocytes (%) (Auto) 7.2 % Eosinophils (%) (Auto) 1.5 % Basophils (%) (Auto) 1.0 % Neutrophils # (Auto) 6.2 TH/MM3 Lymphocytes # (Auto) 1.4 TH/MM3 Monocytes # (Auto) 0.6 TH/MM3 Eosinophils # (Auto) 0.1 TH/MM3 Basophils # (Auto) 0.1 TH/MM3 CBC Comment DIFF FINAL Differential Comment Blood Urea Nitrogen 20 MG/DL Creatinine 1.73 MG/DL Random Glucose 140 MG/DL Calcium Level 8.3 MG/DL Sodium Level 143 MEQ/L Potassium Level 3.6 MEQ/L Chloride Level 110 MEQ/L Carbon Dioxide Level 22.4 MEQ/L Anion Gap 11 MEQ/L Estimat Glomerular Filtration Rate 30 ML/MIN Administered Medications Medications (Trade) Dose Ordered Sig/Rinku Route PRN Reason Start Time Stop Time Status Last Admin Dose Admin Metoprolol Succinate (Toprol Xl) 50 mg DAILY PO 06/13/17 09:00 Future Hold 06/13/17 10:15 Sodium Chloride (NS Flush) 2 ml UNSCH PRN IV FLUSH FLUSH AFTER USING IV ACCESS 06/12/17 23:15 06/14/17 09:02 Sodium Chloride (NS Flush) 2 ml BID IV FLUSH 06/13/17 09:00 06/21/17 09:52 Acetaminophen (Tylenol) 650 mg Q6H PRN PO PAIN 1-10 AND/OR FEVER >101F 06/12/17 23:15 06/14/17 18:25 Famotidine (Pepcid Inj) 10 mg Q12HR IV PUSH 06/13/17 09:00 06/21/17 19:58 Miscellaneous Information 1 Q361D XX 06/12/17 23:15 06/12/17 01:00 Chlorhexidine Gluconate (Chlorhexidine 2% Cloth) Taper DAILY@04 TOP 06/13/17 04:00 06/09/18 03:59 06/15/17 04:00 Dextrose (D50w (Vial) Inj) 50 ml UNSCH PRN IV PUSH HYPOGLYCEMIA-SEE COMMENTS 06/12/17 23:30 06/13/17 19:51 Insulin Aspart (NovoLOG SUPPLEMENTAL SCALE) 1 ACHS SLIDING SCALE SQ 06/13/17 08:00 06/15/17 08:00 Donepezil HCl (Aricept) 5 mg HS PO 06/15/17 21:00 06/21/17 19:59 Memantine (Namenda) 5 mg DAILY PO 06/16/17 09:00 06/21/17 09:51 Acetaminophen (Tylenol) 650 mg Q4H PRN PO SEE LABEL COMMENTS 06/16/17 10:00 06/16/17 16:58 Diphenhydramine HCl (Benadryl) 25 mg Q4H PRN PO SEE LABEL COMMENTS 06/16/17 10:00 06/16/17 16:58 Pantoprazole Sodium (Protonix Inj) 40 mg Q12HR IV PUSH 06/17/17 11:15 06/21/17 19:58 Iron Sucrose 200 mg/Sodium Chloride 110 ml @ 110 mls/hr DAILY IV 06/20/17 09:00 06/22/17 09:59 06/21/17 09:50 Ertapenem 500 mg/ Sodium Chloride 100 ml @ 200 mls/hr Q24H IV 06/20/17 16:00 06/20/17 17:30 Potassium Chloride 30 meq/ Sodium Chloride 1,015 ml @ 42 mls/hr Q24H IV 06/20/17 22:00 06/20/17 23:39 Polyethylene Glycol (Miralax) 17 gm DAILY PO 06/21/17 11:00 06/21/17 12:11 Objective Remarks GENERAL: nad SKIN: Warm and dry. LYMPHATIC: No adenopathy. CARDIOVASCULAR: Regular rate and rhythm without murmurs. RESPIRATORY: Breath sounds equal bilaterally. No accessory muscle use. GASTROINTESTINAL: Abdomen soft, non-tender, nondistended. EXTREMITIES: No cyanosis, or edema. Assessment/Plan Problem List: (1) Microcytic anemia ICD Codes: D50.9 - Iron deficiency anemia, unspecified Plan: -- s/p IV iron -- s/p 2 units PRBC's -- No evidence of hemolysis as her LDH, haptoglobin, Direct Tad is normal. -- shaikh-endoscopy on 06/18 showed esophagitis, esophageal stricture, nodular duodenitis, colonic erythema. (2) UTI (urinary tract infection) ICD Codes: N39.0 - Urinary tract infection, site not specified Status: Acute Plan: -- Urine culture shows enterobacter -- On Zosyn Assessment 66 y/o female admitted under a [place] after being found down; hematology consulted for severe microcytic anemia Plan 1. Anemia due to iron deficiency - heme-occult negative - IV iron - S/P EGD/Colonoscopy (06/18/17)---> Esophagitis, Esophageal stricture, Hiatal hernia, Gastritis, Nodular duodenitis, Colonic erythema, Internal hemorrhoids. Pathology pending - Hb up today 9.6 - Hold anticoagulation - o/p f/u in heme clinic 2. UTI/sepsis - ID managing Problem Qualifiers (1) UTI (urinary tract infection): Qualified Codes: N10 - Acute pyelonephritis Abisai Franco MD Jun 21, 2017 22:14
--- NOTE | 2017-06-21 23:44 | HHI.PR ---
Subjective Remarks Denies cp/sob. has been ambulating. Creatinine trending down states urine looks more clear denies fevers/chills no diarrhea denies abdominal pain, nausea or vomiting Objective Vitals Vital Signs Date Time Temp Pulse Resp B/P (MAP) Pulse Ox O2 Delivery O2 Flow Rate FiO2 06/21/17 20:00 96.6 76 20 173/81 (111) 95 06/21/17 16:00 97.3 73 20 168/76 (106) 96 06/21/17 12:00 98.4 75 19 144/70 (94) 96 06/21/17 07:58 97.0 67 19 183/78 (113) 96 06/21/17 05:31 98.2 70 16 149/71 (97) 98 06/21/17 00:39 97.5 83 18 164/74 (104) 98 I/O 06/21/17 06/21/17 06/21/17 06/22/17 06/22/17 06/22/17 07:00 15:00 23:00 07:00 15:00 23:00 Intake Total 1088 ml 1420 ml 1000 ml Output Total 450 ml 2000 ml 2000 ml Balance 638 ml -580 ml -1000 ml Intake Oral 480 ml 1320 ml 1000 ml IV Total 608 ml 100 ml Output Urine Total 450 ml 2000 ml 2000 ml # Bowel Movements 0 0 Result Diagram: 06/21/17 1125 06/21/17 1125 Imaging Last Impressions Cholangiopancreatography MRI 06/19/17 0000 Signed Impressions: Service Date/Time: Monday, June 19, 2017 10:20 - CONCLUSION: 1. Cholelithiasis with mild gallbladder wall edema. However, there is no choledocholithiasis. 2. New small bilateral pleural effusions. 3. Mild right hydronephrosis, decreased from the prior CT. The left kidney has a stable appearance demonstrating severe cortical thinning and is essentially a hydronephrotic sac containing multiple stones. Estrada Good MD Pelvis Ultrasound 06/18/17 0000 Signed Impressions: Service Date/Time: Sunday, June 18, 2017 15:12 - CONCLUSION: 1. Thickened endometrial canal. 2. Echogenic structure associated with the endometrial canal could relate to an IUD or residual part of an IUD. Royal Philippe Jr., MD Thoracic Spine CT 11/7/17 2016 Signed Impressions: Service Date/Time: Monday, June 12, 2017 22:01 - CONCLUSION: 1. No acute abnormality. Royal Philippe Jr., MD Pelvis X-Ray 06/12/172015 Signed Impressions: Service Date/Time: Monday, June 12, 2017 20:25 - CONCLUSION: No acute disease. Royal Philippe Jr., MD Lumbar Spine CT 06/12/172015 Signed Impressions: Service Date/Time: Monday, June 12, 2017 22:01 - CONCLUSION: 1. No fracture or dislocation. 2. Degenerative changes. 3. See the CT of the abdomen and pelvis reported separately. Royal Philippe Jr., MD Head CT 06/12/172015 Signed Impressions: Service Date/Time: Monday, June 12, 2017 21:56 - CONCLUSION: 1. No acute intracranial abnormality. 2. Atrophy and chronic small vessel ischemic change. Royal Philippe Jr., MD Chest X-Ray 06/12/172015 Signed Impressions: Service Date/Time: Monday, June 12, 2017 20:30 - CONCLUSION: No acute disease. Royal Philippe Jr., MD Cervical Spine CT 06/12/172015 Signed Impressions: Service Date/Time: Monday, June 12, 2017 21:56 - CONCLUSION: 1. No fracture or dislocation. 2. Degenerative changes as detailed above. Royal Philippe Jr., MD Abdomen/Pelvis CT 06/12/172015 Signed Impressions: Service Date/Time: Monday, June 12, 2017 22:01 - CONCLUSION: 1. 9 mm right mid ureteral stone with resulting hydronephrosis and proximal hydroureter. 2. Chronic hydronephrosis on the left with cortical thinning of the kidney and multiple nonobstructing left sided renal calculi. 3. Cholelithiasis. Royal Philippe Jr., MD Objective Remarks GENERAL: AAOx3, lying in bed, NAD SKIN: Warm and dry. Unstageable pressure injury that measures 10.4cm x 6.9 cm x eschar. Periwound is noted with diffuse small areas of partial thickness skin loss that is incontinence associated. HEAD: Normocephalic. EYES: No scleral icterus. No injection or drainage. Pale conjunctiva. NECK: Supple, trachea midline. No JVD or lymphadenopathy. CARDIOVASCULAR: Regular rate and rhythm without murmurs, gallops, or rubs. RESPIRATORY: Breath sounds equal bilaterally. No accessory muscle use. GASTROINTESTINAL: Abdomen soft, non-tender, nondistended. MUSCULOSKELETAL: No cyanosis, or edema. BACK: Nontender without obvious deformity. No CVA tenderness. Procedures Status post Cystoscopy with right retrograde study and right double-J stent insertion 06/13/17 Medications and IVs Current Medications Medications (Trade) Dose Ordered Sig/Rinku Route Start Time Stop Time Status Last Admin (Toprol Xl) 50 mg DAILY PO 06/13/17 09:00 Future Hold 06/13/17 10:15 (NS Flush) 2 ml UNSCH PRN IV FLUSH 06/12/17 23:15 06/14/17 09:02 (NS Flush) 2 ml BID IV FLUSH 06/13/17 09:00 06/21/17 09:52 (Tylenol) 650 mg Q6H PRN PO 06/12/17 23:15 06/14/17 18:25 (Pepcid Inj) 10 mg Q12HR IV PUSH 06/13/17 09:00 06/21/17 19:58 (Zofran Inj) 4 mg Q6H PRN IV PUSH 06/12/17 23:15 (Restoril) 15 mg HS PRN PO 06/12/17 23:15 Future Hold (Duoneb Neb) 1 ampule Q2HR NEB PRN INH 06/12/17 23:15 Miscellaneous Information 1 Q361D XX 06/12/17 23:15 06/12/17 01:00 (Chlorhexidine 2% Cloth) Taper DAILY@04 TOP 06/13/17 04:00 06/09/18 03:59 06/15/17 04:00 (Chlorhexidine 2% Cloth) 3 pack UNSCH PRN TOP 06/12/17 23:15 (Milk Of Magnesia Liq) 30 ml Q12H PRN PO 06/12/17 23:15 (Dulcolax Supp) 10 mg DAILY PRN RECTAL 06/12/17 23:15 (D50w (Vial) Inj) 50 ml UNSCH PRN IV PUSH 06/12/17 23:30 06/13/17 19:51 (Glucagon Inj) 1 mg UNSCH PRN OTHER 06/12/17 23:30 (NovoLOG SUPPLEMENTAL SCALE) 1 ACHS SLIDING SCALE SQ 06/13/17 08:00 06/15/17 08:00 (Aricept) 5 mg HS PO 06/15/17 21:00 06/21/17 19:59 (Namenda) 5 mg DAILY PO 06/16/17 09:00 06/21/17 09:51 (Tylenol) 650 mg Q4H PRN PO 06/16/17 10:00 06/16/17 16:58 (Benadryl) 25 mg Q4H PRN PO 06/16/17 10:00 06/16/17 16:58 (Protonix Inj) 40 mg Q12HR IV PUSH 06/17/17 11:15 06/21/17 19:58 Iron Sucrose 200 mg/Sodium Chloride 110 ml @ 110 mls/hr DAILY IV 06/20/17 09:00 06/22/17 09:59 06/21/17 09:50 Ertapenem 500 mg/ Sodium Chloride 100 ml @ 200 mls/hr Q24H IV 06/20/17 16:00 06/20/17 17:30 Potassium Chloride 30 meq/ Sodium Chloride 1,015 ml @ 42 mls/hr Q24H IV 06/20/17 22:00 06/20/17 23:39 (Miralax) 17 gm DAILY PO 06/21/17 11:00 06/21/17 12:11 A/P Problem List: (1) Sepsis ICD Code: A41.9 - Sepsis, unspecified organism Status: Resolved (2) Acute blood loss anemia ICD Code: D62 - Acute posthemorrhagic anemia Status: Acute (3) Thrombocytopenia ICD Code: D69.6 - Thrombocytopenia, unspecified (4) Ureteral calculus, left ICD Code: N20.1 - Calculus of left ureter Status: Resolved (5) HTN (hypertension) ICD Code: I10 - Essential (primary) hypertension Status: Chronic (6) UTI (urinary tract infection) ICD Code: N39.0 - Urinary tract infection, site not specified Status: Acute (7) Elevated lipase ICD Code: R74.8 - Abnormal levels of other serum enzymes Status: Acute (8) Gram-negative bacteremia ICD Code: R78.81 - Bacteremia Status: Acute (9) Vaginal bleeding ICD Code: N93.9 - Abnormal uterine and vaginal bleeding, unspecified Status: Chronic Assessment and Plan Assessment and Plan 66-year-old female with Acute metabolic/uremic encephalopathy Resolved Hypotension tachycardia-resolved Severe dehydration-improved with IV fluid hydration Mild troponin elevation - Continue current IV fluid hydration withsodium bicarbonate. - Troponin elevation most likely secondary to acute kidney injury - Sodium now 141. Continue Fluids as per nephrology. Elevated lipase Cholelithiasis - May need cholate cystectomy in the future - CT abdomen shows normal pancreas - 06/[address] GI consult. Continue to monitor lipase which seems to be trending down. Today down to [id number] from 740 - 06/18 appreciate GI consultation recommendations. Lipase at the time of admission was elevated. Clinically patient without abdominal pain, nausea vomiting. Continue to follow-up GI recommendations. - 06/20 Patient still has elevated lipase however no abdominal pain. As per GI will come down on diet if lipase persistently elevated. - 06/21 Lipase trending down. continue low fat diet. Acute kidney failure Uremia Acute right hydronephrosis, hydroureter from obstructing stone Chronic left hydronephrosis Hypokalemia. - Status post Cystoscopy with right retrograde study and right double-J stent insertion 06/13/17. Appreciate input from urology. Will need outpt ESWL to Rx Right ureteral calculus -Appreciate input from nephrology, and patient does not need at this time hemodialysis -Continue with IV fluid hydration and monitor BUN and creatinine - 06/21 Creatinine continues to improve. Good urine output. Follow-up nephrology recommendations. Continue to monitor BUN/creatinine, strict I's and O's, avoid nephrotoxins. - As per urology foly catheter needs to remain until creatinine stabilizes. Severe sepsis UTI/acute pyelonephritis - Received Zosyn and vancomycin in the ED - Continue renally dosed Zosyn - Patient with UA positive urine culture growing Enterobacter cloacae. Last culture obtained on 06/14 still growing gram-negative rods. ID consulted, continue to follow-up ID recommendations. Antibiotics as per ID. - Discussed the case with ID - Discharge on ERtapanem IV 500 mg IV q 24 hrs - stop date Jun 26, 2017. Gram-negative cayla Bacteremia 4 out of 4 blood culture positive for gram-negative cayla Appreciate input from infectious disease specialist Continue with current antibiotics including Zosyn 06/19 Repeat blood cultures obtained on 11/15 negative to date. Thrombocytopenia Acute Blood loss anemia - Most likely secondary to sepsis and dehydration\ -Continue to monitor, may consider hematology consultation - 06/16 Likely due to GI bleed since patient will reported melanotic stools. The patient nothing by mouth, start IV Protonix drip and consult GI. Transfuse 2 units of packed blood cells since hemoglobin today 6.8 and reports of active bleeding. Goal hemoglobin more than 9. I will also transfuse 2 units of platelets since the patient has a platelet count of 35 K to a goal platelet count of more than 50 K. I will also sent and studies, stool for Hemoccult blood, consult hematology, I will order PT, PTT, INR, fibrinogen, LDH , haptoglobin to rule out DIC or hemolytic anemia. - 06/17 Sp transfusion of 2 units of packed blood cells, 2 units of platelets. Hemoglobin improved to 9.2 and platelets improved to 88. Appreciate hematology consultation recommendations. The patient is getting IV iron. There is no evidence of hemolysis as her LDH, haptoglobin, direct comes is normal. Plan for panendoscopy in am. The patient states that she was previously on Pradaxa , however she was told to discontinue it since she had vaginal bleeding. Patient states she never followed up for vaginal bleeding issue. -06/18 the patient status post EGD and colonoscopy which showed nodular duodenum, gastritis, esophagitis, erythema of the colon. -06/19 patient is status post MRCP which showed cholelithiasis with mild gallbladder wall edema. No choledocholithiasis. New small bilateral pleural effusions. Mild right hydronephrosis decreased from prior CTA. Diabetes mellitus - Continue to hold home metformin - Continue SSI. Continue to monitor Accu-Cheks. Blood sugar stable. DVT GI prophylaxis - Teds SCDs - No DVT chemical prophylaxis due to thrombocytopenia and continue IV Pepcid Discharge Planning Continue to monitor in the medical floor. Cleared by ID, pending nephrology, GI and urology clearance. Patient agreeable to be discharged to rehab now. Will discuss with CM. Problem Qualifiers (1) UTI (urinary tract infection): Qualified Codes: N10 - Acute pyelonephritis Kimo El MD Jun 21, 2017 23:44
[2017-06-22] VITALS: BP 180/81; PULSE 74; RESP 20; TEMP 97.5; O2SAT 96
[2017-06-22 04:00] VITALS: BP 170/77; PULSE 72; RESP 19; TEMP 97.5; O2SAT 97
[2017-06-22 08:00] VITALS: BP 139/70; PULSE 74; RESP 18; TEMP 96.4; O2SAT 96
[2017-06-22] MEDS: INSULIN ASPART SUPPLEMENTAL SCALE SQ SCH ×4 (08:00→21:00)
[2017-06-22] MEDS: IRON SUCROSE INJ 200 MG in SODIUM CHLORIDE 0.9% INJ 100 ML IV SCH (08:38)
[2017-06-22] MEDS: FAMOTIDINE 20 MG/2 ML VIAL IV PUSH SCH ×2 (08:38→21:13)
[2017-06-22] MEDS: MEMANTINE HCL 5 MG TAB PO SCH (08:38)
[2017-06-22] MEDS: PANTOPRAZOLE SODIUM 40 MG VIAL IV PUSH SCH ×2 (08:38→21:12)
[2017-06-22] MEDS: POLYETHYLENE GLYCOL 17 GM PKG PO SCH (08:39)
[2017-06-22] MEDS: SODIUM CHLORIDE 0.9% FLUSH 10 ML FLUSH IV FLUSH SCH ×2 (08:40→21:00)
[2017-06-22 09:09] LABS: AUTOMATED NEUTROPHIL # 7.1 TH/MM3 (1.8-7.7); BASOPHIL # 0.1 TH/MM3 (0-0.2); EOSINOPHIL # 0.2 TH/MM3 (0-0.4); EOSINOPHIL % 1.6 % (0.0-4.0); HEMATOCRIT 28.7 % (35.0-46.0); LYMPHOCYTE # 1.8 TH/MM3 (1.0-4.8); MEAN CELL VOLUME 77.9 FL (80.0-100.0); MEAN CORPUSCULAR HGB CONC 33.3 % (32.0-36.0); MONO % 7.4 % (0.0-8.0); PLATELET COUNT 192 TH/MM3 (150-450); RED BLOOD COUNT 3.68 MIL/MM3 (4.00-5.30); RED CELL DISTRIBUTION WIDTH 22.9 % (11.6-17.2); WHITE BLOOD COUNT 9.8 TH/MM3 (4.0-11.0)
[2017-06-22 09:12] LABS: ALT (GPT) 43 U/L (10-53); ANION GAP 6 MEQ/L (5-15); AST (GOT) 44 U/L (15-37); BICARBONATE 22.7 MEQ/L (21.0-32.0); BLOOD UREA NITROGEN 16 MG/DL (7-18); CHLORIDE 111 MEQ/L (98-107); GLOMERULAR FILTRATION RATE 33 ML/MIN (>89); SODIUM (NA) 140 MEQ/L (136-145)
[2017-06-22 09:13] LABS: HEMO FLAGS AUTO DIFF
[2017-06-22 09:23] LABS: ALKALINE PHOSPHATASE 109 U/L (45-117); TOTAL BILIRUBIN ADULT 0.3 MG/DL (0.2-1.0)
--- NOTE | 2017-06-22 09:43 | HHI.GIFU ---
Subjective Remarks Pt OOB in chair, eating breakfast, in no apparent distress. Pt ate half a bagel and an apple for breakfast. Denies nausea, vomiting, abdominal pain. Had a BM yesterday, states it was smaller than normal. Miralax was ordered for pt yesterday, but pt states she does not want to take it and would rather go naturally. (Lilian Ceballos) Objective Vitals I&O Vital Signs Date Time Temp Pulse Resp B/P (MAP) Pulse Ox O2 Delivery O2 Flow Rate FiO2 06/22/17 08:00 96.4 74 18 139/70 (93) 96 06/22/17 04:00 97.5 72 19 170/77 (108) 97 06/22/17 00:00 97.5 74 20 180/81 (114) 96 06/21/17 20:00 96.6 76 20 173/81 (111) 95 06/21/17 16:00 97.3 73 20 168/76 (106) 96 06/21/17 12:00 98.4 75 19 144/70 (94) 96 I/O 06/21/17 06/21/17 06/21/17 06/22/17 06/22/17 06/22/17 07:00 15:00 23:00 07:00 15:00 23:00 Intake Total 1088 ml 1420 ml 1240 ml 240 ml Output Total 450 ml 2000 ml 3050 ml 1000 ml Balance 638 ml -580 ml -1810 ml -760 ml Intake Oral 480 ml 1320 ml 1240 ml 240 ml IV Total 608 ml 100 ml Output Urine Total 450 ml 2000 ml 3050 ml 1000 ml # Bowel Movements 0 3 Laboratory Laboratory Tests Test 06/21/17 11:25 06/22/17 07:48 06/22/17 07:50 White Blood Count 8.5 9.8 Red Blood Count 3.75 3.68 Hemoglobin 9.5 9.6 Hematocrit 28.8 28.7 Mean Corpuscular Volume 76.8 77.9 Mean Corpuscular Hemoglobin 25.2 26.0 Mean Corpuscular Hemoglobin Concent 32.9 33.3 Red Cell Distribution Width 22.2 22.9 Platelet Count 186 192 Mean Platelet Volume 9.6 9.9 Neutrophils (%) (Auto) 73.6 72.0 Lymphocytes (%) (Auto) 16.7 18.0 Monocytes (%) (Auto) 7.2 7.4 Eosinophils (%) (Auto) 1.5 1.6 Basophils (%) (Auto) 1.0 1.0 Neutrophils # (Auto) 6.2 7.1 Lymphocytes # (Auto) 1.4 1.8 Monocytes # (Auto) 0.6 0.7 Eosinophils # (Auto) 0.1 0.2 Basophils # (Auto) 0.1 0.1 CBC Comment DIFF FINAL AUTO DIFF Differential Comment Blood Urea Nitrogen 20 16 Creatinine 1.73 1.56 Random Glucose 140 89 Calcium Level 8.3 7.9 Sodium Level 143 140 Potassium Level 3.6 4.0 Chloride Level 110 111 Carbon Dioxide Level 22.4 22.7 Anion Gap 11 6 Estimat Glomerular Filtration Rate 30 33 Total Protein 6.0 Albumin 1.8 Alkaline Phosphatase 109 Aspartate Amino Transf (AST/SGOT) 44 Alanine Aminotransferase (ALT/SGPT) 43 Total Bilirubin 0.3 Lipase 1738 Date/Time Source Procedure Growth Status 06/17/17 20:33 Blood Peripheral Aerobic Blood Culture - Preliminary NO GROWTH IN 4 DAYS Resulted 06/17/17 20:33 Blood Peripheral Anaerobic Blood Culture - Preliminary NO GROWTH IN 4 DAYS Resulted 06/17/17 04:05 Stool Stool Stool Occult Blood (GERRI) - Final HEMOCCULT NEGATIVE Complete 06/13/17 12:20 Urine Catheterized Urine Urine Culture - Final Enterobacter Cloacae Complete Imaging Last Impressions Cholangiopancreatography MRI 06/19/17 0000 Signed Impressions: Service Date/Time: Monday, June 19, 2017 10:20 - CONCLUSION: 1. Cholelithiasis with mild gallbladder wall edema. However, there is no choledocholithiasis. 2. New small bilateral pleural effusions. 3. Mild right hydronephrosis, decreased from the prior CT. The left kidney has a stable appearance demonstrating severe cortical thinning and is essentially a hydronephrotic sac containing multiple stones. Estrada Good MD Pelvis Ultrasound 06/18/17 0000 Signed Impressions: Service Date/Time: Sunday, June 18, 2017 15:12 - CONCLUSION: 1. Thickened endometrial canal. 2. Echogenic structure associated with the endometrial canal could relate to an IUD or residual part of an IUD. Royal Philippe Jr., MD Thoracic Spine CT 06/12/17 2016 Signed Impressions: Service Date/Time: Monday, June 12, 2017 22:01 - CONCLUSION: 1. No acute abnormality. Royal Philippe Jr., MD Pelvis X-Ray 06/12/172015 Signed Impressions: Service Date/Time: Monday, June 12, 2017 20:25 - CONCLUSION: No acute disease. Royal Philippe Jr., MD Lumbar Spine CT 06/12/172015 Signed Impressions: Service Date/Time: Monday, June 12, 2017 22:01 - CONCLUSION: 1. No fracture or dislocation. 2. Degenerative changes. 3. See the CT of the abdomen and pelvis reported separately. Royal Philippe Jr., MD Head CT 06/12/172015 Signed Impressions: Service Date/Time: Monday, June 12, 2017 21:56 - CONCLUSION: 1. No acute intracranial abnormality. 2. Atrophy and chronic small vessel ischemic change. Royal Philippe Jr., MD Chest X-Ray 06/12/172015 Signed Impressions: Service Date/Time: Monday, June 12, 2017 20:30 - CONCLUSION: No acute disease. Royal Philippe Jr., MD Cervical Spine CT 06/12/172015 Signed Impressions: Service Date/Time: Monday, June 12, 2017 21:56 - CONCLUSION: 1. No fracture or dislocation. 2. Degenerative changes as detailed above. Royal Philippe Jr., MD Abdomen/Pelvis CT 06/12/172015 Signed Impressions: Service Date/Time: Monday, June 12, 2017 22:01 - CONCLUSION: 1. 9 mm right mid ureteral stone with resulting hydronephrosis and proximal hydroureter. 2. Chronic hydronephrosis on the left with cortical thinning of the kidney and multiple nonobstructing left sided renal calculi. 3. Cholelithiasis. Royal Philippe Jr., MD Physical Exam HEENT: Normocephalic; atraumatic; no jaundice. CHEST: Even/unlabored CARDIAC: RRR ABDOMEN: Soft, nondistended, no abdominal tenderness, active bowel sounds x 4 EXTREMITIES: No clubbing, cyanosis, or edema. SKIN: Decubitus ulcer noted WANIGAN CLERK: No focal deficits; alert and oriented times three. (Lilian Ceballos) Assessment and Plan Plan ASSESSMENT: - Anemia with drop in Hgb. CT Scan abdomen and pelvis without IV contrast (06/12)---> 9 mm right mid ureteral stone with resulting hydronephrosis and proximal hydroureter. Chronic hydronephrosis on the left with cortical thinning of the kidney and multiple nonobstructing left sided renal calculi, cholelithiasis. She had a drop in her Hgb from H/H of 9.2/27.2 to 8.9/27.7 to 6.8/21.5 on 06/16. S/ P 2 units of PRBC and 4 units of Platelets. Pt denies any GI symptoms. She does note that she had significant vaginal bleeding 1 month ago (she is post menopausal). S/P EGD/Colonoscopy (06/18/17)---> Esophagitis, Esophageal stricture, Hiatal hernia, Gastritis, Nodular duodenitis, Colonic erythema, Internal hemorrhoids. Pathology pending. Pelvic US (06/18/17)---> Thickened endometrial canal, echogenic structure associated with the endometrial canal could relate to an IUD or residual part of IUD. S/P PRESS OFFBEARER evaluation. HH stable, 9.6/28.7. Denies any obvious GI bleeding. - Thrombocytopenia. Resolved. S/P 4 units of Plts. Current platelets 192. - Elevated lipase, undetermined significance. CT as above. LFTs unremarkable. MRCP (06/19/17)---> cholelithiasis with mild gallbladder wall edema. However there is no choledocholithiasis. New small bilateral pleural effusions. Mild right hydronephrosis, decreasing from the prior CT. The left kidney has a stable appearance demonstrating severe cortical thinning and is essentially a hydronephrotic sac containing multiple stones. Pt was started on a low fat diet Sunday, she is tolerating diet and eating 100% of meals. Denies N/V/abdominal pain. Lipase currently 1738 increased from 1411 yesterday. Will get GS evaluation of GB, based on gallbladder wall edema, cholelithiasis, and persistent/worsening lipase. - Constipation, BM yesterday, pt reports smaller than normal but she is declining Miralax. - Sepsis, bacteremia, UTI. Blood and urine with enterobacter cloacae. Invanz - JANET with electrolyte abnormalities. Improving - Kidney stones, chronic hydronephrosis. following. - Hx CVA and DVT. On Pradaxa at home, but states that she stopped this a month ago when she started having vaginal bleeding. Pradaxa on hold. - CAD, DM, Vitamin D Deficiency, kidney stones per attending. PLAN: - Low fat diet. - Consult general surgery due to lipase level increasing again and Cholelithiasis with mild gallbladder wall edema - Cont PPI - Monitor lipase - Monitor HH - Transfuse as necessary - S/P PRESS OFFBEARER evaluation per attending - Supportive care - Pt seen and examined by Dr. Siddiqui and myself and this note is written on his behalf (Lilian Ceballos) Physician Comments Patient seen and examined Agree with above Continue with current supportive care Monitor labs Elevated lipase may be secondary to the renal dysfunction partially or fully If lipase level stabilizes or declines patient may be discharged from a GI standpoint (Bruce Siddiqui MD) Lilian Ceballos Jun 22, 2017 09:43 Bruce Siddiqui MD Jun 22, 2017 22:26
[2017-06-22 10:01] LABS: PLATELET ESTIMATE SMEAR NORMAL (NORMAL); PLATELET MORPHOLOGY ENLARGED (NORMAL); SCAN/DIFF AUTO DIFF CONFIRMED
[2017-06-22 12:00] VITALS: BP 155/72; PULSE 74; RESP 17; TEMP 96.1; O2SAT 96
--- NOTE | 2017-06-22 12:02 | PD.CONS ---
cc: Angel Garber MD HPI Service General Surgery Consult Requested By Lilian RODRIGUEZ Reason for Consult Gallbladder wall thickening and cholelithiasis; elevated lipase Primary Care Physician Unknown History of Present Illness This is a 66-year-old female with a past medical history of urinary tract infections, kidney stones, hypertension, diabetes mellitus and CAD with stent placement. The patient was admitted to the hospital on June 12 after being found by police officers on the floor covered in stool. On admission the patient was dehydrated with a increased BUN/creatinine of 18 and 7.6. The patient had an elevated white count of 25. She had minimal urine output. The patient had a consultation with urology in regards to a 9 mm right ureteral stone. The patient is taken to the operating room on June 14 for a cystoscopy with right retrograde study and right double-J stent insertion. The patient has been evaluated by nephrology as well but has not been on dialysis during this admission. The patient has been evaluated by GI due to a drop in her hemoglobin and possible GI bleeding. The patient had an EGD and colonoscopy which showed esophagitis, a small hiatal hernia, gastritis, colonic erythema and internal hemorrhoids. An MRCP was obtained due to elevated lipase and cholelithiasis seen on CT abdomen and pelvis. The MRCP showed cholelithiasis with mild gallbladder wall thickening. There was no choledocholithiasis. The patient reports no abdominal pain. She reports no dietary intolerance as well. Her lipase currently is 1738 with a normal total bilirubin. A General Surgery consultation has been requested. Review of Systems Constitutional: COMPLAINS OF: Fatigue, DENIES: Change in appetite Endocrine: DENIES: Polydipsia, Polyuria, Polyphagia Eyes: DENIES: Diplopia Ears, nose, mouth, throat: DENIES: Hearing loss Respiratory: DENIES: Apneas, Cough Cardiovascular: DENIES: Chest pain Gastrointestinal: COMPLAINS OF: Diarrhea, DENIES: Abdominal pain, Nausea, Vomiting Musculoskeletal: DENIES: Joint pain Integumentary: DENIES: Abnormal pigmentation Hematologic/lymphatic: DENIES: Bruising Immunologic/allergic: DENIES: Eczema Neurologic: DENIES: Headache, Localized weakness Psychiatric: DENIES: Mood changes, Depression, Hallucinations Past Family Social History Past Medical History Renal stones Urinary tract infections Hypertension Diabetes mellitus Coronary artery disease with stent placement Past Surgical History Left ureteral stent PCI with stent placement Cystoscopy with right retrograde study and right double-J stent insertion ( during this admission) Reported Medications Cipro Macrobid Pradaxa Metoprolol Atorvastatin Metformin Folic acid Vitamin D Vesicare Allergies: Coded Allergies: sulfamethoxazole (Unverified Allergy, Severe, rash, 03/21/17) trimethoprim (Unverified Allergy, Severe, rash, 03/21/17) Active Ordered Medications Current Medications Medications (Trade) Dose Ordered Sig/Rinku Route Start Time Stop Time Status Last Admin (Toprol Xl) 50 mg DAILY PO 06/13/17 09:00 Future Hold 06/13/17 10:15 (NS Flush) 2 ml UNSCH PRN IV FLUSH 06/12/17 23:15 06/14/17 09:02 (NS Flush) 2 ml BID IV FLUSH 06/13/17 09:00 06/22/17 08:40 (Tylenol) 650 mg Q6H PRN PO 06/12/17 23:15 06/14/17 18:25 (Pepcid Inj) 10 mg Q12HR IV PUSH 06/13/17 09:00 06/22/17 08:38 (Zofran Inj) 4 mg Q6H PRN IV PUSH 06/12/17 23:15 (Restoril) 15 mg HS PRN PO 06/12/17 23:15 Future Hold (Duoneb Neb) 1 ampule Q2HR NEB PRN INH 06/12/17 23:15 Miscellaneous Information 1 Q361D XX 06/12/17 23:15 06/12/17 01:00 (Chlorhexidine 2% Cloth) Taper DAILY@04 TOP 06/13/17 04:00 06/09/18 03:59 06/15/17 04:00 (Chlorhexidine 2% Cloth) 3 pack UNSCH PRN TOP 06/12/17 23:15 (Milk Of Magnesia Liq) 30 ml Q12H PRN PO 06/12/17 23:15 (Dulcolax Supp) 10 mg DAILY PRN RECTAL 06/12/17 23:15 (D50w (Vial) Inj) 50 ml UNSCH PRN IV PUSH 06/12/17 23:30 06/13/17 19:51 (Glucagon Inj) 1 mg UNSCH PRN OTHER 06/12/17 23:30 (NovoLOG SUPPLEMENTAL SCALE) 1 ACHS SLIDING SCALE SQ 06/13/17 08:00 06/15/17 08:00 (Aricept) 5 mg HS PO 06/15/17 21:00 06/21/17 19:59 (Namenda) 5 mg DAILY PO 06/16/17 09:00 06/22/17 08:38 (Tylenol) 650 mg Q4H PRN PO 06/16/17 10:00 06/16/17 16:58 (Benadryl) 25 mg Q4H PRN PO 06/16/17 10:00 06/16/17 16:58 (Protonix Inj) 40 mg Q12HR IV PUSH 06/17/17 11:15 06/22/17 08:38 Ertapenem 500 mg/ Sodium Chloride 100 ml @ 200 mls/hr Q24H IV 06/20/17 16:00 06/20/17 17:30 Potassium Chloride 30 meq/ Sodium Chloride 1,015 ml @ 42 mls/hr Q24H IV 06/20/17 22:00 06/20/17 23:39 (Miralax) 17 gm DAILY PO 06/21/17 11:00 06/21/17 12:11 Family History Non-Contributory Social History Denies tobacco use Denies EtOH use Denies illicit drug use Physical Exam Vital Signs Vital Signs Date Time Temp Pulse Resp B/P (MAP) Pulse Ox O2 Delivery O2 Flow Rate FiO2 06/22/17 08:00 96.4 74 18 139/70 (93) 96 06/22/17 04:00 97.5 72 19 170/77 (108) 97 06/22/17 00:00 97.5 74 20 180/81 (114) 96 06/21/17 20:00 96.6 76 20 173/81 (111) 95 06/21/17 16:00 97.3 73 20 168/76 (106) 96 Physical Exam GENERAL: 66-year-old female resting in bed in no acute distress. SKIN: Warm and dry. HEAD: Atraumatic. Normocephalic. EYES: Pupils equal and round. No scleral icterus. No injection or drainage. ENT: No nasal bleeding or discharge. Mucous membranes pink and moist. NECK: Trachea midline. CARDIOVASCULAR: Regular rate and rhythm. RESPIRATORY: No accessory muscle use. Clear to auscultation. Breath sounds equal bilaterally. GASTROINTESTINAL: Abdomen soft, non-tender, nondistended. No visible scars or hernias. MUSCULOSKELETAL: Extremities without clubbing, cyanosis, or edema. No obvious deformities. NEUROLOGICAL: Awake and alert. No obvious cranial nerve deficits. Motor grossly within normal limits. Five out of 5 muscle strength in the arms and legs. Normal speech. PSYCHIATRIC: Appropriate mood and affect; insight and judgment normal. Laboratory Laboratory Tests Test 06/22/17 07:48 06/22/17 07:50 Blood Urea Nitrogen 16 Creatinine 1.56 Random Glucose 89 Total Protein 6.0 Albumin 1.8 Calcium Level 7.9 Alkaline Phosphatase 109 Aspartate Amino Transf (AST/SGOT) 44 Alanine Aminotransferase (ALT/SGPT) 43 Total Bilirubin 0.3 Sodium Level 140 Potassium Level 4.0 Chloride Level 111 Carbon Dioxide Level 22.7 Anion Gap 6 Estimat Glomerular Filtration Rate 33 Lipase 1738 White Blood Count 9.8 Red Blood Count 3.68 Hemoglobin 9.6 Hematocrit 28.7 Mean Corpuscular Volume 77.9 Mean Corpuscular Hemoglobin 26.0 Mean Corpuscular Hemoglobin Concent 33.3 Red Cell Distribution Width 22.9 Platelet Count 192 Mean Platelet Volume 9.9 Neutrophils (%) (Auto) 72.0 Lymphocytes (%) (Auto) 18.0 Monocytes (%) (Auto) 7.4 Eosinophils (%) (Auto) 1.6 Basophils (%) (Auto) 1.0 Neutrophils # (Auto) 7.1 Lymphocytes # (Auto) 1.8 Monocytes # (Auto) 0.7 Eosinophils # (Auto) 0.2 Basophils # (Auto) 0.1 CBC Comment AUTO DIFF Differential Comment AUTO DIFF CONFIRMED Platelet Estimate NORMAL Platelet Morphology Comment ENLARGED Date/Time Source Procedure Growth Status 06/17/17 20:33 Blood Peripheral Aerobic Blood Culture - Final NO GROWTH IN 5 DAYS Complete 06/17/17 20:33 Blood Peripheral Anaerobic Blood Culture - Final NO GROWTH IN 5 DAYS Complete 06/17/17 04:05 Stool Stool Stool Occult Blood (GERRI) - Final HEMOCCULT NEGATIVE Complete 06/13/17 12:20 Urine Catheterized Urine Urine Culture - Final Enterobacter Cloacae Complete Result Diagram: 06/22/17 0750 06/22/17 0748 Assessment and Plan Assessment and Plan 66 year old female with kidney stones s/p cystoscopy; elevated lipase; gallbladder wall thickening and cholelithiasis on MRCP -Patient's exam is benign -Diet as tolerated -No acute surgical needs at this time -General Surgery will be available as needed -Thank you for this consult I CERTIFY AND ATTEST THAT I PERSONALLY EXAMINED THE PATIENT IN THEIR ROOM. MS ESPINOZA DOCUMENTED OUR VISIT AND ENTERED ORDERS IN THE EMR UNDER MY DIRECT SUPERVISION. I REVIEWED THE CARE PLAN WITH THE PATIENT AND THE NURSING STAFF. NO SURGICAL INTERVENTION INDICATED. CAN FU IN OFFICE PRN ANGEL GARBER MD FACS Discussed Condition With Dr. Pallavi Alvarado Darren Helen Espinoza [facility] Jun 22, 2017 12:02 Angel Garber MD Jun 26, 2017 18:13
[2017-06-22 16:00] VITALS: BP 146/84; PULSE 80; RESP 17; TEMP 98.5; O2SAT 97
[2017-06-22] MEDS: ERTAPENEM INJ 500 MG in SODIUM CHLORIDE 0.9% INJ 100 ML IV SCH (17:32)
--- NOTE | 2017-06-22 17:43 | HHI.PR ---
Subjective Remarks Patient has no complaints denies cp/sob Objective Vitals Vital Signs Date Time Temp Pulse Resp B/P (MAP) Pulse Ox O2 Delivery O2 Flow Rate FiO2 06/22/17 16:00 98.5 80 17 146/84 (104) 97 06/22/17 12:00 96.1 74 17 155/72 (99) 96 06/22/17 08:00 96.4 74 18 139/70 (93) 96 06/22/17 04:00 97.5 72 19 170/77 (108) 97 06/22/17 00:00 97.5 74 20 180/81 (114) 96 06/21/17 20:00 96.6 76 20 173/81 (111) 95 I/O 06/21/17 06/21/17 06/21/17 06/22/17 06/22/17 06/22/17 07:00 15:00 23:00 07:00 15:00 23:00 Intake Total 1088 ml 1420 ml 1240 ml 240 ml Output Total 450 ml 2000 ml 3050 ml 1000 ml Balance 638 ml -580 ml -1810 ml -760 ml Intake Oral 480 ml 1320 ml 1240 ml 240 ml IV Total 608 ml 100 ml Output Urine Total 450 ml 2000 ml 3050 ml 1000 ml # Bowel Movements 0 3 Result Diagram: 06/22/17 0750 06/22/17 0748 Imaging Last Impressions Cholangiopancreatography MRI 06/19/17 0000 Signed Impressions: Service Date/Time: Monday, June 19, 2017 10:20 - CONCLUSION: 1. Cholelithiasis with mild gallbladder wall edema. However, there is no choledocholithiasis. 2. New small bilateral pleural effusions. 3. Mild right hydronephrosis, decreased from the prior CT. The left kidney has a stable appearance demonstrating severe cortical thinning and is essentially a hydronephrotic sac containing multiple stones. Estrada Good MD Pelvis Ultrasound 06/18/17 0000 Signed Impressions: Service Date/Time: Sunday, June 18, 2017 15:12 - CONCLUSION: 1. Thickened endometrial canal. 2. Echogenic structure associated with the endometrial canal could relate to an IUD or residual part of an IUD. Royal Philippe Jr., MD Thoracic Spine CT 06/12/17 2016 Signed Impressions: Service Date/Time: Monday, June 12, 2017 22:01 - CONCLUSION: 1. No acute abnormality. Royal Philippe Jr., MD Pelvis X-Ray 06/12/172015 Signed Impressions: Service Date/Time: Monday, June 12, 2017 20:25 - CONCLUSION: No acute disease. Royal Philippe Jr., MD Lumbar Spine CT 06/12/172015 Signed Impressions: Service Date/Time: Monday, June 12, 2017 22:01 - CONCLUSION: 1. No fracture or dislocation. 2. Degenerative changes. 3. See the CT of the abdomen and pelvis reported separately. Royal Philippe Jr., MD Head CT 06/12/172015 Signed Impressions: Service Date/Time: Monday, June 12, 2017 21:56 - CONCLUSION: 1. No acute intracranial abnormality. 2. Atrophy and chronic small vessel ischemic change. Royal Philippe Jr., MD Chest X-Ray 06/12/172015 Signed Impressions: Service Date/Time: Monday, June 12, 2017 20:30 - CONCLUSION: No acute disease. Royal Philippe Jr., MD Cervical Spine CT 06/12/172015 Signed Impressions: Service Date/Time: Monday, June 12, 2017 21:56 - CONCLUSION: 1. No fracture or dislocation. 2. Degenerative changes as detailed above. Royal Philippe Jr., MD Abdomen/Pelvis CT 06/12/172015 Signed Impressions: Service Date/Time: Monday, June 12, 2017 22:01 - CONCLUSION: 1. 9 mm right mid ureteral stone with resulting hydronephrosis and proximal hydroureter. 2. Chronic hydronephrosis on the left with cortical thinning of the kidney and multiple nonobstructing left sided renal calculi. 3. Cholelithiasis. Royal Philippe Jr., MD Objective Remarks GENERAL: AAOx3, lying in bed, NAD SKIN: Warm and dry. Unstageable pressure injury that measures 10.4cm x 6.9 cm x eschar. Periwound is noted with diffuse small areas of partial thickness skin loss that is incontinence associated. HEAD: Normocephalic. EYES: No scleral icterus. No injection or drainage. Pale conjunctiva. NECK: Supple, trachea midline. No JVD or lymphadenopathy. CARDIOVASCULAR: Regular rate and rhythm without murmurs, gallops, or rubs. RESPIRATORY: Breath sounds equal bilaterally. No accessory muscle use. GASTROINTESTINAL: Abdomen soft, non-tender, nondistended. MUSCULOSKELETAL: No cyanosis, or edema. BACK: Nontender without obvious deformity. No CVA tenderness. Procedures Status post Cystoscopy with right retrograde study and right double-J stent insertion 06/13/17 Medications and IVs Current Medications Medications (Trade) Dose Ordered Sig/Rinku Route Start Time Stop Time Status Last Admin (Toprol Xl) 50 mg DAILY PO 06/13/17 09:00 Future Hold 06/13/17 10:15 (NS Flush) 2 ml UNSCH PRN IV FLUSH 06/12/17 23:15 06/14/17 09:02 (NS Flush) 2 ml BID IV FLUSH 06/13/17 09:00 06/22/17 08:40 (Tylenol) 650 mg Q6H PRN PO 06/12/17 23:15 06/14/17 18:25 (Pepcid Inj) 10 mg Q12HR IV PUSH 06/13/17 09:00 06/22/17 08:38 (Zofran Inj) 4 mg Q6H PRN IV PUSH 06/12/17 23:15 (Restoril) 15 mg HS PRN PO 06/12/17 23:15 Future Hold (Duoneb Neb) 1 ampule Q2HR NEB PRN INH 06/12/17 23:15 Miscellaneous Information 1 Q361D XX 06/12/17 23:15 06/12/17 01:00 (Chlorhexidine 2% Cloth) Taper DAILY@04 TOP 06/13/17 04:00 06/09/18 03:59 06/15/17 04:00 (Chlorhexidine 2% Cloth) 3 pack UNSCH PRN TOP 06/12/17 23:15 (Milk Of Magnesia Liq) 30 ml Q12H PRN PO 06/12/17 23:15 (Dulcolax Supp) 10 mg DAILY PRN RECTAL 06/12/17 23:15 (D50w (Vial) Inj) 50 ml UNSCH PRN IV PUSH 06/12/17 23:30 06/13/17 19:51 (Glucagon Inj) 1 mg UNSCH PRN OTHER 06/12/17 23:30 (NovoLOG SUPPLEMENTAL SCALE) 1 ACHS SLIDING SCALE SQ 06/13/17 08:00 06/15/17 08:00 (Aricept) 5 mg HS PO 06/15/17 21:00 06/21/17 19:59 (Namenda) 5 mg DAILY PO 06/16/17 09:00 06/22/17 08:38 (Tylenol) 650 mg Q4H PRN PO 06/16/17 10:00 06/16/17 16:58 (Benadryl) 25 mg Q4H PRN PO 06/16/17 10:00 06/16/17 16:58 (Protonix Inj) 40 mg Q12HR IV PUSH 06/17/17 11:15 06/22/17 08:38 Ertapenem 500 mg/ Sodium Chloride 100 ml @ 200 mls/hr Q24H IV 06/20/17 16:00 06/20/17 17:30 Potassium Chloride 30 meq/ Sodium Chloride 1,015 ml @ 42 mls/hr Q24H IV 06/20/17 22:00 06/20/17 23:39 (Miralax) 17 gm DAILY PO 06/21/17 11:00 06/21/17 12:11 A/P Problem List: (1) Sepsis ICD Code: A41.9 - Sepsis, unspecified organism Status: Resolved (2) Acute blood loss anemia ICD Code: D62 - Acute posthemorrhagic anemia Status: Acute (3) Thrombocytopenia ICD Code: D69.6 - Thrombocytopenia, unspecified (4) Ureteral calculus, left ICD Code: N20.1 - Calculus of left ureter Status: Resolved (5) HTN (hypertension) ICD Code: I10 - Essential (primary) hypertension Status: Chronic (6) UTI (urinary tract infection) ICD Code: N39.0 - Urinary tract infection, site not specified Status: Acute (7) Elevated lipase ICD Code: R74.8 - Abnormal levels of other serum enzymes Status: Acute (8) Gram-negative bacteremia ICD Code: R78.81 - Bacteremia Status: Acute (9) Vaginal bleeding ICD Code: N93.9 - Abnormal uterine and vaginal bleeding, unspecified Status: Chronic Plan: The patient states that approximate month ago she stopped the Taxol secondary to a vaginal bleeding. Ordered a pelvic ultrasound which showed thickened endometrial canal. Described echogenic structure associated with the endometrial canal could relate to an IUD or a residual part of an IUD. I will order a WAFER MOUNTER consultation for further recommendations and management. 06/20 WAFER MOUNTER consulted - recommended outpatient follow up with WAFER MOUNTER for D&C and IUD removal. (10) Pediculosis capitis ICD Code: B85.0 - Pediculosis due to Pediculus humanus capitis Status: Acute Assessment and Plan Assessment and Plan 66-year-old female with Acute metabolic/uremic encephalopathy Resolved Hypotension tachycardia-resolved Severe dehydration-improved with IV fluid hydration Mild troponin elevation Hypernatremia - Continue current IV fluid hydration withsodium bicarbonate. - Troponin elevation most likely secondary to acute kidney injury - Hypernatremia resolved. continue to monitor BMP. Elevated lipase Cholelithiasis - May need cholate cystectomy in the future - CT abdomen shows normal pancreas - 06/[address] GI consult. Continue to monitor lipase which seems to be trending down. Today down to 6913 from 740 - 06/18 appreciate GI consultation recommendations. Lipase at the time of admission was elevated. Clinically patient without abdominal pain, nausea vomiting. Continue to follow-up GI recommendations. - 06/20 Patient still has elevated lipase however no abdominal pain. As per GI will come down on diet if lipase persistently elevated. - 06/21 Lipase trending down. continue low fat diet. - Lipase back up to 1738. Discussed case with GI, suggested general surgery consultation. Acute kidney failure Uremia Acute right hydronephrosis, hydroureter from obstructing stone Chronic left hydronephrosis Hypokalemia. - Status post Cystoscopy with right retrograde study and right double-J stent insertion 06/13/17. Appreciate input from urology. Will need outpt ESWL to Rx Right ureteral calculus -Appreciate input from nephrology, and patient does not need at this time hemodialysis -Continue with IV fluid hydration and monitor BUN and creatinine - 06/21 Creatinine continues to improve. Good urine output. Follow-up nephrology recommendations. Continue to monitor BUN/creatinine, strict I's and O's, avoid nephrotoxins. - As per urology foly catheter needs to remain until creatinine stabilizes. Severe sepsis UTI/acute pyelonephritis - Received Zosyn and vancomycin in the ED - Continue renally dosed Zosyn - Patient with UA positive urine culture growing Enterobacter cloacae. Last culture obtained on 06/14 still growing gram-negative rods. ID consulted, continue to follow-up ID recommendations. Antibiotics as per ID. - Discussed the case with ID - Discharge on ERtapanem IV 500 mg IV q 24 hrs - stop date Jun 26, 2017. Gram-negative cayla Bacteremia 4 out of 4 blood culture positive for gram-negative cayla Appreciate input from infectious disease specialist Continue with current antibiotics including Zosyn 06/19 Repeat blood cultures obtained on 11/15 negative to date. Thrombocytopenia Acute Blood loss anemia - Most likely secondary to sepsis and dehydration\ -Continue to monitor, may consider hematology consultation - 06/16 Likely due to GI bleed since patient will reported melanotic stools. The patient nothing by mouth, start IV Protonix drip and consult GI. Transfuse 2 units of packed blood cells since hemoglobin today 6.8 and reports of active bleeding. Goal hemoglobin more than 9. I will also transfuse 2 units of platelets since the patient has a platelet count of 35 K to a goal platelet count of more than 50 K. I will also sent and studies, stool for Hemoccult blood, consult hematology, I will order PT, PTT, INR, fibrinogen, LDH , haptoglobin to rule out DIC or hemolytic anemia. - 06/17 Sp transfusion of 2 units of packed blood cells, 2 units of platelets. Hemoglobin improved to 9.2 and platelets improved to 88. Appreciate hematology consultation recommendations. The patient is getting IV iron. There is no evidence of hemolysis as her LDH, haptoglobin, direct comes is normal. Plan for panendoscopy in am. The patient states that she was previously on Pradaxa , however she was told to discontinue it since she had vaginal bleeding. Patient states she never followed up for vaginal bleeding issue. -06/18 the patient status post EGD and colonoscopy which showed nodular duodenum, gastritis, esophagitis, erythema of the colon. -06/19 patient is status post MRCP which showed cholelithiasis with mild gallbladder wall edema. No choledocholithiasis. New small bilateral pleural effusions. Mild right hydronephrosis decreased from prior CTA. Diabetes mellitus - Continue to hold home metformin - Blood sugars have been stable. Pediculosis Capitis - There are reports that louse was Observed on patient. Will RX Permethrin lotion x1. DVT GI prophylaxis - Teds SCDs - No DVT chemical prophylaxis due to thrombocytopenia and continue IV Pepcid Discharge Planning Continue to monitor in the medical floor. Cleared by ID, pending nephrology, GI and urology clearance. Patient agreeable to be discharged to rehab now. Will discuss with CM. Problem Qualifiers (1) UTI (urinary tract infection): Qualified Codes: N10 - Acute pyelonephritis Kimo El MD Jun 22, 2017 17:43
[2017-06-22] MEDS ORDERED: PERMETHRIN 1% LOTION 60 ML BTL TOPICAL ONE (17:45)
[2017-06-22 20:00] VITALS: BP 145/67; PULSE 83; RESP 22; TEMP 97.7; O2SAT 96
[2017-06-22] MEDS: DONEPEZIL HCL 5 MG TAB PO SCH (21:15)
[2017-06-23] VITALS (7 sets, daily range): BP systolic 137–163; BP diastolic 67–71; PULSE 71–78; RESP 16–22; TEMP 96.2–99.1; O2SAT 96–97
[2017-06-23] MEDS: POTASSIUM CHLORIDE INJ 30 MEQ in SODIUM CHLOR 0.45% 1000 ML INJ 1,000 ML IV SCH ×2 (02:09→22:00)
[2017-06-23] MEDS: CHLORHEXIDINE GLUCONATE 2 % 1 PACK (2 CLOTHS) TOP SCH (04:00)
[2017-06-23] MEDS: INSULIN ASPART SUPPLEMENTAL SCALE SQ SCH ×4 (08:00→20:28)
[2017-06-23] MEDS: MEMANTINE HCL 5 MG TAB PO SCH (09:21)
[2017-06-23] MEDS: POLYETHYLENE GLYCOL 17 GM PKG PO SCH (09:21)
[2017-06-23] MEDS: PANTOPRAZOLE SODIUM 40 MG VIAL IV PUSH SCH ×2 (09:22→20:26)
[2017-06-23] MEDS: SODIUM CHLORIDE 0.9% FLUSH 10 ML FLUSH IV FLUSH SCH ×2 (09:22→20:32)
[2017-06-23] MEDS: FAMOTIDINE 20 MG TAB PO SCH ×2 (10:00→20:25)
[2017-06-23 11:48] LABS: ANION GAP 6 MEQ/L (5-15); AST (GOT) 31 U/L (15-37); BICARBONATE 23.7 MEQ/L (21.0-32.0); BLOOD UREA NITROGEN 16 MG/DL (7-18); CHLORIDE 110 MEQ/L (98-107); GLOMERULAR FILTRATION RATE 31 ML/MIN (>89); POTASSIUM 4.1 MEQ/L (3.5-5.1); SODIUM (NA) 140 MEQ/L (136-145)
[2017-06-23 11:49] LABS: ALT (GPT) 36 U/L (10-53)
[2017-06-23 11:51] LABS: ALKALINE PHOSPHATASE 110 U/L (45-117); TOTAL BILIRUBIN ADULT 0.4 MG/DL (0.2-1.0)
--- NOTE | 2017-06-23 14:19 | HHI.GIFU ---
Subjective Remarks Pt resting in bed in NAD. No abd pain. Has been having loose stool but no BM today. (Cindy Perales) Objective Vitals I&O Vital Signs Date Time Temp Pulse Resp B/P (MAP) Pulse Ox O2 Delivery O2 Flow Rate FiO2 06/23/17 12:00 97.5 78 18 143/70 (94) 97 06/23/17 08:00 71 06/23/17 08:00 96.8 71 16 137/71 (93) 97 06/23/17 04:00 96.2 75 21 146/67 (93) 96 06/23/17 00:00 96.4 76 22 163/71 (101) 97 06/22/17 20:00 97.7 83 22 145/67 (93) 96 06/22/17 16:00 98.5 80 17 146/84 (104) 97 I/O 06/22/17 06/22/17 06/22/17 06/23/17 06/23/17 06/23/17 07:00 15:00 23:00 07:00 15:00 23:00 Intake Total 240 ml 110 ml 1700 ml 1567 ml Output Total 1000 ml 2350 ml 750 ml Balance -760 ml 110 ml -650 ml 817 ml Intake Oral 240 ml 1600 ml 240 ml IV Total 110 ml 100 ml 1327 ml Output Urine Total 1000 ml 2350 ml 750 ml # Bowel Movements 2 Laboratory Laboratory Tests Test 06/23/17 06:50 06/23/17 10:39 Lipase 1666 Blood Urea Nitrogen 16 Creatinine 1.68 Random Glucose 112 Total Protein 6.2 Albumin 2.0 Calcium Level 8.1 Alkaline Phosphatase 110 Aspartate Amino Transf (AST/SGOT) 31 Alanine Aminotransferase (ALT/SGPT) 36 Total Bilirubin 0.4 Sodium Level 140 Potassium Level 4.1 Chloride Level 110 Carbon Dioxide Level 23.7 Anion Gap 6 Estimat Glomerular Filtration Rate 31 Date/Time Source Procedure Growth Status 06/17/17 20:33 Blood Peripheral Aerobic Blood Culture - Final NO GROWTH IN 5 DAYS Complete 06/17/17 20:33 Blood Peripheral Anaerobic Blood Culture - Final NO GROWTH IN 5 DAYS Complete 06/17/17 04:05 Stool Stool Stool Occult Blood (GERRI) - Final HEMOCCULT NEGATIVE Complete 06/13/17 12:20 Urine Catheterized Urine Urine Culture - Final Enterobacter Cloacae Complete Imaging Last Impressions Cholangiopancreatography MRI 06/19/17 0000 Signed Impressions: Service Date/Time: Monday, June 19, 2017 10:20 - CONCLUSION: 1. Cholelithiasis with mild gallbladder wall edema. However, there is no choledocholithiasis. 2. New small bilateral pleural effusions. 3. Mild right hydronephrosis, decreased from the prior CT. The left kidney has a stable appearance demonstrating severe cortical thinning and is essentially a hydronephrotic sac containing multiple stones. Estrada Good MD Pelvis Ultrasound 06/18/17 0000 Signed Impressions: Service Date/Time: Sunday, June 18, 2017 15:12 - CONCLUSION: 1. Thickened endometrial canal. 2. Echogenic structure associated with the endometrial canal could relate to an IUD or residual part of an IUD. Royal Philippe Jr., MD Thoracic Spine CT 06/12/172015 Signed Impressions: Service Date/Time: Monday, June 12, 2017 22:01 - CONCLUSION: 1. No acute abnormality. Royal Philippe Jr., MD Pelvis X-Ray 06/12/172015 Signed Impressions: Service Date/Time: Monday, June 12, 2017 20:25 - CONCLUSION: No acute disease. Royal Philippe Jr., MD Lumbar Spine CT 06/12/172015 Signed Impressions: Service Date/Time: Monday, June 12, 2017 22:01 - CONCLUSION: 1. No fracture or dislocation. 2. Degenerative changes. 3. See the CT of the abdomen and pelvis reported separately. Royal Philippe Jr., MD Head CT 06/12/172015 Signed Impressions: Service Date/Time: Monday, June 12, 2017 21:56 - CONCLUSION: 1. No acute intracranial abnormality. 2. Atrophy and chronic small vessel ischemic change. Royal Philippe Jr., MD Chest X-Ray 06/12/172015 Signed Impressions: Service Date/Time: Monday, June 12, 2017 20:30 - CONCLUSION: No acute disease. Royal Philippe Jr., MD Cervical Spine CT 06/12/172015 Signed Impressions: Service Date/Time: Monday, June 12, 2017 21:56 - CONCLUSION: 1. No fracture or dislocation. 2. Degenerative changes as detailed above. Royal Philippe Jr., MD Abdomen/Pelvis CT 06/12/172015 Signed Impressions: Service Date/Time: Monday, June 12, 2017 22:01 - CONCLUSION: 1. 9 mm right mid ureteral stone with resulting hydronephrosis and proximal hydroureter. 2. Chronic hydronephrosis on the left with cortical thinning of the kidney and multiple nonobstructing left sided renal calculi. 3. Cholelithiasis. Royal Philippe Jr., MD Physical Exam HEENT: Normocephalic; atraumatic; no jaundice. CHEST: Even/unlabored CARDIAC: RRR ABDOMEN: Soft, nondistended, no abdominal tenderness, active bowel sounds x 4 EXTREMITIES: No clubbing, cyanosis, or edema. TRUCKSMITH: No focal deficits; alert and oriented times three. (Cindy Perales SLATE CUTTER) Assessment and Plan Plan ASSESSMENT: - Anemia with drop in Hgb. CT Scan abdomen and pelvis without IV contrast (06/12)---> 9 mm right mid ureteral stone with resulting hydronephrosis and proximal hydroureter. Chronic hydronephrosis on the left with cortical thinning of the kidney and multiple nonobstructing left sided renal calculi, cholelithiasis. She had a drop in her Hgb from H/H of 9.2/27.2 to 8.9/27.7 to 6.8/21.5 on 06/16. S/ P 2 units of PRBC and 4 units of Platelets. Pt denies any GI symptoms. She does note that she had significant vaginal bleeding 1 month ago (she is post menopausal). S/P EGD/Colonoscopy (06/18/17)---> Esophagitis, Esophageal stricture, Hiatal hernia, Gastritis, Nodular duodenitis, Colonic erythema, Internal hemorrhoids. Pathology pending. Pelvic US (06/18/17)---> Thickened endometrial canal, echogenic structure associated with the endometrial canal could relate to an IUD or residual part of IUD. 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 HH stable, 9.6/28.7. Denies any obvious GI bleeding. - Thrombocytopenia. Resolved. S/P 4 units of Plts. Current platelets 192. - Elevated lipase, undetermined significance. CT as above. LFTs unremarkable. MRCP (06/19/17)---> cholelithiasis with mild gallbladder wall edema. However there is no choledocholithiasis. New small bilateral pleural effusions. Mild right hydronephrosis, decreasing from the prior CT. The left kidney has a stable appearance demonstrating severe cortical thinning and is essentially a hydronephrotic sac containing multiple stones. Pt was started on a low fat diet Sunday, she is tolerating diet and eating 100% of meals. Denies N/V/abdominal pain. Lipase currently 1738 increased from 1411 yesterday. Will get GS evaluation of GB, based on gallbladder wall edema, cholelithiasis, and persistent/worsening lipase. - Constipation, BM yesterday, pt reports smaller than normal but she is declining Miralax. - Sepsis, bacteremia, UTI. Blood and urine with enterobacter cloacae. Invanz - JANET with electrolyte abnormalities. Improving - Kidney stones, chronic hydronephrosis. following. - Hx CVA and DVT. On Pradaxa at home, but states that she stopped this a month ago when she started having vaginal bleeding. Pradaxa on hold. - CAD, DM, Vitamin D Deficiency, kidney stones per attending. 06/23/17 lipase overall trending back down and is decreased from yesterday, today 1666. HH is stable. GS consulted, no acute surgical need currently. PLAN: - Low fat diet. - Cont PPI - Monitor lipase - Monitor HH - Transfuse as necessary - lipase trending down, ok to d/c to rehab from GI standpoint - Supportive care - Pt seen and examined by Dr. Siddiqui and myself and this note is written on his behalf (Cindy Perales) Physician Comments Patient seen and examined Agree with above Continue with current supportive care Monitor labs (Bruce Siddiqui MD) Cindy Perales Jun 23, 2017 14:19 Bruce Siddiqui MD Jun 23, 2017 23:33
--- NOTE | 2017-06-23 14:56 | HHI.PR ---
Subjective Remarks No major overnight events Patient denies any complaints denies cp/sob afebrile Objective Vitals Vital Signs Date Time Temp Pulse Resp B/P (MAP) Pulse Ox O2 Delivery O2 Flow Rate FiO2 06/23/17 12:00 97.5 78 18 143/70 (94) 97 06/23/17 08:00 71 06/23/17 08:00 96.8 71 16 137/71 (93) 97 06/23/17 04:00 96.2 75 21 146/67 (93) 96 06/23/17 00:00 96.4 76 22 163/71 (101) 97 06/22/17 20:00 97.7 83 22 145/67 (93) 96 06/22/17 16:00 98.5 80 17 146/84 (104) 97 I/O 06/22/17 06/22/17 06/22/17 06/23/17 06/23/17 06/23/17 07:00 15:00 23:00 07:00 15:00 23:00 Intake Total 240 ml 110 ml 1700 ml 1567 ml Output Total 1000 ml 2350 ml 750 ml Balance -760 ml 110 ml -650 ml 817 ml Intake Oral 240 ml 1600 ml 240 ml IV Total 110 ml 100 ml 1327 ml Output Urine Total 1000 ml 2350 ml 750 ml # Bowel Movements 2 Result Diagram: 06/22/17 0750 06/23/17 1039 Imaging Last Impressions Cholangiopancreatography MRI 06/19/17 0000 Signed Impressions: Service Date/Time: Monday, June 19, 2017 10:20 - CONCLUSION: 1. Cholelithiasis with mild gallbladder wall edema. However, there is no choledocholithiasis. 2. New small bilateral pleural effusions. 3. Mild right hydronephrosis, decreased from the prior CT. The left kidney has a stable appearance demonstrating severe cortical thinning and is essentially a hydronephrotic sac containing multiple stones. Estrada Good MD Pelvis Ultrasound 06/18/17 0000 Signed Impressions: Service Date/Time: Sunday, June 18, 2017 15:12 - CONCLUSION: 1. Thickened endometrial canal. 2. Echogenic structure associated with the endometrial canal could relate to an IUD or residual part of an IUD. Royal Philippe Jr., MD Thoracic Spine CT 06/12/17 2016 Signed Impressions: Service Date/Time: Monday, June 12, 2017 22:01 - CONCLUSION: 1. No acute abnormality. Royal Philippe Jr., MD Pelvis X-Ray 06/12/172015 Signed Impressions: Service Date/Time: Monday, June 12, 2017 20:25 - CONCLUSION: No acute disease. Royal Philippe Jr., MD Lumbar Spine CT 06/12/172015 Signed Impressions: Service Date/Time: Monday, June 12, 2017 22:01 - CONCLUSION: 1. No fracture or dislocation. 2. Degenerative changes. 3. See the CT of the abdomen and pelvis reported separately. Royal Philippe Jr., MD Head CT 06/12/172015 Signed Impressions: Service Date/Time: Monday, June 12, 2017 21:56 - CONCLUSION: 1. No acute intracranial abnormality. 2. Atrophy and chronic small vessel ischemic change. Royal Philippe Jr., MD Chest X-Ray 06/12/172015 Signed Impressions: Service Date/Time: Monday, June 12, 2017 20:30 - CONCLUSION: No acute disease. Royal Philippe Jr., MD Cervical Spine CT 06/12/172015 Signed Impressions: Service Date/Time: Monday, June 12, 2017 21:56 - CONCLUSION: 1. No fracture or dislocation. 2. Degenerative changes as detailed above. Royal Philippe Jr., MD Abdomen/Pelvis CT 06/12/172015 Signed Impressions: Service Date/Time: Monday, June 12, 2017 22:01 - CONCLUSION: 1. 9 mm right mid ureteral stone with resulting hydronephrosis and proximal hydroureter. 2. Chronic hydronephrosis on the left with cortical thinning of the kidney and multiple nonobstructing left sided renal calculi. 3. Cholelithiasis. Royal Philippe Jr., MD Objective Remarks GENERAL: AAOx3, lying in bed, NAD SKIN: Warm and dry. Unstageable pressure injury that measures 10.4cm x 6.9 cm x eschar. Periwound is noted with diffuse small areas of partial thickness skin loss that is incontinence associated. HEAD: Normocephalic. EYES: No scleral icterus. No injection or drainage. Pale conjunctiva. NECK: Supple, trachea midline. No JVD or lymphadenopathy. CARDIOVASCULAR: Regular rate and rhythm without murmurs, gallops, or rubs. RESPIRATORY: Breath sounds equal bilaterally. No accessory muscle use. GASTROINTESTINAL: Abdomen soft, non-tender, nondistended. MUSCULOSKELETAL: No cyanosis, or edema. BACK: Nontender without obvious deformity. No CVA tenderness. Procedures Status post Cystoscopy with right retrograde study and right double-J stent insertion 06/13/17 Medications and IVs Current Medications Medications (Trade) Dose Ordered Sig/Rinku Route Start Time Stop Time Status Last Admin (Toprol Xl) 50 mg DAILY PO 06/13/17 09:00 Future Hold 06/13/17 10:15 (NS Flush) 2 ml UNSCH PRN IV FLUSH 06/12/17 23:15 06/14/17 09:02 (NS Flush) 2 ml BID IV FLUSH 06/13/17 09:00 06/23/17 09:22 (Tylenol) 650 mg Q6H PRN PO 06/12/17 23:15 06/14/17 18:25 (Zofran Inj) 4 mg Q6H PRN IV PUSH 06/12/17 23:15 (Restoril) 15 mg HS PRN PO 06/12/17 23:15 Future Hold (Duoneb Neb) 1 ampule Q2HR NEB PRN INH 06/12/17 23:15 Miscellaneous Information 1 Q361D XX 06/12/17 23:15 06/12/17 01:00 (Chlorhexidine 2% Cloth) Taper DAILY@04 TOP 06/13/17 04:00 06/09/18 03:59 06/15/17 04:00 (Chlorhexidine 2% Cloth) 3 pack UNSCH PRN TOP 06/12/17 23:15 (Milk Of Magnesia Liq) 30 ml Q12H PRN PO 06/12/17 23:15 (Dulcolax Supp) 10 mg DAILY PRN RECTAL 06/12/17 23:15 (D50w (Vial) Inj) 50 ml UNSCH PRN IV PUSH 06/12/17 23:30 06/13/17 19:51 (Glucagon Inj) 1 mg UNSCH PRN OTHER 06/12/17 23:30 (NovoLOG SUPPLEMENTAL SCALE) 1 ACHS SLIDING SCALE SQ 06/13/17 08:00 06/15/17 08:00 (Aricept) 5 mg HS PO 06/15/17 21:00 06/22/17 21:15 (Namenda) 5 mg DAILY PO 06/16/17 09:00 06/23/17 09:21 (Tylenol) 650 mg Q4H PRN PO 06/16/17 10:00 06/16/17 16:58 (Benadryl) 25 mg Q4H PRN PO 06/16/17 10:00 06/16/17 16:58 (Protonix Inj) 40 mg Q12HR IV PUSH 06/17/17 11:15 06/23/17 09:22 Ertapenem 500 mg/ Sodium Chloride 100 ml @ 200 mls/hr Q24H IV 06/20/17 16:00 06/22/17 17:32 Potassium Chloride 30 meq/ Sodium Chloride 1,015 ml @ 42 mls/hr Q24H IV 06/20/17 22:00 06/23/17 02:09 (Miralax) 17 gm DAILY PO 06/21/17 11:00 06/23/17 09:21 (Pepcid) 10 mg BID PO 06/23/17 10:00 06/23/17 10:00 Urinary Catheter: No Vascular Central Line Catheter: No A/P Problem List: (1) Sepsis ICD Code: A41.9 - Sepsis, unspecified organism Status: Resolved (2) Acute blood loss anemia ICD Code: D62 - Acute posthemorrhagic anemia Status: Acute (3) Thrombocytopenia ICD Code: D69.6 - Thrombocytopenia, unspecified (4) Ureteral calculus, left ICD Code: N20.1 - Calculus of left ureter Status: Resolved (5) HTN (hypertension) ICD Code: I10 - Essential (primary) hypertension Status: Chronic (6) UTI (urinary tract infection) ICD Code: N39.0 - Urinary tract infection, site not specified Status: Acute (7) Elevated lipase ICD Code: R74.8 - Abnormal levels of other serum enzymes Status: Acute (8) Gram-negative bacteremia ICD Code: R78.81 - Bacteremia Status: Acute (9) Vaginal bleeding ICD Code: N93.9 - Abnormal uterine and vaginal bleeding, unspecified Status: Chronic Plan: The patient states that approximate month ago she stopped the Taxol secondary to a vaginal bleeding. Ordered a pelvic ultrasound which showed thickened endometrial canal. Described echogenic structure associated with the endometrial canal could relate to an IUD or a residual part of an IUD. I will order a CUPOLA OPERATOR consultation for further recommendations and management. 06/20 CUPOLA OPERATOR consulted - recommended outpatient follow up with CUPOLA OPERATOR for D&C and IUD removal. (10) Pediculosis capitis ICD Code: B85.0 - Pediculosis due to Pediculus humanus capitis Status: Acute Assessment and Plan Assessment and Plan 66-year-old female with Acute metabolic/uremic encephalopathy Resolved Hypotension tachycardia-resolved Severe dehydration-improved with IV fluid hydration Mild troponin elevation Hypernatremia - Continue current IV fluid hydration withsodium bicarbonate. - Troponin elevation most likely secondary to acute kidney injury - Hypernatremia resolved. continue to monitor BMP. Elevated lipase Cholelithiasis - May need cholate cystectomy in the future - CT abdomen shows normal pancreas - 06/[address] GI consult. Continue to monitor lipase which seems to be trending down. Today down to 6913 from 740 - 06/18 appreciate GI consultation recommendations. Lipase at the time of admission was elevated. Clinically patient without abdominal pain, nausea vomiting. Continue to follow-up GI recommendations. - 06/20 Patient still has elevated lipase however no abdominal pain. As per GI will come down on diet if lipase persistently elevated. - 06/21 Lipase trending down. continue low fat diet. - Lipase back up to 1738. Discussed case with GI, suggested general surgery consultation. - 06/23 Appreciate general surgery recommendations, lipase slightly improved from 1738 to 1666. No acute surgical needs at this time as per general surgery. Acute kidney failure Uremia Acute right hydronephrosis, hydroureter from obstructing stone Chronic left hydronephrosis Hypokalemia. - Status post Cystoscopy with right retrograde study and right double-J stent insertion 06/13/17. Appreciate input from urology. Will need outpt ESWL to Rx Right ureteral calculus -Appreciate input from nephrology, and patient does not need at this time hemodialysis -Continue with IV fluid hydration and monitor BUN and creatinine - 06/21 Creatinine continues to improve. Good urine output. Follow-up nephrology recommendations. Continue to monitor BUN/creatinine, strict I's and O's, avoid nephrotoxins. - As per urology foly catheter needs to remain until creatinine stabilizes. - 06/23 Creatinine slightly higher than previous day. Will Dc guzman catheter and continue to monito BUN/Creatinine. Severe sepsis UTI/acute pyelonephritis - Received Zosyn and vancomycin in the ED - Continue renally dosed Zosyn - Patient with UA positive urine culture growing Enterobacter cloacae. Last culture obtained on 06/14 still growing gram-negative rods. ID consulted, continue to follow-up ID recommendations. Antibiotics as per ID. - Discussed the case with ID - Discharge on ERtapanem IV 500 mg IV q 24 hrs - stop date Jun 26, 2017. Gram-negative cayla Bacteremia 4 out of 4 blood culture positive for gram-negative cayla Appreciate input from infectious disease specialist Continue with current antibiotics including Zosyn 06/19 Repeat blood cultures obtained on 11/15 negative to date. Thrombocytopenia Acute Blood loss anemia - Most likely secondary to sepsis and dehydration\ -Continue to monitor, may consider hematology consultation - 06/16 Likely due to GI bleed since patient will reported melanotic stools. The patient nothing by mouth, start IV Protonix drip and consult GI. Transfuse 2 units of packed blood cells since hemoglobin today 6.8 and reports of active bleeding. Goal hemoglobin more than 9. I will also transfuse 2 units of platelets since the patient has a platelet count of 35 K to a goal platelet count of more than 50 K. I will also sent and studies, stool for Hemoccult blood, consult hematology, I will order PT, PTT, INR, fibrinogen, LDH , haptoglobin to rule out DIC or hemolytic anemia. - 06/17 Sp transfusion of 2 units of packed blood cells, 2 units of platelets. Hemoglobin improved to 9.2 and platelets improved to 88. Appreciate hematology consultation recommendations. The patient is getting IV iron. There is no evidence of hemolysis as her LDH, haptoglobin, direct comes is normal. Plan for panendoscopy in am. The patient states that she was previously on Pradaxa , however she was told to discontinue it since she had vaginal bleeding. Patient states she never followed up for vaginal bleeding issue. -06/18 the patient status post EGD and colonoscopy which showed nodular duodenum, gastritis, esophagitis, erythema of the colon. -06/19 patient is status post MRCP which showed cholelithiasis with mild gallbladder wall edema. No choledocholithiasis. New small bilateral pleural effusions. Mild right hydronephrosis decreased from prior CTA. Diabetes mellitus - Continue to hold home metformin - Blood sugars have been stable. Pediculosis Capitis - There are reports that louse was Observed on patient. Sp treatment with permethrin lotion. DVT GI prophylaxis - Teds SCDs - No DVT chemical prophylaxis due to thrombocytopenia and continue IV Pepcid Discharge Planning Continue to monitor in the medical floor. Cleared by ID, pending nephrology, GI and urology clearance. Patient agreeable to be discharged to rehab now. Will discuss with CM. Problem Qualifiers (1) UTI (urinary tract infection): Qualified Codes: N10 - Acute pyelonephritis Kimo El MD Jun 23, 2017 14:56
[2017-06-23] MEDS: ERTAPENEM INJ 500 MG in SODIUM CHLORIDE 0.9% INJ 100 ML IV SCH (16:00)
[2017-06-23] MEDS: DONEPEZIL HCL 5 MG TAB PO SCH (20:25)
[2017-06-24] VITALS (7 sets, daily range): BP systolic 124–147; BP diastolic 64–75; PULSE 72–89; RESP 17–18; TEMP 97–98.2; O2SAT 96–97
[2017-06-24] MEDS: CHLORHEXIDINE GLUCONATE 2 % 1 PACK (2 CLOTHS) TOP SCH (04:00)
[2017-06-24] MEDS: INSULIN ASPART SUPPLEMENTAL SCALE SQ SCH ×4 (08:00→21:00)
[2017-06-24] MEDS: SODIUM CHLORIDE 0.9% FLUSH 10 ML FLUSH IV FLUSH SCH ×2 (08:47→21:03)
[2017-06-24] MEDS: PANTOPRAZOLE SODIUM 40 MG VIAL IV PUSH SCH ×2 (08:47→21:04)
[2017-06-24] MEDS: MEMANTINE HCL 5 MG TAB PO SCH (08:47)
[2017-06-24] MEDS: POLYETHYLENE GLYCOL 17 GM PKG PO SCH (08:54)
[2017-06-24] MEDS: FAMOTIDINE 20 MG TAB PO SCH ×2 (08:54→21:03)
[2017-06-24 10:26] LABS: BICARBONATE 20.4 MEQ/L (21.0-32.0); POTASSIUM 4.5 MEQ/L (3.5-5.1)
--- NOTE | 2017-06-24 14:50 | HHI.PR ---
Subjective Remarks No major overnight events. As per RN patient's sacral decub ulcer looks worst and night need to be reassessed by wound care. denies cp/sob. Denies fevers/chills. Objective Vitals Vital Signs Date Time Temp Pulse Resp B/P (MAP) Pulse Ox O2 Delivery O2 Flow Rate FiO2 06/24/17 12:00 97.0 79 18 142/69 (93) 97 06/24/17 08:40 79 06/24/17 08:00 97.9 78 18 141/67 (91) 96 06/24/17 04:00 98.2 76 17 126/65 (85) 97 06/24/17 00:00 97.0 72 17 124/64 (84) 97 06/23/17 20:00 97.2 77 17 139/67 (91) 97 06/23/17 19:57 74 06/23/17 16:00 99.1 77 16 137/70 (92) 97 I/O 06/23/17 06/23/17 06/23/17 06/24/17 06/24/17 06/24/17 07:00 15:00 23:00 07:00 15:00 23:00 Intake Total 1567 ml 1702 ml 470 ml Output Total 750 ml 2080 ml Balance 817 ml -378 ml 470 ml Intake Oral 240 ml 1000 ml 240 ml IV Total 1327 ml 702 ml 230 ml Output Urine Total 750 ml 1680 ml Stool Total 400 ml # Voids 3 # Bowel Movements 4 Result Diagram: 06/22/17 0750 06/24/17 0955 Imaging Last Impressions Cholangiopancreatography MRI 06/19/17 0000 Signed Impressions: Service Date/Time: Monday, June 19, 2017 10:20 - CONCLUSION: 1. Cholelithiasis with mild gallbladder wall edema. However, there is no choledocholithiasis. 2. New small bilateral pleural effusions. 3. Mild right hydronephrosis, decreased from the prior CT. The left kidney has a stable appearance demonstrating severe cortical thinning and is essentially a hydronephrotic sac containing multiple stones. Estrada Good MD Pelvis Ultrasound 06/18/17 0000 Signed Impressions: Service Date/Time: Sunday, June 18, 2017 15:12 - CONCLUSION: 1. Thickened endometrial canal. 2. Echogenic structure associated with the endometrial canal could relate to an IUD or residual part of an IUD. Royal Philippe Jr., MD Thoracic Spine CT 06/12/172015 Signed Impressions: Service Date/Time: Monday, June 12, 2017 22:01 - CONCLUSION: 1. No acute abnormality. Royal Philippe Jr., MD Pelvis X-Ray 06/12/172015 Signed Impressions: Service Date/Time: Monday, June 12, 2017 20:25 - CONCLUSION: No acute disease. Royal Philippe Jr., MD Lumbar Spine CT 06/12/172015 Signed Impressions: Service Date/Time: Monday, June 12, 2017 22:01 - CONCLUSION: 1. No fracture or dislocation. 2. Degenerative changes. 3. See the CT of the abdomen and pelvis reported separately. Royal Philippe Jr., MD Head CT 06/12/172015 Signed Impressions: Service Date/Time: Monday, June 12, 2017 21:56 - CONCLUSION: 1. No acute intracranial abnormality. 2. Atrophy and chronic small vessel ischemic change. Royal Philippe Jr., MD Chest X-Ray 06/12/172015 Signed Impressions: Service Date/Time: Monday, June 12, 2017 20:30 - CONCLUSION: No acute disease. Royal Philippe Jr., MD Cervical Spine CT 06/12/172015 Signed Impressions: Service Date/Time: Monday, June 12, 2017 21:56 - CONCLUSION: 1. No fracture or dislocation. 2. Degenerative changes as detailed above. Royal Philippe Jr., MD Abdomen/Pelvis CT 06/12/172015 Signed Impressions: Service Date/Time: Monday, June 12, 2017 22:01 - CONCLUSION: 1. 9 mm right mid ureteral stone with resulting hydronephrosis and proximal hydroureter. 2. Chronic hydronephrosis on the left with cortical thinning of the kidney and multiple nonobstructing left sided renal calculi. 3. Cholelithiasis. Royal Philippe Jr., MD Objective Remarks GENERAL: AAOx3, lying in bed, NAD SKIN: Warm and dry. Unstageable pressure injury that measures 10.4cm x 6.9 cm x eschar. Periwound is noted with diffuse small areas of partial thickness skin loss that is incontinence associated. HEAD: Normocephalic. EYES: No scleral icterus. No injection or drainage. Pale conjunctiva. NECK: Supple, trachea midline. No JVD or lymphadenopathy. CARDIOVASCULAR: Regular rate and rhythm without murmurs, gallops, or rubs. RESPIRATORY: Breath sounds equal bilaterally. No accessory muscle use. GASTROINTESTINAL: Abdomen soft, non-tender, nondistended. MUSCULOSKELETAL: No cyanosis, or edema. BACK: Nontender without obvious deformity. No CVA tenderness. Procedures Status post Cystoscopy with right retrograde study and right double-J stent insertion 06/13/17 Medications and IVs Current Medications Medications (Trade) Dose Ordered Sig/Rinku Route Start Time Stop Time Status Last Admin (Toprol Xl) 50 mg DAILY PO 06/13/17 09:00 Future Hold 06/13/17 10:15 (NS Flush) 2 ml UNSCH PRN IV FLUSH 06/12/17 23:15 06/14/17 09:02 (NS Flush) 2 ml BID IV FLUSH 06/13/17 09:00 06/23/17 20:32 (Tylenol) 650 mg Q6H PRN PO 06/12/17 23:15 06/14/17 18:25 (Zofran Inj) 4 mg Q6H PRN IV PUSH 06/12/17 23:15 (Restoril) 15 mg HS PRN PO 06/12/17 23:15 Future Hold (Duoneb Neb) 1 ampule Q2HR NEB PRN INH 06/12/17 23:15 Miscellaneous Information 1 Q361D XX 06/12/17 23:15 06/12/17 01:00 (Chlorhexidine 2% Cloth) Taper DAILY@04 TOP 06/13/17 04:00 06/09/18 03:59 06/15/17 04:00 (Chlorhexidine 2% Cloth) 3 pack UNSCH PRN TOP 06/12/17 23:15 (Milk Of Magnesia Liq) 30 ml Q12H PRN PO 06/12/17 23:15 (Dulcolax Supp) 10 mg DAILY PRN RECTAL 06/12/17 23:15 (NovoLOG SUPPLEMENTAL SCALE) 1 ACHS SLIDING SCALE SQ 06/13/17 08:00 06/15/17 08:00 (Aricept) 5 mg HS PO 06/15/17 21:00 06/23/17 20:25 (Namenda) 5 mg DAILY PO 06/16/17 09:00 06/24/17 08:47 (Tylenol) 650 mg Q4H PRN PO 06/16/17 10:00 06/16/17 16:58 (Benadryl) 25 mg Q4H PRN PO 06/16/17 10:00 06/16/17 16:58 (Protonix Inj) 40 mg Q12HR IV PUSH 06/17/17 11:15 06/24/17 08:47 Ertapenem 500 mg/ Sodium Chloride 100 ml @ 200 mls/hr Q24H IV 06/20/17 16:00 06/23/17 16:00 Potassium Chloride 30 meq/ Sodium Chloride 1,015 ml @ 42 mls/hr Q24H IV 06/20/17 22:00 06/23/17 22:00 (Miralax) 17 gm DAILY PO 06/21/17 11:00 06/23/17 09:21 (Pepcid) 10 mg BID PO 06/23/17 10:00 06/24/17 08:54 A/P Problem List: (1) Sepsis ICD Code: A41.9 - Sepsis, unspecified organism Status: Resolved (2) Acute blood loss anemia ICD Code: D62 - Acute posthemorrhagic anemia Status: Acute (3) Thrombocytopenia ICD Code: D69.6 - Thrombocytopenia, unspecified (4) Ureteral calculus, left ICD Code: N20.1 - Calculus of left ureter Status: Resolved (5) HTN (hypertension) ICD Code: I10 - Essential (primary) hypertension Status: Chronic (6) UTI (urinary tract infection) ICD Code: N39.0 - Urinary tract infection, site not specified Status: Acute (7) Elevated lipase ICD Code: R74.8 - Abnormal levels of other serum enzymes Status: Acute (8) Gram-negative bacteremia ICD Code: R78.81 - Bacteremia Status: Acute (9) Vaginal bleeding ICD Code: N93.9 - Abnormal uterine and vaginal bleeding, unspecified Status: Chronic Plan: The patient states that approximate month ago she stopped the Taxol secondary to a vaginal bleeding. Ordered a pelvic ultrasound which showed thickened endometrial canal. Described echogenic structure associated with the endometrial canal could relate to an IUD or a residual part of an IUD. I will order a CASHIER CLERK consultation for further recommendations and management. 06/20 CASHIER CLERK consulted - recommended outpatient follow up with CASHIER CLERK for D&C and IUD removal. (10) Pediculosis capitis ICD Code: B85.0 - Pediculosis due to Pediculus humanus capitis Status: Acute Assessment and Plan Assessment and Plan 66-year-old female with Acute metabolic/uremic encephalopathy Resolved Hypotension tachycardia-resolved Severe dehydration-improved with IV fluid hydration Mild troponin elevation Hypernatremia - Continue current IV fluid hydration withsodium bicarbonate. - Troponin elevation most likely secondary to acute kidney injury - Hypernatremia resolved. continue to monitor BMP. Elevated lipase Cholelithiasis - May need cholate cystectomy in the future - CT abdomen shows normal pancreas - 06/[address] GI consult. Continue to monitor lipase which seems to be trending down. Today down to 6913 from 740 - 06/18 appreciate GI consultation recommendations. Lipase at the time of admission was elevated. Clinically patient without abdominal pain, nausea vomiting. Continue to follow-up GI recommendations. - 06/20 Patient still has elevated lipase however no abdominal pain. As per GI will come down on diet if lipase persistently elevated. - 06/21 Lipase trending down. continue low fat diet. - Lipase back up to 1738. Discussed case with GI, suggested general surgery consultation. - 06/23 Appreciate general surgery recommendations, lipase slightly improved from 1738 to 1666. No acute surgical needs at this time as per general surgery. - 06/24 Lipase slightly higher, however patient asymptomatic. Acute kidney failure Uremia Acute right hydronephrosis, hydroureter from obstructing stone Chronic left hydronephrosis Hypokalemia. - Status post Cystoscopy with right retrograde study and right double-J stent insertion 06/13/17. Appreciate input from urology. Will need outpt ESWL to Rx Right ureteral calculus -Appreciate input from nephrology, and patient does not need at this time hemodialysis -Continue with IV fluid hydration and monitor BUN and creatinine - 06/21 Creatinine continues to improve. Good urine output. Follow-up nephrology recommendations. Continue to monitor BUN/creatinine, strict I's and O's, avoid nephrotoxins. - As per urology foly catheter needs to remain until creatinine stabilizes. - 06/23 Creatinine slightly higher than previous day. Will Dc guzman catheter and continue to monito BUN/Creatinine. - 06/24 Creatinine stable and slightly improved at 1.5, possibly new baseline. Severe sepsis UTI/acute pyelonephritis - Received Zosyn and vancomycin in the ED - Continue renally dosed Zosyn - Patient with UA positive urine culture growing Enterobacter cloacae. Last culture obtained on 06/14 still growing gram-negative rods. ID consulted, continue to follow-up ID recommendations. Antibiotics as per ID. - Discussed the case with ID - Discharge on ERtapanem IV 500 mg IV q 24 hrs - stop date Jun 26, 2017. Gram-negative cayla Bacteremia 4 out of 4 blood culture positive for gram-negative cayla Appreciate input from infectious disease specialist Continue with current antibiotics including Zosyn 06/19 Repeat blood cultures obtained on 11/15 negative to date. Thrombocytopenia Acute Blood loss anemia - Most likely secondary to sepsis and dehydration\ -Continue to monitor, may consider hematology consultation - 06/16 Likely due to GI bleed since patient will reported melanotic stools. The patient nothing by mouth, start IV Protonix drip and consult GI. Transfuse 2 units of packed blood cells since hemoglobin today 6.8 and reports of active bleeding. Goal hemoglobin more than 9. I will also transfuse 2 units of platelets since the patient has a platelet count of 35 K to a goal platelet count of more than 50 K. I will also sent and studies, stool for Hemoccult blood, consult hematology, I will order PT, PTT, INR, fibrinogen, LDH , haptoglobin to rule out DIC or hemolytic anemia. - 06/17 Sp transfusion of 2 units of packed blood cells, 2 units of platelets. Hemoglobin improved to 9.2 and platelets improved to 88. Appreciate hematology consultation recommendations. The patient is getting IV iron. There is no evidence of hemolysis as her LDH, haptoglobin, direct comes is normal. Plan for panendoscopy in am. The patient states that she was previously on Pradaxa , however she was told to discontinue it since she had vaginal bleeding. Patient states she never followed up for vaginal bleeding issue. -06/18 the patient status post EGD and colonoscopy which showed nodular duodenum, gastritis, esophagitis, erythema of the colon. -06/19 patient is status post MRCP which showed cholelithiasis with mild gallbladder wall edema. No choledocholithiasis. New small bilateral pleural effusions. Mild right hydronephrosis decreased from prior CTA. Diabetes mellitus - Continue to hold home metformin - Blood sugars have been stable. Pediculosis Capitis - There are reports that louse was Observed on patient. Sp treatment with permethrin lotion. Sacral Decub ulcer - Present on admission. Will request reevaluation by wound care. Will need wound care upon discharge. DVT GI prophylaxis - Teds SCDs - No DVT chemical prophylaxis due to thrombocytopenia and continue IV Pepcid Discharge Planning Dc pending placement. CM assisting on matter. Problem Qualifiers (1) UTI (urinary tract infection): Qualified Codes: N10 - Acute pyelonephritis Kimo El MD Jun 24, 2017 14:50
--- NOTE | 2017-06-24 14:59 | HHI.GIFU ---
Subjective Remarks Patient is resting in bed not voicing any gi complaints, no nausea, no vomiting , no abd pain, no melena or hematochezia. Going to rehab soon (Prakash Figueredo) Objective Vitals I&O Vital Signs Date Time Temp Pulse Resp B/P (MAP) Pulse Ox O2 Delivery O2 Flow Rate FiO2 06/24/17 12:00 97.0 79 18 142/69 (93) 97 06/24/17 08:40 79 06/24/17 08:00 97.9 78 18 141/67 (91) 96 06/24/17 04:00 98.2 76 17 126/65 (85) 97 06/24/17 00:00 97.0 72 17 124/64 (84) 97 06/23/17 20:00 97.2 77 17 139/67 (91) 97 06/23/17 19:57 74 06/23/17 16:00 99.1 77 16 137/70 (92) 97 I/O 06/23/17 06/23/17 06/23/17 06/24/17 06/24/17 06/24/17 07:00 15:00 23:00 07:00 15:00 23:00 Intake Total 1567 ml 1702 ml 470 ml Output Total 750 ml 2080 ml Balance 817 ml -378 ml 470 ml Intake Oral 240 ml 1000 ml 240 ml IV Total 1327 ml 702 ml 230 ml Output Urine Total 750 ml 1680 ml Stool Total 400 ml # Voids 3 # Bowel Movements 4 Laboratory Laboratory Tests Test 06/24/17 09:55 Blood Urea Nitrogen 17 Creatinine 1.53 Random Glucose 117 Calcium Level 8.0 Sodium Level 139 Potassium Level 4.5 Chloride Level 109 Carbon Dioxide Level 20.4 Anion Gap 10 Estimat Glomerular Filtration Rate 34 Lipase 1874 Date/Time Source Procedure Growth Status 06/17/17 20:33 Blood Peripheral Aerobic Blood Culture - Final NO GROWTH IN 5 DAYS Complete 06/17/17 20:33 Blood Peripheral Anaerobic Blood Culture - Final NO GROWTH IN 5 DAYS Complete 06/17/17 04:05 Stool Stool Stool Occult Blood (GERRI) - Final HEMOCCULT NEGATIVE Complete 06/13/17 12:20 Urine Catheterized Urine Urine Culture - Final Enterobacter Cloacae Complete Imaging Last Impressions Cholangiopancreatography MRI 06/19/17 0000 Signed Impressions: Service Date/Time: Monday, June 19, 2017 10:20 - CONCLUSION: 1. Cholelithiasis with mild gallbladder wall edema. However, there is no choledocholithiasis. 2. New small bilateral pleural effusions. 3. Mild right hydronephrosis, decreased from the prior CT. The left kidney has a stable appearance demonstrating severe cortical thinning and is essentially a hydronephrotic sac containing multiple stones. Estrada Good MD Pelvis Ultrasound 06/18/17 0000 Signed Impressions: Service Date/Time: Sunday, June 18, 2017 15:12 - CONCLUSION: 1. Thickened endometrial canal. 2. Echogenic structure associated with the endometrial canal could relate to an IUD or residual part of an IUD. Royal Philippe Jr., MD Thoracic Spine CT 06/12/172015 Signed Impressions: Service Date/Time: Monday, June 12, 2017 22:01 - CONCLUSION: 1. No acute abnormality. Royal Philippe Jr., MD Pelvis X-Ray 06/12/172015 Signed Impressions: Service Date/Time: Monday, June 12, 2017 20:25 - CONCLUSION: No acute disease. Royal Philippe Jr., MD Lumbar Spine CT 06/12/172015 Signed Impressions: Service Date/Time: Monday, June 12, 2017 22:01 - CONCLUSION: 1. No fracture or dislocation. 2. Degenerative changes. 3. See the CT of the abdomen and pelvis reported separately. Royal Philippe Jr., MD Head CT 06/12/172015 Signed Impressions: Service Date/Time: Monday, June 12, 2017 21:56 - CONCLUSION: 1. No acute intracranial abnormality. 2. Atrophy and chronic small vessel ischemic change. Royal Philippe Jr., MD Chest X-Ray 06/12/172015 Signed Impressions: Service Date/Time: Monday, June 12, 2017 20:30 - CONCLUSION: No acute disease. Royal Philippe Jr., MD Cervical Spine CT 06/12/172015 Signed Impressions: Service Date/Time: Monday, June 12, 2017 21:56 - CONCLUSION: 1. No fracture or dislocation. 2. Degenerative changes as detailed above. Royal Philippe Jr., MD Abdomen/Pelvis CT 06/12/172015 Signed Impressions: Service Date/Time: Monday, June 12, 2017 22:01 - CONCLUSION: 1. 9 mm right mid ureteral stone with resulting hydronephrosis and proximal hydroureter. 2. Chronic hydronephrosis on the left with cortical thinning of the kidney and multiple nonobstructing left sided renal calculi. 3. Cholelithiasis. Royal Philippe Jr., MD Physical Exam HEENT: Normocephalic; atraumatic; no jaundice. CHEST: Even/unlabored CARDIAC: RRR ABDOMEN: Soft, nondistended, no abdominal tenderness, active bowel sounds x 4 EXTREMITIES: No clubbing, cyanosis, or edema. ANNUAL GIVING MANAGER: No focal deficits; alert and oriented times three. (Bea,Prakash BUSINESS PROCESS CONSULTANT) Assessment and Plan Plan ASSESSMENT: - Anemia with drop in Hgb. CT Scan abdomen and pelvis without IV contrast (06/12)---> 9 mm right mid ureteral stone with resulting hydronephrosis and proximal hydroureter. Chronic hydronephrosis on the left with cortical thinning of the kidney and multiple nonobstructing left sided renal calculi, cholelithiasis. She had a drop in her Hgb from H/H of 9.2/27.2 to 8.9/27.7 to 6.8/21.5 on 06/16. S/ P 2 units of PRBC and 4 units of Platelets. Pt denies any GI symptoms. She does note that she had significant vaginal bleeding 1 month ago (she is post menopausal). S/P EGD/Colonoscopy (06/18/17)---> Esophagitis, Esophageal stricture, Hiatal hernia, Gastritis, Nodular duodenitis, Colonic erythema, Internal hemorrhoids. Pathology pending. Pelvic US (06/18/17)---> Thickened endometrial canal, echogenic structure associated with the endometrial canal could relate to an IUD or residual part of IUD. S/P CAFE MANAGER evaluation. HH stable, 9.6/28.7. Denies any obvious GI bleeding. - Thrombocytopenia. Resolved. S/P 4 units of Plts. Current platelets 192. - Elevated lipase, undetermined significance. CT as above. LFTs unremarkable. MRCP (06/19/17)---> cholelithiasis with mild gallbladder wall edema. However there is no choledocholithiasis. New small bilateral pleural effusions. Mild right hydronephrosis, decreasing from the prior CT. The left kidney has a stable appearance demonstrating severe cortical thinning and is essentially a hydronephrotic sac containing multiple stones. Pt was started on a low fat diet Sunday, she is tolerating diet and eating 100% of meals. Denies N/V/abdominal pain. Lipase currently 1738 increased from 1411 yesterday. Will get GS evaluation of GB, based on gallbladder wall edema, cholelithiasis, and persistent/worsening lipase. - Constipation, BM yesterday, pt reports smaller than normal but she is declining Miralax. - Sepsis, bacteremia, UTI. Blood and urine with enterobacter cloacae. Invanz - JANET with electrolyte abnormalities. Improving - Kidney stones, chronic hydronephrosis. following. - Hx CVA and DVT. On Pradaxa at home, but states that she stopped this a month ago when she started having vaginal bleeding. Pradaxa on hold. - CAD, DM, Vitamin D Deficiency, kidney stones per attending. 06/23/17 lipase overall trending back down and is decreased from yesterday, today 1666. HH is stable. GS consulted, no acute surgical need currently. 06/24/17 HH stable, no gi issues today, bx came back showing few fungal organisms present in distal esophagus, colon mucosa in the ascending showing possible lipoma but if bx taken in the vicinity of ileocecal valve, maybe normal colonic wall Lipase continue to rise, extensive work u as above, no etiology, GS consulted who didn't recommend any surgical intervention PLAN: - Low fat diet. - Cont PPI - Monitor lipase - Monitor HH - Transfuse as necessary - Supportive care - Pt seen and examined by Dr. Siddiqui and myself and this note is written on his behalf (Prakash Figueredo) Physician Comments Patient seen and examined Agree with above Continue with current supportive care Monitor labs Elevation of lipase is of unclear significance it is not associated with any symptoms of pancreatitis nor is it associated with any changes radiologically that would be consistent with pancreatitis I would continue to advance diet and monitor for symptoms or changes on imaging (Bruce Siddiqui MD) Prakash Figueredo Jun 24, 2017 14:59 Bruce Siddiqui MD Jun 24, 2017 16:09
[2017-06-24] MEDS: ERTAPENEM INJ 500 MG in SODIUM CHLORIDE 0.9% INJ 100 ML IV SCH (16:00)
[2017-06-24] MEDS: DONEPEZIL HCL 5 MG TAB PO SCH (21:03)
[2017-06-25] VITALS: BP 124/71; PULSE 80; RESP 17; TEMP 97.4; O2SAT 97
[2017-06-25 04:00] VITALS: BP 130/76; PULSE 76; RESP 17; TEMP 97.1; O2SAT 97
[2017-06-25] MEDS: CHLORHEXIDINE GLUCONATE 2 % 1 PACK (2 CLOTHS) TOP SCH ×2 (04:00→21:25)
[2017-06-25] MEDS: POTASSIUM CHLORIDE INJ 30 MEQ in SODIUM CHLOR 0.45% 1000 ML INJ 1,000 ML IV SCH ×2 (06:08→21:42)
[2017-06-25 08:00] VITALS: BP 138/70; PULSE 75; RESP 17; TEMP 97.2; O2SAT 97
[2017-06-25] MEDS: INSULIN ASPART SUPPLEMENTAL SCALE SQ SCH ×4 (08:00→21:00)
[2017-06-25] MEDS: PANTOPRAZOLE SODIUM 40 MG VIAL IV PUSH SCH ×2 (08:23→21:37)
[2017-06-25] MEDS: MEMANTINE HCL 5 MG TAB PO SCH (08:23)
[2017-06-25] MEDS: FAMOTIDINE 20 MG TAB PO SCH ×2 (08:23→21:36)
[2017-06-25] MEDS: POLYETHYLENE GLYCOL 17 GM PKG PO SCH ×2 (08:23→08:27)
[2017-06-25] MEDS: SODIUM CHLORIDE 0.9% FLUSH 10 ML FLUSH IV FLUSH SCH ×3 (08:24→21:44)
--- NOTE | 2017-06-25 10:35 | HHI.GIFU ---
Subjective Remarks Resting in bed. Tolerating diet. No n/v. No abdominal pain. States she will be going to a rehab center soon. (Lilian Ceballos) Objective Vitals I&O Vital Signs Date Time Temp Pulse Resp B/P (MAP) Pulse Ox O2 Delivery O2 Flow Rate FiO2 06/25/17 08:00 97.2 75 17 138/70 (92) 97 06/25/17 04:00 97.1 76 17 130/76 (94) 97 06/25/17 00:00 97.4 80 17 124/71 (88) 97 06/24/17 20:00 97.9 89 17 147/75 (99) 97 06/24/17 16:00 98.0 82 18 129/72 (91) 96 06/24/17 12:00 97.0 79 18 142/69 (93) 97 I/O 06/24/17 06/24/17 06/24/17 06/25/17 06/25/17 06/25/17 06:59 14:59 22:59 06:59 14:59 22:59 Intake Total 470 ml 1539 ml 240 ml Balance 470 ml 1539 ml 240 ml Intake Oral 240 ml 1000 ml 240 ml IV Total 230 ml 539 ml # Voids 3 4 3 # Bowel Movements 1 1 Laboratory Date/Time Source Procedure Growth Status 06/17/17 20:33 Blood Peripheral Aerobic Blood Culture - Final NO GROWTH IN 5 DAYS Complete 06/17/17 20:33 Blood Peripheral Anaerobic Blood Culture - Final NO GROWTH IN 5 DAYS Complete 06/17/17 04:05 Stool Stool Stool Occult Blood (GERRI) - Final HEMOCCULT NEGATIVE Complete 06/13/17 12:20 Urine Catheterized Urine Urine Culture - Final Enterobacter Cloacae Complete Imaging Last Impressions Cholangiopancreatography MRI 06/19/17 0000 Signed Impressions: Service Date/Time: Monday, June 19, 2017 10:20 - CONCLUSION: 1. Cholelithiasis with mild gallbladder wall edema. However, there is no choledocholithiasis. 2. New small bilateral pleural effusions. 3. Mild right hydronephrosis, decreased from the prior CT. The left kidney has a stable appearance demonstrating severe cortical thinning and is essentially a hydronephrotic sac containing multiple stones. Estrada Good MD Pelvis Ultrasound 11/13/17 0000 Signed Impressions: Service Date/Time: Sunday, June 18, 2017 15:12 - CONCLUSION: 1. Thickened endometrial canal. 2. Echogenic structure associated with the endometrial canal could relate to an IUD or residual part of an IUD. Royal Philippe Jr., MD Thoracic Spine CT 06/12/172015 Signed Impressions: Service Date/Time: Monday, June 12, 2017 22:01 - CONCLUSION: 1. No acute abnormality. Royal Philippe Jr., MD Pelvis X-Ray 06/12/172015 Signed Impressions: Service Date/Time: Monday, June 12, 2017 20:25 - CONCLUSION: No acute disease. Royal Philippe Jr., MD Lumbar Spine CT 06/12/172015 Signed Impressions: Service Date/Time: Monday, June 12, 2017 22:01 - CONCLUSION: 1. No fracture or dislocation. 2. Degenerative changes. 3. See the CT of the abdomen and pelvis reported separately. Royal Philippe Jr., MD Head CT 06/12/172015 Signed Impressions: Service Date/Time: Monday, June 12, 2017 21:56 - CONCLUSION: 1. No acute intracranial abnormality. 2. Atrophy and chronic small vessel ischemic change. Royal Philippe Jr., MD Chest X-Ray 06/12/172015 Signed Impressions: Service Date/Time: Monday, June 12, 2017 20:30 - CONCLUSION: No acute disease. Royal Philippe Jr., MD Cervical Spine CT 06/12/172015 Signed Impressions: Service Date/Time: Monday, June 12, 2017 21:56 - CONCLUSION: 1. No fracture or dislocation. 2. Degenerative changes as detailed above. Royal Philippe Jr., MD Abdomen/Pelvis CT 06/12/172015 Signed Impressions: Service Date/Time: Monday, June 12, 2017 22:01 - CONCLUSION: 1. 9 mm right mid ureteral stone with resulting hydronephrosis and proximal hydroureter. 2. Chronic hydronephrosis on the left with cortical thinning of the kidney and multiple nonobstructing left sided renal calculi. 3. Cholelithiasis. Royal Philippe Jr., MD Physical Exam HEENT: Normocephalic; atraumatic; no jaundice. CHEST: Even/unlabored CARDIAC: RRR ABDOMEN: Soft, nondistended, no abdominal tenderness, active bowel sounds x 4 EXTREMITIES: No clubbing, cyanosis, or edema. NETBACKUP ADMIN: No focal deficits; alert and oriented times three. (LinLilian Thomas [facility]) Assessment and Plan Plan ASSESSMENT: - Anemia with drop in Hgb. CT Scan abdomen and pelvis without IV contrast (06/12)---> 9 mm right mid ureteral stone with resulting hydronephrosis and proximal hydroureter. Chronic hydronephrosis on the left with cortical thinning of the kidney and multiple nonobstructing left sided renal calculi, cholelithiasis. She had a drop in her Hgb from H/H of 9.2/27.2 to 8.9/27.7 to 6.8/21.5 on 06/16. S/ P 2 units of PRBC and 4 units of Platelets. Pt denies any GI symptoms. She does note that she had significant vaginal bleeding 1 month ago (she is post menopausal). S/P EGD/Colonoscopy (06/18/17)---> Esophagitis, Esophageal stricture, Hiatal hernia, Gastritis, Nodular duodenitis, Colonic erythema, Internal hemorrhoids. Pathology duodenal mucosa with mild mucosal edema, mild chronic gastritis, negative for H. pylori, mild acute esophagitis, few fungal organisms present , colonic mucosa with prominent submucosal adipose tissue. Pelvic US (06/18/17) ---> Thickened endometrial canal, echogenic structure associated with the endometrial canal could relate to an IUD or residual part of IUD. 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 HH stable, stable. Denies any obvious GI bleeding. - Sharri esophagitis. Add Diflucan 200mg po daily x 14 days - Thrombocytopenia. Resolved. S/P 4 units of Plts. Platelets stable. - Elevated lipase, undetermined significance. CT as above. LFTs unremarkable. MRCP (06/19/17)---> cholelithiasis with mild gallbladder wall edema. However there is no choledocholithiasis. New small bilateral pleural effusions. Mild right hydronephrosis, decreasing from the prior CT. The left kidney has a stable appearance demonstrating severe cortical thinning and is essentially a hydronephrotic sac containing multiple stones. Pt was started on a low fat diet Sunday, she is tolerating diet and eating 100% of meals. Denies N/V/abdominal pain. S/P GS evaluation of GB, based on gallbladder wall edema, cholelithiasis, and persistent elevated lipase. Will get amylase today (use this am's labs). Okay to d/c home with outpatient follow up. If she continues to have elevated lipase, consider EUS as outpatient. - Constipation. (+) BM - Sepsis, bacteremia, UTI. Blood and urine with enterobacter cloacae. Invanz - JANET with electrolyte abnormalities. Improving - Kidney stones, chronic hydronephrosis. following. - Hx CVA and DVT. On Pradaxa at home, but states that she stopped this a month ago when she started having vaginal bleeding. Pradaxa on hold. - CAD, DM, Vitamin D Deficiency, kidney stones per attending. PLAN: - Low fat diet. - Cont PPI - Add Diflucan - Add Amylase to today's labs - Okay to d/c home from GI standpoint - FU DANIELA 2 weeks - Amylase/Lipase in one week - If lipase remains elevated, consider EUS as outpatient - GI will sign off, please reconsult as needed. - Pt seen and examined by Dr. Schroeder and myself and this note is written on his behalf (Lilian Ceballos) Physician Comments Seen and examined with MICHAEL, doing well. denies abdominal pain. Being dced to rehab today. GI fu in 02 weeks. (Diallo Schroeder MD) Lilian Ceballos Jun 25, 2017 10:35 Diallo Schroeder MD Jun 25, 2017 16:01
[2017-06-25] MEDS: FLUCONAZOLE 200 MG TAB PO SCH (11:22)
[2017-06-25 12:00] VITALS: BP 121/65; PULSE 95; RESP 16; TEMP 96.4; O2SAT 96
[2017-06-25 13:04] LABS: ALT (GPT) 26 U/L (10-53); ANION GAP 11 MEQ/L (5-15); AST (GOT) 21 U/L (15-37); BICARBONATE 21.3 MEQ/L (21.0-32.0); BLOOD UREA NITROGEN 20 MG/DL (7-18); CHLORIDE 106 MEQ/L (98-107); POTASSIUM 4.5 MEQ/L (3.5-5.1); SODIUM (NA) 138 MEQ/L (136-145)
[2017-06-25 13:07] LABS: ALKALINE PHOSPHATASE 118 U/L (45-117); TOTAL BILIRUBIN ADULT 0.4 MG/DL (0.2-1.0)
[2017-06-25] MEDS: ERTAPENEM INJ 500 MG in SODIUM CHLORIDE 0.9% INJ 100 ML IV SCH (14:48)
--- NOTE | 2017-06-25 15:57 | HHI.PR ---
Subjective Remarks Patient has no major complaints. Denies fevers or chills. Objective Vitals Vital Signs Date Time Temp Pulse Resp B/P (MAP) Pulse Ox O2 Delivery O2 Flow Rate FiO2 06/25/17 12:00 96.4 95 16 121/65 (83) 96 06/25/17 08:00 97.2 75 17 138/70 (92) 97 06/25/17 04:00 97.1 76 17 130/76 (94) 97 06/25/17 00:00 97.4 80 17 124/71 (88) 97 06/24/17 20:00 97.9 89 17 147/75 (99) 97 06/24/17 16:00 98.0 82 18 129/72 (91) 96 I/O 06/24/17 06/24/17 06/24/17 06/25/17 06/25/17 06/25/17 07:00 15:00 23:00 07:00 15:00 23:00 Intake Total 470 ml 1539 ml 240 ml Balance 470 ml 1539 ml 240 ml Intake Oral 240 ml 1000 ml 240 ml IV Total 230 ml 539 ml # Voids 3 4 3 # Bowel Movements 1 1 Result Diagram: 06/22/17 0750 06/25/17 1155 Imaging Last Impressions Cholangiopancreatography MRI 06/19/17 0000 Signed Impressions: Service Date/Time: Monday, June 19, 2017 10:20 - CONCLUSION: 1. Cholelithiasis with mild gallbladder wall edema. However, there is no choledocholithiasis. 2. New small bilateral pleural effusions. 3. Mild right hydronephrosis, decreased from the prior CT. The left kidney has a stable appearance demonstrating severe cortical thinning and is essentially a hydronephrotic sac containing multiple stones. Estrada Good MD Pelvis Ultrasound 06/18/17 0000 Signed Impressions: Service Date/Time: Sunday, June 18, 2017 15:12 - CONCLUSION: 1. Thickened endometrial canal. 2. Echogenic structure associated with the endometrial canal could relate to an IUD or residual part of an IUD. Royal Philippe Jr., MD Thoracic Spine CT 06/12/17 2016 Signed Impressions: Service Date/Time: Monday, June 12, 2017 22:01 - CONCLUSION: 1. No acute abnormality. Royal Philippe Jr., MD Pelvis X-Ray 06/12/172015 Signed Impressions: Service Date/Time: Monday, June 12, 2017 20:25 - CONCLUSION: No acute disease. Royal Philippe Jr., MD Lumbar Spine CT 06/12/172015 Signed Impressions: Service Date/Time: Monday, June 12, 2017 22:01 - CONCLUSION: 1. No fracture or dislocation. 2. Degenerative changes. 3. See the CT of the abdomen and pelvis reported separately. Royal Philippe Jr., MD Head CT 06/12/172015 Signed Impressions: Service Date/Time: Monday, June 12, 2017 21:56 - CONCLUSION: 1. No acute intracranial abnormality. 2. Atrophy and chronic small vessel ischemic change. Royal Philippe Jr., MD Chest X-Ray 06/12/172015 Signed Impressions: Service Date/Time: Monday, June 12, 2017 20:30 - CONCLUSION: No acute disease. Royal Philippe Jr., MD Cervical Spine CT 06/12/172015 Signed Impressions: Service Date/Time: Monday, June 12, 2017 21:56 - CONCLUSION: 1. No fracture or dislocation. 2. Degenerative changes as detailed above. Royal Philippe Jr., MD Abdomen/Pelvis CT 06/12/172015 Signed Impressions: Service Date/Time: Monday, June 12, 2017 22:01 - CONCLUSION: 1. 9 mm right mid ureteral stone with resulting hydronephrosis and proximal hydroureter. 2. Chronic hydronephrosis on the left with cortical thinning of the kidney and multiple nonobstructing left sided renal calculi. 3. Cholelithiasis. Royal Philippe Jr., MD Objective Remarks GENERAL: AAOx3, lying in bed, NAD SKIN: Warm and dry. Unstageable pressure injury that measures 10.4cm x 6.9 cm x eschar. Periwound is noted with diffuse small areas of partial thickness skin loss that is incontinence associated. HEAD: Normocephalic. EYES: No scleral icterus. No injection or drainage. Pale conjunctiva. NECK: Supple, trachea midline. No JVD or lymphadenopathy. CARDIOVASCULAR: Regular rate and rhythm without murmurs, gallops, or rubs. RESPIRATORY: Breath sounds equal bilaterally. No accessory muscle use. GASTROINTESTINAL: Abdomen soft, non-tender, nondistended. MUSCULOSKELETAL: No cyanosis, or edema. BACK: Nontender without obvious deformity. No CVA tenderness. Procedures Status post Cystoscopy with right retrograde study and right double-J stent insertion 06/13/17 Medications and IVs Current Medications Medications (Trade) Dose Ordered Sig/Rinku Route Start Time Stop Time Status Last Admin (Toprol Xl) 50 mg DAILY PO 06/13/17 09:00 Future Hold 06/13/17 10:15 (NS Flush) 2 ml UNSCH PRN IV FLUSH 06/12/17 23:15 06/14/17 09:02 (NS Flush) 2 ml BID IV FLUSH 06/13/17 09:00 06/25/17 08:29 (Tylenol) 650 mg Q6H PRN PO 06/12/17 23:15 06/14/17 18:25 (Zofran Inj) 4 mg Q6H PRN IV PUSH 06/12/17 23:15 (Restoril) 15 mg HS PRN PO 06/12/17 23:15 Future Hold (Duoneb Neb) 1 ampule Q2HR NEB PRN INH 06/12/17 23:15 Miscellaneous Information 1 Q361D XX 06/12/17 23:15 06/12/17 01:00 (Chlorhexidine 2% Cloth) Taper DAILY@04 TOP 06/13/17 04:00 06/09/18 03:59 06/15/17 04:00 (Chlorhexidine 2% Cloth) 3 pack UNSCH PRN TOP 06/12/17 23:15 (Milk Of Magnesia Liq) 30 ml Q12H PRN PO 06/12/17 23:15 (Dulcolax Supp) 10 mg DAILY PRN RECTAL 06/12/17 23:15 (NovoLOG SUPPLEMENTAL SCALE) 1 ACHS SLIDING SCALE SQ 06/13/17 08:00 06/15/17 08:00 (Aricept) 5 mg HS PO 06/15/17 21:00 06/24/17 21:03 (Namenda) 5 mg DAILY PO 06/16/17 09:00 06/25/17 08:23 (Tylenol) 650 mg Q4H PRN PO 06/16/17 10:00 06/16/17 16:58 (Benadryl) 25 mg Q4H PRN PO 06/16/17 10:00 06/16/17 16:58 (Protonix Inj) 40 mg Q12HR IV PUSH 06/17/17 11:15 06/25/17 08:23 Ertapenem 500 mg/ Sodium Chloride 100 ml @ 200 mls/hr Q24H IV 06/20/17 16:00 06/25/17 14:48 Potassium Chloride 30 meq/ Sodium Chloride 1,015 ml @ 42 mls/hr Q24H IV 06/20/17 22:00 06/25/17 06:08 (Miralax) 17 gm DAILY PO 06/21/17 11:00 06/23/17 09:21 (Pepcid) 10 mg BID PO 06/23/17 10:00 06/25/17 08:23 (Diflucan) 200 mg DAILY PO 06/25/17 11:00 07/09/17 10:59 06/25/17 11:22 A/P Problem List: (1) Sepsis ICD Code: A41.9 - Sepsis, unspecified organism Status: Resolved (2) Acute blood loss anemia ICD Code: D62 - Acute posthemorrhagic anemia Status: Acute (3) Thrombocytopenia ICD Code: D69.6 - Thrombocytopenia, unspecified (4) Ureteral calculus, left ICD Code: N20.1 - Calculus of left ureter Status: Resolved (5) HTN (hypertension) ICD Code: I10 - Essential (primary) hypertension Status: Chronic (6) UTI (urinary tract infection) ICD Code: N39.0 - Urinary tract infection, site not specified Status: Acute (7) Elevated lipase ICD Code: R74.8 - Abnormal levels of other serum enzymes Status: Acute (8) Gram-negative bacteremia ICD Code: R78.81 - Bacteremia Status: Acute (9) Vaginal bleeding ICD Code: N93.9 - Abnormal uterine and vaginal bleeding, unspecified Status: Chronic (10) Pediculosis capitis ICD Code: B85.0 - Pediculosis due to Pediculus humanus capitis Status: Acute Assessment and Plan Assessment and Plan 66-year-old female with Acute metabolic/uremic encephalopathy Resolved Hypotension tachycardia-resolved Severe dehydration-improved with IV fluid hydration Mild troponin elevation Hypernatremia - Continue current IV fluid hydration withsodium bicarbonate. - Troponin elevation most likely secondary to acute kidney injury - Hypernatremia resolved. continue to monitor BMP. Elevated lipase Cholelithiasis - May need cholate cystectomy in the future - CT abdomen shows normal pancreas - 06/[address] GI consult. Continue to monitor lipase which seems to be trending down. Today down to 6913 from 740 - 06/18 appreciate GI consultation recommendations. Lipase at the time of admission was elevated. Clinically patient without abdominal pain, nausea vomiting. Continue to follow-up GI recommendations. - 06/20 Patient still has elevated lipase however no abdominal pain. As per GI will come down on diet if lipase persistently elevated. - 06/21 Lipase trending down. continue low fat diet. - Lipase back up to 1738. Discussed case with GI, suggested general surgery consultation. - 06/23 Appreciate general surgery recommendations, lipase slightly improved from 1738 to 1666. No acute surgical needs at this time as per general surgery. - 06/25 Lipase slightly higher, however patient asymptomatic. Patient has been cleared by GI. Acute kidney failure Uremia Acute right hydronephrosis, hydroureter from obstructing stone Chronic left hydronephrosis Hypokalemia. - Status post Cystoscopy with right retrograde study and right double-J stent insertion 06/13/17. Appreciate input from urology. Will need outpt ESWL to Rx Right ureteral calculus -Appreciate input from nephrology, and patient does not need at this time hemodialysis -Continue with IV fluid hydration and monitor BUN and creatinine - 06/21 Creatinine continues to improve. Good urine output. Follow-up nephrology recommendations. Continue to monitor BUN/creatinine, strict I's and O's, avoid nephrotoxins. - As per urology foly catheter needs to remain until creatinine stabilizes. - 06/23 Creatinine slightly higher than previous day. Will Dc guzman catheter and continue to monito BUN/Creatinine. - 06/24 Creatinine stable and slightly improved at 1.5, possibly new baseline. Severe sepsis UTI/acute pyelonephritis - Received Zosyn and vancomycin in the ED - Continue renally dosed Zosyn - Patient with UA positive urine culture growing Enterobacter cloacae. Last culture obtained on 06/14 still growing gram-negative rods. ID consulted, continue to follow-up ID recommendations. Antibiotics as per ID. - Discussed the case with ID - Discharge on ERtapanem IV 500 mg IV q 24 hrs - stop date Jun 26, 2017. Gram-negative cayla Bacteremia 4 out of 4 blood culture positive for gram-negative cayla Appreciate input from infectious disease specialist Continue with current antibiotics including Zosyn 06/19 Repeat blood cultures obtained on 11/15 negative to date. Thrombocytopenia Acute Blood loss anemia - Most likely secondary to sepsis and dehydration\ -Continue to monitor, may consider hematology consultation - 06/16 Likely due to GI bleed since patient will reported melanotic stools. The patient nothing by mouth, start IV Protonix drip and consult GI. Transfuse 2 units of packed blood cells since hemoglobin today 6.8 and reports of active bleeding. Goal hemoglobin more than 9. I will also transfuse 2 units of platelets since the patient has a platelet count of 35 K to a goal platelet count of more than 50 K. I will also sent and studies, stool for Hemoccult blood, consult hematology, I will order PT, PTT, INR, fibrinogen, LDH , haptoglobin to rule out DIC or hemolytic anemia. - 06/17 Sp transfusion of 2 units of packed blood cells, 2 units of platelets. Hemoglobin improved to 9.2 and platelets improved to 88. Appreciate hematology consultation recommendations. The patient is getting IV iron. There is no evidence of hemolysis as her LDH, haptoglobin, direct comes is normal. Plan for panendoscopy in am. The patient states that she was previously on Pradaxa , however she was told to discontinue it since she had vaginal bleeding. Patient states she never followed up for vaginal bleeding issue. -06/18 the patient status post EGD and colonoscopy which showed nodular duodenum, gastritis, esophagitis, erythema of the colon. -06/19 patient is status post MRCP which showed cholelithiasis with mild gallbladder wall edema. No choledocholithiasis. New small bilateral pleural effusions. Mild right hydronephrosis decreased from prior CTA. Diabetes mellitus - Continue to hold home metformin - Blood sugars have been stable. Pediculosis Capitis - There are reports that louse was Observed on patient. Sp treatment with permethrin lotion. Sacral Decub ulcer - Present on admission. Will request reevaluation by wound care. Will need wound care upon discharge. DVT GI prophylaxis - Teds SCDs - No DVT chemical prophylaxis due to thrombocytopenia and continue IV Pepcid Discharge Planning Dc pending placement. CM assisting on matter. Problem Qualifiers (1) UTI (urinary tract infection): Qualified Codes: N10 - Acute pyelonephritis Kimo El MD Jun 25, 2017 15:57
[2017-06-25 16:00] VITALS: BP 114/71; PULSE 100; RESP 16; TEMP 97.4; O2SAT 95
[2017-06-25 20:00] VITALS: BP 120/58; PULSE 80; RESP 20; TEMP 97.4; O2SAT 98
[2017-06-25] MEDS: DONEPEZIL HCL 5 MG TAB PO SCH (21:36)
[2017-06-26] VITALS (8 sets, daily range): BP systolic 122–140; BP diastolic 59–69; PULSE 74–95; RESP 16–20; TEMP 96.4–98.1; O2SAT 97–100
[2017-06-26] MEDS: FLUCONAZOLE 200 MG TAB PO SCH (07:58)
[2017-06-26] MEDS: FAMOTIDINE 20 MG TAB PO SCH ×2 (07:58→20:06)
[2017-06-26] MEDS: PANTOPRAZOLE SODIUM 40 MG VIAL IV PUSH SCH ×2 (07:59→20:06)
[2017-06-26] MEDS: POLYETHYLENE GLYCOL 17 GM PKG PO SCH (07:59)
[2017-06-26] MEDS: SODIUM CHLORIDE 0.9% FLUSH 10 ML FLUSH IV FLUSH SCH ×2 (07:59→20:06)
[2017-06-26] MEDS: MEMANTINE HCL 5 MG TAB PO SCH (07:59)
[2017-06-26] MEDS: INSULIN ASPART SUPPLEMENTAL SCALE SQ SCH ×4 (08:00→21:00)
[2017-06-26 10:56] LABS: AUTOMATED NEUTROPHIL # 3.8 TH/MM3 (1.8-7.7); BASOPHIL # 0.1 TH/MM3 (0-0.2); BASOPHIL % 1.4 % (0.0-2.0); EOSINOPHIL # 0.1 TH/MM3 (0-0.4); EOSINOPHIL % 2.4 % (0.0-4.0); HEMATOCRIT 28.6 % (35.0-46.0); HEMO FLAGS DIFF FINAL; LYMPH % 23.5 % (9.0-44.0); LYMPHOCYTE # 1.4 TH/MM3 (1.0-4.8); MEAN CORPUSCULAR HEMOGLOBIN 25.7 PG (27.0-34.0); MEAN CORPUSCULAR HGB CONC 32.1 % (32.0-36.0); MONO % 10.2 % (0.0-8.0); NEUT % 62.5 % (16.0-70.0); PLATELET COUNT 212 TH/MM3 (150-450); RED BLOOD COUNT 3.58 MIL/MM3 (4.00-5.30); WHITE BLOOD COUNT 6.1 TH/MM3 (4.0-11.0)
[2017-06-26 11:18] LABS: ANION GAP 10 MEQ/L (5-15); AST (GOT) 16 U/L (15-37); BICARBONATE 19.5 MEQ/L (21.0-32.0); BLOOD UREA NITROGEN 21 MG/DL (7-18); CHLORIDE 107 MEQ/L (98-107); POTASSIUM 4.2 MEQ/L (3.5-5.1); SODIUM (NA) 136 MEQ/L (136-145)
[2017-06-26 11:20] LABS: ALT (GPT) 18 U/L (10-53)
[2017-06-26 11:21] LABS: ALKALINE PHOSPHATASE 101 U/L (45-117); TOTAL BILIRUBIN ADULT 0.2 MG/DL (0.2-1.0)
[2017-06-26] MEDS ORDERED: NAME5TAB2 PO (11:24)
--- NOTE | 2017-06-26 11:56 | HHI.DS ---
Discharge Summary Admission Date Jun 12, 2017 at 21:50 Discharge Date: Jun 26, 2017 Admitting Diagnosis Renal Failure, Dehydration, thrombocytopenia (1) Sepsis ICD Code: A41.9 - Sepsis, unspecified organism Diagnosis: Principal Status: Resolved (2) Acute blood loss anemia ICD Code: D62 - Acute posthemorrhagic anemia Diagnosis: Principal Status: Resolved (3) Thrombocytopenia ICD Code: D69.6 - Thrombocytopenia, unspecified Diagnosis: Principal Status: Resolved (4) Ureteral calculus, left ICD Code: N20.1 - Calculus of left ureter Status: Resolved (5) HTN (hypertension) ICD Code: I10 - Essential (primary) hypertension Diagnosis: Principal Status: Chronic (6) UTI (urinary tract infection) ICD Code: N39.0 - Urinary tract infection, site not specified Diagnosis: Principal Status: Resolved (7) Elevated lipase ICD Code: R74.8 - Abnormal levels of other serum enzymes Diagnosis: Principal Status: Acute (8) Gram-negative bacteremia ICD Code: R78.81 - Bacteremia Diagnosis: Principal Status: Resolved (9) Vaginal bleeding ICD Code: N93.9 - Abnormal uterine and vaginal bleeding, unspecified Diagnosis: Principal Status: Resolved (10) Pediculosis capitis ICD Code: B85.0 - Pediculosis due to Pediculus humanus capitis Diagnosis: Principal Status: Resolved Procedures Status post Cystoscopy with right retrograde study and right double-J stent insertion 06/13/17 Brief History - From Admission 66 year old female presents has being brought in as a [place] act by ambulance services when the patient was found in her home on the floor prior to arrival. The patient reports that she's been on the ground since Sunday. She is unsure exactly how she ended up on the ground. The patient reports having low back pain worse on the left compared to the right. She has been brought in under a [place] act due to being found unable to care for herself with a home that was in disrepair. She has had diarrhea for the last 2 days. She is unsure exactly how many episodes of diarrhea she has had. She denies having any nausea or vomiting. She denies having any chest pain, chest pressure, or shortness of breath. She denies having any one-sided weakness. CBC/BMP: 06/26/17 1035 06/25/17 1155 Significant Findings Laboratory Tests Test 06/24/17 09:55 06/25/17 11:55 06/26/17 10:35 Creatinine 1.53 MG/DL (0.50-1.00) 1.51 MG/DL (0.50-1.00) 1.60 MG/DL (0.50-1.00) Random Glucose 117 MG/DL (74-106) 122 MG/DL (74-106) Calcium Level 8.0 MG/DL (8.5-10.1) 8.3 MG/DL (8.5-10.1) Chloride Level 109 MEQ/L (98-107) Carbon Dioxide Level 20.4 MEQ/L (21.0-32.0) 19.5 MEQ/L (21.0-32.0) Estimat Glomerular Filtration Rate 34 ML/MIN (>89) Lipase 1874 U/L (73-393) 2103 U/L (73-393) 2045 U/L (73-393) Blood Urea Nitrogen 20 MG/DL (7-18) 21 MG/DL (7-18) Albumin 2.2 GM/DL (3.4-5.0) 2.0 GM/DL (3.4-5.0) Alkaline Phosphatase 118 U/L (45-117) Amylase Level 213 U/L (25-115) Red Blood Count 3.58 MIL/MM3 (4.00-5.30) Hemoglobin 9.2 GM/DL (11.6-15.3) Hematocrit 28.6 % (35.0-46.0) Mean Corpuscular Hemoglobin 25.7 PG (27.0-34.0) Red Cell Distribution Width 24.0 % (11.6-17.2) Monocytes (%) (Auto) 10.2 % (0.0-8.0) Imaging Last Impressions Cholangiopancreatography MRI 06/19/17 0000 Signed Impressions: Service Date/Time: Monday, June 19, 2017 10:20 - CONCLUSION: 1. Cholelithiasis with mild gallbladder wall edema. However, there is no choledocholithiasis. 2. New small bilateral pleural effusions. 3. Mild right hydronephrosis, decreased from the prior CT. The left kidney has a stable appearance demonstrating severe cortical thinning and is essentially a hydronephrotic sac containing multiple stones. Estrada Good MD Pelvis Ultrasound 06/18/17 0000 Signed Impressions: Service Date/Time: Sunday, June 18, 2017 15:12 - CONCLUSION: 1. Thickened endometrial canal. 2. Echogenic structure associated with the endometrial canal could relate to an IUD or residual part of an IUD. Royal Philippe Jr., MD Thoracic Spine CT 06/12/172015 Signed Impressions: Service Date/Time: Monday, June 12, 2017 22:01 - CONCLUSION: 1. No acute abnormality. Royal Philippe Jr., MD Pelvis X-Ray 06/12/172015 Signed Impressions: Service Date/Time: Monday, June 12, 2017 20:25 - CONCLUSION: No acute disease. Royal Philippe Jr., MD Lumbar Spine CT 06/12/172015 Signed Impressions: Service Date/Time: Monday, June 12, 2017 22:01 - CONCLUSION: 1. No fracture or dislocation. 2. Degenerative changes. 3. See the CT of the abdomen and pelvis reported separately. Royal Philippe Jr., MD Head CT 06/12/172015 Signed Impressions: Service Date/Time: Monday, June 12, 2017 21:56 - CONCLUSION: 1. No acute intracranial abnormality. 2. Atrophy and chronic small vessel ischemic change. Royal Philippe Jr., MD Chest X-Ray 06/12/172015 Signed Impressions: Service Date/Time: Monday, June 12, 2017 20:30 - CONCLUSION: No acute disease. Royal Philippe Jr., MD Cervical Spine CT 06/12/172015 Signed Impressions: Service Date/Time: Monday, June 12, 2017 21:56 - CONCLUSION: 1. No fracture or dislocation. 2. Degenerative changes as detailed above. Royal Philippe Jr., MD Abdomen/Pelvis CT 06/12/172015 Signed Impressions: Service Date/Time: Monday, June 12, 2017 22:01 - CONCLUSION: 1. 9 mm right mid ureteral stone with resulting hydronephrosis and proximal hydroureter. 2. Chronic hydronephrosis on the left with cortical thinning of the kidney and multiple nonobstructing left sided renal calculi. 3. Cholelithiasis. Royal Philippe Jr., MD PE at Discharge GENERAL: AAOx3, lying in bed, NAD SKIN: Warm and dry. Unstageable pressure injury that measures 10.4cm x 6.9 cm x eschar. Periwound is noted with diffuse small areas of partial thickness skin loss that is incontinence associated. HEAD: Normocephalic. EYES: No scleral icterus. No injection or drainage. Pale conjunctiva. NECK: Supple, trachea midline. No JVD or lymphadenopathy. CARDIOVASCULAR: Regular rate and rhythm without murmurs, gallops, or rubs. RESPIRATORY: Breath sounds equal bilaterally. No accessory muscle use. GASTROINTESTINAL: Abdomen soft, non-tender, nondistended. MUSCULOSKELETAL: No cyanosis, or edema. BACK: Nontender without obvious deformity. No CVA tenderness. Pt update on day of discharge Denies chest pain or shortness of breath, denies fevers or chills. Vital signs seems to be stable. Hospital Course The patient was initially admitted to intensive care unit. The patient at the time of admission was hypotensive, encephalopathic, severely dehydrated hypernatremic, with a UTI and pyelonephritis minutes of his sepsis criteria which was present on admission. The patient was treated supportively with IV fluids, IV antibiotics, ID consulted, general surgery consulted and as the patient improved and was transferred out of the intensive care unit to be under the care of the hospitalist. Patient's acute metabolic, uremic encephalopathy resolved with IV fluids, IV antibiotics. The patient's hypotension and tachycardia as well as severe dehydration also start improving and were treated with IV fluid hydration with sodium bicarbonate. Troponin was noted to be elevated likely secondary to acute kidney injury. Hypernatremia was treated with hypotonic saline and resolved. Elevated lipase Cholelithiasis - CT abdomen shows normal pancreas - GI was consulted. Lipase was noted to be elevated, however was completely asymptomatic without abdominal pain and eating well. The patient was placed on a low-fat diet which temporarily improved the lipase, however the started going up after the patient went back to regular diet. General surgery was consulted upon GIs recommendation. General surgery recommended conservative management with diet, however stated that was no acute surgical needs at the time. Eventually GI clear patient for discharge since the patient remained asymptomatic. Acute kidney failure Uremia Acute right hydronephrosis, hydroureter from obstructing stone Chronic left hydronephrosis Hypokalemia. - Status post Cystoscopy with right retrograde study and right double-J stent insertion 06/13/17. Neurology consulted.. Will need outpt ESWL to Rx Right ureteral calculus -Nephrology consulted as well, patient deemed not a candidate for hemodialysis at this time. -Treated with IV fluids, monitor BUN and creatinine during hospital stay as well as a strict I's and O's. -Creatinine eventually continued to improve. Urology given instructions to keep Martini catheter until creatinine stabilized. - 06/21 Creatinine continues to improve. Good urine output. Follow-up nephrology recommendations. Continue to monitor BUN/creatinine, strict I's and O's, avoid nephrotoxins with a UTI and acute pyelonephritis leading severe sepsis criteria - As per urology foly catheter needs to remain until creatinine stabilized. This seems to happen at a creatinine of around 1.5 Severe sepsis UTI/acute pyelonephritis - Received Zosyn and vancomycin in the ED - Patient with UA positive urine culture growing Enterobacter cloacae. Last culture obtained on 06/14 still growing gram-negative rods. ID consulted, continue to follow-up ID recommendations. Antibiotics as per ID. - Discussed the case with ID -will be discharged on ERtapanem IV 500 mg IV q 24 hrs - stop date Jun 26, 2017. Gram-negative cayla Bacteremia 4 out of 4 blood culture positive for gram-negative cayla Appreciate input from infectious disease specialist That is post antibiotics as above. Repeat blood cultures obtained inititially grew Enterobacter Cloacae. The last set of blood cultures obtained on 06/17/17 were negative 5. Source of bacteremia thought to be the urine with a positive UTI growing Enterobacter Cloacae on urine culture. ID switched antibiotic to ertapenem 500 mg IV every 24 hours to be discontinued on 06/26/17. The patient will get her last dose today and then be discharge. Thrombocytopenia Acute Blood loss anemia - Initially thrombocytopenia thought to be secondary to acute infectious processes. There was also a decrease in hemoglobin. Patient and RN reported melanotic stools on 06/16/17, the patient was placed nothing by mouth and start an IV Protonix and GI consulted. Stool Hemoccult was negative 2. The patient was transfused 2 units of packed red blood cells and 2 units of platelets. No evidence of hemolysis.Hemoglobin improved to 9.2 and platelets improved to 88. Appreciate hematology consultation recommendations. The patient is getting IV iron. There is no evidence of hemolysis as her LDH, haptoglobin, direct comes is normal. The patient underwent EGD for/colonoscopy on 06/17/17which showed nodular duodenum, gastritis, esophagitis, erythema of the colon. The patient had an MRCP which showed cholelithiasis and mild gallbladder wall edema. No choledocholithiasis, no small bilateral pleural effusions. Diabetes mellitus -Metformin held on admission. The patient was placed on SSI with insulin NovoLog, however blood sugars remained stable. - Blood sugars remained stable during hospitalization. Pediculosis Capitis - There were reports that louse were observed on patient. Sp treatment with permethrin lotion and contact isolation. Sacral Decub ulcer - Present on admission. Will request reevaluation by wound care. Will need wound care upon discharge. History of CVA - The patient states that previously was on Prozac so, however she had to stop it due to vaginal bleeding. A pubic ultrasound was ordered to evaluate the mentioned vaginal bleeding while on the backside. It showed thickened endometrial canal. Echogenic structure associated with the endometrial canal possibly related to an IUD. [employer] consulted and recommended outpatient follow-up with STR[employer]IC [employer]ER for D&C and IUD removal. DVT GI prophylaxis -Placed on teds and SCDs. - No DVT chemical prophylaxis due to thrombocytopenia and anemia. Pt Condition on Discharge: Stable Discharge Disposition: Discharge to SNF Discharge Time: > 30 minutes Discharge Instructions DIET: Follow Instructions for: Heart Healthy Diet Activities you can perform: See Additionl Instruction Activities to Avoid: Prolonged Standing, Strenuous Activity Other Activity Instructions: As per physical therapy instructions. Do not get out of bed without assistance. Follow up Referrals: Gastroenterology - 2 Weeks @ [facility] New Medications: Epinephrine Inj (Epinephrine Inj) 1 Mg/Ml (1 Ml) Inj 0.3 MG IV PUSH ONCE PRN for ALLERGIC REACTION, #1 VIAL Epinephrine Inj (Epinephrine Inj) 1 Mg/Ml (1 Ml) Inj 0.3 MG SQ ONCE PRN for ALLERGIC REACTION, #1 VIAL Give with any signs of respiratory distress. Ertapenem Inj (Invanz Inj) 1 Gm Addvial 500 MG IV Q24H for Infection for 6 Days, INJECTION 0 Refills ADMINISTER IN 100ML NS Hydrocortisone Inj (Solu-Cortef Inj) 250 Mg/2 Ml Inj 250 MG IV PUSH ONCE PRN for ALLERGIC REACTION, #1 VIAL 0 Refills Give over 30-60 seconds. Memantine (Namenda) 5 Mg Tab 5 MG PO DAILY for cognitive impairment, #31 TAB Continued Medications: Atorvastatin (Atorvastatin) 80 Mg Tab 80 MG PO HS for Cholesterol Management, #30 TAB 3 Refills Dabigatran (Pradaxa) 150 Mg Cap 150 MG PO BID for Blood Clot Prevention, #60 CAP 0 Refills Ergocalciferol (Vitamin D) 50,000 Unit Cap 95064 UNITS PO Q7D for Nutritional Supplement, #10 CAP 3 Refills Folic Acid (Folate) 1 Mg Tab 1 MG PO DAILY for Nutritional Supplement, TAB 0 Refills Metformin (Metformin) 500 Mg Tab 500 MG PO BIDPC for Blood Sugar Management, #60 TAB 2 Refills With meals Metoprolol Succinate ER 24 HR (Metoprolol Succinate ER 24 HR) 50 Mg Tab 50 MG PO DAILY, #30 TAB 5 Refills Solifenacin (Vesicare) 5 Mg Tab 5 MG PO DAILY for Urinary Symptom Managemen, #30 TAB 0 Refills Discontinued Medications: Ciprofloxacin (Cipro) 500 Mg Tab 500 MG PO BID for Infection, #14 TAB 0 Refills Nitrofurantoin Monohydrate Macrocrystals (Macrobid) 100 Mg Cap 100 MG PO BID for Infection, #14 CAP 0 Refills Kimo El MD Jun 26, 2017 11:56
[2017-06-26] MEDS: ERTAPENEM INJ 500 MG in SODIUM CHLORIDE 0.9% INJ 100 ML IV SCH (14:35)
--- NOTE | 2017-06-26 14:55 | PD.WCN.NOT ---
Wound Consult Description: Received consult from Doctor Dorado for wound management for pressure related wound to sacrum Communicated with: RANDY Fitzgerald and Doctor Benjamin Recommendation: 1.Please cleanse to sacrum with wound cleanser or normal saline and pat dry. Apply skin prep to periwound and before covering with bordered gauze change daily or PRN if saturated or dislodged,until seen by plastics or general surgery for debridement. 2.Please turn patient every 2 hours and PRN for comfort and to offload pressure from sacral area. Additional Information: Patient seen on for follow up of sacral unstageable wound. Patient was turned to L side with minimal assistance from conventional underwriter. Removed adhesive foam dressing in place over sacral area to reveal sacral unstageable pressure injury. Wound bed presents with ~80% thick yellow/brown slough that is loosely adherent at the edges and ~20% pink tissue. Periwound previously noted with blanchable erythema and satellite lesions has improved. Blanchable erythema is still noted to periwound but has decreased.Wound drainage is minimal rosa/ sero -sanguinous with foul odor.Wound has well defined wound margins from 12 to 9 o' clock. Jagged uneven wound margins are noted between 10 and 11 o'clock. Wound has mixed etiology of moisture, pressure and friction and measures ~8cm x ~6.4 cm x slough. Cleansed wound with normal saline and applied bordered gauze over wound. Skin prep was applied to periwound before covering wound with bordered gauze. Spoke with patient at length regarding recommendations for wound at this time and need for possible surgical debridement. Sharps debridement would be beneficial to patient as a faster form of debridement vs Santyl. Spoke with Lia PADILLA and Doctor Benjamin regarding recommendations.Doctor will consult plastics or general surgery for possible debridement. Gavi Mazariegos [facility] Jun 26, 2017 14:55
--- NOTE | 2017-06-26 15:28 | HHI.PR ---
Subjective Remarks patient feels well, denes fevers or chills denies cp/sob Objective Vitals Vital Signs Date Time Temp Pulse Resp B/P (MAP) Pulse Ox O2 Delivery O2 Flow Rate FiO2 06/26/17 12:00 96.8 92 16 134/68 (90) 97 06/26/17 08:00 96.4 74 18 131/62 (85) 97 06/26/17 07:55 74 06/26/17 07:55 74 06/26/17 06:36 84 06/26/17 04:00 97.5 74 20 140/64 (89) 97 06/26/17 00:00 98.1 77 20 122/59 (80) 97 06/25/17 20:00 97.4 80 20 120/58 (78) 98 06/25/17 16:00 97.4 100 16 114/71 (85) 95 I/O 06/25/17 06/25/17 06/25/17 06/26/17 06/26/17 06/26/17 07:00 15:00 23:00 07:00 15:00 23:00 Intake Total 240 ml 1681 ml 320 ml Balance 240 ml 1681 ml 320 ml Intake Oral 240 ml 960 ml 320 ml IV Total 721 ml # Voids 3 3 3 # Bowel Movements 1 3 0 Result Diagram: 06/26/17 1035 06/26/17 1035 Objective Remarks GENERAL: AAOx3, lying in bed, NAD SKIN: Warm and dry. Sacral wound presents with ~80% thick yellow/brown slough that is loosely adherent at the edges and ~20% pink tissue. Periwound previously noted with blanchable erythema and satellite lesions has improved. Blanchable erythema is still noted to periwound but has decreased.Wound drainage is minimal rosa/ sero-sanguinous with foul odor.Wound has well defined wound margins from 12 to 9 o'clock. Jagged uneven wound margins are noted between 10 and 11 o'clock. HEAD: Normocephalic. EYES: No scleral icterus. No injection or drainage. Pale conjunctiva. NECK: Supple, trachea midline. No JVD or lymphadenopathy. CARDIOVASCULAR: Regular rate and rhythm without murmurs, gallops, or rubs. RESPIRATORY: Breath sounds equal bilaterally. No accessory muscle use. GASTROINTESTINAL: Abdomen soft, non-tender, nondistended. MUSCULOSKELETAL: No cyanosis, or edema. BACK: Nontender without obvious deformity. No CVA tenderness. Procedures Status post Cystoscopy with right retrograde study and right double-J stent insertion 06/13/17 Medications and IVs Current Medications Medications (Trade) Dose Ordered Sig/Rinku Route Start Time Stop Time Status Last Admin (Toprol Xl) 50 mg DAILY PO 06/13/17 09:00 Future Hold 06/13/17 10:15 (NS Flush) 2 ml UNSCH PRN IV FLUSH 06/12/17 23:15 06/14/17 09:02 (NS Flush) 2 ml BID IV FLUSH 06/13/17 09:00 06/26/17 07:59 (Tylenol) 650 mg Q6H PRN PO 06/12/17 23:15 06/14/17 18:25 (Zofran Inj) 4 mg Q6H PRN IV PUSH 06/12/17 23:15 (Restoril) 15 mg HS PRN PO 06/12/17 23:15 Future Hold (Duoneb Neb) 1 ampule Q2HR NEB PRN INH 06/12/17 23:15 Miscellaneous Information 1 Q361D XX 06/12/17 23:15 06/12/17 01:00 (Chlorhexidine 2% Cloth) Taper DAILY@04 TOP 06/13/17 04:00 06/09/18 03:59 06/15/17 04:00 (Chlorhexidine 2% Cloth) 3 pack UNSCH PRN TOP 06/12/17 23:15 (Milk Of Magnesia Liq) 30 ml Q12H PRN PO 06/12/17 23:15 (Dulcolax Supp) 10 mg DAILY PRN RECTAL 06/12/17 23:15 (NovoLOG SUPPLEMENTAL SCALE) 1 ACHS SLIDING SCALE SQ 06/13/17 08:00 06/15/17 08:00 (Aricept) 5 mg HS PO 06/15/17 21:00 06/25/17 21:36 (Namenda) 5 mg DAILY PO 06/16/17 09:00 06/26/17 07:59 (Tylenol) 650 mg Q4H PRN PO 06/16/17 10:00 06/16/17 16:58 (Benadryl) 25 mg Q4H PRN PO 06/16/17 10:00 06/16/17 16:58 (Protonix Inj) 40 mg Q12HR IV PUSH 06/17/17 11:15 06/26/17 07:59 Ertapenem 500 mg/ Sodium Chloride 100 ml @ 200 mls/hr Q24H IV 06/20/17 16:00 06/25/17 14:48 Potassium Chloride 30 meq/ Sodium Chloride 1,015 ml @ 42 mls/hr Q24H IV 06/20/17 22:00 06/25/17 21:42 (Miralax) 17 gm DAILY PO 06/21/17 11:00 06/26/17 07:59 (Pepcid) 10 mg BID PO 06/23/17 10:00 06/26/17 07:58 (Diflucan) 200 mg DAILY PO 06/25/17 11:00 07/09/17 10:59 06/26/17 07:58 (Pradaxa) 150 mg BID PO 06/26/17 21:00 (Detrol La) 2 mg DAILY PO 06/27/17 09:00 A/P Problem List: (1) Sepsis ICD Code: A41.9 - Sepsis, unspecified organism Status: Resolved (2) Acute blood loss anemia ICD Code: D62 - Acute posthemorrhagic anemia Status: Resolved (3) Thrombocytopenia ICD Code: D69.6 - Thrombocytopenia, unspecified Status: Resolved (4) Ureteral calculus, left ICD Code: N20.1 - Calculus of left ureter Status: Resolved (5) HTN (hypertension) ICD Code: I10 - Essential (primary) hypertension Status: Chronic (6) UTI (urinary tract infection) ICD Code: N39.0 - Urinary tract infection, site not specified Status: Resolved (7) Elevated lipase ICD Code: R74.8 - Abnormal levels of other serum enzymes Status: Acute (8) Gram-negative bacteremia ICD Code: R78.81 - Bacteremia Status: Resolved (9) Vaginal bleeding ICD Code: N93.9 - Abnormal uterine and vaginal bleeding, unspecified Status: Resolved (10) Pediculosis capitis ICD Code: B85.0 - Pediculosis due to Pediculus humanus capitis Status: Resolved Assessment and Plan Assessment and Plan 66-year-old female with Acute metabolic/uremic encephalopathy Resolved Hypotension tachycardia-resolved Severe dehydration-improved with IV fluid hydration Mild troponin elevation Hypernatremia - Continue current IV fluid hydration withsodium bicarbonate. - Troponin elevation most likely secondary to acute kidney injury - Hypernatremia resolved. continue to monitor BMP. Elevated lipase Cholelithiasis - May need cholate cystectomy in the future - CT abdomen shows normal pancreas - 06/[address] GI consult. Continue to monitor lipase which seems to be trending down. Today down to 6913 from 740 - 06/18 appreciate GI consultation recommendations. Lipase at the time of admission was elevated. Clinically patient without abdominal pain, nausea vomiting. Continue to follow-up GI recommendations. - 06/20 Patient still has elevated lipase however no abdominal pain. As per GI will come down on diet if lipase persistently elevated. - 06/21 Lipase trending down. continue low fat diet. - Lipase back up to 1738. Discussed case with GI, suggested general surgery consultation. - 06/23 Appreciate general surgery recommendations, lipase slightly improved from 1738 to 1666. No acute surgical needs at this time as per general surgery. - 06/25 Lipase slightly higher, however patient asymptomatic. Patient has been cleared by GI. Acute kidney failure Uremia Acute right hydronephrosis, hydroureter from obstructing stone Chronic left hydronephrosis Hypokalemia. - Status post Cystoscopy with right retrograde study and right double-J stent insertion 06/13/17. Appreciate input from urology. Will need outpt ESWL to Rx Right ureteral calculus -Appreciate input from nephrology, and patient does not need at this time hemodialysis -Continue with IV fluid hydration and monitor BUN and creatinine - 06/21 Creatinine continues to improve. Good urine output. Follow-up nephrology recommendations. Continue to monitor BUN/creatinine, strict I's and O's, avoid nephrotoxins. - As per urology foly catheter needs to remain until creatinine stabilizes. - 06/23 Creatinine slightly higher than previous day. Will Dc guzman catheter and continue to monito BUN/Creatinine. - 06/24 Creatinine stable and slightly improved at 1.5, possibly new baseline. Severe sepsis UTI/acute pyelonephritis - Received Zosyn and vancomycin in the ED - Continue renally dosed Zosyn - Patient with UA positive urine culture growing Enterobacter cloacae. Last culture obtained on 06/14 still growing gram-negative rods. ID consulted, continue to follow-up ID recommendations. Antibiotics as per ID. - Discussed the case with ID - Discharge on ERtapanem IV 500 mg IV q 24 hrs - stop date Jun 26, 2017. Gram-negative cayla Bacteremia 4 out of 4 blood culture positive for gram-negative cayla Appreciate input from infectious disease specialist Continue with current antibiotics including Zosyn 06/19 Repeat blood cultures obtained on 11/15 negative to date. Thrombocytopenia Acute Blood loss anemia - Most likely secondary to sepsis and dehydration\ -Continue to monitor, may consider hematology consultation - 06/16 Likely due to GI bleed since patient will reported melanotic stools. The patient nothing by mouth, start IV Protonix drip and consult GI. Transfuse 2 units of packed blood cells since hemoglobin today 6.8 and reports of active bleeding. Goal hemoglobin more than 9. I will also transfuse 2 units of platelets since the patient has a platelet count of 35 K to a goal platelet count of more than 50 K. I will also sent and studies, stool for Hemoccult blood, consult hematology, I will order PT, PTT, INR, fibrinogen, LDH , haptoglobin to rule out DIC or hemolytic anemia. - 06/17 Sp transfusion of 2 units of packed blood cells, 2 units of platelets. Hemoglobin improved to 9.2 and platelets improved to 88. Appreciate hematology consultation recommendations. The patient is getting IV iron. There is no evidence of hemolysis as her LDH, haptoglobin, direct comes is normal. Plan for panendoscopy in am. The patient states that she was previously on Pradaxa , however she was told to discontinue it since she had vaginal bleeding. Patient states she never followed up for vaginal bleeding issue. -06/18 the patient status post EGD and colonoscopy which showed nodular duodenum, gastritis, esophagitis, erythema of the colon. -06/19 patient is status post MRCP which showed cholelithiasis with mild gallbladder wall edema. No choledocholithiasis. New small bilateral pleural effusions. Mild right hydronephrosis decreased from prior CTA. Diabetes mellitus - Continue to hold home metformin - Blood sugars have been stable. Pediculosis Capitis - There are reports that louse was Observed on patient. Sp treatment with permethrin lotion. Sacral Decub ulcer - Present on admission. Will request reevaluation by wound care. Will need wound care upon discharge. - 06/26 Discussed case with wound care. Wound care recommends plastic surgery consult for debridement. DVT GI prophylaxis - Teds SCDs - No DVT chemical prophylaxis due to thrombocytopenia and continue IV Pepcid Discharge Planning Discharge pending plastic surgery consultation for sacral wound debridement. Problem Qualifiers (1) UTI (urinary tract infection): Qualified Codes: N10 - Acute pyelonephritis Kimo El MD Jun 26, 2017 15:28
[2017-06-26] MEDS: DONEPEZIL HCL 5 MG TAB PO SCH (20:06)
[2017-06-26] MEDS: DABIGATRAN ETEXILATE 150 MG CAP PO SCH (22:12)
[2017-06-26] MEDS: POTASSIUM CHLORIDE INJ 30 MEQ in SODIUM CHLOR 0.45% 1000 ML INJ 1,000 ML IV SCH (22:14)
[2017-06-27 00:41] VITALS: BP 128/61; PULSE 82; RESP 18; TEMP 97.8; O2SAT 96
[2017-06-27] MEDS: CHLORHEXIDINE GLUCONATE 2 % 1 PACK (2 CLOTHS) TOP SCH (04:00)
[2017-06-27 04:25] VITALS: BP 130/66; PULSE 73; RESP 18; TEMP 98.9; O2SAT 97
[2017-06-27 08:00] VITALS: BP 127/66; PULSE 75; RESP 16; TEMP 97.3; O2SAT 98
[2017-06-27] MEDS: INSULIN ASPART SUPPLEMENTAL SCALE SQ SCH ×4 (08:00→20:57)
[2017-06-27] MEDS: SODIUM CHLORIDE 0.9% FLUSH 10 ML FLUSH IV FLUSH SCH ×2 (09:00→20:56)
[2017-06-27] MEDS: MEMANTINE HCL 5 MG TAB PO SCH (09:00)
[2017-06-27] MEDS: DABIGATRAN ETEXILATE 150 MG CAP PO SCH ×2 (09:23→20:56)
[2017-06-27] MEDS: FAMOTIDINE 20 MG TAB PO SCH ×2 (09:24→20:56)
[2017-06-27] MEDS: TOLTERODINE TARTRATE 2 MG CAP LA PO SCH (09:24)
[2017-06-27] MEDS: PANTOPRAZOLE SODIUM 40 MG VIAL IV PUSH SCH ×2 (09:25→20:56)
[2017-06-27] MEDS: FLUCONAZOLE 200 MG TAB PO SCH (09:25)
[2017-06-27] MEDS: POLYETHYLENE GLYCOL 17 GM PKG PO SCH (09:26)
[2017-06-27 12:00] VITALS: BP 108/67; PULSE 104; RESP 16; TEMP 97.4; O2SAT 95
--- NOTE | 2017-06-27 15:02 | HHI.PR ---
Subjective Remarks Patient reports feeling okay today. No fevers or chills. We discussed her sacral wound issue at length. Discharge held yesterday to address the wound. Objective Vitals Vital Signs Date Time Temp Pulse Resp B/P (MAP) Pulse Ox O2 Delivery O2 Flow Rate FiO2 06/27/17 12:00 97.4 104 16 108/67 (81) 95 06/27/17 08:00 97.3 75 16 127/66 (86) 98 06/27/17 04:25 98.9 73 18 130/66 (87) 97 06/27/17 00:41 97.8 82 18 128/61 (83) 96 06/26/17 20:16 98.0 77 17 138/69 (92) 97 06/26/17 16:00 97.3 95 18 137/63 (87) 100 I/O 06/26/17 06/26/17 06/26/17 06/27/17 06/27/17 06/27/17 07:00 15:00 23:00 07:00 15:00 23:00 Intake Total 320 ml 1820 ml 977 ml Balance 320 ml 1820 ml 977 ml Intake Oral 320 ml 720 ml 680 ml IV Total 1100 ml 297 ml # Voids 3 5 4 # Bowel Movements 0 1 1 Result Diagram: 06/26/17 1035 06/26/17 1035 Objective Remarks GENERAL: This is a well-nourished, well-developed patient, in no apparent distress. SKIN: Large sacral wound, unstageable. There is a 8 x 6 cm area of necrotic tissue CARDIOVASCULAR: Normal rate and regular rhythm without murmurs, gallops, or rubs. RESPIRATORY: Good respiratory efforts. Breath sounds equal and clear to auscultation bilaterally. GASTROINTESTINAL: Abdomen soft, non-tender, non-distended. Normal active bowel sounds MUSCULOSKELETAL: Extremities without cyanosis, or edema. NEURO: Alert & Oriented x4 to person, place, time, situation. Moves all ext x4 PSYCH: Appropriate mood and affect. Procedures Status post Cystoscopy with right retrograde study and right double-J stent insertion 06/13/17 A/P Problem List: (1) Sepsis ICD Code: A41.9 - Sepsis, unspecified organism Status: Resolved (2) Acute blood loss anemia ICD Code: D62 - Acute posthemorrhagic anemia Status: Resolved (3) Thrombocytopenia ICD Code: D69.6 - Thrombocytopenia, unspecified Status: Resolved (4) Ureteral calculus, left ICD Code: N20.1 - Calculus of left ureter Status: Resolved (5) HTN (hypertension) ICD Code: I10 - Essential (primary) hypertension Status: Chronic (6) UTI (urinary tract infection) ICD Code: N39.0 - Urinary tract infection, site not specified Status: Resolved (7) Elevated lipase ICD Code: R74.8 - Abnormal levels of other serum enzymes Status: Acute (8) Gram-negative bacteremia ICD Code: R78.81 - Bacteremia Status: Resolved (9) Vaginal bleeding ICD Code: N93.9 - Abnormal uterine and vaginal bleeding, unspecified Status: Resolved (10) Pediculosis capitis ICD Code: B85.0 - Pediculosis due to Pediculus humanus capitis Status: Resolved Assessment and Plan 66-year-old female with multiple comorbid conditions who was found down at home admitted and treated for MSSA bacteremia, sepsis, acute blood loss anemia, acute kidney injury. Patient is improving. She is stable for discharge. However her sacral wound is in need of debridement. Sacral ulcer: Large unstageable. - Has been evaluated by supplies packer who recommended surgical debridement - Consult Plastic surgery. Elevated lipase Cholelithiasis - May need cholate cystectomy in the future - CT abdomen shows normal pancreas - 06/[address] GI consult. Continue to monitor lipase which seems to be trending down. Today down to 6913 from 740 - 06/18 appreciate GI consultation recommendations. Lipase at the time of admission was elevated. Clinically patient without abdominal pain, nausea vomiting. Continue to follow-up GI recommendations. - 06/20 Patient still has elevated lipase however no abdominal pain. As per GI will come down on diet if lipase persistently elevated. - 06/21 Lipase trending down. continue low fat diet. - Lipase back up to 1738. Discussed case with GI, suggested general surgery consultation. - 06/23 Appreciate general surgery recommendations, lipase slightly improved from 1738 to 1666. No acute surgical needs at this time as per general surgery. - 06/25 Lipase slightly higher, however patient asymptomatic. Patient has been cleared by GI. Acute kidney failure Uremia Acute right hydronephrosis, hydroureter from obstructing stone Chronic left hydronephrosis Hypokalemia. - Status post Cystoscopy with right retrograde study and right double-J stent insertion 06/13/17. Appreciate input from urology. Will need outpt ESWL to Rx Right ureteral calculus -Appreciate input from nephrology, and patient does not need at this time hemodialysis -Continue with IV fluid hydration and monitor BUN and creatinine - 06/21 Creatinine continues to improve. Good urine output. Follow-up nephrology recommendations. Continue to monitor BUN/creatinine, strict I's and O's, avoid nephrotoxins. - As per urology foly catheter needs to remain until creatinine stabilizes. - 06/23 Creatinine slightly higher than previous day. Will Dc guzman catheter and continue to monito BUN/Creatinine. - 06/24 Creatinine stable and slightly improved at 1.5, possibly new baseline. Severe sepsis UTI/acute pyelonephritis - Received Zosyn and vancomycin in the ED - Continue renally dosed Zosyn - Patient with UA positive urine culture growing Enterobacter cloacae. Last culture obtained on 06/14 still growing gram-negative rods. ID consulted, continue to follow-up ID recommendations. Antibiotics as per ID. Patient completed treatment with ertapenem per infectious disease guidance. Gram-negative cayla Bacteremia 4 out of 4 blood culture positive for gram-negative cayla Appreciate input from infectious disease specialist 06/19 Repeat blood cultures obtained on 11/15 negative to date. Patient completed treatment with antibiotics as above. Thrombocytopenia Acute Blood loss anemia - Most likely secondary to sepsis and dehydration\ -Continue to monitor, may consider hematology consultation - 06/16 Likely due to GI bleed since patient will reported melanotic stools. The patient nothing by mouth, start IV Protonix drip and consult GI. Transfuse 2 units of packed blood cells since hemoglobin today 6.8 and reports of active bleeding. Goal hemoglobin more than 9. I will also transfuse 2 units of platelets since the patient has a platelet count of 35 K to a goal platelet count of more than 50 K. I will also sent and studies, stool for Hemoccult blood, consult hematology, I will order PT, PTT, INR, fibrinogen, LDH , haptoglobin to rule out DIC or hemolytic anemia. - 06/17 Sp transfusion of 2 units of packed blood cells, 2 units of platelets. Hemoglobin improved to 9.2 and platelets improved to 88. Appreciate hematology consultation recommendations. The patient is getting IV iron. There is no evidence of hemolysis as her LDH, haptoglobin, direct comes is normal. Plan for panendoscopy in am. The patient states that she was previously on Pradaxa , however she was told to discontinue it since she had vaginal bleeding. Patient states she never followed up for vaginal bleeding issue. -06/18 the patient status post EGD and colonoscopy which showed nodular duodenum, gastritis, esophagitis, erythema of the colon. -06/19 patient is status post MRCP which showed cholelithiasis with mild gallbladder wall edema. No choledocholithiasis. New small bilateral pleural effusions. Mild right hydronephrosis decreased from prior CTA. Diabetes mellitus - Continue to hold home metformin - Blood sugars have been stable. Pediculosis Capitis - There are reports that louse was Observed on patient. Sp treatment with permethrin lotion. DVT GI prophylaxis - Teds SCDs - No DVT chemical prophylaxis due to thrombocytopenia and continue IV Pepcid Discharge Planning Needs evaluation for possible debridement of sacral wound. Problem Qualifiers (1) UTI (urinary tract infection): Qualified Codes: N10 - Acute pyelonephritis Baljit Forrester MD Jun 27, 2017 15:02
[2017-06-27 16:00] VITALS: BP 137/65; PULSE 71; RESP 18; TEMP 97.8; O2SAT 98
[2017-06-27 20:19] VITALS: BP 133/63; PULSE 70; RESP 18; TEMP 98.3; O2SAT 98
[2017-06-27] MEDS: DONEPEZIL HCL 5 MG TAB PO SCH (20:56)
[2017-06-28] VITALS (7 sets, daily range): BP systolic 125–138; BP diastolic 59–90; PULSE 70–90; RESP 17–20; TEMP 96.9–98.6; O2SAT 96–100
[2017-06-28] MEDS: CHLORHEXIDINE GLUCONATE 2 % 1 PACK (2 CLOTHS) TOP SCH ×2 (04:00→20:36)
[2017-06-28] MEDS: POTASSIUM CHLORIDE INJ 30 MEQ in SODIUM CHLOR 0.45% 1000 ML INJ 1,000 ML IV SCH ×2 (06:14→20:36)
[2017-06-28] MEDS: INSULIN ASPART SUPPLEMENTAL SCALE SQ SCH ×4 (08:00→20:35)
[2017-06-28] MEDS: FLUCONAZOLE 200 MG TAB PO SCH (08:58)
[2017-06-28] MEDS: POLYETHYLENE GLYCOL 17 GM PKG PO SCH (09:00)
[2017-06-28] MEDS: FAMOTIDINE 20 MG TAB PO SCH ×2 (09:03→20:36)
[2017-06-28] MEDS: PANTOPRAZOLE SODIUM 40 MG VIAL IV PUSH SCH ×2 (09:06→20:35)
[2017-06-28] MEDS: SODIUM CHLORIDE 0.9% FLUSH 10 ML FLUSH IV FLUSH SCH ×2 (09:06→20:34)
[2017-06-28] MEDS: MEMANTINE HCL 5 MG TAB PO SCH (09:13)
[2017-06-28] MEDS: DABIGATRAN ETEXILATE 150 MG CAP PO SCH ×2 (10:32→20:35)
[2017-06-28] MEDS: TOLTERODINE TARTRATE 2 MG CAP LA PO SCH (10:35)
--- NOTE | 2017-06-28 12:41 | HHI.PR ---
Subjective Remarks Patient reports she is feeling ok. Getting stronger. No new issues. Wound care follow up arranged for outpatient. Objective Vitals Vital Signs Date Time Temp Pulse Resp B/P (MAP) Pulse Ox O2 Delivery O2 Flow Rate FiO2 06/28/17 11:29 96.9 90 17 136/90 (105) 98 06/28/17 08:00 97.1 70 20 127/60 (82) 97 06/28/17 04:32 98.6 72 18 137/67 (90) 97 06/28/17 00:29 97.8 75 18 138/70 (92) 96 06/27/17 20:19 98.3 70 18 133/63 (86) 98 06/27/17 16:00 97.8 71 18 137/65 (89) 98 I/O 06/27/17 06/27/17 06/27/17 06/28/17 06/28/17 06/28/17 07:00 15:00 23:00 07:00 15:00 23:00 Intake Total 977 ml 480 ml 1416 ml 120 ml Balance 977 ml 480 ml 1416 ml 120 ml Intake Oral 680 ml 480 ml 760 ml 120 ml IV Total 297 ml 656 ml # Voids 4 4 4 # Bowel Movements 1 2 Result Diagram: 06/26/17 1035 06/26/17 1035 Objective Remarks GENERAL: This is a well-nourished, well-developed patient, in no apparent distress. SKIN: Large sacral wound, unstageable. There is a 8 x 6 cm area of necrotic tissue. Surrounding tissue is pink. CARDIOVASCULAR: Normal rate and regular rhythm without murmurs, gallops, or rubs. RESPIRATORY: Good respiratory efforts. Breath sounds equal and clear to auscultation bilaterally. GASTROINTESTINAL: Abdomen soft, non-tender, non-distended. Normal active bowel sounds MUSCULOSKELETAL: Extremities without cyanosis, or edema. NEURO: Alert & Oriented x4 to person, place, time, situation. Moves all ext x4 PSYCH: Appropriate mood and affect. Procedures Status post Cystoscopy with right retrograde study and right double-J stent insertion 06/13/17 A/P Problem List: (1) Sepsis ICD Code: A41.9 - Sepsis, unspecified organism Status: Resolved (2) Acute blood loss anemia ICD Code: D62 - Acute posthemorrhagic anemia Status: Resolved (3) Thrombocytopenia ICD Code: D69.6 - Thrombocytopenia, unspecified Status: Resolved (4) Ureteral calculus, left ICD Code: N20.1 - Calculus of left ureter Status: Resolved (5) HTN (hypertension) ICD Code: I10 - Essential (primary) hypertension Status: Chronic (6) UTI (urinary tract infection) ICD Code: N39.0 - Urinary tract infection, site not specified Status: Resolved (7) Elevated lipase ICD Code: R74.8 - Abnormal levels of other serum enzymes Status: Acute (8) Gram-negative bacteremia ICD Code: R78.81 - Bacteremia Status: Resolved (9) Vaginal bleeding ICD Code: N93.9 - Abnormal uterine and vaginal bleeding, unspecified Status: Resolved (10) Pediculosis capitis ICD Code: B85.0 - Pediculosis due to Pediculus humanus capitis Status: Resolved Assessment and Plan 66-year-old female with multiple comorbid conditions who was found down at home admitted and treated for MSSA bacteremia, sepsis, acute blood loss anemia, acute kidney injury. Patient significantly improved. She does have a sacral wound that needs follow up. This can be done outpatient. It has been arranged for the patient to be seen at the wound care center by Dr. Cantrell. Sacral ulcer: Pressure ulcer. Patient was found down. She has improved significantly and is able to turn better. Wound has good healing potential but needs further follow-up. It has been arranged for the patient to be seen by wound care physician Dr. Cantrell outpatient. Continue wound care at the nursing facility. Elevated lipase Cholelithiasis - May need cholecystectomy in the future - CT abdomen shows normal pancreas - 06/[address] GI consult. Continue to monitor lipase which seems to be trending down. Today down to 6913 from 740 - 06/18 appreciate GI consultation recommendations. Lipase at the time of admission was elevated. Clinically patient without abdominal pain, nausea vomiting. Continue to follow-up GI recommendations. - 06/20 Patient still has elevated lipase however no abdominal pain. As per GI will come down on diet if lipase persistently elevated. - 06/21 Lipase trending down. continue low fat diet. - Lipase back up to 1738. Discussed case with GI, suggested general surgery consultation. - 06/23 Appreciate general surgery recommendations, lipase slightly improved from 1738 to 1666. No acute surgical needs at this time as per general surgery. - 06/25 Lipase slightly higher, however patient asymptomatic. Patient has been cleared by GI. Acute kidney failure Uremia Acute right hydronephrosis, hydroureter from obstructing stone Chronic left hydronephrosis Hypokalemia. - Status post Cystoscopy with right retrograde study and right double-J stent insertion 06/13/17. Appreciate input from urology. Will need outpt ESWL to Rx Right ureteral calculus -Appreciate input from nephrology, and patient does not need at this time hemodialysis -Continue with IV fluid hydration and monitor BUN and creatinine - 06/21 Creatinine continues to improve. Good urine output. Follow-up nephrology recommendations. Continue to monitor BUN/creatinine, strict I's and O's, avoid nephrotoxins. - As per urology foly catheter needs to remain until creatinine stabilizes. - 06/23 Creatinine slightly higher than previous day. Will Dc guzman catheter and continue to monito BUN/Creatinine. - 06/24 Creatinine stable and slightly improved at 1.5, possibly new baseline. Severe sepsis UTI/acute pyelonephritis - Received Zosyn and vancomycin in the ED - Continue renally dosed Zosyn - Patient with UA positive urine culture growing Enterobacter cloacae. Last culture obtained on 06/14 still growing gram-negative rods. ID consulted, continue to follow-up ID recommendations. Antibiotics as per ID. Patient completed treatment with ertapenem per infectious disease guidance. Gram-negative cayla Bacteremia 4 out of 4 blood culture positive for gram-negative cayla Appreciate input from infectious disease specialist 06/19 Repeat blood cultures obtained on 11/15 negative to date. Patient completed treatment with antibiotics as above. Thrombocytopenia Acute Blood loss anemia - Most likely secondary to sepsis and dehydration\ -Continue to monitor, may consider hematology consultation - 06/16 Likely due to GI bleed since patient will reported melanotic stools. The patient nothing by mouth, start IV Protonix drip and consult GI. Transfuse 2 units of packed blood cells since hemoglobin today 6.8 and reports of active bleeding. Goal hemoglobin more than 9. I will also transfuse 2 units of platelets since the patient has a platelet count of 35 K to a goal platelet count of more than 50 K. I will also sent and studies, stool for Hemoccult blood, consult hematology, I will order PT, PTT, INR, fibrinogen, LDH , haptoglobin to rule out DIC or hemolytic anemia. - 06/17 Sp transfusion of 2 units of packed blood cells, 2 units of platelets. Hemoglobin improved to 9.2 and platelets improved to 88. Appreciate hematology consultation recommendations. The patient is getting IV iron. There is no evidence of hemolysis as her LDH, haptoglobin, direct comes is normal. Plan for panendoscopy in am. The patient states that she was previously on Pradaxa , however she was told to discontinue it since she had vaginal bleeding. Patient states she never followed up for vaginal bleeding issue. -06/18 the patient status post EGD and colonoscopy which showed nodular duodenum, gastritis, esophagitis, erythema of the colon. -06/19 patient is status post MRCP which showed cholelithiasis with mild gallbladder wall edema. No choledocholithiasis. New small bilateral pleural effusions. Mild right hydronephrosis decreased from prior CTA. Diabetes mellitus - Continue to hold home metformin - Blood sugars have been stable. Pediculosis Capitis - There are reports that lice was Observed on patient. Sp treatment with permethrin lotion. Discharge Planning Okay to DC to SNF today. Problem Qualifiers (1) UTI (urinary tract infection): Qualified Codes: N10 - Acute pyelonephritis Baljit Forrester MD Jun 28, 2017 12:41
[2017-06-28] MEDS: DONEPEZIL HCL 5 MG TAB PO SCH (20:35)
[2017-06-29] VITALS: BP 129/60; PULSE 71; RESP 18; TEMP 97.3; O2SAT 97
[2017-06-29 04:00] VITALS: BP 138/61; PULSE 82; RESP 18; TEMP 97.2; O2SAT 97
[2017-06-29 08:00] VITALS: BP 137/65; PULSE 71; RESP 17; TEMP 98.3; O2SAT 98
[2017-06-29] MEDS: INSULIN ASPART SUPPLEMENTAL SCALE SQ SCH (08:00)
[2017-06-29] MEDS: SODIUM CHLORIDE 0.9% FLUSH 10 ML FLUSH IV FLUSH SCH (09:00)
[2017-06-29] MEDS: MEMANTINE HCL 5 MG TAB PO SCH (09:00)
[2017-06-29] MEDS: FLUCONAZOLE 200 MG TAB PO SCH (09:25)
[2017-06-29] MEDS: FAMOTIDINE 20 MG TAB PO SCH (09:28)
[2017-06-29] MEDS: TOLTERODINE TARTRATE 2 MG CAP LA PO SCH (09:28)
[2017-06-29] MEDS: DABIGATRAN ETEXILATE 150 MG CAP PO SCH (09:28)
[2017-06-29] MEDS: PANTOPRAZOLE SODIUM 40 MG VIAL IV PUSH SCH (09:34)
[2017-06-29] MEDS: POLYETHYLENE GLYCOL 17 GM PKG PO SCH (09:34)
--- NOTE | 2017-06-29 11:02 | HHI.PR ---
Subjective Remarks Has been accepted at senior care facility today will be discharged to the senior care facility today Can have the senior care facility set up outpatient follow-up with a plastic surgeon regarding wound Discussed with patient and RN Objective Vitals Vital Signs Date Time Temp Pulse Resp B/P (MAP) Pulse Ox O2 Delivery O2 Flow Rate FiO2 06/29/17 08:00 98.3 71 17 137/65 (89) 98 06/29/17 04:00 97.2 82 18 138/61 (86) 97 06/29/17 00:00 97.3 71 18 129/60 (83) 97 06/28/17 20:00 98.0 79 20 135/65 (88) 98 06/28/17 19:45 78 06/28/17 16:00 97.6 75 19 125/59 (81) 100 06/28/17 11:29 96.9 90 17 136/90 (105) 98 I/O 06/28/17 06/28/17 06/28/17 06/29/17 06/29/17 06/29/17 07:00 15:00 23:00 07:00 15:00 23:00 Intake Total 1416 ml 120 ml 750 ml 320 ml Output Total 400 ml Balance 1416 ml 120 ml 350 ml 320 ml Intake Oral 760 ml 120 ml 750 ml 320 ml IV Total 656 ml Output Urine Total 400 ml # Voids 4 3 # Bowel Movements 0 Result Diagram: 06/26/17 1035 06/26/17 1035 Imaging Last Impressions Cholangiopancreatography MRI 06/19/17 0000 Signed Impressions: Service Date/Time: Monday, June 19, 2017 10:20 - CONCLUSION: 1. Cholelithiasis with mild gallbladder wall edema. However, there is no choledocholithiasis. 2. New small bilateral pleural effusions. 3. Mild right hydronephrosis, decreased from the prior CT. The left kidney has a stable appearance demonstrating severe cortical thinning and is essentially a hydronephrotic sac containing multiple stones. Estrada Good MD Pelvis Ultrasound 06/18/17 0000 Signed Impressions: Service Date/Time: Sunday, June 18, 2017 15:12 - CONCLUSION: 1. Thickened endometrial canal. 2. Echogenic structure associated with the endometrial canal could relate to an IUD or residual part of an IUD. Royal Philippe Jr., MD Thoracic Spine CT 06/12/172015 Signed Impressions: Service Date/Time: Monday, June 12, 2017 22:01 - CONCLUSION: 1. No acute abnormality. Royal Philippe Jr., MD Pelvis X-Ray 06/12/172015 Signed Impressions: Service Date/Time: Monday, June 12, 2017 20:25 - CONCLUSION: No acute disease. Roayl Philippe Jr., MD Lumbar Spine CT 06/12/172015 Signed Impressions: Service Date/Time: Monday, June 12, 2017 22:01 - CONCLUSION: 1. No fracture or dislocation. 2. Degenerative changes. 3. See the CT of the abdomen and pelvis reported separately. Royal Philippe Jr., MD Head CT 06/12/172015 Signed Impressions: Service Date/Time: Monday, June 12, 2017 21:56 - CONCLUSION: 1. No acute intracranial abnormality. 2. Atrophy and chronic small vessel ischemic change. Royal Philippe Jr., MD Chest X-Ray 06/12/172015 Signed Impressions: Service Date/Time: Monday, June 12, 2017 20:30 - CONCLUSION: No acute disease. Royal Philippe Jr., MD Cervical Spine CT 06/12/172015 Signed Impressions: Service Date/Time: Monday, June 12, 2017 21:56 - CONCLUSION: 1. No fracture or dislocation. 2. Degenerative changes as detailed above. Royal Philippe Jr., MD Abdomen/Pelvis CT 06/12/172015 Signed Impressions: Service Date/Time: Monday, June 12, 2017 22:01 - CONCLUSION: 1. 9 mm right mid ureteral stone with resulting hydronephrosis and proximal hydroureter. 2. Chronic hydronephrosis on the left with cortical thinning of the kidney and multiple nonobstructing left sided renal calculi. 3. Cholelithiasis. Royal Philippe Jr., MD Objective Remarks GENERAL: Alert and oriented talkative and cooperative SKIN: Warm and dry.Large sacral wound, unstageable. There is a 8 x 6 cm area of necrotic tissue. Surrounding tissue is pink. HEAD: Atraumatic. Normocephalic. EYES: Pupils equal and round. No scleral icterus. No injection or drainage. Extraocular muscles intact ENT: No nasal bleeding or discharge. Mucous membranes pink and moist. Tongue is midline NECK: Trachea midline. No JVD. Neck is supple CARDIOVASCULAR: Regular rate and rhythm. S1 and S2 no S3-S4 no heave or thrill or rub or gallop RESPIRATORY: No accessory muscle use. Clear to auscultation. Breath sounds equal bilaterally. GASTROINTESTINAL: Abdomen soft, non-tender, nondistended. Hepatic and splenic margins not palpable. MUSCULOSKELETAL: Extremities without clubbing, cyanosis, or edema. No obvious deformities. NEUROLOGICAL: Awake and alert. No obvious cranial nerve deficits. Motor grossly within normal limits. 4 out of 5 muscle strength in the arms and legs. Normal speech. PSYCHIATRIC: Appropriate mood and affect; insight and judgment normal. Procedures Status post Cystoscopy with right retrograde study and right double-J stent insertion 06/13/17 Medications and IVs Current Medications Sodium Chloride 1,000 ml @ 1,000 mls/hr Q1H ONCE IV Last administered on 20:56; Start 06/12/17 at 20:45; Stop 06/12/17 at 21:44; Status DC Permethrin (Nix Creme Rinse 1% Lotion) 1 applic ONCE ONCE TOPICAL Last administered on 06/12/17 21:56; Start 06/12/17 at 21:15; Stop 06/12/17 at 21:16 ; Status DC Piperacillin Sod/ Tazobactam Sod 50 ml @ 100 mls/hr ONCE ONCE IV Last administered on 06/12/17 22:17; Start 06/12/17 at 21:30; Stop 06/12/17 at 21:59 ; Status DC Vancomycin HCl 1000 mg/Sodium Chloride 250 ml @ 250 mls/hr ONCE ONCE IV Last administered on 06/12/17 22:59; Start 06/12/17 at 21:30; Stop 06/12/17 at 22:29 ; Status DC Sodium Chloride 1,000 ml @ 1,000 mls/hr Q1H ONCE IV Last administered on 22:59; Start 06/12/17 at 21:45; Stop 06/12/17 at 22:44; Status DC Metoprolol Succinate (Toprol Xl) 50 mg DAILY PO Last administered on 06/13/17 10:15; Start 06/13/17 at 09:00; Status Future Hold Sodium Chloride (NS Flush) 2 ml UNSCH PRN IV FLUSH FLUSH AFTER USING IV ACCESS Last administered on 06/14/17 09:02; Start 06/12/17 at 23:15 Sodium Chloride (NS Flush) 2 ml BID IV FLUSH Last administered on 06/28/17 09 :06; Start 06/13/17 at 09:00 Acetaminophen (Tylenol) 650 mg Q6H PRN PO PAIN 1-10 AND/OR FEVER >101F Last administered on 06/14/17 18:25; Start 06/12/17 at 23:15 Famotidine (Pepcid Inj) 10 mg Q12HR IV PUSH Last administered on 06/22/17 21: 13; Start 06/13/17 at 09:00; Stop 06/23/17 at 09:21; Status DC Ondansetron HCl (Zofran Inj) 4 mg Q6H PRN IV PUSH NAUSEA OR VOMITING; Start at 23:15 Temazepam (Restoril) 15 mg HS PRN PO INSOMNIA; Start 06/12/17 at 23:15; Status Future Hold Albuterol/ Ipratropium (Duoneb Neb) 1 ampule Q2HR NEB PRN INH WHEEZING; Start 06/12/17 at 23:15 Miscellaneous Information 1 [id number] XX Last administered on 06/12/17 01:00; Start 06/12/17 at 23:15 Chlorhexidine Gluconate (Chlorhexidine 2% Cloth) Taper DAILY@04 TOP Last administered on 06/15/17 04:00; Start 06/13/17 at 04:00; Stop 06/09/18 at 03: 59 Chlorhexidine Gluconate (Chlorhexidine 2% Cloth) 3 pack UNSCH PRN TOP HYGIENIC CARE; Start 06/12/17 at 23:15 Senna/Docusate Sodium (Belen-Colace) 1 tab BID PO Last administered on 09:01; Start 06/13/17 at 09:00; Stop 06/14/17 at 09:38; Status DC Magnesium Hydroxide (Milk Of Magnesia Liq) 30 ml Q12H PRN PO Mild constipation ; Start 06/12/17 at 23:15 Sennosides (Senokot) 17.2 mg Q12H PRN PO Moderate constipation; Start 06/12/17 at 23:15; Stop 06/14/17 at 09:38; Status DC Bisacodyl (Dulcolax Supp) 10 mg DAILY PRN RECTAL SEVERE CONSITIPATION; Start 06/12/17 at 23:15 Lactulose (Lactulose Liq) 30 ml DAILY PRN PO SEVERE CONSITIPATION; Start at 23:15; Stop 06/14/17 at 09:38; Status DC Sodium Chloride 1,000 ml @ 200 mls/hr Q5H IV Last administered on 06/13/17 08 :21; Start 06/12/17 at 23:30; Stop 06/13/17 at 11:27; Status DC Dextrose (D50w (Vial) Inj) 50 ml UNSCH PRN IV PUSH HYPOGLYCEMIA-SEE COMMENTS Last administered on 06/13/17 19:51; Start 06/12/17 at 23:30; Stop 06/24/17 at 10:31; Status DC Glucagon (Glucagon Inj) 1 mg UNSCH PRN OTHER HYPOGLYCEMIA-SEE COMMENTS; Start 06/12/17 at 23:30; Stop 06/24/17 at 10:31; Status DC Insulin Aspart (NovoLOG SUPPLEMENTAL SCALE) 1 ACHS SLIDING SCALE SQ Last administered on 06/15/17 08:00; Start 06/13/17 at 08:00 Sodium Chloride 1,000 ml @ 999 mls/hr BOLUS ONCE IV Last administered on 06/13 12:06; Start 06/13/17 at 08:30; Stop 06/13/17 at 09:30; Status DC Sodium Chloride 1,000 ml @ 999 mls/hr BOLUS ONCE IV Last administered on 06/13 08:30; Start 06/13/17 at 08:30; Stop 06/13/17 at 09:30; Status DC Piperacillin Sod/ Tazobactam Sod 50 ml @ 100 mls/hr Q8H IV Last administered on 06/19/17 08:00; Start 06/13/17 at 10:00; Stop 06/19/17 at 08:28; Status DC Sodium Chloride 38.5 meq/Sodium Bicarbonate 100 meq/Sterile Water 1,109.625 ml @ 75 mls/hr [id number] IV ; Start 06/13/17 at 11:00; Stop 06/13/17 at 11:00; Status DC Sodium Bicarbonate 100 meq/Sterile Water 950 ml @ 65 mls/hr [id number] IV Last administered on 06/17/17 03:06; Start 06/13/17 at 09:30; Stop 06/17/17 at 09: 22; Status DC Sugammadex Sodium (Bridion Inj) 200 mg STK-MED ONCE IV PUSH ; Start 06/13/17 at 21:22; Stop 06/13/17 at 21:23; Status DC Miscellaneous Information ALL NURSING DEPARTME... UNSCH PRN .XX SEE LABEL COMMENTS; Start 06/13/17 at 22:00; Stop 06/14/17 at 21:59; Status DC Hydralazine HCl (Apresoline) 50 mg ONCE ONCE PO Last administered on 18:42; Start 06/14/17 at 18:45; Stop 06/14/17 at 18:46; Status DC Potassium Chloride (KCl) 60 meq ONCE ONCE PO ; Start 06/15/17 at 08:15; Stop 06/15/17 at 08:22; Status DC Potassium Bicarb/ Potassium Chloride (K-Lyte Cl Eff) 50 meq ONCE ONCE PO ; Start 06/15/17 at 12:00; Stop 06/15/17 at 12:01; Status DC Donepezil HCl (Aricept) 5 mg HS PO Last administered on 06/28/17 20:35; Start 06/15/17 at 21:00 Memantine (Namenda) 5 mg DAILY PO Last administered on 06/29/17 09:00; Start 06/16/17 at 09:00 Potassium Chloride (KCl) 20 meq ONCE ONCE PO ; Start 06/16/17 at 10:00; Stop 06/16/17 at 10:03; Status DC Sodium Chloride 250 ml @ 15 mls/hr ONCE ONCE IV ; Start 06/16/17 at 10:00; Stop 06/17/17 at 02:39; Status DC Acetaminophen (Tylenol) 650 mg Q4H PRN PO SEE LABEL COMMENTS Last administered on 06/16/17 16:58; Start 06/16/17 at 10:00 Diphenhydramine HCl (Benadryl) 25 mg Q4H PRN PO SEE LABEL COMMENTS Last administered on 06/16/17 16:58; Start 06/16/17 at 10:00 Sodium Chloride 250 ml @ 15 mls/hr ONCE ONCE IV Last administered on 16:29; Start 06/16/17 at 11:00; Stop 06/17/17 at 03:39; Status DC Pantoprazole Sodium 80 mg/ Sodium Chloride 100 ml @ 10 mls/hr Q10H IV Last administered on 06/17/17 03:08; Start 06/16/17 at 12:00; Stop 06/17/17 at 11 :03; Status DC Sodium Chloride 38.5 meq/Sterile Water 1,009.625 ml @ 50 mls/hr [id number] IV Last administered on 06/18/17 21:32; Start 06/17/17 at 10:00; Stop 06/19/17 at 11:39; Status DC Potassium Chloride (KCl) 30 meq ONCE ONCE PO ; Start 06/17/17 at 09:30; Stop 06/17/17 at 09:31; Status DC Calcium Chloride 2 gm/Sodium Chloride 120 ml @ 120 mls/hr ONCE ONCE IV Last administered on 06/17/17 10:42; Start 06/17/17 at 09:30; Stop 06/17/17 at 10 :29; Status DC Pantoprazole Sodium (Protonix Inj) 40 mg Q12HR IV PUSH Last administered on 09:34; Start 06/17/17 at 11:15 Iron Sucrose 200 mg/Sodium Chloride 110 ml @ 110 mls/hr DAILY IV Last administered on 06/17/17 14:15; Start 06/17/17 at 12:15; Stop 06/20/17 at 09 :13; Status DC Polyethylene Glycol/ Electrolytes (Colyte Liq) 4,000 ml ONCE ONCE PO Last administered on 06/17/17 14:16; Start 06/17/17 at 14:00; Stop 06/17/17 at 14 :01; Status DC Bisacodyl (Dulcolax Ec) 20 mg ONCE ONCE PO ; Start 06/17/17 at 14:00; Stop at 14:01; Status Cancel Bisacodyl (Dulcolax Ec) 20 mg ONCE ONCE PO Last administered on 06/17/17 14: 17; Start 06/17/17 at 14:15; Stop 06/17/17 at 14:16; Status DC Lactated Ringer's 1,000 ml @ 30 mls/hr Q24H PRN IV SEE LABEL COMMENTS; Start 06/17/17 at 18:30; Stop 06/20/17 at 18:29; Status DC Sodium Chloride 500 ml @ 30 mls/hr [id number] PRN IV SEE LABEL COMMENTS; Start at 18:30; Stop 06/20/17 at 18:29; Status DC Metoprolol Tartrate (Lopressor) 25 mg MICROSYSTEMS ENGINEER PRN PO SEE LABEL COMMENTS; Start 06/17/17 at 18:30; Stop 06/20/17 at 18:29; Status DC Povidone Iodine (Betadine 5% Antisepsis Kit) 1 applic MICROSYSTEMS ENGINEER PRN EACH NARE SEE LABEL COMMENTS; Start 06/17/17 at 18:30; Stop 06/20/17 at 18:29; Status DC Chlorhexidine Gluconate (Chlorhexidine 2% Cloth) 3 pack MICROSYSTEMS ENGINEER PRN TOPICAL SEE LABEL COMMENTS; Start 06/17/17 at 18:30; Stop 06/20/17 at 18:29; Status DC Insulin Human Regular (NovoLIN R INJ) See Protocol Table ... MICROSYSTEMS ENGINEER PRN SQ SEE PROTOCOL TABLE; Start 06/17/17 at 18:30; Stop 06/20/17 at 18:29; Status DC Potassium Chloride 100 ml @ 100 mls/hr Q1H IV Last administered on 06/18/17 17:13; Start 06/18/17 at 11:00; Stop 06/18/17 at 13:59; Status DC Miscellaneous Information ALL NURSING DEPARTME... UNSCH PRN .XX SEE LABEL COMMENTS; Start 06/18/17 at 10:45; Stop 06/19/17 at 10:44; Status DC Piperacillin Sod/ Tazobactam Sod 50 ml @ 100 mls/hr Q6H IV Last administered on 06/20/17 08:34; Start 06/19/17 at 09:00; Stop 06/20/17 at 14:34; Status DC Potassium Chloride (KCl) 20 meq ONCE ONCE PO ; Start 06/19/17 at 10:00; Stop 06/19/17 at 10:01; Status DC Dextrose 1,000 ml @ 50 mls/hr Q20H IV Last administered on 06/20/17 20:38; Start 06/19/17 at 11:45; Stop 06/20/17 at 21:21; Status DC Iron Sucrose 200 mg/Sodium Chloride 110 ml @ 110 mls/hr DAILY IV Last administered on 06/22/17t 08:38; Start 06/20/17 at 09:00; Stop 06/22/17 at 09 :59; Status DC Potassium Chloride 100 ml @ 50 mls/hr BOLUS ONCE IV Last administered on t 12:27; Start 06/20/17 at 09:15; Stop 06/20/17 at 11:14; Status DC Lidocaine HCl (Xylocaine-Mpf 1% Inj) 50 ml STK-MED ONCE OTHER ; Start 06/13/17 at 12:00; Stop 06/20/17 at 12:18; Status DC Rocuronium [place] (Zemuron Inj) 50 mg STK-MED ONCE IV PUSH ; Start 06/13/17 at 12:00; Stop 06/20/17 at 12:18; Status DC Midazolam HCl (Versed Inj) 2 mg STK-MED ONCE IV ; Start 06/13/17 at 12:00; Stop 06/20/17 at 12:18; Status DC Ondansetron HCl (Zofran Inj) 4 mg STK-MED ONCE IV PUSH ; Start 06/13/17 at 12:00 ; Stop 06/20/17 at 12:18; Status DC Fentanyl Citrate (fentaNYL INJ) 100 mcg STK-MED ONCE IV ; Start 06/13/17 at 12: 00; Stop 06/20/17 at 12:18; Status DC Morphine Sulfate (Morphine Inj) 4 mg STK-MED ONCE IV ; Start 06/13/17 at 12:00; Stop 06/20/17 at 12:18; Status DC Propofol (Diprivan 200 Mg/20 ml Inj) 200 mg STK-MED ONCE IV ; Start 06/13/17 at 12:00; Stop 06/20/17 at 12:18; Status DC Miscellaneous Medication (ASP Crit: Other exception documentation) 1 UNSCH X1 PRN .XX PHARMACY DOCUMENTATION; Start 06/20/17 at 14:30; Stop 06/21/17 at 14: 29; Status DC Miscellaneous Medication (Misc Pharmacy Information) 1 UNSCH X1 PRN XX PHARMACY DOCUMENTATION; Start 06/20/17 at 14:30; Stop 06/21/17 at 14:29; Status DC Ertapenem 500 mg/ Sodium Chloride 100 ml @ 200 mls/hr Q24H IV Last administered on 06/26/17 14:35; Start 06/20/17 at 16:00; Stop 06/27/17 at 10 :53; Status DC Miscellaneous Medication ([facility] Information) 1 UNSCH X1 PRN XX PHARMACY DOCUMENTATION; Start 06/20/17 at 14:30; Stop 06/21/17 at 14:29; Status DC Propofol (Diprivan 200 Mg/20 ml Inj) 400 mg STK-MED ONCE IV ; Start 06/18/17 at 12:00; Stop 06/20/17 at 15:22; Status DC Ephedrine Sulfate (ePHEDrine/NS 25 MG/5 ML SYR) 25 mg STK-MED ONCE IV ; Start 06/18/17 at 12:00; Stop 06/20/17 at 15:22; Status DC Lidocaine HCl (Xylocaine-Mpf 1% Inj) 5 ml STK-MED ONCE OTHER ; Start 06/18/17 at 12:00; Stop 06/20/17 at 15:22; Status DC Phenylephrine HCl (Neosynephrine/ NS 1000 Mcg/10ml Syr) 1,000 mcg STK-MED ONCE IV ; Start 06/18/17 at 12:00; Stop 06/20/17 at 15:22; Status DC Calcium Chloride 2 gm/Sodium Chloride 120 ml @ 120 mls/hr ONCE ONCE IV Last administered on 06/20/17 20:38; Start 06/20/17 at 19:00; Stop 06/20/17 at 19 :59; Status DC Potassium Chloride 30 meq/ Sodium Chloride 1,015 ml @ 42 mls/hr Q24H IV Last administered on 06/28/17 20:36; Start 06/20/17 at 22:00 Polyethylene Glycol (Miralax) 17 gm DAILY PO Last administered on 06/29/17 09 :34; Start 06/21/17 at 11:00 Permethrin (Nix Creme Rinse 1% Lotion) 1 applic ONCE ONCE TOPICAL Last administered on 06/22/17 21:51; Start 06/22/17 at 17:45; Stop 06/22/17 at 17 :46; Status DC Famotidine (Pepcid) 10 mg BID PO Last administered on 06/29/17 09:28; Start 06/23/17 at 10:00 Iohexol (Omnipaque 350 Inj) 50 ml STK-MED ONCE OTHER ; Start 06/13/17 at 12:00; Stop 06/23/17 at 12:32; Status DC Fluconazole (Diflucan) 200 mg DAILY PO Last administered on 06/29/17 09:25; Start 06/25/17 at 11:00; Stop 07/09/17 at 10:59 Dabigatran (Pradaxa) 150 mg BID PO Last administered on 06/29/17 09:28; Start 06/26/17 at 21:00 Tolterodine Tartrate (Detrol La) 2 mg DAILY PO Last administered on 06/29/17 09:28; Start 06/27/17 at 09:00 A/P Problem List: (1) Sepsis ICD Code: A41.9 - Sepsis, unspecified organism Status: Resolved (2) Acute blood loss anemia ICD Code: D62 - Acute posthemorrhagic anemia Status: Resolved (3) Thrombocytopenia ICD Code: D69.6 - Thrombocytopenia, unspecified Status: Resolved (4) Ureteral calculus, left ICD Code: N20.1 - Calculus of left ureter Status: Resolved (5) HTN (hypertension) ICD Code: I10 - Essential (primary) hypertension Status: Chronic (6) UTI (urinary tract infection) ICD Code: N39.0 - Urinary tract infection, site not specified Status: Resolved (7) Elevated lipase ICD Code: R74.8 - Abnormal levels of other serum enzymes Status: Acute (8) Gram-negative bacteremia ICD Code: R78.81 - Bacteremia Status: Resolved (9) Vaginal bleeding ICD Code: N93.9 - Abnormal uterine and vaginal bleeding, unspecified Status: Resolved (10) Pediculosis capitis ICD Code: B85.0 - Pediculosis due to Pediculus humanus capitis Status: Resolved Assessment and Plan Assessment and Plan 66-year-old female with multiple comorbid conditions who was found down at home admitted and treated for MSSA bacteremia, sepsis, acute blood loss anemia, acute kidney injury. Patient significantly improved. She does have a sacral wound that needs follow up. This can be done outpatient. It has been arranged for the patient to be seen at the wound care center by Dr. Cantrell. Sacral ulcer: Pressure ulcer. Patient was found down. She has improved significantly and is able to turn better. Wound has good healing potential but needs further follow-up. It has been arranged for the patient to be seen by wound care physician Dr. Cantrell outpatient. Continue wound care at the nursing facility. Elevated lipase Cholelithiasis - May need cholecystectomy in the future - CT abdomen shows normal pancreas - 06/[address] GI consult. Continue to monitor lipase which seems to be trending down. Today down to 6913 from 740 - 06/18 appreciate GI consultation recommendations. Lipase at the time of admission was elevated. Clinically patient without abdominal pain, nausea vomiting. Continue to follow-up GI recommendations. - 06/20 Patient still has elevated lipase however no abdominal pain. As per GI will come down on diet if lipase persistently elevated. - 06/21 Lipase trending down. continue low fat diet. - Lipase back up to 1738. Discussed case with GI, suggested general surgery consultation. - 06/23 Appreciate general surgery recommendations, lipase slightly improved from 1738 to 1666. No acute surgical needs at this time as per general surgery. - 06/25 Lipase slightly higher, however patient asymptomatic. Patient has been cleared by GI. Acute kidney failure Uremia Acute right hydronephrosis, hydroureter from obstructing stone Chronic left hydronephrosis Hypokalemia. - Status post Cystoscopy with right retrograde study and right double-J stent insertion 06/13/17. Appreciate input from urology. Will need outpt ESWL to Rx Right ureteral calculus -Appreciate input from nephrology, and patient does not need at this time hemodialysis -Continue with IV fluid hydration and monitor BUN and creatinine - 06/21 Creatinine continues to improve. Good urine output. Follow-up nephrology recommendations. Continue to monitor BUN/creatinine, strict I's and O's, avoid nephrotoxins. - As per urology foly catheter needs to remain until creatinine stabilizes. - 06/23 Creatinine slightly higher than previous day. Will Dc guzman catheter and continue to monito BUN/Creatinine. - 06/24 Creatinine stable and slightly improved at 1.5, possibly new baseline. Severe sepsis UTI/acute pyelonephritis - Received Zosyn and vancomycin in the ED - Continue renally dosed Zosyn - Patient with UA positive urine culture growing Enterobacter cloacae. Last culture obtained on 06/14 still growing gram-negative rods. ID consulted, continue to follow-up ID recommendations. Antibiotics as per ID. Patient completed treatment with ertapenem per infectious disease guidance. Gram-negative cayla Bacteremia 4 out of 4 blood culture positive for gram-negative cayla Appreciate input from infectious disease specialist 06/19 Repeat blood cultures obtained on 11/15 negative to date. Patient completed treatment with antibiotics as above. Thrombocytopenia Acute Blood loss anemia - Most likely secondary to sepsis and dehydration\ -Continue to monitor, may consider hematology consultation - 06/16 Likely due to GI bleed since patient will reported melanotic stools. The patient nothing by mouth, start IV Protonix drip and consult GI. Transfuse 2 units of packed blood cells since hemoglobin today 6.8 and reports of active bleeding. Goal hemoglobin more than 9. I will also transfuse 2 units of platelets since the patient has a platelet count of 35 K to a goal platelet count of more than 50 K. I will also sent and studies, stool for Hemoccult blood, consult hematology, I will order PT, PTT, INR, fibrinogen, LDH , haptoglobin to rule out DIC or hemolytic anemia. - 06/17 Sp transfusion of 2 units of packed blood cells, 2 units of platelets. Hemoglobin improved to 9.2 and platelets improved to 88. Appreciate hematology consultation recommendations. The patient is getting IV iron. There is no evidence of hemolysis as her LDH, haptoglobin, direct comes is normal. Plan for panendoscopy in am. The patient states that she was previously on Pradaxa , however she was told to discontinue it since she had vaginal bleeding. Patient states she never followed up for vaginal bleeding issue. -06/18 the patient status post EGD and colonoscopy which showed nodular duodenum, gastritis, esophagitis, erythema of the colon. -06/19 patient is status post MRCP which showed cholelithiasis with mild gallbladder wall edema. No choledocholithiasis. New small bilateral pleural effusions. Mild right hydronephrosis decreased from prior CTA. Diabetes mellitus - Continue to hold home metformin - Blood sugars have been stable. Pediculosis Capitis - There are reports that lice was Observed on patient. Sp treatment with permethrin lotion. Discharge Planning Okay to DC to SNF today. Discharge Planning Will be discharged to the senior care facility today Problem Qualifiers (1) UTI (urinary tract infection): Qualified Codes: N10 - Acute pyelonephritis Kaleb Blanchard DO Jun 29, 2017 11:02
== END 2017-06-29 11:28 | DRG 871 ==
LOC: NEPE 19:47 → NEDA 21:50 → HIME 06-13 00:10 → N07B 06-15 16:32
PROVIDERS: ADMIT Hospitalist; ATTEND Hospitalist
PROC: 0T9B70Z Drainage of Bladder with Drainage Device, Via Natural or Artificial Opening (ICD-10-PCS; principal; 2017-06-12)
PROC: 6A551Z2 Pheresis of Platelets, Multiple (ICD-10-PCS; 2017-06-13)
PROC: 0T768DZ Dilation of Right Ureter with Intraluminal Device, Via Natural or Artificial Opening Endoscopic (ICD-10-PCS; 2017-06-13)
PROC: 30233N1 Transfusion of Nonautologous Red Blood Cells into Peripheral Vein, Percutaneous Approach (ICD-10-PCS; 2017-06-16)
PROC: 0DB98ZX Excision of Duodenum, Via Natural or Artificial Opening Endoscopic, Diagnostic (ICD-10-PCS; 2017-06-18)
PROC: 0DB38ZX Excision of Lower Esophagus, Via Natural or Artificial Opening Endoscopic, Diagnostic (ICD-10-PCS; 2017-06-18)
PROC: 0DBK8ZX Excision of Ascending Colon, Via Natural or Artificial Opening Endoscopic, Diagnostic (ICD-10-PCS; 2017-06-18)
PROC: 0D738ZZ Dilation of Lower Esophagus, Via Natural or Artificial Opening Endoscopic (ICD-10-PCS; 2017-06-18)
DX: A41.59 Other Gram-negative sepsis (principal); D65 Disseminated intravascular coagulation [defibrination syndrome]; N17.9 Acute kidney failure, unspecified; G93.41 Metabolic encephalopathy; L89.150 Pressure ulcer of sacral region, unstageable; E46 Unspecified protein-calorie malnutrition; E87.0 Hyperosmolality and hypernatremia; E87.2 Acidosis; D69.59 Other secondary thrombocytopenia; B37.81 Candidal esophagitis; N13.2 Hydronephrosis with renal and ureteral calculous obstruction; N13.6 Pyonephrosis; D62 Acute posthemorrhagic anemia; K92.2 Gastrointestinal hemorrhage, unspecified; I69.320 Aphasia following cerebral infarction; E86.0 Dehydration; W19.XXXA Unspecified fall, initial encounter; R19.7 Diarrhea, unspecified; D70.3 Neutropenia due to infection; M54.2 Cervicalgia; I25.10 Atherosclerotic heart disease of native coronary artery without angina pectoris; I10 Essential (primary) hypertension; R00.0 Tachycardia, unspecified; S30.811A Abrasion of abdominal wall, initial encounter; K59.00 Constipation, unspecified; E11.9 Type 2 diabetes mellitus without complications; E86.1 Hypovolemia; D50.9 Iron deficiency anemia, unspecified; E55.9 Vitamin D deficiency, unspecified; K80.20 Calculus of gallbladder without cholecystitis without obstruction; K22.2 Esophageal obstruction; K44.9 Diaphragmatic hernia without obstruction or gangrene; K29.80 Duodenitis without bleeding; K64.8 Other hemorrhoids; R65.20 Severe sepsis without septic shock; E87.6 Hypokalemia; R74.8 Abnormal levels of other serum enzymes; N93.9 Abnormal uterine and vaginal bleeding, unspecified; B85.0 Pediculosis due to Pediculus humanus capitis; I49.1 Atrial premature depolarization; K29.50 Unspecified chronic gastritis without bleeding; Z79.84 Long term (current) use of oral hypoglycemic drugs; Z95.5 Presence of coronary angioplasty implant and graft; Z86.718 Personal history of other venous thrombosis and embolism; Z87.442 Personal history of urinary calculi; Z87.440 Personal history of urinary (tract) infections; Z80.3 Family history of malignant neoplasm of breast; G31.84 Mild cognitive impairment of uncertain or unknown etiology; F60.9 Personality disorder, unspecified
CPT/HCPCS: 36430; 36569; 51702; 70450; 71010; 72125; 72128; 72131; 72170; 74176; 74181; 74420; 76377; 76856; 76937; 80048; 80053; 80069; 80307; 81001; 82150; 82272; 82550; 82552; 82570; 82728; 82948; 83010; 83540; 83550; 83605; 83615; 83690; 83735; 83880; 84100; 84155; 84300; 84443; 84484; 85007; 85025; 85027; 85044; 85384; 85610; 85730; 86705; 86803; 86850; 86880; 86900; 86901; 86920; 87040; 87077; 87086; 87186; 87205; 87340; 87641; 88305; 88312; 93005; 93306; 96360; C1769; C2617; C9113; J1335; J1756; J1815; J2250; J2270; J2370; J2405; J2543; J3010; J3370; J3480; J7030; J7050; J7070; P9016; P9035; Q9967